=== PATIENT | male | born 1955 | race Caucasian/White ===

== ENCOUNTER 2024-09-30 14:05 | Outpatient (AMB) | payer MEDICARE, SELFPAY ==
--- NOTE | 2024-09-30 14:13 | A.OFFPC_ITS ---
Vital Signs 09/30/24 14:30 Height 5 ft 9 in Weight 196 lb BMI 28.9 BP 138/68 Blood Pressure Location Rt brachial Respiration 14 Pulse 65 Pulse Source Pulse Oximeter Pulse Oximetry (%) 97 Oxygen Delivery Method Room Air Intake Visit Reasons: EST CARE/ UROLOGIST REFERRAL Intake Note: new patient to establish care and patient also needs a referral for urologist for catheter change. 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: No Allergies No Known Allergies Allergy (Verified 09/30/24 14:14) Tobacco use date assessed: 09/30/24 Fall risk assessment: No Falls in past year Last assessed Fall Risk: 09/30/24 Dental Screening Dental Screen Date: 09/30/24 Did you have a dental visit in the last 12 months?: No Did you have a dental problem in the last 6 months where you did not have access to dental care?: No Was dental information given to patient?: Patient has dentist HPI HPI Comments History of Present Illness Details 69-year-old male with a past medical his tory of hypertension, COPD, hyperlipidemia, osteoarthritis colon cancer, amputation of the right middle finger and presents as a new patient to request a referral. His primary care provider here will be Dr. March. He relocated to this area from [facility] 3-[place]2 weeks ago. He is still following with his providers there. No medical records available to review today. He requests a referral to Urology in [place]. He has a suprapubic catheter. Patient reports he developed bladder incontinence following complications from cervical spine surgery in 2019. He developed an embolus after surgery and was hospitalized for weeks. 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 He has an appointment with his urologist at [facility] tomorrow. COPD-he takes Symbicort 160-4.52 puffs twice daily. Patient developed cough a little over a week ago. He says this is typical for him around this time of the year. He has some white and clear mucus production. No wheezing or shortness of breath. Patient reports his primary care provider typically treats him with steroids and antibiotics. He does not have a rescue inhaler. Patient says he is vaccinated for influenza, COVID, pneumonia and RSV. Osteoarthritis-patient states he is followed by [facility] for osteoarthritis in his neck and he has been on prednisone for the last year. He started with 10 mg and tapered down to 7 mg once daily. 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 ROS: Constitutional: No unexplained weight loss, fever, chills, fatigue or night sweats. ENT: No ear pain, sinus congestion, postnasal drip or sore throat Respiratory: No shortness of breath, wheezing or hemoptysis. See HPI Cardiovascular: No chest pain, chest pressure or chest discomfort. No palpitations or pedal edema. Neurologic: No headache, dizziness, syncope Physical exam: Constitutional: Alert, in no distress. Ear, Nose and Throat: Canals clear. TMs normal. Normal nasal mucosa. No nasal discharge. No oral lesions. Neck: Supple, Full range of motion. No lymphadenopathy. Respiratory: Clear to auscultation. Cardiovascular: S1 S2 regular. No murmurs. Extremities: Warm and well perfused. No clubbing, cyanosis or edema Psychiatric: Normal mood and affect [facility] Medical History (Updated 09/30/24 @ 15:50 by RICCARDO Levine) Pure hypercholesterolemia Essential hypertension Suprapubic catheter COPD exacerbation Osteoarthritis of cervical spine Neurogenic urinary bladder disorder Benitez catheter present Colon cancer Hypertension Amputation of right middle finger Surgical History (Updated 09/30/24 @ 14:30 by Blanca Messina MA) H/O neck surgery History of partial surgical removal of colon Previous back surgery Family History Mother High cholesterol Hypertension Brother Colon cancer Father Cardiovascular disease Social History (Updated 09/30/24 @ 14:24 by Blanca Messina MA) Household Members: Spouse Both parents involved: No Caregiver staying overnight: No Housing: House Are you a primary urgent care physician to a significant other at home: No Do you presently have visiting nurse or other home services: No 75 years or older and lives alone: No Alcohol intake: never Patient Tobacco Use Status: Former Tobacco user Tobacco use type: Cigarette Cigarette Packs Per Day: 2 Cigarettes Per Day: 20 Years Smoked: 50 e-Cigarette/Vaping Use: Never Used Second Hand Smoke Exposure: No service: No Current occupational status: retired Cognitive needs: No Hearing needs: Yes (hearing aid) Vision needs: No Questionnaire PHQ-9 Over the last 2 weeks, how often have you been bothered by any of the following problems? 99406 - PHQ-9 Billing: Patient declined-do not bill Source: Developed by Drs. Lane Robin, Mónica England, Thiago Stringer and colleagues, with an educational sanjay from [employer]. Thrive Questionnaire Date Thrive assessed: 09/30/24 I am a: Patient What is your living situation today?: I have a steady place to live Within the past 12 months, did the food you bought not last and you didn't have the money to get more?: Never true Within the past 12 months, did you worry whether your food would run out before you got money to buy more?: Never true Do you have trouble paying for medicines?: No Do you have trouble getting transportation to medical appointments?: No Do you have trouble paying your heating and electricity bill?: No Do you have trouble taking care of your child, family member or friend?: No Do you have trouble with day-to-day activities such as bathing, preparing meals, shopping, managing finances, etc.?: No Are you currently unemployed and looking for a job?: No Are you interested in more education?: No THRIVE Score: 0 AUDIT C Alcohol Use Questionnaire (AUDIT-C) 1. How often do you have a drink containing alcohol?: Never 3. How often do you have six or more drinks on one occasion?: Never Total Score: 0 DIANN-7 AMB Questionnaire DIANN-7 Date DIANN - 7 assessed: 09/30/24 Feeling nervous, anxious, or on edge: 0 = Not at all Not being able to stop or control worryin = Not at all Worrying too much about different things: 0 = Not at all Trouble relaxin = Not at all Being so restless that it is hard to sit still: 0 = Not at all Becoming easily annoyed or irritable: 0 = Not at all Feeling afraid as if something awful might happen: 0 = Not at all Total DIANN-7 score (0-4 normal; 5-9 mild; 10-14 moderate; 15-21 severe): 0 Source: Developed by Móinca Shah Kurt Kroenke and colleagues, with an educational sanjay from [employer]. DIANN-7 Assessment Billing DIANN-7 Assessment Tool: DIANN-7 Assessment 85278 Physical exam (Primary Care) Vital Signs: Last Vital Signs Pulse 65 09/30/24 14:30 Resp 14 09/30/24 14:30 BP 138/68 09/30/24 14:30 Pulse Ox 97 09/30/24 14:30 Oxygen Delivery Method Room Air 09/30/24 14:30 BMI result Body Mass Index 28.9 Tobacco/Smoking Status: Tobacco use Status Tobacco use date assessed 09/30/24 09/30/24 14:16 Patient Tobacco Use Status Former Tobacco user 09/30/24 14:32 Tobacco use type Cigarette 09/30/24 14:32 e-Cigarette/Vaping Use Never Used 09/30/24 14:32 Thrive Assessment: Date of Thrive Assessment Date Thrive assessed 09/30/24 09/30/24 14:16 Coding Level of Care Code New Pt Level 4 (20790) Complex EM visit Add On G2211 Diagnoses COPD exacerbation J44.1 Neurogenic urinary bladder disorder N31.9 Additional Codes DIANN-7 Assessment Billing - DIANN-7 Assessment Tool: DIANN-7 Assessment 29653 ([id number]) Assessment & Plan Assessment & Plan (1) COPD exacerbation: Code(s): J44.1 - Chronic obstructive pulmonary disease with (acute) exacerbation Category: Medical Plan: Treat with Z-David and prednisone taper. Side effects and administration of medications reviewed. Continue Symbicort. Take albuterol 2 puffs every 4 hours as needed for cough, wheezing and shortness of breath. Warning signs warranting re-evaluation and ED evaluation reviewed with the patient. (2) Neurogenic urinary bladder disorder: Code(s): N31.9 - Neuromuscular dysfunction of bladder, unspecified Category: Medical Plan: Patient has a follow up with his urologist tomorrow, and I referred him to Ur ology at [facility]. Plan Patient will set up appointment to establish care with his PCP, Dr. March. Records transfer pending. Orders: Referrals Urology Referral N31.9 - Neuromuscular dysfunction of bladder, unspecified Medications: New albuterol sulfate 90 mcg/actuation (Ventolin HFA) 2 puffs inhalation Q4-6H PRN 8.5 grams 0RF shortness of breath or wheezing azithromycin For 250 mg dose pack: take 500 mg today (day 1), then 250 mg for 4 days (days 2-5) PO 6 tabs 0RF prednisone orally daily; Take 3 tabs po qam x 3 days, then take 2 tabs po qam x 3 days, then take 1 tab po qam x 3 days 18 tabs 0RF
[2024-09-30 14:30] VITALS: BP 138/68; PULSE 65; RESP 14; O2SAT 97; BMI 28.9
== END 2024-09-30 15:17 | disposition home or self-care (01) ==
PROVIDERS: Visit Provider Physician Assistant Medical
DX: J44.1 Chronic obstructive pulmonary disease with (acute) exacerbation (principal); N31.9 Neuromuscular dysfunction of bladder, unspecified

== ENCOUNTER → 2024-09-30 14:05 | Outpatient (BNVA) | payer MEDICARE, SELFPAY | PROVIDERS: Visit Provider Physician Assistant Medical | DX: J44.1 Chronic obstructive pulmonary disease with (acute) exacerbation (principal); N31.9 Neuromuscular dysfunction of bladder, unspecified; I10 Essential (primary) hypertension; M19.90 Unspecified osteoarthritis, unspecified site; Z85.038 Personal history of other malignant neoplasm of large intestine; Z79.52 Long term (current) use of systemic steroids; Z93.50 Unspecified cystostomy status | CPT/HCPCS: 96127; 99202 ==

== ENCOUNTER 2024-10-18 08:42 | Outpatient (REF) | payer MEDICARE, SELFPAY ==
--- NOTE | ~2024-10-18 | XR_ITS ---
EXAMINATION: XR CHEST CLINICAL INFORMATION: J44.1 - Chronic obstructive pulmonary disease with (acute) exacerbation COMPARISON: None available. TECHNIQUE: 2 views of the chest were obtained. FINDINGS: The lungs are hyperinflated but clear acute process. The heart size and pulmonary vascularity is normal. There is mild spondylosis dorsal spine. No lytic or sclerotic process seen. There are spinal electrodes in mid thoracic spine. XR/XR chest 2V IMPRESSION: Hyperinflated lungs but no acute process seen. Electronically signed by: Pal Florez MD 10/18/2024 09:09 AM OLIVIER
== END 2024-10-18 08:43 | disposition home or self-care (01) ==
LOC: HO.HMGCX 08:42
PROVIDERS: PCP Internal Medicine; Visit Provider Physician Assistant Medical
DX: J44.1 Chronic obstructive pulmonary disease with (acute) exacerbation (principal)
CPT/HCPCS: 71046

== ENCOUNTER → 2024-10-18 08:47 | Outpatient (BNV) | payer MEDICARE, SELFPAY | PROVIDERS: PCP Internal Medicine; Visit Provider Radiology Diagnostic Radiology | DX: J44.1 Chronic obstructive pulmonary disease with (acute) exacerbation (principal) | CPT/HCPCS: 71046 ==

== ENCOUNTER 2024-10-26 09:58 | Outpatient (AMB) | payer MEDICARE, SELFPAY ==
--- NOTE | 2024-10-26 10:12 | MHC.PC.OV ---
Vital Signs 10/26/24 10:22 Height 5 ft 9 in Weight 193 lb 2 oz BMI 28.5 BP 118/64 Blood Pressure Location Rt brachial Position Sitting Pulse 70 Pulse Source Pulse Oximeter Temp 98.2 F Temp Source Oral Pulse Oximetry (%) 94 Oxygen Delivery Method Room Air Intake Visit Reasons: going over xrays Intake Note: Xray results. Saw Lori Siddiqui for new patient visit, wants Dr Holm. 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 Had developed a cough at the end of september. Had xray which we reviewed today. this had no acute changes. He says this is typical for him around this time of the year. He generally has required two rounds of steroids and antibiotics before improvement. He has some white and clear mucus production. No wheezing or shortness of breath. He does not have a rescue inhaler. Patient says he is vaccinated for influenza, COVID, pneumonia and RSV. Osteoarthritis-patient states he is followed by [facility] for osteoarthritis in his neck and he has been on prednisone for the last year. He started with 10 mg and tapered down to 7 mg once daily. 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 Urologic: referred to urology. He has a suprapubic catheter. Patient reports he developed bladder incontinence following complications from cervical spine surgery in 2019. He developed an embolus after surgery and was hospitalized for weeks. 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 He has an appointment with his urologist at [facility] tomorrow. ROS CONSTITUTIONAL: Denies weight loss, fever and chills. HEENT: Denies changes in vision and hearing. RESPIRATORY: Denies SOB and cough. CV: Denies palpitations and CP GI: Denies abdominal pain, nausea, vomiting and diarrhea. : Denies dysuria and urinary frequency. MSK: Denies new myalgia and joint pain. SKIN: Denies rash and pruritus. NEUROLOGICAL: Denies headache PSYCHIATRIC: Denies recent changes in mood. PHYSICAL EXAM: GENERAL: Alert and oriented x 3. NAD EYES: EOMI. Anicteric. HENT: Moist mucous membranes. No scleral icterus. No cervical lymphadenopathy. LUNGS: Clear to auscultation bilaterally. CARDIOVASCULAR: Regular rate and rhythm. No murmur. No JVD. ABDOMEN: Soft, non-tender +bs EXTREMITIES: No edema. Non-tender. SKIN: No rashes or lesions. Warm. NEUROLOGIC: No focal neurological deficits. CN II-XII grossly intact PSYCHIATRIC: Cooperative. Appropriate mood and affect [facility] Medical History (Updated 11/08/24 @ 06:51 by Joy Holm MD) Pure hypercholesterolemia Essential hypertension Suprapubic catheter COPD exacerbation Osteoarthritis of cervical spine Neurogenic urinary bladder disorder Benitez catheter present Colon cancer Hypertension Amputation of right middle finger Surgical History H/O neck surgery History of partial surgical removal of colon Previous back surgery Family History Mother High cholesterol Hypertension Brother Colon cancer Father Cardiovascular disease Social History (Updated 10/26/24 @ 10:27 by Gayla Escalante CMA) Household Members: Spouse Both parents involved: No Caregiver staying overnight: No Housing: House Are you a primary senior resident care director to a significant other at home: No Do you presently have visiting nurse or other home services: No 75 years or older and lives alone: No Alcohol intake: never Patient Tobacco Use Status: Former Tobacco user Tobacco use type: Cigarette Cigarette Packs Per Day: 2 Cigarettes Per Day: 20 Years Smoked: 50 e-Cigarette/Vaping Use: Never Used Second Hand Smoke Exposure: No service: No Current occupational status: retired Cognitive needs: No Hearing needs: Yes (hearing aid) Vision needs: No Questionnaire Thrive Questionnaire Date Thrive assessed: 09/30/24 DIANN-7 AMB Questionnaire DIANN-7 Date DIANN - 7 assessed: 09/30/24 Source: Developed by Drs. Lane Robin, Mnóica England, Thiago Stringer and colleagues, with an educational sanjay from [employer]. Physical exam (Primary Care) Vital Signs: Last Vital Signs Temp 98.2 F 10/26/24 10:22 Pulse 70 10/26/24 10:22 BP 118/64 10/26/24 10:22 Pulse Ox 94 10/26/24 10:22 Oxygen Delivery Method Room Air 10/26/24 10:22 BMI result Body Mass Index 28.5 Tobacco/Smoking Status: Tobacco use Status Tobacco use date assessed 09/30/24 10/26/24 10:14 Patient Tobacco Use Status Former Tobacco user 10/26/24 10:27 Tobacco use type Cigarette 10/26/24 10:27 e-Cigarette/Vaping Use Never Used 10/26/24 10:27 Thrive Assessment: Date of Thrive Assessment Date Thrive assessed 09/30/24 10/26/24 10:14 Coding Level of Care Code Est Pt Level 4 (83845) Diagnoses Chronic obstructive pulmonary disease with acute exacerbation J44.1 COPD type: COPD with acute exacerbation Essential hypertension I10 Assessment & Plan Assessment & Plan (1) COPD (chronic obstructive pulmonary disease): Code(s): J44.9 - Chronic obstructive pulmonary disease, unspecified Category: Medical Qualifiers: COPD type: COPD with acute exacerbation Qualified Code(s): J44.1 - Chronic obstructive pulmonary disease with (acute) exacerbation Plan: Repeat round of steroids, antibiotics (2) Essential hypertension: Code(s): I10 - Essential (primary) hypertension Category: Medical Plan: stable on medications Medications: New azithromycin For 250 mg dose pack: take 500 mg today (day 1), then 250 mg for 4 days (days 2-5) PO 6 tabs 0RF Changed From prednisone orally daily; 60mg for 6 days, 40mg for 6 days, 20mg for 6 days, and 10mg for 6 days 39 tabs 0RF To prednisone orally daily; 60mg for 6 days, 40mg for 6 days, 20mg for 6 days, and 10mg for 6 days 39 tabs 0RF From gabapentin 600 mg PO DAILY To gabapentin 600 mg PO BID 360 tabs 3RF 90 days
[2024-10-26 10:22] VITALS: BP 118/64; PULSE 70; TEMP 36.8; O2SAT 94; BMI 28.5
== END 2024-10-26 10:46 | disposition home or self-care (01) ==
PROVIDERS: PCP Internal Medicine; Visit Provider Internal Medicine
DX: J44.1 Chronic obstructive pulmonary disease with (acute) exacerbation (principal); I10 Essential (primary) hypertension

== ENCOUNTER → 2024-10-26 09:58 | Outpatient (BNVA) | payer MEDICARE, SELFPAY | PROVIDERS: PCP Internal Medicine; Visit Provider Internal Medicine | DX: J44.1 Chronic obstructive pulmonary disease with (acute) exacerbation (principal); I10 Essential (primary) hypertension; E78.5 Hyperlipidemia, unspecified; R32 Unspecified urinary incontinence; Z96.0 Presence of urogenital implants; Z79.899 Other long term (current) drug therapy | CPT/HCPCS: 99212 ==

== ENCOUNTER 2024-11-09 09:56 | Outpatient (REF) | payer MEDICARE, SELFPAY ==
--- OUTSIDE RECORDS SUMMARY | 2024-11-09 14:15 | XMS_ITS | Encounter Summary ---
Author Organization [facility] Address [address] [place] [address] Care Team Providers Care Cellular Biologist Name Role Phone Tesha Pierce MD, Kristen Primary Care Provider + Reason for Visit * Consultation (Routine) - Authorized Specialty Diagnoses / Procedures Referred By Contac t Referred To Contact Urology Diagnoses 6 month follow up Procedures FOLLOW UP Kristen Parkinson MD [address] [place] [id number] Phone: tel: fax: Mara Tellez MD PhD [address] [place] [address] Phone: tel: fax: Referral ID Status Reason Start Date Expiration Date V isits Requested Visits Authorized [id number] Authorized 06/16/2023 12/15/2024 6 6 Encounter Details Date Type Department Care Team (Latest Contact Info) Description 10/15/2024 11:00 AM EST Clinical Support [facility] [address] [place] [address] Pipe Coremaker: Nilam Blair LPN Suprapubic catheter (CMS/HCC) (HCC) (Primary Dx) Social History Tobacco Use Types Packs/Day Years Used Date Smoking Tobacco: Former Cigarettes 1.5 55 1 10/06/1963 - 08/06/2019 Passive Smoke Exposure: Past Smokeless Tobacco: Never Comments:quit 08/2019 Alcohol Use Standard Drinks/Week Comments Not Currently 0 (1 standard drink = 0.6 oz pur e alcohol) [facility] Utilities Answer Date Recorded In the [...] 2 weeks for cath exchange Supplies: HC 397869 Catheter Hurt Bard 16 Fr 5 cc HC 795135 Bard Catheter Tray HC 433338 Bag Security Contoured LAEG 600 ml Juan Rubin : 1955 CSN: [id number] documented in this encounter Plan of Treatment Upcoming Encounters Date Type Department Care Team (Late st Contact Info) Description 01/13/2025 11:30 AM EDT Follow-Up [facility] [address] [place] [id number] Pipe Coremaker: aPul Leger MD [address] [place] [address] documented as of this encounter Procedures * Due to [place] law, this organization might not be sharing negative HIV tests. Procedure Name Priority Date/Time Associated Diagnosis Comments HC 713879 BAG SECURITY CONTOURED LAEG 600ML Routine 10/15/2024 11:00 AM EST Suprapubic catheter (CMS/HCC) (HCC) HC 181435 BARD CATHETER TRAY Routine 10/15/2024 11:00 AM EST Suprapubic catheter (CMS/HCC) (HCC) HC [id number] CATHETER HURT BARD 16 FR 5 CC Routine 10/15/2024 11:00 AM EST Suprapubic catheter (CMS/HCC) (HCC) HC INSERTION OF TEMPORARY INDWELLING BLADDER CATHETER SIMPLE Routine 10/15/2024 11:00 AM EST Suprapubic catheter (CMS/HCC) (HCC) documented in this encounter Results * Due to [place] law, this organization might not be sharing negative HIV tests. * HC INSERTION OF TEMPORARY INDWELLING BLADDER CATHETER SIMPLE, HC 678145 CATHETER HURT BARD 16 FR 5CC, HC 959574 BARD CATHETER TRAY, HC 736402 BAG SECURITY CONTOURED LAEG 600ML (10/15/2024 11:00 [...] 2 weeks for cath exchange Supplies: HC 153050 Catheter Hurt Bard 16 Fr 5 cc HC 128655 Bard Catheter Tray HC 827103 Bag Security Contoured LAEG 600 ml us Mara Tellez MD PhD UROLOGY ORDERABL ES Final Result documented in this encounter Visit Diagnoses Diagnosis Suprapubic catheter (CMS/HCC) (HCC)- Primary Other cystostomy status documented in this encounter Additional Health Concerns Infection Onset Date Last Indicated 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
--- OUTSIDE RECORDS SUMMARY | 2024-11-09 14:15 | XMS_ITS | Clinical Summary ---
Author Organization [facility] Address [address] [place] [address] Care Team Providers Care Bakery Helper Name Role Phone Unavailable Primary Care Provider [...] bandageIndicat ions:Neurogeni c bladder, flaccid,Suprap ubic catheter ([facility]) ([facility]) Patient requires supplies for daily care/maintenance to SPT site. 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 Uses 1 sterile 4x4 daily to clean SPT site. Ref. # MedLine Sponges, 10 per Box: [id number] 30 each 023 Active urinary bag misc [...] outpatient he had recently started on trospium BOOKY. Given potential for this to have contributed [...] S/P cervical spinal fusion 01/17/2021 Suprapubic catheter ([facility]) 01/17/2021 Retention of urine 08/10/2020 S/P lumbar [...] supplements MD Juan Martinez : 1955 CSN: [id number] Hyperglycemia 08/18/2019 Overview (08/18/2019): Due to steroids, [...] the AM for any further recs. Plan: -[place] 5-10mg PO q6 hours PRN pain -NS [...] gerardo bowel movement in approximately 2 weeks BOOKY since a prior prep for colonoscopy in [...] Type Department Care Team Description 10/27/2024 Telephone [facility] [address] [phone] Multimedia Educational Specialist: Mara Castañeda MD PhD 10/15/2024 11:00 AM EST Clinical Support [facility] [address] [address] Multimedia Educational Specialist: Nilam Blair LPN Suprapubic catheter (CMS/HCC) (HCC) (Primary Dx) 10/12/2024 Refill [facility] Medicine [address] [place] [phone] Kristen Parkinson MD Neuropathic pain 10/01/2024 3:00 PM EST Clinical Support [facility] [address] [address] Multimedia Educational Specialist: Payam De Leon LPN Suprapubic catheter (CMS/HCC) (HCC) (Primary Dx) 09/06/2024 Telephone [facility] [address] [place] [phone] Kristen Parkinson MD Med Refill 09/03/2024 Refill [facility] [address] [place] [phone] Kristen Parkinson MD Neuropathic pain 08/31/2024 9:30 AM EST Clinical Support [facility] [address] [place] [address] Multimedia Educational Specialist: Bobbi Bolanos LPN Neurogenic bladder, flaccid (Primary Dx) 08/19/2024 9:30 AM EST Follow-Up [facility] [address] [place] [address] Multimedia Educational Specialist: Paul Leger MD Polymyalgia rheumatica (CMS/HCC) (HCC) (Primary Dx) 08/19/2024 Telephone [facility] [address] [place] [phone] Multimedia Educational Specialist: Rossy Gongora Telephone Intake, Staff PAC Rx Questions; Dr Franklin 08/16/2024 Refill [facility] [address] [place] [phone] Kristen Parkinson MD 08/16/2024 Refill [facility] [address] [place] [phone] Eleno Magana MD 08/13/2024 2:30 PM EST Clinical Support [facility] [address] [place] [address] Multimedia Educational Specialist: Bobbi Bolanos LPN Benign prostatic hyperplasia with urinary retention (Primary Dx) 08/11/2024 Refill [facility] [address] [place] [phone] Kristen Parkinson MD Neuropathic pain from Last [...] 08/07/2019,06/09/2018,08/21/2017 Influenza, Trivalent, MDV, Injectable ,07/02/2013,07/20/2012,08/08,07/27/2009,08/30/2008,09/02/2007 Novel [id number], Preservative-Free, Injectable 09/27/2009 Pneumococcal Conjugate Vacci ne, 13 Valent 03/07/2015 Pneumococcal Polysaccharide Vaccine, 23 Valent 07/31/2020,08/30/2008 Pneumococcal conjugate PCV20,polysaccharide [id number] conjugate, adjuvant, PF (Prevnar 20) 06/05/2023 RSV, [...] = 0.6 oz pur e alcohol) [facility] Utilities Answer Date Recorded In the [...] Info) Description 01/13/2025 11:30 AM EDT Follow-Up [facility] [address] [place] [address] Multimedia Educational Specialist: Paul Leger MD [address] [place] [address] Health Maintenance Due Date Last Done Comments [...] Vaccines Discontinued Medical Devices Implanted Type Area Professor In Family Studies Device Identifier Shelf Expiration Date Model / Serial / Lot Mau Thoracolumbar 3.8fih64ss Altaf - [id number] Implanted:Qty: 2 on 08/06/2019 by Dianne De MD at [facility] Implant Spine Cervical DEPUY 1883-16- 060 / / Connector Spinal Cross Thoracolumbar Head To Head Titanium 35mm Mountaineer - [id number] Implanted:Qty: 1 on 08/06/2019 by Dianne De MD at [facility] Implant Spine Cervical DEPUY 1883-41- 035 / / Nut Spinal Outer Connector Cross Head To Head Titanium Mountaineer - [id number] Implanted:Qty: 2 on 08/06/2019 by Dianne De MD at [facility] Implant Spine Cervical DEPUY 1883-41- 200 / / Nut Spinal Outer Connector Cross Head To Head Titanium Mountaineer - [id number] Implanted:Qty: 2 on 08/06/2019 by Dianne De MD at [facility] Implant Spine Cervical DEPUY 1883-41- 100 / / Screw Thoracic Favored Angle Titanium 3.4zli49hb Mountaineer - [id number] Implanted:Qty: 7 on 08/06/2019 by Dianne De MD at [facility] Screw Spine Cervical DEPUY 1883-18- 312 / / Screw Thoracic Favored Angle Titanium 3.5cbb44uu Mountaineer - [id number] Implanted:Qty: 1 on 08/06/2019 by Dianne De MD at [facility] Screw Spine Cervical DEPUY 1883-18- 316 / / Screw Thoracic Inner Mountaineer - [id number] Implanted:Qty: 6 on 08/06/2019 by Dianne De MD at [facility] Screw Spine Cervical DEPUY 1883-42- 200 / / Putty Demineralized Bone Matrix 10cc Dbx - [id number] - [id number] Implanted:Qty: 1 on 08/06/2019 by Dianne De MD at [facility] Tissue Spine Cervical MUSCULOSKELETAL TRANSPLANT FND 04/27/2021 [id number] / [id number] / Ic Graft Chamber Dbm 10cc - [id number] - [id number] Implanted:Qty: 1 on 04/28/2020 by Dianne De MD at [facility] Tissue Spine Lumbar LIFENET 11/14/2022 [id number] / [id number] / [id number] Description:Demineralized yany ne matrix and cancellous chips reconstituted with pts. blood Ic Graft Chamber [facility] 10cc - [id number] - [id number] Implanted:Qty: 1 on 04/28/2020 by Dianne De MD at [facility] Tissue Spine Lumbar LIFENET 11/14/2022 [id number] / [id number] / [id number] Description:Demineralized yany ne matrix and cancellous chips reconstituted with pts. blood Procedures * Due to [place] state law, this organization might not be sharing negative HIV tests. Procedure Name Priority Date/Time Associated Diagnosis Comments HC 319901 BAG SECURITY CONTOURED LAEG 600ML Routine 10/15/2024 11:00 AM EST Suprapubic catheter (CMS/HCC) (HCC) HC 190328 BARD CATHETER TRAY Routine 10/15/2024 11:00 AM EST Suprapubic catheter (CMS/HCC) (HCC) HC 330959 CATHETER HURT BARD 16 FR 5 CC Routine 10/15/2024 11:00 AM EST Suprapubic catheter (CMS/HCC) (HCC) HC INSERTION OF TEMPORARY INDWELLING BLADDER CATHETER SIMPLE Routine 10/15/2024 11:00 AM EST Suprapubic catheter (CMS/HCC) (HCC) 706390 BAG SECURITY CONTOURED LAEG 600ML Routine 10/01/2024 3:00 PM EST Suprapubic catheter (CMS/HCC) (HCC) HC 340821 BARD CATHETER TRAY Routine 10/01/2024 3:00 PM EST Suprapubic catheter (CMS/HCC) (HCC) HC INSERTION OF TEMPORARY INDWELLING BLADDER CATHETER SIMPLE Routine 10/01/2024 3:00 PM EST Suprapubic catheter (CMS/HCC) (HCC) C-REACTIVE PROTEIN Routine 10/01/2024 12 :15 PM EST Polymyalgia rheumatica (CMS/HCC) (HCC) SEDIMENTATION RATE, AUTOMATED Routine 10/01/2024 12:15 PM EST Polymyalgia rheumatica (CMS/HCC) (HCC) HC 248022 BARD CATHETER TRAY Routine 08/31/2024 9:30 AM EST Neurogenic bladder, flaccid HC 084438 CATHETER HURT BARD 16 FR 5 CC Routine 08/31/2024 9:30 AM EST Neurogenic bladder, flaccid HC INSERTION OF TEMPORARY INDWELLING BLADDER CATHETER SIMPLE Routine 08/31/2024 9:30 AM EST Neurogenic bladder, flaccid HC 525050 BAG SECURITY CONTOURED LAEG 600ML Routine 08/13/2024 2:30 PM EST Benign prostatic hyperplasia with urinary retention HC 946632 BARD CATHETER TRAY Routine 08/13/2024 2:30 PM EST Benign prostatic hyperplasia with urinary retention HC 058997 CATHETER HURT BARD 16 FR 5 CC [...] to Health Maintenance Results * Due to [place] state law, this organization might not be sharing negative HIV tests. * HC INSERTION OF TEMPORARY INDWELLING BLADDER CATHETER SIMPLE, HC 915183 CATHETER HURT BARD 16 FR 5CC, HC 912631 BARD CATHETER TRAY, HC 227706 BAG SECURITY CONTOURED LAEG 600ML (10/15/2024 11:00 [...] 2 weeks for cath exchange Supplies: HC 070457 Catheter Hurt Bard 16 Fr 5 cc HC 387972 Bard Catheter Tray HC 821884 Bag Security Contoured LAEG 600 ml us Mara Tellez MD PhD UROLOGY ORDERABL ES Final Result * HC INSERTION OF TEMPORARY INDWELLING BLADDER CATHETER SIMPLE, HC 511365 BARD CATHETER TRAY, HC 317574 BAG SECURITY CONTOURED LAEG 600ML (10/01/2024 3:00 [...] well with no immediate complications Supplies: HC 910201 Bard Catheter Tray HC 827181 Bag Security Contoured LAEG 600 ml us Mara Tellez MD PhD UROLOGY ORDERABL ES Final Result * (ABNORMAL) Sedimentation Rate (10/01/2024 12:15 PM EST) [facility] Sed Rate 29(H) <20 mm/Hr mm/Hr 10/01/2024 12:49 PM EST [facility] Blood Structure of peripheral vein / Unknown Venipuncture / Unknown 10/01/2024 12:15 PM EST 10/01/2024 12:43 PM EST us Iva Perez MD LAB BLOOD ORDERABLES Final Resul t [facility] [address] [place] [address], * C-Reactive Protein (10/01/2024 12:15 PM EST) Pathologist [facility] C Reactive Protein <3.0 <=9.9 mg/L 10/01/2024 1:09 PM EST [facility] Blood Structure of peripheral vein / Unknown Venipuncture / Unknown 10/01/2024 12:15 PM EST 10/01/2024 12:43 PM EST us Iva Perez MD LAB BLOOD ORDERABLES Final Resul t [facility] [address] [place] [address], * HC INSERTION OF TEMPORARY INDWELLING BLADDER CATHETER SIMPLE, HC 464411 CATHETER HURT BARD 16 FR 5CC, HC 830266 BARD CATHETER TRAY (08/31/2024 9:30 AM EST) [...] well with no immediate complications Supplies: HC 355890 Catheter Hurt Bard 16 Fr 5 cc HC 586162 Bard Catheter Tray us Mara Tellez MD PhD UROLOGY ORDERABL ES Final Result * HC INSERTION OF TEMPORARY INDWELLING BLADDER CATHETER SIMPLE, 397165 CATHETER HURT BARD 16 FR 5CC, 238066 BARD CATHETER TRAY, 460294 BAG SECURITY CONTOURED LAEG 600ML (08/13/2024 2:30 [...] procedure well with no immediate complications Supplies: 878214 Catheter Hurt Bard 16 Fr 5 cc HC 672337 Bard Catheter Tray 316193 Bag Security Contoured LAEG 600 ml us Mara Tellez MD PhD UROLOGY ORDERABL ES Final Result * (ABNORMAL) BMP - Basic Metabolic Panel (06/21/2024 6:40 AM EDT) NA 140 135 - 145 mmol/L 06/21/2024 7:17 AM EDT [facility] K 4.0 3.5 - 5.3 mmol/L 06/21/2024 7:17 AM EDT [facility] Cl 104 98 - 107 mmol/L 06/21/2024 7:17 AM EDT [facility] CO2 24 24 - 32 mmol/L 06/21/2024 7:17 AM EDT [facility] BUN 15 7 - 23 mg/dL 06/21/2024 7:17 AM T [facility] Creatinine 0.74 0.60 - 1.30 mg/dL 06/21/2024 7:17 AM EDT [facility] Glucose 116(H) 65 - 99 mg/dL 06/21/2024 7:17 AM EDT [facility] Calcium 9.7 8.6 - 10.5 mg/dL 06/21/2024 7:17 AM T [facility] Anion Gap 12 5 - 15 06/21/2024 7:17 AM T [facility] eGFR >90 >=60 mL/min/1. 73m2 06/21/2024 7:17 AM EDT [facility] Comment:The estimated glomer ular [...] Kauffman MD LAB BLOOD ORDERABLES Final Result [facility] [address] [place] [address], [place] * COLONOSCOPY (05/20/2024) Narrative Procedure Note Justo El MD PhD - 05/20/2024 9:25 AM EDT [facility] Gastroenterology Patient Name: Juan Rubin Procedure Date: 05/20/2024 9:25 AM Date of : 1955 Admit Type: Outpatient Age: 69 Room: [place] [address] Gender: Male Note Status: Finalized Attending MD: [...] obtain the completed interpretation. ? Workstation ID: [id number] Up-to-date CT equipment and radiation dose reduction [...] evidence for recurrent hernia. Resulting Agency Comment [id number] Procedure Note Iain Jain MD - 01/18/2023 [...] possible to obtain thecompleted interpretation. Workstation ID: [id number] Up-to-date CT equipment and radiation dose reduction techniques wereemployed. CTDIvol: 15.5 mGy. DLP: 698 mGy-cm. Agapito Rowe MD IMG CT PROCEDURES Final Resu lt * Hepatitis C Antibody w/Reflex to HCV RNA, Quantitative PCR (08/25/2019 3:15 PM EST) Hepatitis C Antibody NON-REACT YENNI NON-REACT YENNI 08/26/2019 1:11 AM EST Workface Signal To Cut-Off 0.01 <1.00 08/26/2019 1:11 AM EST Workface Comment: HCV antibody was non-reactive. There is no laboratory evidence of HCV infection. In most cases, no further action is required. However, if recent HCV exposure is suspected, a test for HCV RNA (test code 82531) is suggested. For additional information please refer to http://education.Rupeetalk/faq/OJH25y7 (This link is being provided for informational/ educational purposes only.) Blood specimen (specimen) Structure of peripheral vein / Unknown Venipuncture / Unknown 08/25/2019 3:15 PM EST 08/25/2019 3:20 PM EST Narrative [facility] - 08/26/2019 1:11 AM EST [facility] Received Date: Antoinette Cast MD LAB BLOOD ORDERABLES Final Re sult [facility]THA JORD[facility] [address], [address] [facility] [place] [address], [place] [phone] [email or web address] [facility] [address], [address] [place] [address], [place] [phone] * CT Chest WO Contrast (06/17/2018 12:12 [...] or willingness to have curative lung surgery [id number] Up-to-date CT equipment and radiation dose reduction techniques were employed. CTDIvol: 5.6 - 16.0 mGy. DLP: 541 mGy-cm.The following accession numbers are related to this dose report [id number] Narrative 06/20/2018 1:28 PM EDT EXAMINATION: CT [...] cancer screening guidelines, please refer to:[email or web address]/Page/Document/[email or web address] Adults Aged 55-77, with a History of [...] or willingness to have curative lung surgery [id number] Up-to-date CT equipment and radiation dose reduction techniques wereemployed. CTDIvol: 5.6 - 16.0 mGy. 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
--- OUTSIDE RECORDS SUMMARY | 2024-11-09 14:15 | XMS_ITS | Encounter Summary ---
Author Organization [facility] Address [address] [place] [address] Care Team Providers Care Consultant Luxury And Auto. Vice President [employer] (Ex ) Name Role Phone Tesha Pierce MD, [facility] Primary Care Provider + Encounter Details Date Type Department Care Team (Late st Contact Info) Description 04/29/2023 Borrohart Message [facility] Revenue Cycle Management [address] [place] [address] Mychart, Generic Provider [address] [place], [place] [phone] account dispute Social History Tobacco Use Types [...] Info) Description 01/13/2025 11:30 AM EDT Follow-Up [facility] [address] [place] [address] Engineer Booster And Exhauster: Paul Leger MD [address] [place] [address] documented as of this encounter Visit Diagnoses Not on filedocumented in this encounter Additional Health Concerns Infection Onset Date Last Indicated Resolved Time 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 Vice President [employer] (Ex ) Relationship Specialty Start Date End Date Kristen Parkinson MD [address] [place] [phone] PCP - General Internal Medicine 08/17/23 10/26/24 documented as of this encounter
--- OUTSIDE RECORDS SUMMARY | 2024-11-09 14:15 | XMS_ITS | Encounter Summary ---
Author Organization [facility] Address [address] [place] [address] Care Team Providers Care Workers Compensation Claims Examiner Name Role Phone Tesha Pierce MD, [facility] Primary Care Provider + Reason for Visit * Reason Onset Date Comments PAC Appt Request - New 02/28/2023 Encounter Details Date Type Department Care Team (Late st Contact Info) Description 02/28/2023 Telephone [facility] [address] [place] [phone] Telephone Intake, Staff PAC Appt Request - [...] 8:30 am Pt can be reached @ [phone] Thank you PAC documented in this encounter Plan of Treatment Upcoming Encounters Date Type Department Care Team (Late st Contact Info) Description 01/13/2025 11:30 AM EDT Follow-Up [facility] [address] [place] [address] Dry Chain Offbearer: Paul Leger MD [address] [place] [address] documented as of this encounter Visit Diagnoses Not on filedocumented in this encounter Additional Health Concerns Infection Onset Date Last Indicated Resolved Time 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
--- OUTSIDE RECORDS SUMMARY | 2024-11-09 14:15 | XMS_ITS | Encounter Summary ---
Author Organization [facility] Address [address] [place] [address] Care Team Providers Care Retrofit Installer Name Role Phone Tesha Pierce MD, [facility] Primary Care Provider + Encounter Details Date Type Department Care Team (Late st Contact Info) Description 02/26/2022 Orders Only [facility] Interventional Radiology [address] [place], [place] [phone] Reagan Mendoza NP [address] [place], [place] [phone] Social History Tobacco Use Types Packs/Day Years [...] of spinal canal ??? Colon cancer (CMS/HCC) ([facility]) age 49, s/p patial colectomy, no chemo or radiation ??? COPD (chronic obstructive pulmonary disease) ([facility]) no overnight hospitilizations, no intubations, symbicort BID, [...] right middle finger ??? HERNIA REPAIR ??? WV ALLOGRAFT FOR SPINE SURGERY ONLY MORSELIZED Bilateral 08/06/2019 Procedure: ALLOGRAFT, MORSELIZED, OR PLACEMENT OF OSTEOPROMOTIVE MATERIAL, FOR SPINE SURGERY ONLY; Surgeon: Dianne De MD; Location: [facility] [place]; Service: Neurosurgery ??? WV ARTHRODESIS POSTERIOR/POSTERIORLATERAL CERVICAL BELOW C2 Bilateral 08/06/2019 Procedure: FUSION, POSTERIOR OR POSTEROLATERAL, CERVICAL BELOW C2, SINGLE LEVEL; Surgeon: Dianne De MD; Location: [facility]; Service: Neurosurgery ??? WV ARTHRODESIS POSTERIOR/POSTEROLATERAL EA ADDL Bilateral 08/06/2019 Procedure: FUSION, POSTERIOR OR POSTEROLATERAL,??EACH ADDITIONAL SEGMENT; Surgeon: Dianne De MD; Location: [facility]; Service: Neurosurgery ??? WV ARTHRODESIS POSTERIOR/POSTEROLATERAL LUMBAR Bilateral 04/28/2020 Procedure: L2-L5 bilateral laminectomies with insitu fusion / possible bilateal facet screw instrumenation; Surgeon: Dianne De MD; Location: [facility]; Service: Neurosurgery ??? WV AUTOGRAFT SPINE SURGERY LOCAL FROM SAME INCISION Bilateral 08/06/2019 Procedure: AUTOGRAFT FOR SPINE SURGERY ONLY (INCLUDES HARVESTING THE GRAFT); LOCAL (EG, RIBS, SPINOUS PROCESS, OR LAMINAR FRAGMENTS) OBTAINED FROM SAME INCISION; Surgeon: Dianne De MD; Location: [facility]; Service: Neurosurgery ??? WV AUTOGRAFT SPINE SURGERY MORSELIZED SEP INCISION Bilateral 04/28/2020 Procedure: PLACEMENT OF AUTOGRAFT, SEPARATE INCISION, SPINE SURGERY; Surgeon: Dianne De MD;Location: [facility]; Service: Neurosurgery ??? WV EXCIS INTRASP LESN,XDURAL,CERVICAL N/A 08/10/2019 Procedure: evacuation of hematoma osterior cervical laminectomy sie ; Surgeon: Dianne De MD; Location: [facility]; Service: Neurosurgery ? ? W[place] I&D, POST SPINE, LUMB/SACR/LUMBOSAC N/A 05/01/2020 Procedure: INCISION AND DRAINAGE, DEEP ABSCESS LUMBAR AND/OR SACRAL SPINE; Surgeon: Dianne eD MD; Location: [facility]; Service: Neurosurgery ??? WV INJ CERV/THORAC,W/WO CNTRST N/A ??? WV LAMINEC/FACETECT/FORAMIN,EACH ADDNL Bilateral 04/28/2020 Procedure: LAMINECTOMY, FACETECTOMY, AND FORAMINOTOMY, CERVICAL, THORACIC, OR LUMBAR, EACH ADDITIONAL LEVEL; Surgeon: Dianne De MD; Location: [facility]; Service: Neurosurgery ??? WV LAMINEC/FACETECT/FORAMIN,LUMBAR 1 SEG Bilateral 04/28/2020 Procedure: LAMINECTOMY, FACETECTOMY, AND FORAMINOTOMY, LUMBAR, SINGLE LEVEL; Surgeon: Dianne De MD; Location: [facility]; Service: Neurosurgery ? ? WV LAMINECTOMY,>2 SGMT,CERVICAL Bilateral 08/06/2019 Procedure: POSTERIOR BILATERAL C3-C6 LAMINECTOMY AND FUSION/ INSTRUMENTATION; Surgeon: Dianne De MD; Location: [facility]; Service: Neurosurgery ??? WV POSTERIOR NON-SEGMENTAL INSTRUMENTATION Bilateral 04/28/2020 Procedure: POSTERIOR NON-SEGMENTAL INSTRUMENTATION; Surgeon: Dianne De MD; Location: [facility]; Service: Neurosurgery ??? 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
--- OUTSIDE RECORDS SUMMARY | 2024-11-09 14:15 | XMS_ITS ---
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 Given potential for this to have contributed [...] supplements MD Juan Martinez : 1955 CSN: [id number] Hyperglycemia 08/18/2019 Overview (08/18/2019): Due to steroids, [...] the AM for any further recs. Plan: -[place] 5-10mg PO q6 hours PRN pain -NS [...] treatments are documented for this patient in [facility]. Treatments may have been administered in another system. 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
--- OUTSIDE RECORDS SUMMARY | 2024-11-09 14:15 | XMS_ITS | Encounter Summary ---
Author Organization [facility] Address [address] [place] [address] Care Team Providers Care Reference And Instruction Librarian Name Role Phone Tesha Pierec MD, [facility] Primary Care Provider + Reason for Visit * Reason Onset Date Comments PAC Rx Questions 03/05/2024 Encounter Details Date Type Department Care Team (Late st Contact Info) Description 03/05/2024 Telephone [facility] [address] [place] [address] Telephone Intake, Staff PAC Rx Questions Social [...] 03/05/2024 11:17 AM EDT Liam calling from [facility] is regard to pts prednisone, They need to clarify which dose & directs should be prescribed to pt as they received two. 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
--- OUTSIDE RECORDS SUMMARY | 2024-11-09 14:15 | XMS_ITS | Encounter Summary ---
Author Organization [facility] Address [address] [place] [address] Care Team Providers Care Fraud Prevention Analyst Name Role Phone Tesha Pierce MD, [facility] Primary Care Provider + Reason for Visit * Reason Onset Date Comments Scheduling Appointment 11/17/2020 Encounter Details Date Type Department Care Team (Late st Contact Info) Description 11/17/2020 Telephone [facility] Neurology Clinic [address] [place] [phone] Telephone Intake, Staff Scheduling Appointment Social History [...] were not included. MD Mara Morris; P [facility] Neurology Admin Staff Pt was following with [...] person appt pt can be reached at [phone] documented in this encounter Plan of Treatment Upcoming Encounters Date Type Department Care Team (Late st Contact Info) Description 01/13/2025 11:30 AM EDT Follow-Up [facility] Rheumatology Clinic [address] [place] [address] Distribution Estimator: Paul Leger MD [address] [place] [address] documented as of this encounter Visit [...] documented as of this encounter Care Teams Fraud Prevention Analyst Relationship Specialty Start Date End Date Kristen Parkinson MD [address] [place] [phone] (work) PCP - General Internal Medicine 08/17/23 10/26/24 documented as of this encounter
--- OUTSIDE RECORDS SUMMARY | 2024-11-09 14:15 | XMS_ITS | Referral Summary ---
Author Organization [facility] Address [address] [place] [address] Care Team Providers Care Registered Nurse First Assistant Name Role Phone Unavailable Primary Care Provider Unavailabl e Encounters Date Type Department Care Team Description 10/27/2024 Telephone [facility] Urology [address] [address] Search Engine Optimization Analyst: Mara Castañeda MD PhD 10/15/2024 11:00 AM EST Clinical Support [facility] [address] [address] Search Engine Optimization Analyst: Nilam Blair LPN Suprapubic catheter (CMS/HCC) (HCC) (Primary Dx) 10/12/2024 Refill [facility] Internal Medicine [address] [place] [phone] Kristen Parkinson MD Neuropathic pain 10/01/2024 3:00 PM EST Clinical Support [facility] [address] [place] [phone] Search Engine Optimization Analyst: Payam De Leon LPN Suprapubic catheter (CMS/HCC) (HCC) (Primary Dx) 09/06/2024 Telephone [facility] Internal Medicine [address] [place] [phone] Kristen Parkinson MD Med Refill 09/03/2024 Refill [facility] Internal Medicine [address] [place] [phone] Kristen Parkinson MD Neuropathic pain 08/31/2024 9:30 AM EST Clinical Support [facility] [address] [place] [phone] Search Engine Optimization Analyst: Bobbi Bolanos LPN Neurogenic bladder, flaccid (Primary Dx) 08/19/2024 Telephone [facility] Rheumatology [facility] [address] [place] [address] Search Engine Optimization Analyst: Rossy Gongora Telephone Intake, Staff PAC Rx Questions; Dr Franklin 08/19/2024 9:30 AM EST Follow-Up [facility]ology [facility] [address] [place] [phone] Search Engine Optimization Analyst: Paul Leger MD Polymyalgia rheumatica (CMS/HCC) (HCC) (Primary Dx) 08/16/2024 Refill [facility] Internal Medicine [address] [place] [phone] Kristen Parkinson MD 08/16/2024 Refill [facility] Internal Medicine [address] [place] [phone] Eleno Magana MD 08/13/2024 2:30 PM EST Clinical Support [facility] [address] [place] [phone] Search Engine Optimization Analyst: Bobbi Bolanos LPN Benign prostatic hyperplasia with urinary retention (Primary Dx) 08/11/2024 Refill [facility] Internal Medicine [address] [place] [phone] Kristen Parkinson MD Neuropathic pain from Last [...] a day Active adult disposable brief (Briefs) [facility] Briefs - large - use as directed once a day 30 each 021 Active gauze bandage 4 X 4 bandageIndicat ions:Neurogeni c bladder, flaccid,Suprap ubic catheter (CMS/HCC) ([facility]) Patient requires supplies for daily care/maintenance to SPT site. 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 Uses 1 sterile 4x4 daily to clean SPT site. Ref. # MedLine Sponges, 10 per Box: [id number] 30 each 023 Active urinary bag [facility] Pt requires Bedside drainage bag changed every other week. ([facility] Ref # [id number]) DX: Neuromuscular Dysfunction of Bladder (N31.9) 2 each 023 Active adhesive tape (Paper Tape) 1 X 10 -yard tapeIndication s:Suprapubic catheter (CMS/HCC) ([facility]) HypoAllergenic Paper Tape, 1 x10 yard. Pt. [...] packageIndicat ions:Neurogeni c bladder, flaccid,Suprap ubic catheter ([facility]) ([facility]) Pt. Has a SupraPubic Tube that requires [...] outpatient he had recently started on trospium BENEFITS CONSULTANT. Given potential for this to have contributed [...] supplements MD Juan Martinez : 1955 CSN: [id number] [facility] 08/18/2019 Overview (08/18/2019): Due to steroids, continue [...] the AM for any further recs. Plan: -Milton 5-10mg PO q6 hours PRN pain -NS [...] gerardo bowel movement in approximately 2 weeks BENEFITS CONSULTANT since a prior prep for colonoscopy in [...] GI following; apprec recs - NPO at [facility] in case colo on Saturday 02/03 Vasovagal [...] 08/07/2019,06/09/2018,08/21/2017 Influenza, Trivalent, MDV, Injectable ,07/02/2013,07/20/2012,08/08,07/27/2009,08/30/2008,09/02/2007 Novel [id number], Preservative-Free, Injectable 09/27/2009 Pneumococcal Conjugate Vacci ne, 13 Valent 03/07/2015 Pneumococcal Polysaccharide Vaccine, 23 Valent 07/31/2020,08/30/2008 Pneumococcal conjugate PCV20,polysaccharide QPN443 conjugate, adjuvant, PF (Prevnar 20) 06/05/2023 RSV, [...] In the past 12 months has e [employer], gas, oil, or water [employer] threatened to shut off services in your [...] Info) Description 01/13/2025 11:30 AM EDT Follow-Up [facility]ology Clinic [address] [place] [address] Search Engine Optimization Analyst: Paul Leger MD [address] [place] [address] Medical Devices Implanted Type Area Alcoholism Worker Device Identifier Shelf Expiration Date Model / Serial / Lot Mau Thoracolumbar [id number] Altaf - [id number] Implanted:Qty: 2 on 08/06/2019 by Dianne De MD at [facility] Implant Spine Cervical DEPUY 1883-16- 060 / / Connector Spinal Cross Thoracolumbar Head To Head Titanium 35mm Mountaineer - [id number] Implanted:Qty: 1 on 08/06/2019 by Dianne De MD at [facility] Implant Spine Cervical DEPUY 1883-41- 035 / / Nut Spinal Outer Connector Cross Head To Head Titanium Mountaineer - [id number] Implanted:Qty: 2 on 08/06/2019 by Dianne De MD at [facility] Implant Spine Cervical DEPUY 1883-41- 200 / / Nut Spinal Outer Connector Cross Head To Head Titanium Mountaineer - [id number] Implanted:Qty: 2 on 08/06/2019 by Dianne De MD at [facility] Implant Spine Cervical DEPUY 1883-41- 100 / / Screw Thoracic Favored Angle Titanium [id number] Mountaineer - [id number] Implanted:Qty: 7 on 08/06/2019 by Dianne De MD at [facility] Screw Spine Cervical DEPUY 1883-18- 312 / / Screw Thoracic Favored Angle Titanium 3.8atc90bd Mountaineer - [id number] Implanted:Qty: 1 on 08/06/2019 by Dianne De MD at [facility] Screw Spine Cervical DEPUY 1883-18- 316 / / Screw Thoracic Inner Mountaineer - [id number] Implanted:Qty: 6 on 08/06/2019 by Dianne De MD at [facility] Screw Spine Cervical DEPUY 1883-42- 200 / / Putty Demineralized Bone Matrix 10cc Dbx - [id number] - [id number] Implanted:Qty: 1 on 08/06/2019 by Dianne De MD at [facility] Tissue Spine Cervical MUSCULOSKELETAL TRANSPLANT FND 04/27/2021 [id number] / [id number] / Ic Graft Chamber Dbm 10cc - [id number] - [id number] Implanted:Qty: 1 on 04/28/2020 by Dianne De MD at [facility] Tissue Spine Lumbar LIFENET 11/14/2022 [id number] / [id number] / [id number] Description:Demineralized yany ne matrix and cancellous chips reconstituted with pts. blood Ic Graft Chamber [facility] 10cc - [id number] - [id number] Implanted:Qty: 1 on 04/28/2020 by Dianne De MD at [facility] Tissue Spine Lumbar LIFENET 11/14/2022 [id number] / [id number] / [id number] Description:Demineralized yany ne matrix and cancellous chips reconstituted with pts. blood Procedures * Due to [place] state law, this organization might not be sharing negative HIV tests. Procedure Name Priority Date/Time Associated Diagnosis Comments HC 806401 BAG SECURITY CONTOURED LAEG 600ML Routine 10/15/2024 11:00 AM EST Suprapubic catheter (CMS/HCC) (HCC) HC 574845 BARD CATHETER TRAY Routine 10/15/2024 11:00 AM EST Suprapubic catheter (CMS/HCC) (HCC) HC 399724 CATHETER HURT BARD 16 FR 5 CC Routine 10/15/2024 11:00 AM EST Suprapubic catheter (CMS/HCC) (HCC) HC INSERTION OF TEMPORARY INDWELLING BLADDER CATHETER SIMPLE Routine 10/15/2024 11:00 AM EST Suprapubic catheter (CMS/HCC) (HCC) HC 213835 BAG SECURITY CONTOURED LAEG 600ML Routine 10/01/2024 3:00 PM EST Suprapubic catheter (CMS/HCC) (HCC) HC 167352 BARD CATHETER TRAY Routine 10/01/2024 3:00 PM EST Suprapubic catheter (CMS/HCC) (HCC) HC INSERTION OF TEMPORARY INDWELLING BLADDER CATHETER SIMPLE Routine 10/01/2024 3:00 PM EST Suprapubic catheter (CMS/HCC) (HCC) C-REACTIVE PROTEIN Routine 10/01/2024 12 :15 PM EST Polymyalgia rheumatica (CMS/HCC) (HCC) SEDIMENTATION RATE, AUTOMATED Routine 10/01/2024 12:15 PM EST Polymyalgia rheumatica (CMS/HCC) (HCC) HC 658286 BARD CATHETER TRAY Routine 08/31/2024 9:30 AM EST Neurogenic bladder, flaccid HC 444049 CATHETER HURT BARD 16 FR 5 CC Routine 08/31/2024 9:30 AM EST Neurogenic bladder, flaccid HC INSERTION OF TEMPORARY INDWELLING BLADDER CATHETER SIMPLE Routine 08/31/2024 9:30 AM EST Neurogenic bladder, flaccid HC 155905 BAG SECURITY CONTOURED LAEG 600ML Routine 08/13/2024 2:30 PM EST Benign prostatic hyperplasia with urinary retention HC 714596 BARD CATHETER TRAY Routine 08/13/2024 2:30 PM EST Benign prostatic hyperplasia with urinary retention HC 055237 CATHETER HURT BARD 16 FR 5 CC [...] to Health Maintenance Results * Due to [place] state law, this organization might not be sharing negative HIV tests. * HC INSERTION OF TEMPORARY INDWELLING BLADDER CATHETER SIMPLE, HC 638420 CATHETER HURT BARD 16 FR 5CC, HC 297023 BARD CATHETER TRAY, [place] 567952 BAG SECURITY CONTOURED LAEG 600ML (10/15/2024 11:00 [...] in 2 weeks for cath exchange Supplies: 561047 Catheter Hurt Bard 16 Fr 5 cc HC 364217 Bard Catheter Tray HC 137903 Bag Security Contoured LAEG 600 ml us Mara Tellez MD PhD UROLOGY ORDERABL ES Final Result * HC INSERTION OF TEMPORARY INDWELLING BLADDER CATHETER SIMPLE, HC 415166 BARD CATHETER TRAY, HC 047013 BAG SECURITY CONTOURED LAEG 600ML (10/01/2024 3:00 [...] well with no immediate complications Supplies: HC 780297 Bard Catheter Tray HC 747878 Bag Security Contoured LAEG 600 ml us Mara Tellez MD PhD UROLOGY ORDERABL ES Final Result * (ABNORMAL) Sedimentation Rate (10/01/2024 12:15 PM EST) [facility] Sed Rate 29(H) <20 mm/Hr mm/Hr 10/01/2024 12:49 PM EST [facility] Blood Structure of peripheral vein / Unknown Venipuncture / Unknown 10/01/2024 12:15 PM EST 10/01/2024 12:43 PM EST us Iva Perez MD LAB BLOOD ORDERABLES Final Resul t [facility] [address] [place] [address], * C-Reactive Protein (10/01/2024 12:15 PM EST) [facility] C Reactive Protein <3.0 <=9.9 mg/L 10/01/2024 1:09 PM EST [facility] Blood Structure of peripheral vein / Unknown Venipuncture / Unknown 10/01/2024 12:15 PM EST 10/01/2024 12:43 PM EST us Iva Perez MD LAB BLOOD ORDERABLES Final Resul t [facility] [address] [place] [address], [place] * HC INSERTION OF TEMPORARY INDWELLING BLADDER CATHETER SIMPLE, HC 695487 CATHETER HURT BARD 16 FR 5CC, HC 089200 BARD CATHETER TRAY (08/31/2024 9:30 AM EST) Narrative Bobbi Barahona LPN - 08/31/2024 9:30 AM EST Bobbi Barahona LPN ? 08/31/2024 ??9:40 AM Bladder Catheterization Performed by: Bobbi Braahona LPN Authorized by: Mara Tellez MD PhD [...] well with no immediate complications Supplies: HC 456964 Catheter Hurt Bard 16 Fr 5 cc HC 691150 Bard Catheter Tray us Mara Tellez MD PhD UROLOGY ORDERABL ES Final Result * HC INSERTION OF TEMPORARY INDWELLING BLADDER CATHETER SIMPLE, HC 334429 CATHETER HURT BARD 16 FR 5CC, HC 913581 BARD CATHETER TRAY, HC 760588 BAG SECURITY CONTOURED LAEG 600ML (08/13/2024 2:30 [...] procedure well with no immediate complications Supplies: [id number] Catheter Hurt Bard 16 Fr 5 cc HC 823719 Bard Catheter Tray HC 977964 Bag Security Contoured LAEG 600 ml us Mara Tellez MD PhD UROLOGY ORDERABL ES Final Result * (ABNORMAL) BMP - Basic Metabolic Panel (06/21/2024 6:40 AM EDT) NA 140 135 - 145 mmol/L 06/21/2024 7:17 AM EDT [facility] K 4.0 3.5 - 5.3 mmol/L 06/21/2024 7:17 AM EDT [facility] Cl 104 98 - 107 mmol/L 06/21/2024 7:17 AM EDT [facility] CO2 24 24 - 32 mmol/L 06/21/2024 7:17 AM EDT [facility] BUN 15 7 - 23 mg/dL 06/21/2024 7:17 AM EDT [facility] Creatinine 0.74 0.60 - 1.30 mg/dL 06/21/2024 7:17 AM EDT [facility] Glucose 116(H) 65 - 99 mg/dL 06/21/2024 7:17 AM EDT [facility] Calcium 9.7 8.6 - 10.5 mg/dL 06/21/2024 7:17 AM EDT [facility] Anion Gap 12 5 - 15 06/21/2024 7:17 AM T [facility] eGFR >90 >=60 mL/min/1. 73m2 06/21/2024 7:17 AM EDT [facility] Comment:The estimated glomer [...] Kauffman MD LAB BLOOD ORDERABLES Final Result [facility] [address] [place] [address], * COLONOSCOPY (05/20/2024) Narrative Procedure Note Justo El MD PhD - 05/20/2024 9:25 AM EDT [facility] Gastroenterology Patient Name: Juan Rubin Procedure Date: 05/20/2024 9:25 AM Date of : 1955 Admit Type: Outpatient Age: 69 Room: [place] [address] Gender: Male Note Status: Finalized Attending MD: [...] obtain the completed interpretation. ? Workstation ID: [id number] Up-to-date CT equipment and radiation dose reduction [...] evidence for recurrent hernia. Resulting Agency Comment [id number] Procedure Note Iain Jain MD - 01/18/2023 [...] possible to obtain thecompleted interpretation. Workstation ID: [id number] Up-to-date CT equipment and radiation dose reduction techniques wereemployed. CTDIvol: 15.5 mGy. DLP: 698 mGy-cm. us Agapito Rowe MD IMG CT PROCEDURES Final Resu lt * Hepatitis C Antibody w/Reflex to HCV RNA, Quantitative PCR (08/25/2019 3:15 PM EST) Hepatitis C Antibody NON-REACT YENNI NON-REACT YENNI 08/26/2019 1:11 AM Docker Signal To Cut-Off 0.01 <1.00 08/26/2019 1:11 AM Docker Comment: HCV antibody was non-reactive. There is no laboratory evidence of HCV infection. In most cases, no further action is required. However, if recent HCV exposure is suspected, a test for HCV RNA (test code 24995) is suggested. For additional information please refer to http://education.[employer]/faq/PZD66u6 (This link is being provided for informational/ educational purposes only.) Blood specimen (specimen) Structure of peripheral vein / Unknown Venipuncture / Unknown 08/25/2019 3:15 PM EST 08/25/2019 3:20 PM EST Narrative [facility] - 08/26/2019 1:11 AM EST [facility] Received Date: us Antoinette Cast MD LAB BLOOD ORDERABLES Final Re sult MARTHA JORD[facility] [address] Floor, [place] [address], [place] [phone] Lucid Colloids [facility] [address], [address] [place] [phone], * CT Chest WO Contrast (06/17/2018 12:12 [...] or willingness to have curative lung surgery [id number] Up-to-date CT equipment and radiation dose reduction techniques were employed. CTDIvol: 5.6 - 16.0 mGy. DLP: 541 mGy-cm.The following accession numbers are related to this dose report [id number] Narrative 06/20/2018 1:28 PM EDT EXAMINATION: CT [...] cancer screening guidelines, please refer to:https://www.uspreventiveservicestaskforce.org/Page/Document/UpdateSummaryFina l/ruby j-ctqlyn-dicnbfcxt Adults Aged 55-77, with a History of [...] or willingness to have curative lung surgery [id number] Up-to-date CT equipment and radiation dose reduction techniques wereemployed. CTDIvol: 5.6 - 16.0 mGy. 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
--- OUTSIDE RECORDS SUMMARY | 2024-11-09 14:15 | XMS_ITS | Encounter Summary ---
Author Organization [facility] Address [address] [place] [address] Care Team Providers Care Shoe Polisher Name Role Phone Unavailable Primary Care Provider Unavailabl e Encounter Details Date Type Department Care Team (Late st Contact Info) Description 10/27/2024 Telephone [facility] Clinic [address] [place] [address] Brand Development Manager: Mara Castañeda MD PhD [address] [place] [address] Social History Tobacco Use Types Packs/Day Years Used Date Smoking Tobacco: Former Cigarettes 1.5 55 1 10/06/1963 - 08/06/2019 Passive Smoke Exposure: Past Smokeless Tobacco: Never Comments:quit 08/2019 Alcohol Use Standard Drinks/Week Comments Not Currently 0 (1 standard drink = 0.6 oz pur e alcohol) [facility] Utilities Answer Date Recorded In the past 12 months has e [employer], gas, oil, or water [employer] threatened to shut off services in your [...] you know that he has moved to [facility] and has changed urologist. He will be seeing DR Gómez Smith at [facility] . [place] is to far to travel for DR rafal. He want to say Thank you for the care he received from you. 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
--- OUTSIDE RECORDS SUMMARY | 2024-11-09 14:15 | XMS_ITS | Encounter Summary ---
Author Organization [facility] Address [address] [place] [address] Care Team Providers Care Financial Accountant Name Role Phone Tesha Pierce MD, Kristen Primary Care Provider + Reason for Visit * Reason Comments Med Refill Encounter Details Date Type Department Care Team (Late st Contact Info) Description 10/12/2024 Refill [facility] Internal Medicine [address] [place] [phone] Kristen Parkinson MD [address] [place] [address] [phone] Neuropathic pain Social History Tobacco Use Types Packs/Day Years Used Date Smoking Tobacco: Former Cigarettes 1.5 55 1 10/06/1963 - 08/06/2019 Passive Smoke Exposure: Past Smokeless Tobacco: Never Comments:quit 08/2019 Alcohol Use Standard Drinks/Week Comments Not Currently 0 (1 standard drink = 0.6 oz pur e alcohol) [facility] Utilities Answer Date Recorded In the [...] NURSE [facility] [place] 11/29/2024 1:40 PM MD Sherley Cruz CHAN V 12/01/2024 1:00 PM MD Sherley Cruz CHAN V 01/13/2025 11:30 AM Paul Franklin MD [facility] [place] documented in this encounter Plan of Treatment Upcoming Encounters Date Type Department Care Team (Late st Contact Info) Description 01/13/2025 11:30 AM EDT Follow-Up [facility] Rheumatology Clinic [address] [place] [address] Field Organizer: Paul Leger MD [address] [place] [phone] documented as of this encounter Visit Diagnoses Diagnosis Neuropathic pain documented in this encounter Additional Health Concerns Infection Onset Date Last Indicated 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
[2024-11-09 15:02] LABS: Influenza A PCR POSITIVE (Negative); Influenza B PCR NEGATIVE (Negative); Resp Syncy Virus RNA Qual PCR POSITIVE (Negative); SARS COV2 PCR INHOUSE NEGATIVE (Negative)
== END 2024-11-09 09:57 | disposition home or self-care (01) ==
LOC: HO.LNP 09:56
PROVIDERS: PCP Internal Medicine; Visit Provider Physician Assistant
DX: J06.9 Acute upper respiratory infection, unspecified (principal)
CPT/HCPCS: 0241U; 99212

== ENCOUNTER 2024-11-09 09:56 | Outpatient (AMB) | payer MEDICARE, SELFPAY ==
--- OUTSIDE RECORDS SUMMARY | 2024-11-09 10:38 | XMS_ITS | Encounter Summary ---
Author Organization [facility] Address [address] [place] [address] Care Team Providers Care Policy Writer Typist Name Role Phone Tesha Pierce MD, [facility] Primary Care Provider + Encounter Details Date Type Department Care Team (Late st Contact Info) Description 04/29/2023 Thumb Readinghart Message [facility] [employer] [address] [place] [address] Mychart, Generic Provider [address] [place], [place] [id number] account dispute Social History Tobacco Use Types Packs/Day Years Used Date Smoking Tobacco: Former Cigarettes 1.5 55 1 [birth year]06/1965 - 08/06/2019 Smokeless Tobacco: Never Comments:quit 08/2019 Alcohol Use Standard Drinks/Week Comments Not Currently 0 (1 standard drink = 0.6 oz pur e alcohol) Transportation Answer Date Recorded Please yane the areas for ich the patient would like information or assistance: None Apply 02/18/2022 Lack of Transportation (Medical) Not on file 02/18/2022 Housing Stability Answer Date Recorded Please yane the areas for ich the patient would like information or assistance: None Apply 02/18/2022 Unable to Pay for Housing in the Last Year Not o n file 02/18/2022 Last EPDS Total Score Not on file 02/18/2022 Unstable Housing in the Last Year Not on file 02/18/2022 Sex and Gender Information Value Date Recorded Sex Assigned at Male 04/27/2020 8:39 AM EDT Legal Sex Male 3:11 AM EDT Gender Identity Male 04/27/2020 8:39 AM EDT Sexual Orientation Straight 04/27/2020 8: 39 AM EDT documented as of this encounter Plan of Treatment Upcoming Encounters Date Type Department Care Team (Late st Contact Info) Description 01/13/2025 11:30 AM EDT Follow-Up [facility] [address] [place] [address] Wellness Manager: Paul Leger MD [address] [place] [phone] documented as of this encounter Visit Diagnoses Not on filedocumented in this encounter Additional Health Concerns Infection Onset Date 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
--- OUTSIDE RECORDS SUMMARY | 2024-11-09 10:38 | XMS_ITS | Encounter Summary ---
Author Organization [facility] Address [address] [place] [address] Care Team Providers Care Accounting Coordinator Name Role Phone Tesha Pierce MD, [facility] Primary Care Provider + Encounter Details Date Type Department Care Team (Late st Contact Info) Description 02/26/2022 Orders Only [facility] Interventional Radiology [address], [place] [phone] Reagan Mendoza NP [address] [place], [place] [phone] Social History Tobacco Use Types Packs/Day Years [...] AM EDT documented as of this encounter Miscellaneous Notes * Pre-Procedure Note - Reagan Mendoza NP - 02/26/2022 4:36 PM EDT Interventional Radiology Chart Review Protocol Note This note represents a chart review. This was performed in order to assess candidacy and feasibility for below mentioned procedure by the Interventional Radiology department. HPI:Juan Rubin is a 66 y.o. male with history of neurogenic bladder secondary to spinal cord compression. He has history of multiple abdominal and pelvic surgeries and urology has referred for suprapubic catheter placement. Past Medical / Past Surgical: Past Medical History: Diagnosis Date ??? Adrenal nodule 03/19/2017 Left (1.1 cm) and) 1.25 cm); both are lipid rich by CT of the adrenals (06/2018), evaluated by Dr. Allan, likely benign, asymptomatic, pt declining any further workup ??? Cervical stenosis of spinal canal ??? Colon cancer (CMS/HCC) ([facility]) age 49, s/p patial colectomy, no chemo or radiation ??? COPD (chronic obstructive pulmonary disease) ([facility]) no overnight hospitilizations, no intubations, symbicort BID, does not use rescue inhaler ??? HL (hearing loss) ??? Hyperlipidemia ??? Hypertension ??? Neck pain ??? Radiculopathy of cervical region ??? Vasovagal syncope 08/09/2019 Past Surgical History: Procedure Laterality Date ??? COLECTOMY PARTIAL / TOTAL age 49, colon CA ??? COLONOSCOPY ??? ELBOW SURGERY pinched nerve in left elbow, nerve relocation 2011 ??? FINGER AMPUTATION right middle finger ??? HERNIA REPAIR ??? DE ALLOGRAFT FOR SPINE SURGERY ONLY MORSELIZED Bilateral 08/06/2019 Procedure: ALLOGRAFT, MORSELIZED, OR PLACEMENT OF OSTEOPROMOTIVE MATERIAL, FOR SPINE SURGERY ONLY; Surgeon: Dianne De MD; [place] [facility] [place] Service: Neurosurgery ??? DE ARTHRODESIS POSTERIOR/POSTERIORLATERAL CERVICAL BELOW C2 Bilateral 08/06/2019 Procedure: FUSION, POSTERIOR OR POSTEROLATERAL, CERVICAL BELOW C2, SINGLE LEVEL; Surgeon: Dianne De MD; [facility]; Service: Neurosurgery ??? DE ARTHRODESIS POSTERIOR/POSTEROLATERAL EA ADDL Bilateral 08/06/2019 Procedure: FUSION, POSTERIOR OR POSTEROLATERAL,??EACH ADDITIONAL SEGMENT; Surgeon: Dianne De MD; [facility]; Service: Neurosurgery ??? DE ARTHRODESIS POSTERIOR/POSTEROLATERAL LUMBAR Bilateral 04/28/2020 Procedure: L2-L5 bilateral laminectomies with insitu fusion / possible bilateal facet screw instrumenation; Surgeon: Dianne De MD; Location[facility]; Service: Neurosurgery ??? DE AUTOGRAFT SPINE SURGERY LOCAL FROM SAME INCISION Bilateral 08/06/2019 Procedure: AUTOGRAFT FOR SPINE SURGERY ONLY (INCLUDES HARVESTING THE GRAFT); LOCAL (EG, RIBS, SPINOUS PROCESS, OR LAMINAR FRAGMENTS) OBTAINED FROM SAME INCISION; Surgeon: Dianne De MD; [facility]; Service: Neurosurgery ??? DE AUTOGRAFT SPINE SURGERY MORSELIZED SEP INCISION Bilateral 04/28/2020 Procedure: PLACEMENT OF AUTOGRAFT, SEPARATE INCISION, SPINE SURGERY; Surgeon: Dianne De MD;Location[facility]; Service: Neurosurgery ??? DE EXCIS INTRASP LESN,XDURAL,CERVICAL N/A 08/10/2019 Procedure: evacuation of hematoma osterior cervical laminectomy sie ; Surgeon: Dianne De MD; Location[facility]; Service: Neurosurgery ? ? DE I&D, POST SPINE, LUMB/SACR/LUMBOSAC N/A 05/01/2020 Procedure: INCISION AND DRAINAGE, DEEP ABSCESS LUMBAR AND/OR SACRAL SPINE; Surgeon: Dianne De MD; [facility]; Service: Neurosurgery ??? DE INJ CERV/THORAC,W/WO CNTRST N/A ??? DE LAMINEC/FACETECT/FORAMIN,EACH ADDNL Bilateral 04/28/2020 Procedure: LAMINECTOMY, FACETECTOMY, AND FORAMINOTOMY, CERVICAL, THORACIC, OR LUMBAR, EACH ADDITIONAL LEVEL; Surgeon: Dianne De MD; [facility]; Service: Neurosurgery ??? DE LAMINEC/FACETECT/FORAMIN,LUMBAR 1 SEG Bilateral 04/28/2020 Procedure: LAMINECTOMY, FACETECTOMY, AND FORAMINOTOMY, LUMBAR, SINGLE LEVEL; Surgeon: Dianne De MD; [facility]; Service: Neurosurgery ? ? DE LAMINECTOMY,>2 SGMT,CERVICAL Bilateral 08/06/2019 Procedure: POSTERIOR BILATERAL C3-C6 LAMINECTOMY AND FUSION/ INSTRUMENTATION; Surgeon: Dianne De MD; [facility]; Service: Neurosurgery ??? DE POSTERIOR NON-SEGMENTAL INSTRUMENTATION Bilateral 04/28/2020 Procedure: POSTERIOR NON-SEGMENTAL INSTRUMENTATION; Surgeon: Dianne De MD; [facility]; Service: Neurosurgery ??? DE POSTERIOR SEGMENTAL INSTRUMENTATION 3-6 VRT SEG Bilateral 08/06/2019 Procedure: POSTERIOR SEGMENTAL INSTRUMENTATION, 3 TO 6 VERTEBRAL SEGMENTS; Surgeon: Dianne De MD; [facility]; Service: Neurosurgery ??? SPINE SURGERY lumbar spine x2 ??? TONSILECTOMY Current Outpatient Medications: ??? acetaminophen (TYLENOL) 325 mg tablet, Take 2 tablets (650 mg total) by mouth every 6 hours., Disp: , Rfl: ??? adult disposable brief (Briefs) misc, Briefs - large - use as directed once a day, Disp: 30 each, Rfl: 11 ??? amLODIPine (NORVASC) 5 mg tablet, Take 1 tablet (5 mg total) by mouth once a day., Disp: 90 tablet, Rfl: 1 ??? atorvastatin (LIPITOR) 20 mg tablet, Take 1 tablet (20 mg total) by mouth once a day., Disp: 90tablet, Rfl: 1 ??? catheter 16 Fr misc, Pt. Needs 16 FR Benitez Non-Latex Catheter with 5 cc Balloon, monthly. Pt. Has Allergy to Adhesive Tape-Silicones, Disp: 1 each, Rfl: 11 ??? docusate sodium (COLACE) 250 mg capsule, Take 250 mg by mouth 2 times a day. Take 1 capsule oral twice a day , Disp: , Rfl: ??? fluconazole (DIFLUCAN) 150 mg tablet, Take 1 tablet (150 mg total) by mouth once a day., Disp: 1 tablet, Rfl: 0 ??? gabapentin (NEURONTIN) 300 mg capsule, TAKE 1 CAPSULE THREE TIMES DAILY, Disp: 270 capsule, Rfl: 0 ??? hydroCHLOROthiazide (HYDRODIURIL) 25 mg tablet, Take 1 tablet (25 mg total) by mouth once a day., Disp: 90 tablet, Rfl: 1 ??? linaCLOtide (Linzess) 72 mcg capsule, Take 1 capsule by mouth once a day., Disp: 90 capsule, Rfl: 1 ??? LORazepam (ATIVAN) 0.5 mg tablet, Take 1-2 tablets one hours prior to procedure, Disp: 5 tablet, Rfl: 0 ??? losartan (COZAAR) 50 mg tablet, Take 1 tablet (50 mg total) by mouth once a day., Disp: 90 tablet, Rfl: 1 ??? lubiprostone (AMITIZA) capsule 8 mcg, Take 1 capsule (8 mcg total) by mouth daily with breakfast., Disp: 30 capsule, Rfl: 0 ??? predniSONE (DELTASONE) 20 mg tablet, TAKE 2 TAB DAILY FOR 5 DAYS, Disp: 10 tablet, Rfl: 0 ??? Symbicort 160-4.5 mcg/actuation inhaler, INHALE 2 PUFFS BY MOUTH TWICE DAILY Rinse mouth with water after use. Do not swallow., Disp: 6.7 g, Rfl: 3 ??? urinary bag misc, urinary bag, Disp: , Rfl: Allergies: Adhesive tape-silicones Relevant Labs: Lab Results Component Value Date NA 142 02/20/2022 K 3.9 11/24/2021 CO2 25 11/24/2021 CL 104 11/24/2021 BUN 14 02/20/2022 EGFR 93 02/20/2022 Lab Results Component Value Date WBC 10.6 11/24/2021 HCT 44.8 11/24/2021 HGB 14.6 11/24/2021 PLT 298 11/24/2021 PT 10.2 04/21/2020 INR 1.0 04/21/2020 Lab Results Component Value Date ALBUMIN 3.9 02/20/2022 AST 19 02/20/2022 ALT 16 02/20/2022 BILITOT 0.4 02/20/2022 ALKPHOS 45 08/10/2019 Assessment/Plan: SP catheter placement with moderate sedation 02/26/2022 4:36 PM Pre-Procedure Instructions Diet Instructions: NPO after midnight Medication Instructions: No Medication Changes Sedation: Moderate Sedation Pre-Procedure Labs Required?: Yes Other Instructions: None documented in this encounter Plan of Treatment Upcoming Encounters Date Type Department Care Team (Late st Contact Info) Description 01/13/2025 11:30 AM EDT Follow-Up [facility] [address] [place] [address] Air Pumper: Paul Leger MD [address] [place] [phone] documented as of this encounter Visit Diagnoses Not on filedocumented in this encounter Additional Health Concerns Infection Onset Date Last Indicated 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
--- OUTSIDE RECORDS SUMMARY | 2024-11-09 10:38 | XMS_ITS | Clinical Summary ---
Author Organization [facility] Address [address] [place] [address] Care Team Providers Care Risk Lead Name Role Phone Unavailable Primary Care Provider Unavailabl e Allergies Active Allergy Reactions Criticality Noted Date Comments Adhesive Tape-Silicones Hives High 08/21/2017 IOBAN POST OP DRESSING CAUSES BLISTERING, OTHER ADHESIVES OK TO USE PER PT Latex, Natural Rubber 05/20/2024 Added based on information entered during log entry, please review and add reactions, type, and severity as needed Medications * This document contains information received from the source organization and may not represent a complete record from that organization. docusate sodium (COLACE) 250 mg capsule Take 250 mg by mouth 2 times a day. Take 1 capsule oral twice a day Active adult disposable brief (Briefs) misc Briefs - large - use as directed once a day 30 each 021 Active gauze bandage 4 X 4 bandageIndicat ions:Neurogeni c bladder, flaccid,Suprap ubic catheter ([facility]) ([facility]) Patient requires supplies for daily care/maintenance to SPT site. 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 Uses 1 sterile 4x4 daily to clean SPT site. Ref. # MedLine Sponges, 10 per Box: [id number] 30 each 023 Active urinary bag misc Pt requires Bedside drainage bag changed every other week. (Conveen Ref # [id number]) DX: Neuromuscular Dysfunction of Bladder (N31.9) 2 each 023 Active adhesive tape (Paper Tape) 1 X 10 -yard tapeIndication s:Suprapubic catheter (CMS/HCC) (HCC) HypoAllergenic Paper Tape, 1 x10 yard. Pt. Requires 2 rolls per month to secure drainage sponge around SPT daily. Diagnosis: Suprapubic Catheter(Z93.59) 2 each 023 Active acetaminophen (TYLENOL) 325 mg tablet Take 2 tablets (650 mg total) by mouth every 6 hours as needed for pain or fever. 023 Active psyllium-aspar tame (METAMUCIL) 3.5 gram powder in packet packet Take 1 packet by mouth 2 times a day. Take with 8 oz of cold fluid. 30 each 023 Active polyethylene glycol 3350 (MIRALAX) 17 gram packet Take 1 packet (17 g total) by mouth 2 times a day. Tonight or tomorrow mix 4 packets (68g) in 32 oz of electrolyte containing liquid such as gatorade and drink in one sitting. Mix powder in 4 to 8 oz of water, juice, coffee, or tea prior to administration. 100 each 023 Active miscellaneous medical supply (Heavy Drainage Dressing Steril) packageIndicat ions:Neurogeni c bladder, flaccid,Suprap ubic catheter (CMS/HCC) (HCC) Pt. Has a SupraPubic Tube that requires daily care/maintenance. Pt. Requires 1 sterile drainage sponge daily to be placed on SPT Site after cleaning. Diagnoses: Neuromuscular Dysfunction of Bladder(N31.9) and SupraPubic Catheter(Z93.59) 30 each 023 Active LORazepam (ATIVAN) 0.5 mg tablet Take 1 tablet one hour prior to procedure 3 tablet 023 Active albuterol (ProAir HFA) 90 mcg inhaler Activ e sodium chloride 0.9% irrigation Flush catheter daily with 60 cc of sterile saline and aspirate irrigant 1800 mL 023 Active fluticasone furoate-vilant Bienvenido (Breo Ellipta) 100-25 mcg/dose blister with device Inhale 1 puff by mouth 2 times a day. 1 each 024 Active Additional Information Patient not taking.Reported on 08/19/2024 budesonide (Pulmicort Flexhaler) 180 mcg/actuation inhaler Inhale 1 puff by mouth 2 times a day. Rinse mouth with water after use to reduce aftertaste and incidence of candidiasis. Do not swallow. 1 each 1 024 Active urinary bag (Urinary Leg Bag) misc Use as direct 2 each Active sodium chloride 0.9% irrigation Irrigate with Saline 250ml daily. 30 mL Active adhesive tape 1 X 1 1/2 -yard tape Use as direct 2 each Active non-adherent bandage 4 X 4 sponge Use Gaze daily 30 each Active mometasone-for moterol (DULERA 100) 100-5 mcg/actuation inhaler Inhale 2 puffs by mouth 2 times a day. Rinse mouth with water after use to reduce aftertaste and incidence of candidiasis. Do not swallow. 13 g 3 Active Additional Information Patient not taking.Reported on 08/19/2024 fluticasone-um eclidinium-vida anterol (Trelegy Ellipta) 200-62.5-25 mcg blister with deviceIndicati ons:Chronic obstructive pulmonary disease, unspecified COPD type (HCC) Inhale 1 puff by mouth once a day. 60 each 024 Active atorvastatin (LIPITOR) 20 mg tablet TAKE 1 TABLET BY MOUTH EVERY DAY 90 tablet Active Symbicort 160-4.5 mcg/actuation inhaler INHALE 2 PUFFS BY MOUTH TWICE DAILY. RINSE MOUTH WITH WATER AFTER USE. DO NOT SWALLOW 10.2 g 11 Active amLODIPine (NORVASC) 5 mg tablet TAKE 1 TABLET(5 MG) BY MOUTH EVERY DAY 90 tablet 3 024 Active Linzess 72 mcg TAKE 1 CAPSULE(72 MCG) BY MOUTH DAILY 90 capsule Active trospium (SANCTURA) 20 mg tablet Take 1 tablet (20 mg total) by mouth once a day. 90 tablet 3 024 Active losartan (COZAAR) 50 mg tablet TAKE 1 TABLET BY MOUTH EVERY DAY 90 tablet 024 Active hydroCHLOROthi azide (HYDRODIURIL) 25 mg tablet TAKE 1 TABLET(25 MG) BY MOUTH EVERY DAY 90 tablet Active predniSONE (DELTASONE) 5 mg tablet He will be on prednisone 8 mg from September 02, 2024 for 30 days. He will use 5 mg and 1 mg tabs to take 8 mg 60 tablet Active predniSONE (DELTASONE) 1 mg tablet Take 1 tablet (1 mg total) by mouth once a day. He will be on prednisone 8 mg from September 02, 2024 for 30 days. He will use 5 mg and 1 mg tabs to take 8 mg 90 tablet 024 2024 Active gabapentin (NEURONTIN) 600 mg tabletIndicati ons:Neuropathi c pain TAKE 1 TABLET(600 MG) BY MOUTH FOUR TIMES DAILY 120 tablet 025 Active gabapentin (NEURONTIN) 600 mg tabletIndicati ons:Neuropathi c pain TAKE 1 TABLET(600 MG) BY MOUTH FOUR TIMES DAILY 120 tablet 024 2024 Discontinued Active Problems Problem Noted Date Diagnosed Date Right carpal tunnel syndrome 06/27/2023 Spinal cord compression 04/18/2023 Neurogenic bladder, flaccid 03/12/2022 Assessment & Plan (02/01/2023 1:47 PM EDT): Patient with neurogenic bladder s/p suprapubic catheter placement. As outpatient he had recently started on trospium [employer]. Given potential for this to have contributed to his recent worsening bowel dysfunction this was discontinued. Seen by urology who exchanged SPC this admit - -Urology changed catheter on 01/28/23, with plans to change monthly - Substitute mirabegron for trospium Personal history of malignant neoplasm of prosta te 03/12/2022 Chronic right-sided low back pain 01/17/2021 Neuropathic pain 01/17/2021 S/P cervical spinal fusion 01/17/2021 Suprapubic catheter ([facility]) 01/17/2021 Retention of urine 08/10/2020 S/P lumbar laminectomy 05/18/2020 Lumbar radiculopathy, acute 04/28/2020 Back pain 08/25/2019 Assessment & Plan (08/25/2019 10:02 PM EST): 08/25/2019 Worse back pain, and numbness/pain with abdominal, right thigh, legs after the new air mattress yesterday. He reports the pain and numbness has been there since the surgery but getting better controlled with pain medications until the new air mattress. He's very upset with the care in STR, reporting that he's not get appropriate level of care and not enough PT. He had CHRISSY of lumbar spine and was evaluated by neurosurgery in the ED, no urgent intervention needed. MRI noted Moderately advanced multilevel degenerative changes of the lumbar spine. ??This is most significant at L3-L4 where there is moderate spinal canal stenosis with effacement of the lateral recesses and severe bilateral neuroforaminal stenosis. - possible muscle spasm from the air mattress use, cont flexeril q8hr prn - cont pain control with oxycodone 5mg q4h prn, the patient reports that he was on 10mg oxycodone at one point and he requested to decrease the dose. He's worried if 5mg will be enough for him now. Will add IV morphine for breakthrough pain if BP allows - PT/OT Pressure injury of sacral region, stage 2 2018 Assessment & Plan (08/25/2019 9:33 PM EST): PRESSURE INJURY NOTE HOSPITAL PROBLEMS: Principal Problem: Back pain Active Problems: Elevated WBC count Benign essential hypertension Hyperlipidemia Nicotine dependence Cervical stenosis of spinal canal Pressure injury of sacral region, stage 2 (CMS/HCC) Pressure Injury Active Pressure Injury Sacral area NHSN Device Days (07/26/2019 to 08/24/2019) Central line: 0 Urinary catheter: 7 PRESSURE INJURY MANAGEMENT: Stage 2-3 sacral pressure ulcer with purple/blue colorred tissue surrounding, covered with a sticky adhesive dressing. - Wound care consult for wound care - Nutrition consult for recommendation on supplements MD Juan Martinez : 1955 CSN: [id number] Hyperglycemia 08/18/2019 Overview (08/18/2019): Due to steroids, continue ISS, consider low dose of lantus daily Assessment & Plan (08/18/2019 3:57 PM EST): 08/18/2019 Due to steroids, continue low dose ISS Cervical disc disorder with radiculopathy, unspecified cervical region 08/18/2019 Hemiplegia and hemiparesis f ollowing other cerebrovascular disease affecting right non-dominant side 08/18/2019 Meralgia paresthetica, right lower limb 08/18/20 19 Other abnormalities of gait and mobility 019 Other specified spondylopathies, cervical region 08/18/2019 Postlaminectomy syndrome, not elsewhere classifi ed 08/18/2019 Transient cerebral ischemic attack, unspecified 08/18/2019 Other traumatic nondisplaced spondylolisthesis of fifth cervical vertebra, subsequent encounter for fracture with routine healing 08/18/2019 Cervical stenosis of spinal canal 08/06/2019 Assessment & Plan (08/25/2019 11:05 PM EST): 08/25/2019 Hx of cervical spinal stenosis s/p C3-C7 posterior laminectomy and fusion on 08/06/2019 complicated with hematoma s/p evacuation on 08/10, with residue weakness of the right arm and right leg, paresthesia below abdomen, and urinary and BM incontinence. Completed decadron taper in STR. - appreciate neurosurgery consult in the ED. No urgent neurosurgical intervention indicated continue PT/OT and dispo Monitor cervical surgical site for s/sx of infection F/U with Dr. De as previously scheduled. Assessment & Plan (08/18/2019 3:53 PM EST): Pt recently s/p C3-C^ fusion here for new focal neurological deficits. Pt also has complaints of worsening bilateral shoulder pain which he called his NS about earlier. He was instructed to take flexeril and oxycodone, and his symptoms worsened after taking these meds. On admission will change his oxycodone to hydrocodone, will add lidocaine patches and consult NS in the AM for any further recs. Plan: -Westhoff 5-10mg PO q6 hours PRN pain -NS consult in AM -hold flexeril -lidoderm patches Malignant tumor of colon 04/17/2019 History of colon cancer 08/12/2018 Overview (08/19/2018): Status post surgery (~2002). Adrenal nodule 03/19/2017 Overview (08/19/2018): Left (1.1 cm) and) 1.25 cm); both are lipid rich by CT of the adrenals (06/2018). Median neuropathy 10/18/2014 Overview (08/19/2018): Status post surgery (~2011). Carpal tunnel syndrome 08/11/2013 Hypertensive disorder 11/23/2005 Assessment & Plan (02/02/2023 5:23 PM EDT): Hypertension managed outpatient on amlodipine 5 mg daily, hydrochlorothiazide 25 mg daily, losartan 50 mg daily. BP here stable -Continue home meds - hold hydrochlorothiazide and losartan when NPO Assessment & Plan (08/25/2019 11:00 PM EST): 08/25/2019 He used to be on 10mg amlodipine and Diovan- HCT, but Diovan-HCT has been stopped in STR due to low blood pressure earlier this week per STR progress notes. He has soft blood pressure at admission, denies chest pain, dizziness, SOB. - hold amlodipine - monitor BP closely - regular diet Assessment & Plan (08/18/2019 3:53 PM EST): Pt with hx of HTN. On admission to the floor had hypotension while using the restroom will hold home antihypertensives. Continue to hold home amlodipine, HCTZ and valsartan, SBP remains at 90-100 Hypercholesterolemia 11/23/2005 Assessment & Plan (01/23/2023 6:35 PM EDT): Continue home atorvastatin. Assessment & Plan (08/25/2019 9:18 PM EST): 08/25/2019 Continue simvastatin Assessment & Plan (08/09/2019 9:05 PM EST): Change simvastatin to lipitor 40mg PO daily Chronic obstructive lung disease 11/23/2005 Assessment & Plan (02/01/2023 1:40 PM EDT): Chronic issue on Symbicort. No shortness of breath or wheezing to suggest acute exacerbation - Continue home inhaler regimen. Assessment & Plan (08/09/2019 9:06 PM EST): No evidence of COPD exacerbation. Will give duo-nebs PRN. Hyperlipidemia Resolved Problems Problem Noted Date Diagnosed Date Resolved Date Constipation 01/24/2023 02/03/2023 Obstipation 01/23/2023 02/03/2023 Assessment & Plan (02/02/2023 5:23 PM EDT): Patient with neuropathy with little sensation below abdomen and suprapubic cath for neurogenic bladder. At baseline he has periods of severe constipation alternating with diarrhea. At home takes miralax and linzess intermittently. Presented this admit with severe constipation to the point of obstipation with no gerardo bowel movement in approximately 2 weeks [employer] since a prior prep for colonoscopy in early January (poor bowel prep for this colo). CT a/p on admit with stool burden but no obstruction. He hwas admitted and has been treated with aggressive bowel regimen. GI consulted and following. He has continued to take nultyltely and is having BM's which are slowly becoming more clear - clear liquid diet - cont nulytley with plan for colo as inpatient - cont miralax, senna, daily suppository - cont linaclotide dose at higher dose of 290mg po daily - Discontinued trospium, replaced with mirabegron to avoid anticholinergic properties - GI following; apprec recs - NPO at [place] in case colo on Saturday 02/03 Vasovagal syncope 08/09/2019 05/18/2020 Assessment & Plan (08/18/2019 3:54 PM EST): Pt presenting with right sided weakness concerning for TIA vs CVA 2 days after being discharged for spinal surgery. On arrival to the floor the patient was using the toilet when he became weak and diaphoretic with a SBP of 88/42. Pt previously had a normal BP. He was placed back into bed in a supine position and his BP came back up to 128/70. The patient was given a 1L LR bolus and lactate was checked due to a leukocytosis. EKG was checked and showed NSR. Trop and lactate are currently pending as are cxr and UA. Will hold off on abx at this time. Will complete 1L fluid bolus unless lactate is elevated. Pt will remain on bedrest. Plan -neuro checks as above -trop, lactate, cxr and repeat labs pending -hold off further IVF RESOLVED Tobacco use 09/09/2018 11/01/2019 Cough 03/31/2017 08/12/2018 Left arm weakness 08/09/2016 08/12/2018 Back muscle spasm 03/25/2016 08/12/2018 Elevated WBC count 03/10/2015 3 Assessment & Plan (02/01/2023 1:47 PM EDT): Presenting with leukocytosis of unclear etiology. No symptoms of infection nor fever. CT a/p without evidence of infection. This resolved without abx. Likely reactive due to obstipation. - resolved Assessment & Plan (08/25/2019 9:21 PM EST): 08/25/2019 Possible due to recent steroid use, trending down comparing to before. The patient denies fever, chills, worse productive cough. The sacral pressure ulcer and the surgical site don't have surrounding redness. He has hurt cath and is BM incontinence after the spine surgery. He's not sure if there's diarrhea or not. He was given one dose CTX in ED. - will watch without antibiotic for now, low threshold to start empiric antibiotic if fever or worse leukocytosis. - trend WBC - follow up blood cultures - wound care consult Assessment & Plan (08/18/2019 3:56 PM EST): 08/18/2019 WBC remains elevated, asymptomatic, likely due to use of decadron. Repeat CBC in 5-7 days postdischarge Osteoarthritis of carpometac arpal joint of left thumb 09/15/2014 08/12/2018 Hand tingling 02/21/2014 08/12/2018 Abdominal pain 07/02/2013 08/12/2018 Dysuria 07/01/2013 08/12/2018 Pain in hand 11/29/2011 08/12/2018 Nicotine dependence 11/23/2005 05/18/20 20 Overview (08/19/2018): Smokes 1-1/2 packs/day. No interest in quitting (08/2018). Assessment & Plan (08/25/2019 9:18 PM EST): 08/25/2019 No more smoking ~ 3 weeks, on nicotine patch in STR. - continue nicotine patch daily - nicotine gums prn for craving - Encouraged him smoking cessation Encounters Date Type Department Care Team Description 10/27/2024 Telephone [facility] [address] [address] Signals Analyst: Mara Castañeda MD PhD 10/15/2024 11:00 AM EST Clinical Support [facility] [address] [id number] Signals Analyst: Nilam Blair LPN Suprapubic catheter (CMS/HCC) (HCC) (Primary Dx) 10/12/2024 Refill [facility] [address] [place] [phone] Kristen Parkinson MD Neuropathic pain 10/01/2024 3:00 PM EST Clinical Support [facility] [address] [address] Signals Analyst: Payam De Leon LPN Suprapubic catheter (CMS/HCC) (HCC) (Primary Dx) 09/06/2024 Telephone [facility] [address] [place] [phone] Kristen Parkinson MD Med Refill 09/03/2024 Refill [facility] [address] [place] [phone] Kristen Parkinson MD Neuropathic pain 08/31/2024 9:30 AM EST Clinical Support [facility] [address] [place] [phone] Signals Analyst: Bobbi Bolanos LPN Neurogenic bladder, flaccid (Primary Dx) 08/19/2024 9:30 AM EST Follow-Up [facility] [address] [place] [phone] Signals Analyst: Paul Leger MD Polymyalgia rheumatica (CMS/HCC) (HCC) (Primary Dx) 08/19/2024 Telephone [facility] [address] [place] [phone] Signals Analyst: Rossy Gongora Telephone Intake, Staff PAC Rx Questions; Dr Franklin 08/16/2024 Refill [facility] [address] [place] [phone] Kristen Parkinson MD 08/16/2024 Refill [facility] [address] [place] [phone] Eleno Magana MD 08/13/2024 2:30 PM EST Clinical Support [facility] [address] [place] [phone] Signals Analyst: Bobbi Bolanos LPN Benign prostatic hyperplasia with urinary retention (Primary Dx) 08/11/2024 Refill [facility] [address] [place] [phone] Kristen Parkinson MD Neuropathic pain from Last 3 Months Immunizations Name Administration Dates Next Due COVID-19, Moderna, mRNA, LNP -S, Bivalent Booster, PF 07/24/2022 Covid-19 Monovalent Vaccine, Moderna, mRNA, PF 07/16/2021,01/10/2021,12/13/2020 Covid-19, Moderna, mRNA, Vac cine, PF, 50 mcg/0.5 mL (for age 12 y and up) 07/09/2023 INFLUENZA, SPLIT VIRUS, TRIVALENT, PF ,07/11/2016,09/08/2015,08/10 Influenza, High Dose Seasona l, Preservative Free 06/21/2020 Influenza, High Dose Seasona l, Quadrivalent PF 06/05/2023,07/24/2022 Influenza, Injectable, Quadr ivalent Preservative Free 07/16/2021 Influenza, Injectable, Quadr ivalent, Preservative Free 08/07/2019,06/09/2018,08/21/2017 Influenza, Trivalent, MDV, Injectable ,07/02/2013,07/20/2012,08/08,07/27/2009,08/30/2008,09/02/2007 Novel [id number], Preservative-Free, Injectable 09/27/2009 Pneumococcal Conjugate Vacci ne, 13 Valent 03/07/2015 Pneumococcal Polysaccharide Vaccine, 23 Valent 07/31/2020,08/30/2008 Pneumococcal conjugate PCV20,polysaccharide [id number] conjugate, adjuvant, PF (Prevnar 20) 06/05/2023 RSV, Bivalent, Protein Subun it RSVpreF, Diluent Reconstituted, 0.5 mL, PF 06/05/2023 Tetanus Toxoid, Reduced Diph theria Toxoid, and Acellular Pertussis Vaccine, Adsorbed 03/19/2017 Zoster Vaccine Recombinant 08/28/2020,06/21/2020 Zoster Vaccine, Live 06/05/2023,09/17/2015 Family History Medical History Relation Name Comments Pneumonia Brother 1 in 50's Esophageal cancer Brother 2 age 6 4 Myocardial Infarction Father Diabetes type II Father's Brother COPD Mother nonsmoker Hypertension Mother Relation Name Status Comments Brother 1 Brother 2 Daughter Alive Father Father's Brother Mother Social History Tobacco Use Types Packs/Day Years Used Date Smoking Tobacco: Former Cigarettes 1.5 55 1 10/06/1963 - 08/06/2019 Passive Smoke Exposure: Past Smokeless Tobacco: Never Tobacco Cessation:Counseling Given: Not Answered Comments:quit 08/2019 Alcohol Use Standard Drinks/Week Comments Not Currently 0 (1 standard drink = 0.6 oz pur e alcohol) [facility] Utilities Answer Date Recorded In the past 12 months has th e electric, gas, oil, or water company threatened to shut off services in your home? No 05/27/2024 Hunger Vital Sign Answer Date Recorded Within the past 12 months, y ou worried that your food would run out before you got the money to buy more. Never true 05/27/20 24 Within the past 12 months, t he food you bought just didn't last and you didn't have money to get more. Never true 05/27/2024 Transportation Answer Date Recorded In the past 12 months, has l ack of reliable transportation kept you from medical appointments, meetings, work or from getting things needed for daily living? No 05/27/2024 Housing Answer Date Recorded Housing Risk Low 2 05/27/2024 Housing Risk Medium Not on file 05/27/2024 Housing Risk High Not on file 05/27/2024 What is your living situation today? [facility] 05/27/2024 Sex and Gender Information Value Date Recorded Sex Assigned at Male 04/27/2020 8:39 AM EDT Legal Sex Male 3:11 AM EDT Gender Identity Male 04/27/2020 8:39 AM EDT Sexual Orientation Straight 04/27/2020 8: 39 AM EDT Last Filed Vital Signs Vital Sign Reading Time Taken Comments Blood Pressure 148/88 10/01/2024 2:51 PM EST Pulse 70 10/01/2024 2:51 PM EST Temperature 36.7 ??C (98.1 ??F) 08/19/2024 9:20 AM ES T Respiratory Rate 20 06/21/2024 6:32 AM EDT Oxygen Saturation 96% 06/21/2024 6:32 AM EDT Inhaled Oxygen Concentration - - Weight 90.7 kg (200 lb) 08/19/2024 9:20 AM EST Height 175.3 cm (5' 9 ) 06/20/2024 11:38 PM EDT Body Mass Index 29.53 06/20/2024 11:38 PM EDT Plan of Treatment Upcoming Encounters Date Type Department Care Team (Late st Contact Info) Description 01/13/2025 11:30 AM EDT Follow-Up [facility] [address] [place] [phone] Signals Analyst: Paul Leger MD [address] [place] [address] Health Maintenance Due Date Last Done Comments COVID-19 Vaccine (2023- season) 2024 07/20/2024, 07/09/2023, 07/24/2022, Additional history exists Alcohol/Substance Use Screening 10/06/2024 05/27/2024, 06/11/2023 Depression Screening and Follow-Up 10/06/2024 11/27/2023 Health Care Proxy Review 10/06/2024 11/27/2023, 02/03 Social Drivers of Health Annual Screening 10/06/2024 05/27/2024 CT Lung Cancer Screening (12 months, previous LungRADS 1 or 2) 11/27/2024 06/17/2018, 05/09/2016 Postponed from 06/17/2019 (Patient Declined) Colonoscopy 05/20/2025 05/20/2024, 05/06, 02/03/2023, Additional history exists Basic Metabolic Panel 06/21/2025 06/21/2024 , 05/04/2024, 03/05/2024, Additional history exists Fall Risk Screening 10/15/2025 10/15/2024 DTaP,Tdap,and Td Vaccines (2 - Td or Tdap) 03/19/2027 03/19/2017 Tobacco Screening 10/06/2042 08/13/2024 Hepatitis C Screening Completed 08/25/2019 Abdominal Aortic Aneurysm (AAA) Screening Completed 01/18/2023, 07/06/2013 Pneumococcal Vaccine: 65+ Years Completed 06/05/2023, 07/31/2020, 03/07/2015, Additional history exists RSV Vaccine (60+ years old and patients) Completed 06/05/2023 Zoster Vaccines Completed 06/05/2023, 08/07, 06/21/2020, Additional history exists Statin Therapy Completed 05/12/2024 Influenza Vaccine Completed 06/17/2024, , 07/24/2022, Additional history exists Hepatitis B Vaccines Discontinued Medical Devices Implanted Type Area Sr. Media Manager Device Identifier Shelf Expiration Date Model / Serial / Lot Mau Thoracolumbar [id number] Altaf - [id number] Implanted:Qty: 2 on 08/06/2019 by Dianne De MD at [facility] Implant Spine Cervical DEPUY 1883-16- [id number] / / Connector Spinal Cross Thoracolumbar Head To Head Titanium 35mm Mountaineer - [id number] Implanted:Qty: 1 on 08/06/2019 by Dianne De MD at [facility] Implant Spine Cervical DEPUY [id number]- [id number] / / Nut Spinal Outer Connector Cross Head To Head Titanium Mountaineer - [id number] Implanted:Qty: 2 on 08/06/2019 by Dianne De [place] at [place] [facility] Implant Spine Cervical DEPUY 1883-41- 200 / / Nut Spinal Outer Connector Cross Head To Head Titanium Mountaineer - [id number] Implanted:Qty: 2 on 08/06/2019 by Dianne De MD at [facility] Implant Spine Cervical DEPUY 1883-41- 100 / / Screw Thoracic Favored Angle Titanium 3.6eyt53ms Mountaineer - [id number] Implanted:Qty: 7 on 08/06/2019 by Dianne De MD at [facility] Screw Spine Cervical DEPUY 1883-18- 312 / / Screw Thoracic Favored Angle Titanium 3.4gnw12ff Mountaineer - [id number] Implanted:Qty: 1 on 08/06/2019 by Dianne De MD at [facility] Screw Spine Cervical DEPUY 1883-18- 316 / / Screw Thoracic Inner Mountaineer - [id number] Implanted:Qty: 6 on 08/06/2019 by Dianne De MD at [facility] Screw Spine Cervical DEPUY 1883-42- 200 / / Putty Demineralized Bone Matrix 10cc Dbx - [id number] - [id number] Implanted:Qty: 1 on 08/06/2019 by Dianne De MD at [facility] Tissue Spine Cervical MUSCULOSKELETAL TRANSPLANT FND 04/27/2021 [id number] / [id number] / Ic Graft Chamber Dbm 10cc - [id number] - [id number] Implanted:Qty: 1 on 04/28/2020 by Dianne De MD at [facility] Tissue Spine Lumbar LIFENET 11/14/2022 [id number] / [id number] / [id number] Description:Demineralized yany ne matrix and cancellous chips reconstituted with pts. blood Ic Graft Chamber [facility] 10cc - [id number] - [id number] Implanted:Qty: 1 on 04/28/2020 by Dianne De MD at [facility] Tissue Spine Lumbar LIFENET 11/14/2022 [id number] / [id number] / [id number] Description:Demineralized yany ne matrix and cancellous chips reconstituted with pts. blood Procedures * Due to [place] state law, this organization might not be sharing negative HIV tests. Procedure Name Priority Date/Time Associated Diagnosis Comments HC 490128 BAG SECURITY CONTOURED LAEG 600ML Routine 10/15/2024 11:00 AM EST Suprapubic catheter (CMS/HCC) (HCC) HC 203730 BARD CATHETER TRAY Routine 10/15/2024 11:00 AM EST Suprapubic catheter (CMS/HCC) (HCC) HC 094116 CATHETER HURT BARD 16 FR 5 CC Routine 10/15/2024 11:00 AM EST Suprapubic catheter (CMS/HCC) (HCC) HC INSERTION OF TEMPORARY INDWELLING BLADDER CATHETER SIMPLE Routine 10/15/2024 11:00 AM EST Suprapubic catheter (CMS/HCC) (HCC) 114540 BAG SECURITY CONTOURED LAEG 600ML Routine 10/01/2024 3:00 PM EST Suprapubic catheter (CMS/HCC) (HCC) HC 005064 BARD CATHETER TRAY Routine 10/01/2024 3:00 PM EST Suprapubic catheter (CMS/HCC) (HCC) HC INSERTION OF TEMPORARY INDWELLING BLADDER CATHETER SIMPLE Routine 10/01/2024 3:00 PM EST Suprapubic catheter (CMS/HCC) (HCC) C-REACTIVE PROTEIN Routine 10/01/2024 12 :15 PM EST Polymyalgia rheumatica (CMS/HCC) (HCC) SEDIMENTATION RATE, AUTOMATED Routine 10/01/2024 12:15 PM EST Polymyalgia rheumatica (CMS/HCC) (HCC) HC 426507 BARD CATHETER TRAY Routine 08/31/2024 9:30 AM EST Neurogenic bladder, flaccid HC 234883 CATHETER HURT BARD 16 FR 5 CC Routine 08/31/2024 9:30 AM EST Neurogenic bladder, flaccid HC INSERTION OF TEMPORARY INDWELLING BLADDER CATHETER SIMPLE Routine 08/31/2024 9:30 AM EST Neurogenic bladder, flaccid HC 314251 BAG SECURITY CONTOURED LAEG 600ML Routine 08/13/2024 2:30 PM EST Benign prostatic hyperplasia with urinary retention HC 603431 BARD CATHETER TRAY Routine 08/13/2024 2:30 PM EST Benign prostatic hyperplasia with urinary retention HC 717744 CATHETER HURT BARD 16 FR 5 CC Routine 08/13/2024 2:30 PM EST Benign prostatic hyperplasia with urinary retention HC INSERTION OF TEMPORARY INDWELLING BLADDER CATHETER SIMPLE Routine 08/13/2024 2:30 PM EST Benign prostatic hyperplasia with urinary retention BASIC METABOLIC PANEL STAT 06/21/2024 6:40 AM EDT COLONOSCOPY 05/20/2024 CT ABDOMEN PELVIS W CONTRAST STAT 01/18/2023 10:05 PM EDT HEPATITIS C ANTIBODY W/REFLEX TO HCV RNA, QUANTITATIVE PCR STAT 08/25/2019 3:[address] CHEST WO CONTRAST Routine 06/17/2018 12:12 PM EDT Pulmonary emphysema, unspecified emphysema type (CMS/HCC) (HCC) from Last 3 Months or Most Recently Relevant to Health Maintenance Results * Due to [place] state law, this organization might not be sharing negative HIV tests. * HC INSERTION OF TEMPORARY INDWELLING BLADDER CATHETER SIMPLE, HC 024285 CATHETER HURT BARD 16 FR 5CC, HC 012790 BARD CATHETER TRAY, HC 206273 BAG SECURITY CONTOURED LAEG 600ML (10/15/2024 11:00 AM EST) Nilam Natarajan LPN - 10/15/2024 11:00 AM EST Nilam Figueroa LPN ? 10/15/2024 11:14 AM Bladder Catheterization Performed by: Nilam Figueroa LPN Authorized by: Mara Tellez MD PhD ?? Procedure: ??Catheter Change Patient ID confirmed by name and : Yes ?? Removal: Catheter Type: ??Spt tube Catheter size: ??18 Fr Catheter disconected from: ??Leg bag Urine characteristics upon removal: ??Clear and yellow Balloon size (cc's): ??10 Ease of Removal: ??Easy Insertion: Patient prepped with: ??Betadine solution Catheter insertion type: ??Indwelling Catheter type: ??Spt tube Catheter size: ??18 Fr Complicated insertion: No ?? Ease of Insertion: ??Easy Balloon size (cc's): ??10 mL's of normal saline used for cath irrigation: ??30 Number of attempts: ??1 Urine volume (ml): ??30 Urine characteristics: ??Clear and yellow Catheter attached to: ??Leg bag Patient tolerance: ??Patient tolerated the procedure well with no immediate complications Pt to return in 2 weeks for cath exchange Supplies: HC 527483 Catheter Hrut Bard 16 Fr 5 cc HC 125027 Bard Catheter Tray HC 589909 Bag Security Contoured LAEG 600 ml us Mara Tellez MD PhD UROLOGY ORDERABL ES Final Result * HC INSERTION OF TEMPORARY INDWELLING BLADDER CATHETER SIMPLE, HC 851624 BARD CATHETER TRAY, HC 817885 BAG SECURITY CONTOURED LAEG 600ML (10/01/2024 3:00 PM EST) Payam Harris LPN - 10/01/2024 3:00 PM EST Payam Griffin LPN ? 10/01/2024 ??3:02 PM Bladder Catheterization Performed by: Payam Griffin LPN Authorized by: Mara Tellez MD PhD ?? Procedure: ??Catheter Change Patient ID confirmed by name and : Yes ?? Removal: Catheter Type: ??Spt tube Catheter size: ??18 Fr Catheter disconected from: ??Bedside bag Urine characteristics upon removal: ??Clear and yellow Patient prepped with: ??Betadine solution Balloon size (cc's): ??10 Ease of Removal: ??Easy Insertion: Patient prepped with: ??Betadine solution Catheter insertion type: ??Indwelling Catheter type: ??Spt tube Catheter size: ??18 Fr Complicated insertion: No ?? Ease of Insertion: ??Easy Balloon size (cc's): ??10 mL's of normal saline used for cath irrigation: ??30 Urine characteristics: ??Clear Patient tolerance: ??Patient tolerated the procedure well with no immediate complications Supplies: HC 185776 Bard Catheter Tray HC 604815 Bag Security Contoured LAEG 600 ml us Mara Tellez MD PhD UROLOGY ORDERABL ES Final Result * (ABNORMAL) Sedimentation Rate (10/01/2024 12:15 PM EST) [facility] Sed Rate 29(H) <20 mm/Hr mm/Hr 10/01/2024 12:49 PM EST [facility] Blood Structure of peripheral vein / Unknown Venipuncture / Unknown 10/01/2024 12:15 PM EST 10/01/2024 12:43 PM EST us Iva Perez MD LAB BLOOD ORDERABLES Final Resul t [facility] [address] [place] [address], * C-Reactive Protein (10/01/2024 12:15 PM EST) Pathologist [facility] C Reactive Protein <3.0 <=9.9 mg/L 10/01/2024 1:09 PM EST [facility] Blood Structure of peripheral vein / Unknown Venipuncture / Unknown 10/01/2024 12:15 PM EST 10/01/2024 12:43 PM EST us Iva Perez MD LAB BLOOD ORDERABLES Final Resul t [facility] [address] [place] [address], * HC INSERTION OF TEMPORARY INDWELLING BLADDER CATHETER SIMPLE, HC 642967 CATHETER HURT BARD 16 FR 5CC, HC 472128 BARD CATHETER TRAY (08/31/2024 9:30 AM EST) Narrative Bobbi Barahona LPN - 08/31/2024 9:30 AM EST Bobbi Barahona LPN ? 08/31/2024 ??9:40 AM Bladder Catheterization Performed by: Bobbi Barahona LPN Authorized by: Mara Tellez MD PhD ?? Procedure: ??Catheter Change Patient ID confirmed by name and : Yes ?? Removal: Catheter Type: ??Spt tube Catheter size: ??18 Fr Catheter disconected from: ??Leg bag Urine characteristics upon removal: ??Clear and yellow Patient prepped with: ??Betadine solution Balloon size (cc's): ??10 Ease of Removal: ??Easy Insertion: Patient prepped with: ??Betadine solution Catheter insertion type: ??Indwelling Catheter type: ??Spt tube Catheter size: ??18 Fr Complicated insertion: No ?? Ease of Insertion: ??Easy Balloon size (cc's): ??10 mL's of normal saline used for cath irrigation: ??60 Number of attempts: ??1 Urine volume (ml): ??60 Urine characteristics: ??Clear and yellow Catheter attached to: ??Leg bag Patient tolerance: ??Patient tolerated the procedure well with no immediate complications Supplies: HC 464997 Catheter Hurt Bard 16 Fr 5 cc HC 481641 Bard Catheter Tray us Mara Tellez MD PhD UROLOGY ORDERABL ES Final Result * HC INSERTION OF TEMPORARY INDWELLING BLADDER CATHETER SIMPLE, 766425 CATHETER HURT BARD 16 FR 5CC, 169380 BARD CATHETER TRAY, 090949 BAG SECURITY CONTOURED LAEG 600ML (08/13/2024 2:30 PM EST) Bobbi Carmen LPN - 08/13/2024 2:30 PM EST Bobbi Barahona LPN ? 08/13/2024 ??2:56 PM Bladder Catheterization Performed by: Bobbi Barahona LPN Authorized by: Mara Tellez MD PhD ?? Procedure: ??Catheter Change Patient ID confirmed by name and : Yes ?? Removal: Catheter Type: ??Spt tube Catheter size: ??18 Fr Catheter disconected from: ??Leg bag Urine characteristics upon removal: ??Clear and yellow Patient prepped with: ??Betadine solution Balloon size (cc's): ??10 Ease of Removal: ??Easy Insertion: Patient prepped with: ??Betadine solution Catheter insertion type: ??Indwelling Catheter type: ??Spt tube Catheter size: ??18 Fr Complicated insertion: No ?? Ease of Insertion: ??Easy Balloon size (cc's): ??10 mL's of normal saline used for cath irrigation: ??60 Number of attempts: ??1 Urine volume (ml): ??60 Urine characteristics: ??Clear and yellow Catheter attached to: ??Leg bag Patient tolerance: ??Patient tolerated the procedure well with no immediate complications Supplies: 967603 Catheter Hurt Bard 16 Fr 5 cc HC 011394 Bard Catheter Tray 718415 Bag Security Contoured LAEG 600 ml us Mara Tellez MD PhD UROLOGY ORDERABL ES Final Result * (ABNORMAL) BMP - Basic Metabolic Panel (06/21/2024 6:40 AM EDT) NA 140 135 - 145 mmol/L 06/21/2024 7:17 AM EDT [facility] K 4.0 3.5 - 5.3 mmol/L 06/21/2024 7:17 AM EDT [facility] Cl 104 98 - 107 mmol/L 06/21/2024 7:17 AM EDT [facility] CO2 24 24 - 32 mmol/L 06/21/2024 7:17 AM EDT [facility] BUN 15 7 - 23 mg/dL 06/21/2024 7:17 AM T [facility] Creatinine 0.74 0.60 - 1.30 mg/dL 06/21/2024 7:17 AM EDT [facility] Glucose 116(H) 65 - 99 mg/dL 06/21/2024 7:17 AM EDT [facility] Calcium 9.7 8.6 - 10.5 mg/dL 06/21/2024 7:17 AM T [facility] Anion Gap 12 5 - 15 06/21/2024 7:17 AM T [facility] eGFR >90 >=60 mL/min/1. 73m2 06/21/2024 7:17 AM EDT [facility] Comment:The estimated glomer ular filtration rate (eGFR) is calculated using a new formula developed by the NKF-ASN task force to eliminate race-based correction factors. The new formula uses serum/plasma creatinine, age, and gender to determine eGFR. A value below 60mls/min might indicate kidney disease and will be flagged. For additional information, see Villa et al, Am J Kidney Dis. 2021;79(2):268- 288, A Unifying Approach for GFR estimation: Recommendations of the NKF-ASN Task Force on Reassessing the Inclusion of Race in Diagnosing Kidney Disease . Blood Structure of peripheral vein / Unknown Venipuncture / Unknown 06/21/2024 6:40 AM EDT 06/21/2024 6:55 AM EDT us Shaun Kauffman MD LAB BLOOD ORDERABLES Final Result [facility] [address] [place] [address], [place] * COLONOSCOPY (05/20/2024) Narrative Procedure Note Justo El MD PhD - 05/20/2024 9:25 AM EDT [facility] Patient Name: Juan Rubin Procedure Date: 05/20/2024 9:25 AM Date of : 1955 Admit Type: Outpatient Age: 69 Room: [place] [address] Gender: Male Note Status: Finalized Attending MD: Tejinder El MD Procedure: Colonoscopy Indications: High risk colon cancer surveillance: Personal history of coloncancer Comorbidities Providers: Tejinder El MD Referring MD: Requesting Provider: Medicines: Fentanyl 100 micrograms IV, Midazolam 5 mg IV Complications: No immediate complications. Estimated Blood Loss: Estimated blood loss: none. Procedure: After I obtained informed consent, the scope was passed under direct vision. Throughout theprocedure, the patient's blood pressure, pulse, and oxygen saturations were monitored continuously. The Colonoscope was introduced through the anus and advanced to the cecum, identified by appendiceal orifice and ileocecal valve. The colonoscopy was performed without difficulty. The patient tolerated the procedure well. The quality of the bowel preparation was good. Findings: Four sessile polyps were found in the transverse colon and cecum. The polyps were 5 to 8 mm in size. These polyps were removed with a cold snare. Resection and retrieval were complete. There was evidence of a prior end-to-side colo-colonic anastomosis in the transverse colon. This was patent and was characterized byhealthy appearing mucosa. The anastomosis was traversed. A tattoo was seen in the sigmoid colon and in the transverse colon. The exam was otherwise normal throughout the examined colon. Impression: - Four 5 to 8 mm polyps in the transverse colon andin the cecum, removed with a cold snare. Resected and retrieved. - Patent end-to-side colo-colonic anastomosis, characterized by healthy appearing mucosa. - A tattoo was seen in the sigmoid colon and in the transverse colon. Recommendation: - Dr. Fonseca will telephone with pathology results next friday. Tejinder El MD 05/20/2024 10:12:35 AM This report has been signed electronically. Number of Addenda: 0 Note Initiated On: 05/20/2024 9:25 AM Justo El MD PhD PROVATION PROCEDURES Final Result * CT Abdomen Pelvis with Contrast (01/18/2023 10:05 PM EDT) Anatomical Region Laterality Modality Body Computed Tomogra phy 01/18/2023 10:4 3 PM EDT Impressions 01/18/2023 10:51 PM EDT Findings suggesting constipation. No evidence of bowel obstruction. Small hiatal hernia. If this radiology report contains a blank impression section, it is an incomplete radiology report. ??Please contact the interpreting radiologist or applicable radiology division as soon as possible to obtain the completed interpretation. ? Workstation ID: [id number] Up-to-date CT equipment and radiation dose reduction techniques were employed. CTDIvol: 15.5 mGy. DLP: 698 mGy-cm. Narrative 01/18/2023 10:51 PM EDT COMPARISON: 07/06/2013 ?? FINDINGS: Lower Thorax: No focal consolidation, pleural effusion or pneumothorax. Small hiatal hernia. Hepatobiliary: Scattered hepatic hypodensities, likely cysts.. No biliary ductal dilatation. Normal gallbladder. Spleen: No significant abnormality. Pancreas: No focal mass or ductal dilatation. Adrenal Glands: Bilateral small adrenal nodules unchanged. Kidneys/Ureters: No hydronephrosis, calculi, or solid mass lesions. Pelvic Organ/Bladder: A suprapubic catheter partially decompresses the urinary bladder.. Peritoneum/Retroperitoneum: No ascites or free air. Lymph Nodes: No lymphadenopathy. Vessels: The opacified segments of the aorta, IVC, and portal/hepatic vasculature are patent. There is calcified atherosclerotic disease of the aorta and branch vessels. GI Tract: No distention or wall thickening. Normal appendix. Moderate fecal contents in the colon. There are postsurgical changes of the transverse colon. No evidence of bowel obstruction. There are scattered colonic diverticula without evidence of diverticulitis. Bones and Soft Tissues: No acute abnormality. Postsurgical changes affect the lumbar spine at L3-L5. There is an intraspinal wire. Status post ventral hernia repair, without evidence for recurrent hernia. Resulting Agency Comment [id number] Procedure Note Iain Jain MD - 01/18/2023 COMPARISON: 07/06/2013 FINDINGS: Lower Thorax: No focal consolidation, pleural effusion or pneumothorax.Small hiatal hernia. Hepatobiliary: Scattered hepatic hypodensities, likely cysts.. No biliaryductal dilatation. Normal gallbladder. Spleen: No significant abnormality. Pancreas: No focal mass or ductal dilatation. Adrenal Glands: Bilateral small adrenal nodules unchanged. Kidneys/Ureters: No hydronephrosis, calculi, or solid mass lesions. Pelvic Organ/Bladder: A suprapubic catheter partially decompresses theurinary bladder.. Peritoneum/Retroperitoneum: No ascites or free air. Lymph Nodes: No lymphadenopathy. Vessels: The opacified segments of the aorta, IVC, and portal/hepaticvasculature are patent. There is calcified atherosclerotic disease of theaorta and branch vessels. GI Tract: No distention or wall thickening. Normal appendix. Moderatefecal contents in the colon. There are postsurgical changes of thetransverse colon. No evidence of bowel obstruction. There are scatteredcolonic diverticula without evidence of diverticulitis. Bones and Soft Tissues: No acute abnormality. Postsurgical changes affectthe lumbar spine at L3-L5. There is an intraspinal wire. Status postventral hernia repair, without evidence for recurrent hernia. IMPRESSION: Findings suggesting constipation. No evidence of bowel obstruction. Smallhiatal hernia. If this radiology report contains a blank impression section, it is anincomplete radiology report. Please contact the interpreting radiologistor applicable radiology division as soon as possible to obtain thecompleted interpretation. Workstation ID: [id number] Up-to-date CT equipment and radiation dose reduction techniques wereemployed. CTDIvol: 15.5 mGy. DLP: 698 mGy-cm. Agapito Rowe MD IMG CT PROCEDURES Final Resu lt * Hepatitis C Antibody w/Reflex to HCV RNA, Quantitative PCR (08/25/2019 3:15 PM EST) Hepatitis C Antibody NON-REACT YENNI NON-REACT YENNI 08/26/2019 1:11 AM EST [employer] Signal To Cut-Off 0.01 <1.00 08/26/2019 1:11 AM EST [employer] Comment: HCV antibody was non-reactive. There is no laboratory evidence of HCV infection. In most cases, no further action is required. However, if recent HCV exposure is suspected, a test for HCV RNA (test code 99850) is suggested. For additional information please refer to http://education.Tile/faq/HJJ49o9 (This link is being provided for informational/ educational purposes only.) Blood specimen (specimen) Structure of peripheral vein / Unknown Venipuncture / Unknown 08/25/2019 3:15 PM EST 08/25/2019 3:20 PM EST Narrative [facility] - 08/26/2019 1:11 AM EST [facility] Received Date: Antoinette Cast MD LAB BLOOD ORDERABLES Final Re sult MARTHA JORDAN [address], [address] [facility] [address], [place] [phone] [facility] [address], [address] [place] [address], [place] [phone] * CT Chest WO Contrast (06/17/2018 12:12 PM EDT) Anatomical Region Laterality Modality Body Computed Tomogra phy 06/20/2018 1:13 PM EDT Impressions 06/20/2018 1:28 PM EDT 1. ??Single pulmonary nodule remains left upper lobe 2 mm. ??This study is designated a Lung-Rads 2 category. ??Since the patient has not followed up since 05/09/2016, this study is now considered this year's (2018) annual low-dose CT. Recommendations for follow-up: Annual low-dose lung cancer screening now due CT 06/2019 if the patient qualifies for lung cancer screening. ??Screening guidelines provided below. 2. ??Respiratory bronchiolitis noted on prior study. Respiratory bronchiolitis is a smoking-related interstitial lung disease characterized by upper lobe predominant groundglass peribronchial opacities or poorly defined centrilobular nodules. ??Generally this pattern is found with heavy smoking history. For lung cancer screening guidelines, please refer to: https://www.uspreventiveservicestaskforce.org/Page/Document/UpdateSummaryFinal/l grayson-c ancer-screening Adults Aged 55-77, with a History of Smoking The USPSTF recommends annual screening for lung cancer with low-dose computed tomography (LDCT) in adults aged 55 to 77 years who have a 30 pack-year smoking history and currently smoke or have quit within the past 15 years. Screening should be discontinued once a person has not smoked for 15 years or develops a health problem that substantially limits life expectancy or the ability or willingness to have curative lung surgery [id number] Up-to-date CT equipment and radiation dose reduction techniques were employed. CTDIvol: 5.6 - 16.0 mGy. DLP: 541 mGy-cm.The following accession numbers are related to this dose report [id number] Narrative 06/20/2018 1:28 PM EDT EXAMINATION: CT of the chest without intravenous contrast. INDICATION: COPD on the current every day smoker, follow-up 3 mm pulmonary nodule identified on prior CT. COMPARISON: 05/09/2016. ?? TECHNIQUE: Helical images were obtained from the thoracic inlet to the lung bases without intravenous contrast. Coronal and sagittal reformatted images were provided. For radiation dose control at least one of the following techniques was used in this procedure: (1) Automated exposure control (2) Adjustment of the mA and/or kV according to patient size (3) Use of iterative reconstruction technique. FINDINGS: BASE OF NECK: Normal appearance of the thyroid gland. ??No upper chest adenopathy. ?? LUNGS, PLEURA, AIRWAYS: Background changes of centrilobular emphysema and respiratory bronchitis with peribronchial groundglass opacities within both lungs. ??These findings are typical for smoking-related interstitial lung disease. ??No endotracheal lesions are apparent. ??No endobronchial lesions are seen. ??No consolidation, atelectasis, or effusion. ??No pleural calcification or pleural thickening. Pulmonary nodules seen as follows: 1. ??2 mm left upper lobe pulmonary nodule image 157 series 5. The previously identified pulmonary nodules on prior study are no longer seen on today's exam. ??No new nodules have developed. MEDIASTINUM: Cardiac size is normal. ??Hiatal hernia seen at the GE junction. ??Coronary artery calcification present. ??Ascending thoracic aortic diameter 3.6 cm. ??No pericardial effusion. ??No mediastinal mass. NODES: High right paratracheal 9.2 mm lymph node image 26 series 3. ??11.3 mm right paratracheal node image 35 series 3. ??These are most likely reactive. UPPER ABDOMEN: Included portions of the upper abdomen are unremarkable. ??Low- density liver lesion 8.1 mm on image 89 series 3. ??Mildly lobular lateral limb left adrenal gland image 101 series 3. ??No free air or free fluid in the upper abdomen. ??Mesh repair of the anterior abdominal wall epigastrium region. BONES/SOFT TISSUES: No lytic or blastic changes noted. ??Osteophytes are present. ??Degenerative disc disease seen. ??No loss of vertebral body height. Procedure Note Isabella Roche - 06/20/2018 EXAMINATION: CT of the chest without intravenous contrast. INDICATION: COPD on the current every day smoker, follow-up 3 mm pulmonarynodule identified on prior CT. COMPARISON: 05/09/2016. TECHNIQUE: Helical images were obtained from the thoracic inlet to thelung bases without intravenous contrast. Coronal and sagittal reformattedimages were provided. For radiation dose control at least one of thefollowing techniques was used in this procedure: (1) Automated exposurecontrol (2) Adjustment of the mA and/or kV according to patient size (3)Use of iterative reconstruction technique. FINDINGS: BASE OF NECK: Normal appearance of the thyroid gland. No upper chestadenopathy. LUNGS, PLEURA, AIRWAYS: Background changes of centrilobular emphysema andrespiratory bronchitis with peribronchial groundglass opacities withinboth lungs. These findings are typical for smoking-related interstitiallung disease. No endotracheal lesions are apparent. No endobronchiallesions are seen. No consolidation, atelectasis, or effusion. No pleuralcalcification or pleural thickening. Pulmonary nodules seen as follows: 1. 2 mm left upper lobe pulmonary nodule image 157 series 5. The previously identified pulmonary nodules on prior study are no longerseen on today's exam. No new nodules have developed. MEDIASTINUM: Cardiac size is normal. Hiatal hernia seen at the GEjunction. Coronary artery calcification present. Ascending thoracicaortic diameter 3.6 cm. No pericardial effusion. No mediastinal mass. NODES: High right paratracheal 9.2 mm lymph node image 26 series 3. 11.3mm right paratracheal node image 35 series 3. These are most likelyreactive. UPPER ABDOMEN: Included portions of the upper abdomen are unremarkable.Low- density liver lesion 8.1 mm on image 89 series 3. Mildly lobularlateral limb left adrenal gland image 101 series 3. No free air or freefluid in the upper abdomen. Mesh repair of the anterior abdominal wallepigastrium region. BONES/SOFT TISSUES: No lytic or blastic changes noted. Osteophytes arepresent. Degenerative disc disease seen. No loss of vertebral bodyheight. IMPRESSION: 1. Single pulmonary nodule remains left upper lobe 2 mm. This study isdesignated a Lung-Rads 2 category. Since the patient has not followed upsince 05/09/2016, this study is now considered this year's (2018) annuallow-dose CT. Recommendations for follow-up: Annual low-dose lung cancerscreening now due CT 06/2019 if the patient qualifies for lung cancerscreening. Screening guidelines provided below. 2. 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 Respiratorybronchiolitis is a smoking-related interstitial lung disease characterizedby upper lobe predominant groundglass peribronchial opacities or poorlydefined centrilobular nodules. Generally this pattern is found with heavysmoking history. For lung cancer screening guidelines, please refer to:https://www.uspreventiveservicestaskforce.org/Page/Document/UpdateSummaryRiana maier/ruby [email or web address] Adults Aged 55-77, with a History of Smoking The USPSTF recommends annual screening for lung cancer with low-dosecomputed tomography (LDCT) in adults aged 55 to 77 years who have a 30pack-year smoking history and currently smoke or have quit within the past15 years. Screening should be discontinued once a person has not smokedfor 15 years or develops a health problem that substantially limits lifeexpectancy or the ability or willingness to have curative lung surgery [id number] Up-to-date CT equipment and radiation dose reduction techniques wereemployed. CTDIvol: 5.6 - 16.0 mGy. 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 Insurance MEDICARE [facility] SUPP Advance Directives Documents on File Type Date Recorded Patient Stock Mixer Expl anation Health Care Proxy 02/18/2022 2:30 PM health care proxy MOLST 08/25/2019 4:59 PM 08/19/19 Health Care Proxy 08/11/2019 9:10 AM 2002 Advance Directive 10/09/2007 12:00 AM naya M edical Decision Making (Adv.Dir) Advance Directive 10/09/2007 12:00 AM naya M edical Decision Making (Adv.Dir) Advance Directive 10/09/2007 12:00 AM naya M edical Decision Making (Adv.Dir) * DNR/DNI (Latest Code Status on File) Date Activated Date Inactivated Comments 01/23/2023 6:32 PM 02/03/2023 9:17 PM * Presumed Full Code Date Activated Date Inactivated Comments 01/23/2023 4:37 PM 01/23/2023 6:32 PM * Presumed Full Code Date Activated Date Inactivated Comments 01/23/2023 3:42 PM 01/23/2023 4:37 PM * Full Code Date Activated Date Inactivated Comments 03/21/2022 4:07 PM 03/21/2022 6:48 PM * Full Code Date Activated Date Inactivated Comments 04/28/2020 9:06 AM 05/12/2020 9:04 PM
--- OUTSIDE RECORDS SUMMARY | 2024-11-09 10:38 | XMS_ITS | Encounter Summary ---
Author Organization [facility] Address [address] [place] [address] Care Team Providers Care Piano Assembler Name Role Phone Tesha Pierce MD, Kristen Primary Care Provider + Reason for Visit * Reason Comments Med Refill Encounter Details Date Type Department Care Team (Late st Contact Info) Description 10/12/2024 Refill [facility] Internal Medicine [address] [place] [phone] Kristen Parkinson MD [address] [place] [address] [phone] Neuropathic pain Social History Tobacco Use Types Packs/Day Years Used Date Smoking Tobacco: Former Cigarettes 1.5 55 1 10/06/1963 - 08/06/2019 Passive Smoke Exposure: Past Smokeless Tobacco: Never Comments:quit 08/2019 Alcohol Use Standard Drinks/Week Comments Not Currently 0 (1 standard drink = 0.6 oz pur e alcohol) [facility] Utilities Answer Date Recorded In the past [...] as of this encounter Miscellaneous Notes * Telephone Encounter - HECTOR Salvador - 10/12/2024 10:30 AM EST Images from the original note were not included. Last BMP: Latest Ref Rng & Units 06/21/2024 6:40 AM Basic Metabolic Panel Sodium 135 - 145 mmol/L 140 Potassium 3.5 - 5.3 mmol/L 4.0 Chloride 98 - 107 mmol/L 104 Carbon Dioxide 24 - 32 mmol/L 24 Glucose 65 - 99 mg/dL 116 Creatinine 0.60 - 1.30 mg/dL 0.74 Calcium 8.6 - 10.5 mg/dL 9.7 EGFR >=60 mL/min/1.73m2 >90 Last Visit: 05/27/2024 Next Visit: Future Appointments Date Time Provider Department Center 10/15/2024 11:00 AM [facility], NURSE [facility] [place] 11/29/2024 1:40 PM MD Sherley Cruz [facility] 12/01/2024 1:00 PM MD Sherley Cruz [facility] 01/13/2025 11:30 AM Paul Franklin MD 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
--- OUTSIDE RECORDS SUMMARY | 2024-11-09 10:38 | XMS_ITS | Encounter Summary ---
Author Organization [facility] Address [address] [place] [address] Care Team Providers Care Construction Plumber Name Role Phone Tesha Pierce MD, [facility] Primary Care Provider + Reason for Visit * Reason Onset Date Comments Scheduling Appointment 11/17/2020 Encounter Details Date Type Department Care Team (Late st Contact Info) Description 11/17/2020 Telephone [facility]rology Clinic [address] [place] [phone] Telephone Intake, Staff Scheduling Appointment Social History Tobacco Use Types Packs/Day Years Used Date Smoking Tobacco: Former Cigarettes 1.5 55 1 10/06/1963 - 08/06/2019 Smokeless Tobacco: Never Alcohol Use Standard Drinks/Week Comments Not Currently 0 (1 standard drink = 0.6 oz pur e alcohol) Sex and Gender Information Value Date Recorded Sex Assigned at Male 04/27/2020 8:39 AM EDT Legal Sex Male 3:11 AM EDT Gender Identity Male 04/27/2020 8:39 AM EDT Sexual Orientation Straight 04/27/2020 8: 39 AM EDT documented as of this encounter Miscellaneous Notes * Telephone Encounter - Mara Ruiz - 11/22/2020 4:08 PM EST Images from the original note were not included. MD Mara Morris; P [facility] Neurology Admin Staff Pt was following with Dr. Clemente for similar issue. Pls refer back to Dr. Clemente. - JM * Telephone Encounter - Mara Ruiz - 11/21/2020 11:46 AM EST Send to reviewer * Telephone Encounter - Selam Crane - 11/17/2020 11:09 AM EST New patient has referral in the system for Left hand paresthesia unable to find the diagnoses in the system Pt requesting sooner in person appt pt can be reached at documented in this encounter Plan of Treatment Upcoming Encounters Date Type Department Care Team (Late st Contact Info) Description 01/13/2025 11:30 AM EDT Follow-Up [facility] Rheumatology Clinic [address] [place] [phone] Crew Lead: Paul Leger MD [address] [place] [address] documented as of this encounter Visit Diagnoses Not on filedocumented in this encounter Additional Health Concerns Infection Onset Date Last Indicated Resolved Time 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
--- OUTSIDE RECORDS SUMMARY | 2024-11-09 10:38 | XMS_ITS ---
Author Organization [facility] Address [address] [place] [address] Care Team Providers Care Organizational Effectiveness Consultant Name Role Phone Unavailable Primary Care Provider Unavailabl e Active Problems * This document contains information received from the source organization and may not represent a complete record from that organization. 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 Given potential for this to have contributed [...] S/P cervical spinal fusion 01/17/2021 Suprapubic catheter (CMS/HCC) 01/17/2021 Retention of urine 08/10/2020 S/P lumbar [...] supplements MD Juan Martinez : 1955 CSN: [id number] Hyperglycemia 08/18/2019 Overview (08/18/2019): Due to steroids, [...] the AM for any further recs. Plan: -Clarence 5-10mg PO q6 hours PRN pain -NS [...] COPD exacerbation. Will give duo-nebs PRN. Hyperlipidemia Current Oncology Plans No current plan information found. Past Plans No past plan information found. Radiation Treatments * No radiation treatments are documented for this patient in [facility]. Treatments may have been administered in another system. Lifetime Dose Tracking * Chemical Lifetime Dose Automatic Entry Manual Entr y Fluoro Time 0.3 minutes 0.3 minutes 0 minutes TotalDLP 698 mGy 698 mGy 0 mGy [id number] 8.2 mSv 8.2 mSv 0 mSv CTDIvol Max 15.5 mGy 15.5 mGy 0 mGy CTDIvol Min 15.5 mGy 15.5 mGy 0 mGy Radiation - mGy 4.96 mGy 4.96 mGy 0 mGy Resolved Problems Problem Noted Date Diagnosed Date [...] gerardo bowel movement in approximately 2 weeks APARTMENT COMMUNITY MANAGER since a prior prep for colonoscopy in [...] GI following; apprec recs - NPO at [facility] in case colo on Saturday 02/03 Vasovagal [...] site don't have surrounding redness. He has cardoza cath and is BM incontinence after the [...]
--- OUTSIDE RECORDS SUMMARY | 2024-11-09 10:38 | XMS_ITS | Encounter Summary ---
Author Organization [facility] Address [address] [place] [address] Care Team Providers Care Commercial Airline Pilot Name Role Phone Tesha Pierce MD, Kristen Primary Care Provider + Reason for Visit * Consultation (Routine) - Authorized Specialty Diagnoses / Procedures Referred By Contac t Referred To Contact Urology Diagnoses 6 month follow up Procedures FOLLOW UP Kristen Parkinson MD [address] [place] [phone] Phone: tel: fax: Mara Tellez MD PhD [address] [place] [address] Phone: tel: fax: Referral ID Status Reason Start Date Expiration Date V isits Requested Visits Authorized [id number] Authorized 06/16/2023 12/15/2024 6 6 Encounter Details Date Type Department Care Team (Latest Contact Info) Description 10/15/2024 11:00 AM EST Clinical Support [facility] Urology Clinic [address] [place] [address] Inserting Operator: Nilam Blair LPN Suprapubic catheter (CMS/HCC) (HCC) (Primary Dx) Social History Tobacco Use Types Packs/Day Years Used Date Smoking Tobacco: Former Cigarettes 1.5 55 1 10/06/1963 - 08/06/2019 Passive Smoke Exposure: Past Smokeless Tobacco: Never Comments:quit 08/2019 Alcohol Use Standard Drinks/Week Comments Not Currently 0 (1 standard drink = 0.6 oz pur e alcohol) [facility] Utilities Answer Date Recorded In the past [...] AM EDT documented as of this encounter Progress Notes * Nilam Figueroa LPN - 10/15/2024 11:00 AM ESTAssociated Order(s): Bladder Catheterization Bladder Catheterization Performed by: Nilam Figueroa LPN Authorized by: Mara Tellez MD PhD Procedure: Catheter Change Patient ID confirmed by name and : Yes Removal: Catheter Type: Spt tube Catheter size: 18 Fr Catheter disconected from: Leg bag Urine characteristics upon removal: Clear and yellow Balloon size (cc's): 10 Ease of Removal: Easy Insertion: Patient prepped with: Betadine solution Catheter insertion type: Indwelling Catheter type: Spt tube Catheter size: 18 Fr Complicated insertion: No Ease of Insertion: Easy Balloon size (cc's): 10 mL's of normal saline used for cath irrigation: 30 Number of attempts: 1 Urine volume (ml): 30 Urine characteristics: Clear and yellow Catheter attached to: Leg bag Patient tolerance: Patient tolerated the procedure well with no immediate complications Pt to return in 2 weeks for cath exchange Supplies: HC 772714 Catheter Hurt Bard 16 Fr 5 cc HC 108493 Bard Catheter Tray HC 369860 Bag Security Contoured LAEG 600 ml Juan Rubin : 1955 CSN: [id number] documented in this encounter Plan of Treatment Upcoming Encounters Date Type Department Care Team (Late st Contact Info) Description 01/13/2025 11:30 AM EDT Follow-Up [facility] Rheumatology Clinic [address] [place] [address] Inserting Operator: Paul Leger MD [address] [place] [address] documented as of this encounter Procedures * Due to [place] PST Tankers law, this organization might not be sharing negative HIV tests. Procedure Name Priority Date/Time Associated Diagnosis Comments HC [id number] BAG SECURITY CONTOURED LAEG 600ML Routine 10/15/2024 11:00 AM EST Suprapubic catheter (CMS/HCC) (HCC) HC 788354 BARD CATHETER TRAY Routine 10/15/2024 11:00 AM EST Suprapubic catheter (CMS/HCC) (HCC) HC [id number] CATHETER HURT BARD 16 FR 5 CC Routine 10/15/2024 11:00 AM EST Suprapubic catheter (CMS/HCC) (HCC) HC INSERTION OF TEMPORARY INDWELLING BLADDER CATHETER SIMPLE Routine 10/15/2024 11:00 AM EST Suprapubic catheter (CMS/HCC) (HCC) documented in this encounter Results * Due to [place] PST Tankers law, this organization might not be sharing negative HIV tests. * HC INSERTION OF TEMPORARY INDWELLING BLADDER CATHETER SIMPLE, HC 610336 CATHETER HURT BARD 16 FR 5CC, HC 276802 BARD CATHETER TRAY, HC 449866 BAG SECURITY CONTOURED LAEG 600ML (10/15/2024 11:00 [...] 2 weeks for cath exchange Supplies: HC 010168 Catheter Hurt Bard 16 Fr 5 cc HC 318193 Bard Catheter Tray HC 903537 Bag Security Contoured LAEG 600 ml us Mara Tellez MD PhD UROLOGY ORDERABL ES Final Result documented in this encounter Visit Diagnoses Diagnosis Suprapubic catheter (CMS/HCC) (HCC)- Primary Other cystostomy status documented in this encounter Additional Health Concerns Infection Onset Date Last Indicated Resolved Time 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
--- OUTSIDE RECORDS SUMMARY | 2024-11-09 10:38 | XMS_ITS | Encounter Summary ---
Author Organization [facility] Address [address] [place] [address] Care Team Providers Care Commissary Agent Name Role Phone Unavailable Primary Care Provider Unavailabl e Encounter Details Date Type Department Care Team (Late st Contact Info) Description 10/27/2024 Telephone [facility] Urology Clinic [address] [place] [address] Morgue Attendant: Mara Castañeda MD PhD [address] [place] [address] Social History Tobacco Use Types Packs/Day Years Used Date Smoking Tobacco: Former Cigarettes 1.5 55 1 10/06/1963 - 08/06/2019 Passive Smoke Exposure: Past Smokeless Tobacco: Never Comments:quit 08/2019 Alcohol Use Standard Drinks/Week Comments Not Currently 0 (1 standard drink = 0.6 oz pur e alcohol) [facility] Utilities Answer Date Recorded In the past 12 months has e nanoMR, gas, oil, or water Mippin threatened to shut off services in your [...] encounter Miscellaneous Notes * Telephone Encounter - Rossy Churchill - 10/27/2024 2:58 PM EST Pt is calling, he wanted to let you know that he has moved to [facility] and has changed urologist. He will be seeing DR Gómez Smith at [facility] . [place] is to far to travel for DR rafal. He want to say Thank you for the care he received from you. 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
--- OUTSIDE RECORDS SUMMARY | 2024-11-09 10:38 | XMS_ITS | Encounter Summary ---
Author Organization [facility] Address [address] [place] [address] Care Team Providers Care Embroidery Operator Name Role Phone Tesha Pierce MD, [facility] Primary Care Provider + Reason for Visit * Reason Onset Date Comments PAC Appt Request - New 02/28/2023 Encounter Details Date Type Department Care Team (Late st Contact Info) Description 02/28/2023 Telephone [facility] Patient Access [facility] [address] [place] [address] Telephone Intake, Staff PAC Appt Request - New Social History Tobacco Use Types Packs/Day Years [...] encounter Miscellaneous Notes * Telephone Encounter - Dhara Yolanda Lloyd - 02/28/2023 11:45 AM EDT New pt being referred to Rheum for PMR DT states to send TE to admins if no availability within 7 days, Patient has been scheduled for next available which was 05/12 @ 8:30 am Pt can be reached @ [phone] Thank you PAC documented in this encounter Plan of Treatment Upcoming Encounters Date Type Department Care Team (Late st Contact Info) Description 01/13/2025 11:30 AM EDT Follow-Up [facility] Rheumatology Clinic [address] [place] [address] Technician Biological Health: Paul Leger MD [address] [place] [address] documented as of this encounter Visit Diagnoses Not on filedocumented in this encounter Additional Health Concerns Infection Onset Date Last Indicated Resolved Time 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
--- OUTSIDE RECORDS SUMMARY | 2024-11-09 10:38 | XMS_ITS | Encounter Summary ---
Author Organization [facility] Address [address] [place] [address] Care Team Providers Care Computer Tech Name Role Phone Tesha Pierce MD, [facility] Primary Care Provider + Reason for Visit * Reason Onset Date Comments PAC Rx Questions 03/05/2024 Encounter Details Date Type Department Care Team (Late st Contact Info) Description 03/05/2024 Telephone [facility] Patient Access Center [address] [place] [address] Telephone Intake, Staff PAC Rx Questions Social History Tobacco Use Types Packs/Day Years [...] would like information or assistance: None Apply 11/27/2023 Lack of Transportation (Medical) Not on file 11/27/2023 Housing Stability Answer Date Recorded Please yane the areas for ich the patient would like information or assistance: None Apply 11/27/2023 Unable to Pay for Housing in the Last Year Not o n file 11/27/2023 Last EPDS Total Score Not on file 11/27/2023 Unstable Housing in the Last Year Not on file 11/27/2023 Sex and Gender Information Value Date Recorded Sex Assigned at Male 04/27/2020 8:39 AM EDT Legal Sex Male 3:11 AM EDT Gender Identity Male 04/27/2020 8:39 AM EDT Sexual Orientation Straight 04/27/2020 8: 39 AM EDT documented as of this encounter Miscellaneous Notes * Telephone Encounter - Madisyn Corey LPN - 03/05/2024 3:52 PM EDT Liam is aware pt will start with 10 mg daily x 30 days then begin tapering by 1 mg monthly. He verbalized understanding of all info & instructions and repeated back accurately. * Telephone Encounter - Dhara Lloyd - 03/05/2024 11:17 AM EDT Liam calling from [facility] is regard to pts prednisone, They need to clarify which dose & directs should be prescribed to pt as they received two. 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
--- OUTSIDE RECORDS SUMMARY | 2024-11-09 10:38 | XMS_ITS | Referral Summary ---
Author Organization [facility] Address [address] [place] [address] Care Team Providers Care Cyber Workforce Developer And Manager Name Role Phone Unavailable Primary Care Provider Unavailabl e Encounters Date Type Department Care Team Description 10/27/2024 Telephone [facility] Urology [address] [address] Aeronautical Engineering Teacher: Mara Castañeda MD PhD 10/15/2024 11:00 AM EST Clinical Support [facility] Urology [address] [phone] Aeronautical Engineering Teacher: Nilam Blair LPN Suprapubic catheter (CMS/HCC) (HCC) (Primary Dx) 10/12/2024 Refill [facility] Internal Medicine [address] [place] [phone] Kristen Parkinson MD Neuropathic pain 10/01/2024 3:00 PM EST Clinical Support [facility] Urology Clinic [address] [place] [phone] Aeronautical Engineering Teacher: Payam De Leon LPN Suprapubic catheter (CMS/HCC) (HCC) (Primary Dx) 09/06/2024 Telephone [facility] Internal Medicine [address] [place] [phone] Kristen Parkinson MD Med Refill 09/03/2024 Refill [facility] Internal Medicine [address] [place] [phone] Kristen Parkinson MD Neuropathic pain 08/31/2024 9:30 AM EST Clinical Support [facility] Urology Clinic [address] [place] [phone] Aeronautical Engineering Teacher: Bobbi Bolanos LPN Neurogenic bladder, flaccid (Primary Dx) 08/19/2024 Telephone [facility] Rheumatology Clinic [address] [place] [phone] Aeronautical Engineering Teacher: Rossy Gongora Telephone Intake, Staff PAC Rx Questions; Dr Franklin 08/19/2024 9:30 AM EST Follow-Up [facility] Rheumatology Clinic [address] [place] [phone] Aeronautical Engineering Teacher: Paul Leger MD Polymyalgia rheumatica (CMS/HCC) (HCC) (Primary Dx) 08/16/2024 Refill [facility] Internal Medicine [address] [place] [phone] Kristen Parkinson MD 08/16/2024 Refill [facility] Internal Medicine [address] [place] [phone] Eleno Magana MD 08/13/2024 2:30 PM EST Clinical Support [facility] Urology Clinic [address] [place] [phone] Aeronautical Engineering Teacher: Bobbi Bolanos LPN Benign prostatic hyperplasia with urinary retention (Primary Dx) 08/11/2024 Refill [facility] Internal Medicine [address] [place] [phone] Kristen Parkinson MD Neuropathic pain from Last 3 Months Allergies Active Allergy Reactions Criticality Noted Date [...] a day Active adult disposable brief ([place] [facility] [place] - large - use as directed once a day 30 each 021 Active gauze bandage 4 X 4 bandageIndicat ions:Neurogeni c bladder, flaccid,Suprap ubic catheter (CMS/HCC) ([facility]) Patient requires supplies for daily care/maintenance to SPT site. 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 Uses 1 sterile 4x4 daily to clean SPT site. Ref. # MedLine Sponges, 10 per Box: [id number] 30 each 023 Active urinary bag [facility] [place] Pt requires Bedside drainage bag changed every other week. ([facility] Ref # [id number]) DX: Neuromuscular Dysfunction of Bladder (N31.9) 2 each 023 Active adhesive tape (Paper Tape) 1 X 10 -yard tapeIndication s:Suprapubic catheter (CMS/HCC) ([facility]) HypoAllergenic Paper Tape, 1 x10 yard. Pt. [...] or tea prior to administration. 100 each Active miscellaneous medical supply (Heavy Drainage Dressing Steril) packageIndicat ions:Neurogeni c bladder, flaccid,Suprap ubic catheter ([facility]) ([facility]) Pt. Has a SupraPubic Tube that requires daily care/maintenance. Pt. Requires 1 sterile drainage sponge daily to be placed on SPT Site after cleaning. Diagnoses: Neuromuscular Dysfunction of Bladder(N31.9) and SupraPubic Catheter(Z93.59) 30 each Active LORazepam (ATIVAN) 0.5 mg tablet Take 1 tablet one hour prior to procedure 3 tablet Active albuterol (ProAir HFA) 90 mcg inhaler Activ e sodium chloride 0.9% irrigation Flush catheter daily with 60 cc of sterile saline and aspirate irrigant 1800 mL Active fluticasone furoate-vilant Bienvenido (Breo Ellipta) 100-25 mcg/dose blister with device Inhale 1 puff by mouth 2 times a day. 1 each Active Additional Information Patient not taking.Reported on 08/19/2024 budesonide (Pulmicort Flexhaler) 180 mcg/actuation inhaler Inhale 1 puff by mouth 2 times a day. Rinse mouth with water after use to reduce aftertaste and incidence of candidiasis. Do not swallow. 1 each 1 Active urinary bag (Urinary Leg Bag) misc [...] by mouth once a day. 60 each Active atorvastatin (LIPITOR) 20 mg tablet TAKE 1 TABLET BY MOUTH EVERY DAY 90 tablet Active Symbicort 160-4.5 mcg/actuation inhaler INHALE 2 PUFFS BY MOUTH TWICE DAILY. RINSE MOUTH WITH WATER AFTER USE. DO NOT SWALLOW 10.2 g 11 Active amLODIPine (NORVASC) 5 mg tablet TAKE 1 TABLET(5 MG) BY MOUTH EVERY DAY 90 tablet 3 Active Linzess 72 mcg TAKE 1 CAPSULE(72 MCG) BY MOUTH DAILY 90 capsule Active trospium (SANCTURA) 20 mg tablet Take 1 tablet (20 mg total) by mouth once a day. 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 Given potential for this to have contributed [...] supplements MD Juan Martinez : 1955 CSN: [id number] [facility] 08/18/2019 Overview (08/18/2019): Due to steroids, continue [...] the AM for any further recs. 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 since a prior prep for colonoscopy in [...] GI following; apprec recs - [place] at [place] in case colo on Saturday 02/03 Vasovagal [...] for craving - Encouraged him smoking cessation Immunizations Name Administration Dates Next Due COVID-19, [...] 08/07/2019,06/09/2018,08/21/2017 Influenza, Trivalent, MDV, Injectable ,07/02/2013,07/20/2012,08/08,07/27/2009,08/30/2008,09/02/2007 Novel [id number], Preservative-Free, Injectable 09/27/2009 Pneumococcal Conjugate Vacci ne, 13 Valent 03/07/2015 Pneumococcal Polysaccharide Vaccine, 23 Valent 07/31/2020,08/30/2008 Pneumococcal conjugate PCV20,polysaccharide [id number] conjugate, adjuvant, PF (Prevnar 20) 06/05/2023 RSV, Bivalent, Protein Subun it RSVpreF, Diluent Reconstituted, 0.5 mL, PF 06/05/2023 Tetanus Toxoid, Reduced Diph theria Toxoid, and Acellular Pertussis Vaccine, Adsorbed 03/19/2017 Zoster Vaccine Recombinant 08/28/2020,06/21/2020 Zoster Vaccine, Live 06/05/2023,09/17/2015 Social History Tobacco Use Types Packs/Day Years Used Date Smoking Tobacco: Former Cigarettes 1.5 55 1 10/06/1963 - 08/06/2019 Passive Smoke Exposure: Past Smokeless Tobacco: Never Tobacco Cessation:Counseling Given: Not Answered Comments:quit 08/2019 Alcohol Use Standard Drinks/Week Comments Not Currently 0 (1 standard drink = 0.6 oz pur e alcohol) [facility] Utilities Answer Date Recorded In the past 12 months has e [place], gas, oil, or water [employer] threatened to shut off services in your [...] Info) Description 01/13/2025 11:30 AM EDT Follow-Up [facility] Rheumatology Clinic [address] [place] [address] Aeronautical Engineering Teacher: Paul Leger MD [address] [place] [phone] Medical Devices Implanted Type Area Rn Orthopedic Device Identifier Shelf Expiration Date Model / Serial / Lot Mau Thoracolumbar [id number] Altaf - [id number] Implanted:Qty: 2 on 08/06/2019 by Dianne De MD at [facility] Implant Spine Cervical DEPUY 1883-16- 060 / / Connector Spinal Cross Thoracolumbar Head To Head Titanium 35mm Mountaineer - [id number] Implanted:Qty: 1 on 08/06/2019 by Dianne De MD at [facility] Implant Spine Cervical DEPUY 1883-41- 035 / / Nut Spinal Outer Connector Cross Head To Head Titanium Mountaineer - [id number] Implanted:Qty: 2 on 08/06/2019 by Dianne De MD at [facility] Implant Spine Cervical DEPUY 1883-41- 200 / / Nut Spinal Outer Connector Cross Head To Head Titanium Mountaineer - [id number] Implanted:Qty: 2 on 08/06/2019 by Dianne De MD at [facility] Implant Spine Cervical DEPUY 1883-41- 100 / / Screw Thoracic Favored Angle Titanium [id number] Mountaineer - [id number] Implanted:Qty: 7 on 08/06/2019 by Dianne De MD at [facility] Screw Spine Cervical DEPUY 1883-18- 312 / / Screw Thoracic Favored Angle Titanium [id number] Mountaineer - [id number] Implanted:Qty: 1 on 08/06/2019 by Dianne De MD at [facility] Screw Spine Cervical DEPUY 1883-18- 316 / / Screw Thoracic Inner Mountaineer - [id number] Implanted:Qty: 6 on 08/06/2019 by Dianne De MD at [facility] Screw Spine Cervical DEPUY 1883-42- 200 / / Putty Demineralized Bone Matrix 10cc Dbx - [id number] - [id number] Implanted:Qty: 1 on 08/06/2019 by Dianne De MD at [facility] Tissue Spine Cervical MUSCULOSKELETAL TRANSPLANT FND 04/27/2021 [id number] / [id number] / Ic Graft Chamber Dbm 10cc - [id number] - [id number] Implanted:Qty: 1 on 04/28/2020 by Dianne De MD at [facility] Tissue Spine Lumbar LIFENET 11/14/2022 [id number] / [id number] / [id number] Description:Demineralized yany ne matrix and cancellous chips reconstituted with pts. blood Ic Graft Chamber [facility] 10cc - [id number] - [id number] Implanted:Qty: 1 on 04/28/2020 by Dianne De MD at [facility] Tissue Spine Lumbar LIFENET 11/14/2022 [id number] / [id number] / [id number] Description:Demineralized yany ne matrix and cancellous chips reconstituted with pts. blood Procedures * Due to [place] state law, this organization might not be sharing negative HIV tests. Procedure Name Priority Date/Time Associated Diagnosis Comments HC 523395 BAG SECURITY CONTOURED LAEG 600ML Routine 10/15/2024 11:00 AM EST Suprapubic catheter (CMS/HCC) (HCC) HC 687937 BARD CATHETER TRAY Routine 10/15/2024 11:00 AM EST Suprapubic catheter (CMS/HCC) (HCC) HC 259734 CATHETER HURT BARD 16 FR 5 CC Routine 10/15/2024 11:00 AM EST Suprapubic catheter (CMS/HCC) (HCC) HC INSERTION OF TEMPORARY INDWELLING BLADDER CATHETER SIMPLE Routine 10/15/2024 11:00 AM EST Suprapubic catheter (CMS/HCC) (HCC) HC 329218 BAG SECURITY CONTOURED LAEG 600ML Routine 10/01/2024 3:00 PM EST Suprapubic catheter (CMS/HCC) (HCC) HC 454891 BARD CATHETER TRAY Routine 10/01/2024 3:00 PM EST Suprapubic catheter (CMS/HCC) (HCC) HC INSERTION OF TEMPORARY INDWELLING BLADDER CATHETER SIMPLE Routine 10/01/2024 3:00 PM EST Suprapubic catheter (CMS/HCC) (HCC) C-REACTIVE PROTEIN Routine 10/01/2024 12 :15 PM EST Polymyalgia rheumatica (CMS/HCC) (HCC) SEDIMENTATION RATE, AUTOMATED Routine 10/01/2024 12:15 PM EST Polymyalgia rheumatica (CMS/HCC) (HCC) HC 587011 BARD CATHETER TRAY Routine 08/31/2024 9:30 AM EST Neurogenic bladder, flaccid HC 413312 CATHETER HURT BARD 16 FR 5 CC Routine 08/31/2024 9:30 AM EST Neurogenic bladder, flaccid HC INSERTION OF TEMPORARY INDWELLING BLADDER CATHETER SIMPLE Routine 08/31/2024 9:30 AM EST Neurogenic bladder, flaccid HC 821855 BAG SECURITY CONTOURED LAEG 600ML Routine 08/13/2024 2:30 PM EST Benign prostatic hyperplasia with urinary retention HC 573693 BARD CATHETER TRAY Routine 08/13/2024 2:30 PM EST Benign prostatic hyperplasia with urinary retention HC 722277 CATHETER HURT BARD 16 FR 5 CC [...] to Health Maintenance Results * Due to [place] state law, this organization might not be sharing negative HIV tests. * HC INSERTION OF TEMPORARY INDWELLING BLADDER CATHETER SIMPLE, HC 963079 CATHETER HURT BARD 16 FR 5CC, HC 053806 BARD CATHETER TRAY, HC 875761 BAG SECURITY CONTOURED LAEG 600ML (10/15/2024 11:00 AM EST) Narrative Nilam Figueroa LPN - 10/15/2024 11:00 AM EST Nilam Figueroa LPN ? 10/15/2024 11:14 AM Bladder Catheterization Performed by: Nilam Fiugeroa LPN Authorized by: Mara Tellez MD PhD [...] in 2 weeks for cath exchange Supplies: 301558 Catheter Hurt Bard 16 Fr 5 cc HC 060469 Bard Catheter Tray HC 006121 Bag Security Contoured LAEG 600 ml us Mara Tellez MD PhD UROLOGY ORDERABL ES Final Result * HC INSERTION OF TEMPORARY INDWELLING BLADDER CATHETER SIMPLE, HC 013484 BARD CATHETER TRAY, HC 594622 BAG SECURITY CONTOURED LAEG 600ML (10/01/2024 3:00 PM EST) Narrative Payam Griffin LPN - 10/01/2024 3:00 PM EST Payam [...] well with no immediate complications Supplies: HC 781100 Bard Catheter Tray HC 450483 Bag Security Contoured LAEG 600 ml us Mara Tellez MD PhD UROLOGY ORDERABL ES Final Result * (ABNORMAL) Sedimentation Rate (10/01/2024 12:15 PM EST) [facility] Sed Rate 29(H) <20 mm/Hr mm/Hr 10/01/2024 12:49 PM EST [facility] Blood Structure of peripheral vein / Unknown Venipuncture / Unknown 10/01/2024 12:15 PM EST 10/01/2024 12:43 PM EST us Iva Perez MD LAB BLOOD ORDERABLES Final Resul t [facility] [address] [place] [address], * C-Reactive Protein (10/01/2024 12:15 PM EST) [facility] C Reactive Protein <3.0 <=9.9 mg/L 10/01/2024 1:09 PM EST [facility] Blood Structure of peripheral vein / Unknown Venipuncture / Unknown 10/01/2024 12:15 PM EST 10/01/2024 12:43 PM EST us Iva Perez MD LAB BLOOD ORDERABLES Final Resul t [facility] [address] [place] [address], [place] * HC INSERTION OF TEMPORARY INDWELLING BLADDER CATHETER SIMPLE, HC 927066 CATHETER HURT BARD 16 FR 5CC, HC 201073 BARD CATHETER TRAY (08/31/2024 9:30 AM EST) [...] well with no immediate complications Supplies: HC 073564 Catheter Hurt Bard 16 Fr 5 cc HC 319103 Bard Catheter Tray us Mara Tellez MD PhD UROLOGY ORDERABL ES Final Result * HC INSERTION OF TEMPORARY INDWELLING BLADDER CATHETER SIMPLE, HC 801735 CATHETER HURT BARD 16 FR 5CC, HC 800562 BARD CATHETER TRAY, HC 159709 BAG SECURITY CONTOURED LAEG 600ML (08/13/2024 2:30 [...] procedure well with no immediate complications Supplies: [id number] Catheter Hurt Bard 16 Fr 5 cc HC 077284 Bard Catheter Tray HC 358951 Bag Security Contoured LAEG 600 ml us Mara Tellez MD PhD UROLOGY ORDERABL ES Final Result * (ABNORMAL) BMP - Basic Metabolic Panel (06/21/2024 6:40 AM EDT) NA 140 135 - 145 mmol/L 06/21/2024 7:17 AM EDT [facility] K 4.0 3.5 - 5.3 mmol/L 06/21/2024 7:17 AM EDT [facility] Cl 104 98 - 107 mmol/L 06/21/2024 7:17 AM EDT [facility] CO2 24 24 - 32 mmol/L 06/21/2024 7:17 AM EDT [facility] BUN 15 7 - 23 mg/dL 06/21/2024 7:17 AM EDT [facility] Creatinine 0.74 0.60 - 1.30 mg/dL 06/21/2024 7:17 AM EDT [facility] Glucose 116(H) 65 - 99 mg/dL 06/21/2024 7:17 AM EDT [facility] Calcium 9.7 8.6 - 10.5 mg/dL 06/21/2024 7:17 AM EDT [facility] Anion Gap 12 5 - 15 06/21/2024 7:17 AM T [facility] eGFR >90 >=60 mL/min/1. 73m2 06/21/2024 7:17 AM EDT [facility] Comment:The estimated glomer [...] Kauffman MD LAB BLOOD ORDERABLES Final Result [facility] [address] [place] [address], * COLONOSCOPY (05/20/2024) Narrative Procedure Note Justo El MD PhD - 05/20/2024 9:25 AM EDT [facility] Patient Name: Juan Rubin Procedure Date: 05/20/2024 9:25 AM Date of : 1955 Admit Type: Outpatient Age: 69 Room: [place] [address] Gender: Male Note Status: Finalized Attending MD: [...] obtain the completed interpretation. ? Workstation ID: [id number] Up-to-date CT equipment and radiation dose reduction [...] evidence for recurrent hernia. Resulting Agency Comment [id number] Procedure Note Iain Jain MD - 01/18/2023 [...] possible to obtain thecompleted interpretation. Workstation ID: [id number] Up-to-date CT equipment and radiation dose reduction techniques wereemployed. CTDIvol: 15.5 mGy. DLP: 698 mGy-cm. us Agapito Rowe MD IMG CT PROCEDURES Final Resu lt * Hepatitis C Antibody w/Reflex to HCV RNA, Quantitative PCR (08/25/2019 3:15 PM EST) Hepatitis C Antibody NON-REACT YENNI NON-REACT YENNI 08/26/2019 1:11 AM [facility] Signal To Cut-Off 0.01 <1.00 08/26/2019 1:11 AM [facility] Comment: HCV antibody was non-reactive. There is no laboratory evidence of HCV infection. In most cases, no further action is required. However, if recent HCV exposure is suspected, a test for HCV RNA (test code 75311) is suggested. For additional information please refer to http://education.[place]/faq/CHK30l1 (This link is being provided for informational/ educational purposes only.) Blood specimen (specimen) Structure of peripheral vein / Unknown Venipuncture / Unknown 08/25/2019 3:15 PM EST 08/25/2019 3:20 PM EST Narrative [facility] - 08/26/2019 1:11 AM EST [facility] Received Date: us Antoinette Cast MD LAB BLOOD ORDERABLES Final Re sult [facility]THA [facility]ORD[facility] [address], [place] [address], [place] [phone] [email or web address] [facility] [address], [address] [place] [phone], * CT Chest WO Contrast (06/17/2018 12:12 PM EDT) Anatomical Region Laterality Modality Body Computed Tomogra phy 06/20/2018 1:13 PM EDT Impressions 06/20/2018 1:28 PM EDT 1. ??Single pulmonary nodule remains left upper lobe 2 mm. ??This study is designated a Lung-Rads 2 category. ??Since the patient has not followed up since 05/09/2016, this study is now considered this year's (2017) annual low-dose CT. Recommendations for follow-up: Annual [...] or willingness to have curative lung surgery [id number] Up-to-date CT equipment and radiation dose reduction techniques were employed. CTDIvol: 5.6 - 16.0 mGy. DLP: 541 mGy-cm.The following accession numbers are related to this dose report [id number] Narrative 06/20/2018 1:28 PM EDT EXAMINATION: CT [...] For lung cancer screening guidelines, please refer to:[email or web address]force.org/Page/Document/UpdateSummaryFina l/ruby [email or web address] Adults Aged 55-77, with a History of [...] or willingness to have curative lung surgery [id number] Up-to-date CT equipment and radiation dose reduction techniques wereemployed. CTDIvol: 5.6 - 16.0 mGy. 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
--- NOTE | 2024-11-09 10:55 | AM.OFFWIN_ITS ---
Intake Vital Signs 11/09/24 10:56 Weight 193 lb BP 118/72 Blood Pressure Location Lt brachial Position Sitting Pulse 81 Pulse Source Pulse Oximeter Temp 98.6 F Temp Source Oral Pulse Oximetry (%) 94 Oxygen Delivery Method Room Air Intake Visit Reasons: EP-sob, b/l eyes burning, cough, headaches Intake Note: Patient here for SOB, cough, headaches and eyes burning. he states he was put on antibiotics and started to feel better but then over the weekend he was with his son who has bronchitis. Patient Tobacco Use Status: Former Tobacco user Allergies No Known Allergies Allergy (Verified 10/26/24 10:18) Do you need a note to return to daycare/school/sports/work: No HPI HPI Comments History of Present Illness Details This is a 69-year-old male with a past medical history of COPD not currently oxygen dependent, hypertension and neurogenic bladder presenting for evaluation of chest congestion, ?eyes are burning?, headache and cough that he has had since Friday. Patient states on Friday he was working with his son outside. The patient's son called him on Friday and told him that he had fevers, chills, cough and ?was miserable?. Patient has not taken any medication for treatment of his discomfort and denies having any fevers or chills. Patient takes Symbicort twice daily and has not needed to utilize his albuterol inhaler. [facility] Medical History (Updated 11/09/24 @ 11:26 by Francine Mcginnis PA-C) Pure hypercholesterolemia Essential hypertension Suprapubic catheter COPD exacerbation Osteoarthritis of cervical spine Neurogenic urinary bladder disorder Benitez catheter present Colon cancer Hypertension Amputation of right middle finger Surgical History H/O neck surgery History of partial surgical removal of colon Previous back surgery Family History Mother High cholesterol Hypertension Brother Colon cancer Father Cardiovascular disease Social History (Updated 10/26/24 @ 10:27 by Gayla Escalante CMA) Household Members: Spouse Both parents involved: No Caregiver staying overnight: No Housing: House Are you a primary resident caregiver to a significant other at home: No Do you presently have visiting nurse or other home services: No 75 years or older and lives alone: No Alcohol intake: never Patient Tobacco Use Status: Former Tobacco user Tobacco use type: Cigarette Cigarette Packs Per Day: 2 Cigarettes Per Day: 20 Years Smoked: 50 e-Cigarette/Vaping Use: Never Used Second Hand Smoke Exposure: No service: No Current occupational status: retired Cognitive needs: No Hearing needs: Yes (hearing aid) Vision needs: No Review of Systems Const All systems reviewed & are unremarkable except as noted in HPI and below Denies chills, Denies fever(s), Reports headache(s) and Denies weakness Eyes Reports no additional complaints ENT Reports no additional complaints and Reports headache(s) Card Denies chest pain, Reports dyspnea and Denies dyspnea on exertion Resp Reports cough, Reports dyspnea and Denies dyspnea on exertion GI Reports no additional complaints Reports no additional complaints Musc Reports no additional complaints Neuro Reports no additional complaints, Reports headache(s) and Denies weakness Psych Reports no additional complaints Endo Reports no additional complaints Physical Exam Vital Signs: Last Vital Signs Temp 98.6 F 11/09/24 10:56 Pulse 81 11/09/24 10:56 BP 118/72 11/09/24 10:56 Pulse Ox 94 11/09/24 10:56 Oxygen Delivery Method Room Air 11/09/24 10:56 Patient is afebrile Const General: cooperative, healthy appearing, comfortable, no acute distress, well developed, alert, awake and Physically active; No ill appearing Nutritional Appearance: well nourished Orientation/consciousness: patient oriented x3 Limitations: no limitations HEENT Head: Yes normal to inspection and Yes normocephalic Ears: hearing grossly normal bilaterally, external ears normal, TM's normal ursula aterally and EAC's normal General nose exam: Normal external nose present Face and sinus: Yes normal facial exam, Yes sinuses nontender, Yes face symmet ana and No sinus tenderness Mouth: Normal oral and palatal mucosa present Throat: Yes posterior oropharynx normal and No postnasal drainage Eyes General: appearance normal, both eyes and all related structures Neck Lymphatic: no lymphadenopathy noted Resp Effort & Inspection: normal respiratory effort, able to speak in complete sentences, no audible wheezes, Actively coughing and no respiratory distress Auscultation: clear to auscultation bilaterally and diminished lung sounds bilateral Cardio Rate: regular rate Rhythm: regular rhythm Skin General skin exam: no rashes or lesions noted Neuro General: patient oriented x3 Psych Appearance: grossly normal Mental Status: mental status grossly normal Insight: Good insight present (Psych) Judgement: Good judgement present (Psych) Assessment & Plan Assessment & Plan (1) Acute upper respiratory infection: Comment: SARS panel is ordered and results are pending. Patient is nontoxic appearing without tachypnea or hypoxia. Code(s): J06.9 - Acute upper respiratory infection, unspecified Plan: Tylenol or ibuprofen as needed for headache, increase clear fluids daily, albuterol inhaler only as needed. Orders: Orders SARS-CoV2/FLU/RSV Today J06.9 - Acute upper respiratory infection, unspecified Coding Level of Care Code Est Pt Level 3 (41810) Diagnoses Acute upper respiratory infection J06.9 Time Spent (min) 20
[2024-11-09 10:56] VITALS: BP 118/72; PULSE 81; TEMP 37; O2SAT 94
== END 2024-11-09 11:22 | disposition home or self-care (01) ==
PROVIDERS: PCP Internal Medicine; Visit Provider Physician Assistant
DX: J06.9 Acute upper respiratory infection, unspecified (principal)

== ENCOUNTER 2024-11-22 11:13 | Outpatient (AMB) | payer MEDICARE, SELFPAY ==
--- OUTSIDE RECORDS SUMMARY | 2024-11-22 11:16 | XMS_ITS | Encounter Summary ---
Author Organization [facility] Address [address] [place] [address] Care Team Providers Care Channel Manager Name Role Phone Tesha Pierce MD, [facility] Primary Care Provider + Reason for Visit * Reason Onset Date Comments Scheduling Appointment 11/17/2020 Encounter Details Date Type Department Care Team (Late st Contact Info) Description 11/17/2020 Telephone [facility] [address] [place] [phone] Telephone Intake, Staff Scheduling Appointment Social History [...] were not included. MD Mara Morris; P [facility] Neurology Admin Staff Pt was following with [...] Info) Description 01/13/2025 11:30 AM EDT Follow-Up [facility] [address] [place] [phone] Choral Director: Paul Leger MD [address] [place] [address] documented as of this encounter Visit [...] documented as of this encounter Care Teams Channel Manager Relationship Specialty Start Date End Date Kristen Parkinson MD [address] [place] [phone] (work) PCP - General Internal Medicine 08/17/23 10/26/24 documented as of this encounter
--- OUTSIDE RECORDS SUMMARY | 2024-11-22 11:16 | XMS_ITS | Clinical Summary ---
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 Uses 1 sterile 4x4 daily to clean SPT site. Ref. # MedLine Sponges, 10 per Box: [id number] 30 each 12/13/19 23 Active urinary bag misc Pt requires Bedside drainage bag changed every other week. (Conveen Ref # [id number]) DX: Neuromuscular Dysfunction of Bladder (N31.9) 2 each 12/28/19 23 Active adhesive tape (Paper Tape) 1 X 10 -yard tapeIndications :Suprapubic catheter (CMS/HCC) (HCC) HypoAllergenic Paper Tape, 1 x10 yard. Pt. Requires 2 rolls per month to secure drainage sponge around SPT daily. Diagnosis: Suprapubic Catheter(Z93.59) 2 each 01/28/20 Active acetaminophen (TYLENOL) 325 mg tablet Take 2 tablets (650 mg total) by mouth every 6 hours as needed for pain or fever. 02/04/20 23 Active psyllium-aspart xu (METAMUCIL) 3.5 gram powder in packet packet Take 1 packet by mouth 2 times a day. Take with 8 oz of cold fluid. 30 each 02/04/20 23 Active polyethylene glycol 3350 (MIRALAX) 17 gram packet Take 1 packet (17 g total) by mouth 2 times a day. Tonight or tomorrow mix 4 packets (68g) in 32 oz of electrolyte containing liquid such as gatorade and drink in one sitting. Mix powder in 4 to 8 oz of water, juice, coffee, or tea prior to administration. 100 each 02/04/20 Active miscellaneous medical supply (Heavy Drainage Dressing Steril) packageIndicati ons:Neurogenic bladder, flaccid,Suprapu bic catheter (CMS/HCC) ([facility]) Pt. Has a SupraPubic Tube that requires daily care/maintenance. Pt. Requires 1 sterile drainage sponge daily to be placed on SPT Site after cleaning. Diagnoses: Neuromuscular Dysfunction of Bladder(N31.9) and SupraPubic Catheter(Z93.59) 30 each 02/28/20 Active LORazepam (ATIVAN) 0.5 mg tablet Take 1 tablet one hour prior to procedure 3 tablet 02/27/20 Active albuterol (ProAir HFA) 90 mcg inhaler Active sodium chloride 0.9% irrigation Flush catheter daily with 60 cc of sterile saline and aspirate irrigant 1800 mL 05/19/20 23 Active fluticasone furoate-vilante roL (Breo Ellipta) 100-25 mcg/dose blister with device Inhale 1 puff by mouth 2 times a day. 1 each 11/12/19 Active Additional Information Patient not taking.Reported on 08/19/2024 budesonide (Pulmicort Flexhaler) 180 mcg/actuation inhaler Inhale 1 puff by mouth 2 times a day. Rinse mouth with water after use to reduce aftertaste and incidence of candidiasis. Do not swallow. 1 each 1 12/11/19 24 Active urinary bag (Urinary Leg Bag) misc Use as direct 2 each 12/22/19 Active sodium chloride 0.9% irrigation Irrigate with Saline 250ml daily. 30 mL 12/22/19 Active adhesive tape 1 X 1 1/2 -yard tape Use as direct 2 each 12/22/19 Active non-adherent bandage 4 X 4 sponge Use Gaze daily 30 each 12/22/19 Active mometasone-form oterol (DULERA 100) 100-5 mcg/actuation inhaler Inhale 2 puffs by mouth 2 times a day. Rinse mouth with water after use to reduce aftertaste and incidence of candidiasis. Do not swallow. 13 g 3 02/26/20 24 Active Additional Information Patient not taking.Reported on 08/19/2024 fluticasone-ume clidinium-vilan terol (Trelegy Ellipta) 200-62.5-25 mcg blister with deviceIndicatio ns:Chronic obstructive pulmonary disease, unspecified COPD type (HCC) Inhale 1 puff by mouth once a day. 60 each 03/26/20 24 Active atorvastatin (LIPITOR) 20 mg tablet TAKE 1 TABLET BY MOUTH EVERY DAY 90 tablet 05/12/20 Active Symbicort 160-4.5 mcg/actuation inhaler INHALE 2 PUFFS BY MOUTH TWICE DAILY. RINSE MOUTH WITH WATER AFTER USE. DO NOT SWALLOW 10.2 g 11 05/21/20 Active amLODIPine (NORVASC) 5 mg tablet TAKE 1 TABLET(5 MG) BY MOUTH EVERY DAY 90 tablet 3 05/31/20 24 Active Linzess 72 mcg TAKE 1 CAPSULE(72 MCG) BY MOUTH DAILY 90 capsule 05/31/20 Active trospium (SANCTURA) 20 mg tablet Take 1 tablet (20 mg total) by mouth once a day. 90 tablet 3 07/29/20 24 Active losartan (COZAAR) 50 mg tablet TAKE 1 TABLET BY MOUTH EVERY DAY 90 tablet 08/17/20 Active hydroCHLOROthia zide (HYDRODIURIL) 25 mg tablet TAKE 1 TABLET(25 MG) BY MOUTH EVERY DAY 90 tablet 08/17/20 24 Active predniSONE (DELTASONE) 5 mg tablet He will be on prednisone 8 mg from September 02, 2024 for 30 days. He will use 5 mg and 1 mg tabs to take 8 mg 60 tablet 08/19/20 24 Active gabapentin (NEURONTIN) 600 mg tabletIndicatio ns:Neuropathic pain TAKE 1 TABLET(600 MG) BY MOUTH FOUR TIMES DAILY 120 tablet 10/12/19 25 Active predniSONE (DELTASONE) 1 mg tablet Take 1 tablet (1 mg total) by mouth once a day. He will be on prednisone 8 mg from September 02, 2024 for 30 days. He will use 5 mg and 1 mg tabs to take 8 mg 90 tablet 08/19/20 24 025 Active Problems Problem Noted Date Diagnosed Date Right carpal tunnel syndrome 06/27/2023 Spinal cord compression 04/18/2023 Neurogenic bladder, flaccid 03/12/2022 Assessment & Plan (02/01/2023 1:47 PM EDT): Patient with neurogenic bladder s/p suprapubic catheter placement. 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 Given potential for this to have contributed [...] supplements MD Juan Martinez : 1955 CSN: [id number] Hyperglycemia 08/18/2019 Overview (08/18/2019): Due to steroids, [...] the AM for any further recs. 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 in [...] GI following; apprec recs - NPO at CT in case colo on Saturday 02/03 Vasovagal [...] Type Department Care Team Description 10/27/2024 Telephone [facility] Urology [address] [address] Auricular Therapist: Mara Castañeda MD PhD 10/15/2024 11:00 AM EST Clinical Support [facility] Urology [address] [address] Auricular Therapist: Nilam Blair LPN Suprapubic catheter (CMS/HCC) (HCC) (Primary Dx) 10/12/2024 Refill [facility] Internal Medicine [address] [place] [phone] Kristen Parkinson MD Neuropathic pain 10/01/2024 3:00 PM EST Clinical Support [facility] Urology [address] [address] Auricular Therapist: Payam De Leon LPN Suprapubic catheter (CMS/HCC) (HCC) (Primary Dx) 09/06/2024 Telephone [facility] Internal Medicine [address] [place] [phone] Kristen Parkinson MD Med Refill 09/03/2024 Refill [facility] Internal Medicine [address] [place] [phone] Kristen Parkinson MD Neuropathic pain 08/31/2024 9:30 AM EST Clinical Support [facility] Urology [address] [address] Auricular Therapist: Bobbi Bolanos LPN Neurogenic bladder, flaccid (Primary Dx) from Last 3 Months Immunizations Immunization Administration Dates Next Due COVID-19, Moderna, mRNA, [...] 08/07/2019,06/09/2018,08/21/2017 Influenza, Trivalent, MDV, Injectable ,07/02/2013,07/20/2012,08/08,07/27/2009,08/30/2008,09/02/2007 Novel [id number], Preservative-Free, Injectable 09/27/2009 Pneumococcal Conjugate Vacci ne, 13 Valent 03/07/2015 Pneumococcal Polysaccharide Vaccine, 23 Valent 07/31/2020,08/30/2008 Pneumococcal conjugate PCV20,polysaccharide [id number] conjugate, adjuvant, PF (Prevnar 20) 06/05/2023 RSV, [...] 0.6 oz pur e alcohol) [facility] Utilities Answer Date Recorded In the past 12 months has th e skyrockit, gas, oil, or water company threatened to [...] Info) Description 01/13/2025 11:30 AM EDT Follow-Up [facility] Rheumatology Clinic [address] [place] [address] Auricular Therapist: Paul Leger MD [address] [place] [address] Health Maintenance Due Date Last Done Comments Alcohol/Substance Use Screening 10/06/2024 05/27/2024, 06/11/2023 Depression Screening and Follow-Up 10/06/2024 11/27/2023 Health Care Proxy Review 10/06/2024 11/27/2023, 02/03 Social Drivers of Health Annual Screening 10/06/2024 05/27/2024 CT Lung Cancer Screening (12 months, previous LungRADS 1 or 2) 11/27/2024 06/17/2018, 05/09/2016 Postponed from 06/17/2019 (Patient Declined) COVID-19 Vaccine (8 - Moderna risk season) 2025 07/20/2024, 07/09/2023, 07/24/2022, Additional history exists Colonoscopy 05/20/2025 05/20/2024, 05/06, 02/03/2023, Additional history exists Basic Metabolic Panel 06/21/2025 06/21/2024 , 05/04/2024, 03/05/2024, Additional history exists Fall Risk Screening 10/15/2025 10/15/2024 DTaP,Tdap,and Td Vaccines (2 - Td or Tdap) 03/19/2027 03/19/2017 Tobacco Screening 10/06/2042 08/13/2024 Hepatitis C Screening Completed 08/25/2019 Abdominal Aortic Aneurysm (AAA) Screening Completed 01/18/2023, 07/06/2013 Pneumococcal Vaccine: 50+ Years Completed 06/05/2023, 07/31/2020, 03/07/2015, Additional history exists RSV Vaccine (60+ years old and patients) Completed 06/05/2023 Zoster Vaccines Completed 06/05/2023, 08/07, 06/21/2020, Additional history exists Statin Therapy Completed 05/12/2024 Influenza Vaccine Completed 06/17/2024, , 07/24/2022, Additional history exists Hepatitis B Vaccines Discontinued Medical Devices Implanted Type Area Horticulture Professor Device Identifier Shelf Expiration Date Model / Serial / Lot Mau Thoracolumbar [id number] Altaf - [id number] Implanted:Qty: 2 on 08/06/2019 by Dianne De MD at [facility] Implant Spine Cervical DEPUY 1883-16- 060 / / Connector Spinal Cross Thoracolumbar Head To Head Titanium 35mm Mountaineer - [id number] Implanted:Qty: 1 on 08/06/2019 by Dianne De MD at [facility] Implant Spine Cervical DEPUY 1883-41- 035 / / Nut Spinal Outer Connector Cross Head To Head Titanium Mountaineer - [id number] Implanted:Qty: 2 on 08/06/2019 by Dianne De MD at [facility] Implant Spine Cervical DEPUY 1883-41- 200 / / Nut Spinal Outer Connector Cross Head To Head Titanium Mountaineer - [id number] Implanted:Qty: 2 on 08/06/2019 by Dianne De MD at [facility] Implant Spine Cervical DEPUY 1883-41- 100 / / Screw Thoracic Favored Angle Titanium 3.1xmd19sw Mountaineer - [id number] Implanted:Qty: 7 on 08/06/2019 by Dianne De MD at [facility] Screw Spine Cervical DEPUY 1883-18- 312 / / Screw Thoracic Favored Angle Titanium 3.8elk68ax Mountaineer - [id number] Implanted:Qty: 1 on 08/06/2019 by Dianne De MD at [facility] Screw Spine Cervical DEPUY 1883-18- 316 / / Screw Thoracic Inner Mountaineer - [id number] Implanted:Qty: 6 on 08/06/2019 by Dianne De MD at [facility] Screw Spine Cervical DEPUY 1883-42- 200 / / Putty Demineralized Bone Matrix 10cc Dbx - [id number] - [id number] Implanted:Qty: 1 on 08/06/2019 by Dianne De MD at [facility] Tissue Spine Cervical MUSCULOSKELETAL TRANSPLANT FND 04/27/2021 [id number] / [id number] / Ic Graft [facility] - [id number] - [id number] Implanted:Qty: 1 on 04/28/2020 by Dianne De MD at [facility] Tissue Spine Lumbar LIFENET 11/14/2022 [id number] / [id number] / [id number] Description:Demineralized yany ne matrix and cancellous chips reconstituted with pts. blood Ic [facility]raft [facility] - [id number] - [id number] Implanted:Qty: 1 on 04/28/2020 by Dianne De MD at [facility] Tissue Spine Lumbar LIFENET 11/14/2022 [id number] / [id number] / [id number] Description:Demineralized yany ne matrix and cancellous chips reconstituted with pts. blood Procedures * Due to [place] state law, this organization might not be sharing negative HIV tests. Procedure Name Priority Date/Time Associated Diagnosis Comments 649840 BAG SECURITY CONTOURED LAEG 600ML Routine 10/15/2024 11:00 AM EST Suprapubic catheter (CMS/HCC) ([facility]) 469298 BARD CATHETER TRAY Routine 10/15/2024 11:00 AM EST Suprapubic catheter (CMS/HCC) ([facility]) 906137 CATHETER HURT BARD 16 FR 5 CC Routine 10/15/2024 11:00 AM EST Suprapubic catheter (CMS/HCC) ([facility]) INSERTION OF TEMPORARY INDWELLING BLADDER CATHETER SIMPLE Routine 10/15/2024 11:00 AM EST Suprapubic catheter (CMS/HCC) (HCC) 896591 BAG SECURITY CONTOURED LAEG 600ML Routine 10/01/2024 3:00 PM EST Suprapubic catheter (CMS/HCC) (HCC) HC 106518 BARD CATHETER TRAY Routine 10/01/2024 3:00 PM EST Suprapubic catheter (CMS/HCC) (HCC) HC INSERTION OF TEMPORARY INDWELLING BLADDER CATHETER SIMPLE Routine 10/01/2024 3:00 PM EST Suprapubic catheter (CMS/HCC) (HCC) C-REACTIVE PROTEIN Routine 10/01/2024 12 :15 PM EST Polymyalgia rheumatica (CMS/HCC) (HCC) SEDIMENTATION RATE, AUTOMATED Routine 10/01/2024 12:15 PM EST Polymyalgia rheumatica (CMS/HCC) (HCC) HC 503864 BARD CATHETER TRAY Routine 08/31/2024 9:30 AM EST Neurogenic bladder, flaccid HC 983461 CATHETER HURT BARD 16 FR 5 CC Routine 08/31/2024 9:30 AM EST Neurogenic bladder, flaccid HC INSERTION OF TEMPORARY INDWELLING BLADDER CATHETER SIMPLE Routine 08/31/2024 9:30 AM EST Neurogenic bladder, flaccid BASIC METABOLIC PANEL STAT 06/21/2024 6:40 AM [...] to Health Maintenance Results * Due to [place] state law, this organization might not be sharing negative HIV tests. * HC INSERTION OF TEMPORARY INDWELLING BLADDER CATHETER SIMPLE, HC 939467 CATHETER HURT BARD 16 FR 5CC, HC 311728 BARD CATHETER TRAY, 097458 BAG SECURITY CONTOURED LAEG 600ML (10/15/2024 11:00 [...] in 2 weeks for cath exchange Supplies: 570960 Catheter Hurt Bard 16 Fr 5 cc HC 541477 Bard Catheter Tray HC 126104 Bag Security Contoured LAEG 600 ml us Mara Tellez MD PhD UROLOGY ORDERABL ES Final Result * INSERTION OF TEMPORARY INDWELLING BLADDER CATHETER SIMPLE, HC 187293 BARD CATHETER TRAY, HC 034333 BAG SECURITY CONTOURED LAEG 600ML (10/01/2024 3:00 [...] well with no immediate complications Supplies: HC 186667 Bard Catheter Tray HC 063802 Bag Security Contoured LAEG 600 ml us Mara Tellez MD PhD UROLOGY ORDERABL ES Final Result * (ABNORMAL) Sedimentation Rate (10/01/2024 12:15 PM EST) Sed Rate 29(H) <20 mm/Hr mm/Hr 10/01/2024 12:49 PM EST [facility] Blood Structure of peripheral vein / Unknown Venipuncture / Unknown 10/01/2024 12:15 PM EST 10/01/2024 12:43 PM EST us Iva Perez MD LAB BLOOD ORDERABLES Final Resul t [facility] [address] [place] [address], * C-Reactive Protein (10/01/2024 12:15 PM EST) Pathologist [facility] C Reactive Protein <3.0 <=9.9 mg/L 10/01/2024 1:09 PM EST [facility] Blood Structure of peripheral vein / Unknown Venipuncture / Unknown 10/01/2024 12:15 PM EST 10/01/2024 12:43 PM EST us Iva Perez MD LAB BLOOD ORDERABLES Final Resul t [facility] [address] [place] [address], * HC INSERTION OF TEMPORARY INDWELLING BLADDER CATHETER [place], HC 620569 CATHETER HURT BARD 16 FR 5CC, HC 361433 BARD CATHETER TRAY (08/31/2024 9:30 AM EST) [...] well with no immediate complications Supplies: HC 006163 Catheter Hurt Bard 16 Fr 5 cc HC 000505 Bard Catheter Tray us Mara Tellez MD PhD UROLOGY ORDERABL ES Final Result * (ABNORMAL) BMP - Basic Metabolic Panel (06/21/2024 6:40 AM EDT) NA 140 135 - 145 mmol/L 06/21/2024 7:17 AM EDT [facility] K 4.0 3.5 - 5.3 mmol/L 06/21/2024 7:17 AM EDT [facility] Cl 104 98 - 107 mmol/L 06/21/2024 7:17 AM T [facility] CO2 24 24 - 32 mmol/L 06/21/2024 7:17 AM EDT [facility] BUN 15 7 - 23 mg/dL 06/21/2024 7:17 AM EDT [facility] Creatinine 0.74 0.60 - 1.30 mg/dL 06/21/2024 7:17 AM T [facility] Glucose 116(H) 65 - 99 mg/dL 06/21/2024 7:17 AM T [facility] Calcium 9.7 8.6 - 10.5 mg/dL 06/21/2024 7:17 AM [facility] Anion Gap 12 5 - 15 06/21/2024 7:17 AM [facility] eGFR >90 >=60 mL/min/1. 73m2 06/21/2024 7:17 AM T [facility] Comment:The estimated glomer [...] 6:40 AM EDT 06/21/2024 6:55 AM EDT Shaun Kauffman MD LAB BLOOD ORDERABLES Final Result [facility] [address] [place] [address], [place] * COLONOSCOPY (05/20/2024) Narrative Procedure Note Justo El MD PhD - 05/20/2024 9:25 AM EDT [facility] Gastroenterology Patient Name: Juan MeridaNesha Rubin Procedure Date: 05/20/2024 9:25 AM Date of : 1955 Admit Type: Outpatient Age: 69 Room: [place] [address] Gender: Male Note Status: Finalized Attending MD: [...] obtain the completed interpretation. ? Workstation ID: [id number] Up-to-date CT equipment and radiation dose reduction [...] evidence for recurrent hernia. Resulting Agency Comment [id number] Procedure Note Iain Jain MD - 01/18/2023 [...] possible to obtain thecompleted interpretation. Workstation ID: [id number] Up-to-date CT equipment and radiation dose reduction techniques wereemployed. CTDIvol: 15.5 mGy. DLP: 698 mGy-cm. us Agapito Rowe MD IM CT PROCEDURES Final Resu lt * Hepatitis C Antibody w/Reflex to HCV RNA, Quantitative PCR (08/25/2019 3:15 PM EST) Hepatitis C Antibody NON-REACT YENNI NON-REACT YENNI 08/26/2019 1:11 AM [facility] Signal To Cut-Off 0.01 <1.00 08/26/2019 1:11 AM EST [facility] Comment: HCV antibody was non-reactive. There is no laboratory evidence of HCV infection. In most cases, no further action is required. However, if recent HCV exposure is suspected, a test for HCV RNA (test code 58342) is suggested. For additional information please refer to http://education.[employer]/faq/DEH70l8 (This link is being provided for informational/ educational purposes only.) Blood specimen (specimen) Structure of peripheral vein / Unknown Venipuncture / Unknown 08/25/2019 3:15 PM EST 08/25/2019 3:20 PM EST Narrative MARTHA JORDAN - 08/26/2019 1:11 AM EST [facility] Received Date: Antoinette Cast MD LAB BLOOD ORDERABLES Final Re sult MARTHA JORDAN [address], [place] [address], [place] [phone] [facility] [address], [address] [facility] [address], * CT Chest WO Contrast (06/17/2018 12:12 [...] or willingness to have curative lung surgery [id number] Up-to-date CT equipment and radiation dose reduction techniques were employed. CTDIvol: 5.6 - 16.0 mGy. DLP: 541 mGy-cm.The following accession numbers are related to this dose report [id number] Narrative 06/20/2018 1:28 PM EDT EXAMINATION: CT [...] cancer screening guidelines, please refer to:https://www.uspreventiveservicestaskforce.org/Page/Document/UpdateSummaryFina l/ruby f-pghlnr-roiqscway Adults Aged 55-77, with a History of [...] or willingness to have curative lung surgery [id number] Up-to-date CT equipment and radiation dose reduction techniques wereemployed. CTDIvol: 5.6 - 16.0 mGy. 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 MCR SUPP Advance Directives Documents on File Type Date Recorded Patient Cloth Bleaching Range Back Tender Expl anation Health Care Proxy 02/18/2022 2:30 [...]
--- OUTSIDE RECORDS SUMMARY | 2024-11-22 11:16 | XMS_ITS | Referral Summary ---
Author Organization [facility] Address [address] [place] [address] Care Team Providers Care Senior Graduate Advisor Name Role Phone Unavailable Primary Care Provider Unavailabl e Encounters Date Type Department Care Team Description 10/27/2024 Telephone [facility] Urology [address] [address] Public School Teacher: Mara Castañeda MD PhD 10/15/2024 11:00 AM EST Clinical Support [facility] Urology [address] [address] Public School Teacher: Nilam Blair LPN Suprapubic catheter (CMS/HCC) (HCC) (Primary Dx) 10/12/2024 Refill [facility] Internal Medicine [address] [place] [phone] Kristen Parkinson MD Neuropathic pain 10/01/2024 3:00 PM EST Clinical Support [facility] [address] [place] [phone] Public School Teacher: Payam De Leon LPN Suprapubic catheter (CMS/HCC) (HCC) (Primary Dx) 09/06/2024 Telephone [facility] Internal Medicine [address] [place] [phone] Kristen Parkinson MD Med Refill 09/03/2024 Refill [facility] Internal Medicine [address] [place] [phone] Kristen Parkinson MD Neuropathic pain 08/31/2024 9:30 AM EST Clinical Support [facility] [address] [place] [phone] Public School Teacher: Bobbi Bolanos LPN Neurogenic bladder, flaccid (Primary Dx) from Last 3 Months Allergies Active Allergy [...] 4 bandageIndicati ons:Neurogenic bladder, flaccid,Suprapu bic catheter (CMS/HCC) ([facility]) Patient requires supplies for daily care/maintenance to SPT site. 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 Uses 1 sterile 4x4 daily to clean SPT site. Ref. # MedLine Sponges, 10 per Box: [id number] 30 each 12/13/19 23 Active urinary bag misc Pt requires Bedside drainage bag changed every other week. (Conveen Ref # [id number]) DX: Neuromuscular Dysfunction of Bladder (N31.9) 2 each 12/28/19 23 Active adhesive tape (Paper Tape) 1 X 10 -yard tapeIndications :Suprapubic catheter (CMS/HCC) ([facility]) HypoAllergenic Paper Tape, 1 x10 yard. Pt. Requires 2 rolls per month to secure drainage sponge around SPT daily. Diagnosis: Suprapubic Catheter(Z93.59) 2 each 01/28/20 Active acetaminophen (TYLENOL) 325 mg tablet Take 2 tablets (650 mg total) by mouth every 6 hours as needed for pain or fever. 02/04/20 Active psyllium-aspart xu (METAMUCIL) 3.5 gram powder in packet packet Take 1 packet by mouth 2 times a day. Take with 8 oz of cold fluid. 30 each 02/04/20 Active polyethylene glycol 3350 (MIRALAX) 17 gram [...] packageIndicati ons:Neurogenic bladder, flaccid,Suprapu bic catheter (CMS/HCC) ([facility]) Pt. Has a [...] saline and aspirate irrigant 1800 mL 05/19/20 Active fluticasone furoate-vilante roL (Breo Ellipta) 100-25 [...] with Saline 250ml daily. 30 mL 12/22/19 24 Active adhesive tape 1 X 1 1/2 -yard tape Use as direct 2 each 12/22/19 24 Active non-adherent bandage 4 X 4 sponge Use Gaze daily 30 each 12/22/19 24 Active mometasone-form oterol (DULERA 100) 100-5 mcg/actuation [...] BY MOUTH EVERY DAY 90 tablet 05/12/20 24 Active Symbicort 160-4.5 mcg/actuation inhaler INHALE 2 PUFFS BY MOUTH TWICE DAILY. RINSE MOUTH WITH WATER AFTER USE. DO NOT SWALLOW 10.2 g 11 05/21/20 24 Active amLODIPine (NORVASC) 5 mg tablet TAKE 1 TABLET(5 MG) BY MOUTH EVERY DAY 90 tablet 3 05/31/20 24 Active Linzess 72 mcg TAKE 1 CAPSULE(72 MCG) BY MOUTH DAILY 90 capsule 05/31/20 24 Active trospium (SANCTURA) 20 mg tablet Take 1 tablet (20 mg total) by mouth once a day. 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 Given potential for this to have contributed [...] supplements MD Juan Martinez : 1955 CSN: [id number] Hyperglycemia 08/18/2019 Overview (08/18/2019): Due to steroids, [...] 19 Other abnormalities of gait and mobility 11/13/2 019 Other specified spondylopathies, cervical region 08/18/2019 [...] the AM for any further recs. 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 since a prior prep for colonoscopy in [...] GI following; apprec recs - NPO [place] in case colo on Saturday 02/03 Vasovagal [...] craving - Encouraged him smoking cessation Immunizations Immunization Administration Dates Next Due COVID-19, [...] 08/07/2019,06/09/2018,08/21/2017 Influenza, Trivalent, MDV, Injectable ,07/02/2013,07/20/2012,08/08,07/27/2009,08/30/2008,09/02/2007 Novel [id number], Preservative-Free, Injectable 09/27/2009 Pneumococcal Conjugate Vacci ne, 13 Valent 03/07/2015 Pneumococcal Polysaccharide Vaccine, 23 Valent 07/31/2020,08/30/2008 Pneumococcal conjugate PCV20,polysaccharide OAT340 conjugate, adjuvant, PF (Prevnar 20) 06/05/2023 RSV, [...] drink = 0.6 oz pur e alcohol) [facility] Utilities Answer Date Recorded In [...] Info) Description 01/13/2025 11:30 AM EDT Follow-Up [facility] Rheumatology Clinic [address] [place] [address] Public School Teacher: Paul Leger MD [address] [place] [phone] Medical Devices Implanted Type Area Coat Repair Inspector Device Identifier Shelf Expiration Date Model / Serial / Lot Mau Thoracolumbar 3.3bdt39aw Altaf - [id number] Implanted:Qty: 2 on 08/06/2019 by Dianne De MD at [facility] [place] [facility] Implant Spine Cervical DEPUY 1883-16- 060 / / Connector Spinal Cross Thoracolumbar Head To Head Titanium 35mm Mountaineer - [id number] Implanted:Qty: 1 on 08/06/2019 by Dianne De MD at [facility] [place] [facility] Implant Spine Cervical DEPUY 1883-41- 035 / / Nut Spinal Outer Connector Cross Head To Head Titanium Mountaineer - [id number] Implanted:Qty: 2 on 08/06/2019 by Dianne De MD at [facility] [place] [facility] Implant Spine Cervical DEPUY 1883-41- 200 / / Nut Spinal Outer Connector Cross Head To Head Titanium Mountaineer - [id number] Implanted:Qty: 2 on 08/06/2019 by Dianne De MD at [facility] [place] [facility] Implant Spine Cervical DEPUY 1883-41- 100 / / Screw Thoracic Favored Angle Titanium [id number] Mountaineer - [id number] Implanted:Qty: 7 on 08/06/2019 by Dianne De MD at [facility] [place] [facility] Screw Spine Cervical DEPUY 1883-18- 312 / / Screw Thoracic Favored Angle Titanium [id number] Mountaineer - [id number] Implanted:Qty: 1 on 08/06/2019 by Dianne De MD at [facility] [place] [facility] Screw Spine Cervical DEPUY 1883-18- 316 / / Screw Thoracic Inner Mountaineer - [id number] Implanted:Qty: 6 on 08/06/2019 by Dianne De MD at [facility] [place] [facility] Screw Spine Cervical DEPUY 1883-42- 200 / / Putty Demineralized Bone Matrix 10cc Dbx - [id number] - [id number] Implanted:Qty: 1 on 08/06/2019 by Dianne De MD at [facility] [place] [facility] Tissue Spine Cervical MUSCULOSKELETAL TRANSPLANT FND 04/27/2021 [id number] / [id number] / Ic Graft Chamber [address] - [id number] - [id number] Implanted:Qty: 1 on 04/28/2020 by Dianne De MD at [facility] [place] [facility] Tissue Spine Lumbar LIFENET 11/14/2022 [id number] / [id number] / [id number] Description:Demineralized yany ne matrix and cancellous chips reconstituted with pts. blood Ic Graft Chamber [address] - [id number] - [id number] Implanted:Qty: 1 on 04/28/2020 by Dianne De MD at [facility] [place] [facility] Tissue Spine Lumbar LIFENET 11/14/2022 [id number] / [id number] / [id number] Description:Demineralized yany ne matrix and cancellous chips reconstituted with pts. blood Procedures * Due to [place] state law, this organization might not be sharing negative HIV tests. Procedure Name Priority Date/Time Associated Diagnosis Comments 041634 BAG SECURITY CONTOURED LAEG 600ML Routine 10/15/2024 11:00 AM EST Suprapubic catheter ([facility]/HCC) ([facility]) 006157 BARD CATHETER TRAY Routine 10/15/2024 11:00 AM EST Suprapubic catheter (CMS/HCC) ([facility]) 720977 CATHETER HURT BARD 16 FR 5 CC Routine 10/15/2024 11:00 AM EST Suprapubic catheter (CMS/HCC) ([facility]) INSERTION OF TEMPORARY INDWELLING BLADDER CATHETER SIMPLE Routine 10/15/2024 11:00 AM EST Suprapubic catheter (CMS/HCC) ([facility]) 553113 BAG SECURITY CONTOURED LAEG 600ML Routine 10/01/2024 3:00 PM EST Suprapubic catheter (CMS/HCC) ([facility]) HC 308897 BARD CATHETER TRAY Routine 10/01/2024 3:00 PM EST Suprapubic catheter (CMS/HCC) (HCC) HC INSERTION OF TEMPORARY INDWELLING BLADDER CATHETER SIMPLE Routine 10/01/2024 3:00 PM EST Suprapubic catheter (CMS/HCC) (HCC) C-REACTIVE PROTEIN Routine 10/01/2024 12 :15 PM EST Polymyalgia rheumatica (CMS/HCC) (HCC) SEDIMENTATION RATE, AUTOMATED Routine 10/01/2024 12:15 PM EST Polymyalgia rheumatica (CMS/HCC) (HCC) HC 255151 BARD CATHETER TRAY Routine 08/31/2024 9:30 AM EST Neurogenic bladder, flaccid HC 082362 CATHETER HURT BARD 16 FR 5 CC [...] to Health Maintenance Results * Due to [place] state law, this organization might not be sharing negative HIV tests. * HC INSERTION OF TEMPORARY INDWELLING BLADDER CATHETER SIMPLE, HC 265427 CATHETER HURT BARD 16 FR 5CC, HC 478673 BARD CATHETER TRAY, [place] 652387 BAG SECURITY CONTOURED LAEG 600ML (10/15/2024 11:00 AM EST) Nilam Natarajan LPN - 10/15/2024 11:00 AM EST Nilma Figueroa LPN ? 10/15/2024 11:14 AM Bladder [...] in 2 weeks for cath exchange Supplies: 876972 Catheter Hurt Bard 16 Fr 5 cc HC 421509 Bard Catheter Tray HC 834600 Bag Security Contoured LAEG 600 ml us Mara Tellez MD PhD UROLOGY ORDERABL ES Final Result * INSERTION OF TEMPORARY INDWELLING BLADDER CATHETER SIMPLE, HC 578257 BARD CATHETER TRAY, HC 216007 BAG SECURITY CONTOURED LAEG 600ML (10/01/2024 3:00 [...] well with no immediate complications Supplies: HC 805760 Bard Catheter Tray HC 368904 Bag Security Contoured LAEG 600 ml us Mara Tellez MD PhD UROLOGY ORDERABL ES Final Result * (ABNORMAL) Sedimentation Rate (10/01/2024 12:15 PM EST) Pathologist [facility] Sed Rate 29(H) <20 mm/Hr mm/Hr 10/01/2024 12:49 PM EST [facility] Blood Structure of peripheral vein / Unknown Venipuncture / Unknown 10/01/2024 12:15 PM EST 10/01/2024 12:43 PM EST us Iva Perez MD LAB BLOOD ORDERABLES Final Resul t [facility] [address] [place] [address], * C-Reactive Protein (10/01/2024 12:15 PM EST) C Reactive Protein <3.0 <=9.9 mg/L 10/01/2024 1:09 PM EST [facility] Blood Structure of peripheral vein / Unknown Venipuncture / Unknown 10/01/2024 12:15 PM EST 10/01/2024 12:43 PM EST us Iva Perez MD LAB BLOOD ORDERABLES Final Resul t [facility] [address] [place] [address], [place] * HC INSERTION OF TEMPORARY INDWELLING BLADDER CATHETER SIMPLE, HC 221797 CATHETER HURT BARD 16 FR 5CC, HC 138896 BARD CATHETER TRAY (08/31/2024 9:30 AM EST) [...] procedure well with no immediate complications Supplies: 380880 Catheter Hurt Bard 16 Fr 5 cc HC 466060 Bard Catheter Tray us Mara Tellez MD PhD UROLOGY ORDERABL ES Final Result * (ABNORMAL) BMP - Basic Metabolic Panel (06/21/2024 6:40 AM EDT) NA 140 135 - 145 mmol/L 06/21/2024 7:17 AM EDT [facility] K 4.0 3.5 - 5.3 mmol/L 06/21/2024 7:17 AM [facility] Cl 104 98 - 107 mmol/L 06/21/2024 7:17 AM [facility] CO2 24 24 - 32 mmol/L 06/21/2024 7:17 AM [facility] BUN 15 7 - 23 mg/dL 06/21/2024 7:17 AM [facility] Creatinine 0.74 0.60 - 1.30 mg/dL 06/21/2024 7:17 AM [facility] Glucose 116(H) 65 - 99 mg/dL 06/21/2024 7:17 AM [facility] Calcium 9.7 8.6 - 10.5 mg/dL 06/21/2024 7:17 AM [facility] Anion Gap 12 5 - 15 06/21/2024 7:17 AM [facility] eGFR >90 >=60 mL/min/1. 73m2 06/21/2024 7:17 AM [facility] Comment:The estimated glomer ular filtration rate (eGFR) is calculated using a new formula developed by the NKF-ASN task force to eliminate race-based correction factors. The new formula uses serum/plasma creatinine, age, and gender to determine eGFR. A value below 60mls/min might indicate kidney disease and will be flagged. For additional information, see Daisy et al, Am J Kidney Dis. 2021;79(2):268- 288, A Unifying Approach for GFR estimation: Recommendations of the NKF-ASN Task Force on Reassessing the Inclusion of Race in Diagnosing Kidney Disease . Blood Structure of peripheral vein / Unknown Venipuncture / Unknown 06/21/2024 6:40 AM EDT 06/21/2024 6:55 AM EDT Shaun Kauffman MD LAB BLOOD ORDERABLES Final Result [facility] [address] [place] [address], [place] * COLONOSCOPY (05/20/2024) Narrative Procedure Note Justo El MD PhD - 05/20/2024 9:25 AM EDT [facility] Gastroenterology Patient Name: Juan Rubin Procedure Date: 05/20/2024 9:25 AM Date of : 1955 Admit Type: Outpatient Age: 69 Room: [place] [address] Gender: Male Note Status: Finalized Attending MD: [...] obtain the completed interpretation. ? Workstation ID: [id number] Up-to-date CT equipment and radiation dose reduction [...] evidence for recurrent hernia. Resulting Agency Comment [id number] Procedure Note Iain Jain MD - 01/18/2023 [...] possible to obtain thecompleted interpretation. Workstation ID: [id number] Up-to-date CT equipment and radiation dose reduction techniques wereemployed. CTDIvol: 15.5 mGy. DLP: 698 mGy-cm. us Agapito Rowe MD IM CT PROCEDURES Final Resu lt * Hepatitis C Antibody w/Reflex to HCV RNA, Quantitative PCR (08/25/2019 3:15 PM EST) Hepatitis C Antibody NON-REACT YENNI NON-REACT YENNI 08/26/2019 1:11 AM [employer] Signal To Cut-Off 0.01 <1.00 08/26/2019 1:11 AM [employer] Comment: HCV antibody was non-reactive. There is no laboratory evidence of HCV infection. In most cases, no further action is required. However, if recent HCV exposure is suspected, a test for HCV RNA (test code 87581) is suggested. For additional information please refer to http://education.[employer]/faq/ARA79p2 (This link is being provided for informational/ educational purposes only.) Blood specimen (specimen) Structure of peripheral vein / Unknown Venipuncture / Unknown 08/25/2019 3:15 PM EST 08/25/2019 3:20 PM EST [facility] 08/26/2019 1:11 AM EST Martha Received Date: Antoinette Cast MD LAB BLOOD ORDERABLES Final Re sult MARTHA JORDAN [address] Floor, [place] [address], [place] [phone] [employer] [facility] [address], [address] [facility] [place] [address], [place] [phone] * CT Chest WO Contrast (06/17/2018 12:12 [...] or willingness to have curative lung surgery [id number] Up-to-date CT equipment and radiation dose reduction techniques were employed. CTDIvol: 5.6 - 16.0 mGy. DLP: 541 mGy-cm.The following accession numbers are related to this dose report [id number] Narrative 06/20/2018 1:28 PM EDT EXAMINATION: CT [...] lung cancer screening guidelines, please refer to:https://www.uspreventiveservicestaskforce.org/Page/Document/UpdateSummaryFina livier/ruby q-hvumpv-fslwxolcx Adults Aged 55-77, with a History of [...] or willingness to have curative lung surgery [id number] Up-to-date CT equipment and radiation dose reduction techniques wereemployed. CTDIvol: 5.6 - 16.0 mGy. 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
--- OUTSIDE RECORDS SUMMARY | 2024-11-22 11:16 | XMS_ITS | Encounter Summary ---
Author Organization [facility] Address [address] [place] [address] Care Team Providers Care Engineering Programmer Name Role Phone Tesha Pierce MD, [facility] Primary Care Provider + Encounter Details Date Type Department Care Team (Late st Contact Info) Description 02/26/2022 Orders Only [facility] Interventional Radiology [address] [place], [place] [phone] Reagan Mendoza NP [address] [place], [place] [phone] Social History Tobacco Use Types Packs/Day Years [...] of spinal canal ??? Colon cancer (CMS/HCC) ([facility]) age 49, s/p patial colectomy, no chemo or radiation ??? COPD (chronic obstructive pulmonary disease) ([facility]) no overnight hospitilizations, no intubations, symbicort BID, [...] right middle finger ??? HERNIA REPAIR ??? NV ALLOGRAFT FOR SPINE SURGERY ONLY MORSELIZED Bilateral 08/06/2019 Procedure: ALLOGRAFT, MORSELIZED, OR PLACEMENT OF OSTEOPROMOTIVE MATERIAL, FOR SPINE SURGERY ONLY; Surgeon: Dianne De MD; Location: [facility] [place]; Service: Neurosurgery ??? NV ARTHRODESIS POSTERIOR/POSTERIORLATERAL CERVICAL BELOW C2 Bilateral 08/06/2019 Procedure: FUSION, POSTERIOR OR POSTEROLATERAL, CERVICAL BELOW C2, SINGLE LEVEL; Surgeon: Dianne De MD; [facility]; Service: Neurosurgery ??? NV ARTHRODESIS POSTERIOR/POSTEROLATERAL EA ADDL Bilateral 08/06/2019 Procedure: FUSION, POSTERIOR OR POSTEROLATERAL,??EACH ADDITIONAL SEGMENT; Surgeon: Dianne De MD; Location: [facility]; Service: Neurosurgery ??? NV ARTHRODESIS POSTERIOR/POSTEROLATERAL LUMBAR Bilateral 04/28/2020 Procedure: L2-L5 bilateral laminectomies with insitu fusion / possible bilateal facet screw instrumenation; Surgeon: Dianne De MD; Location: [facility]; Service: Neurosurgery ??? NV AUTOGRAFT SPINE SURGERY LOCAL FROM SAME INCISION Bilateral 08/06/2019 Procedure: AUTOGRAFT FOR SPINE SURGERY ONLY (INCLUDES HARVESTING THE GRAFT); LOCAL (EG, RIBS, SPINOUS PROCESS, OR LAMINAR FRAGMENTS) OBTAINED FROM SAME INCISION; Surgeon: Dianne De MD; Location[facility]; Service: Neurosurgery ??? NV AUTOGRAFT SPINE SURGERY MORSELIZED SEP INCISION Bilateral 04/28/2020 Procedure: PLACEMENT OF AUTOGRAFT, SEPARATE INCISION, SPINE SURGERY; Surgeon: Dianne De MD;Location: [facility]; Service: Neurosurgery ??? NV EXCIS INTRASP LESN,XDURAL,CERVICAL N/A 08/10/2019 Procedure: evacuation of hematoma osterior cervical laminectomy sie ; Surgeon: Dianne De MD; Location: [facility]; Service: Neurosurgery ? ? NV I&D, POST SPINE, LUMB/SACR/LUMBOSAC N/A 05/01/2020 Procedure: INCISION AND DRAINAGE, DEEP ABSCESS LUMBAR AND/OR SACRAL SPINE; Surgeon: Dianne De MD; Location: [facility]; Service: Neurosurgery ??? NV INJ CERV/THORAC,W/WO CNTRST N/A ??? NV LAMINEC/FACETECT/FORAMIN,EACH ADDNL Bilateral 04/28/2020 Procedure: LAMINECTOMY, FACETECTOMY, AND FORAMINOTOMY, CERVICAL, THORACIC, OR LUMBAR, EACH ADDITIONAL LEVEL; Surgeon: Dianne De MD; Location: [facility]; Service: Neurosurgery ??? NV LAMINEC/FACETECT/FORAMIN,LUMBAR 1 SEG Bilateral 04/28/2020 Procedure: LAMINECTOMY, FACETECTOMY, AND FORAMINOTOMY, LUMBAR, SINGLE LEVEL; Surgeon: Dianne De MD; Location: [facility]; Service: Neurosurgery ? ? NV LAMINECTOMY,>2 SGMT,CERVICAL Bilateral 08/06/2019 Procedure: POSTERIOR BILATERAL C3-C6 LAMINECTOMY AND FUSION/ INSTRUMENTATION; Surgeon: Dianne De MD; Location: [facility]; Service: Neurosurgery ??? NV POSTERIOR NON-SEGMENTAL INSTRUMENTATION Bilateral 04/28/2020 Procedure: POSTERIOR NON-SEGMENTAL INSTRUMENTATION; Surgeon: Dianne De MD; Location: [facility]; Service: Neurosurgery ??? 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
--- OUTSIDE RECORDS SUMMARY | 2024-11-22 11:16 | XMS_ITS | Encounter Summary ---
Author Organization [facility] Address [address] [place] [address] Care Team Providers Care Tooler Name Role Phone Tesha Pierce MD, [facility] Primary Care Provider + Reason for Visit * Reason Onset Date Comments PAC Appt Request - New 02/28/2023 Encounter Details Date Type Department Care Team (Late st Contact Info) Description 02/28/2023 Telephone [facility] Patient Access [facility] [address] [place] [address] Telephone Intake, Staff PAC Appt Request - [...] 8:30 am Pt can be reached @ [phone] Thank you PAC documented in this encounter Plan of Treatment Upcoming Encounters Date Type Department Care Team (Late st Contact Info) Description 01/13/2025 11:30 AM EDT Follow-Up [facility] Rheumatology [facility] [address] [place] [address] 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
--- OUTSIDE RECORDS SUMMARY | 2024-11-22 11:16 | XMS_ITS | Encounter Summary ---
Author Organization [facility] Address [address] [place] [address] Care Team Providers Care Buffing Wheel Presser Name Role Phone Unavailable Primary Care Provider Unavailabl e Encounter Details Date Type Department Care Team (Late st Contact Info) Description 10/27/2024 Telephone [facility] [address] [place] [address] Material Planning Analyst: Mara Castañeda MD PhD [address] [place] [address] Social History Tobacco Use Types Packs/Day Years Used Date Smoking Tobacco: Former Cigarettes 1.5 55 1 10/06/1963 - 08/06/2019 Passive Smoke Exposure: Past Smokeless Tobacco: Never Comments:quit 08/2019 Alcohol Use Standard Drinks/Week Comments Not Currently 0 (1 standard drink = 0.6 oz pur e alcohol) [facility] Utilities Answer Date Recorded In the past 12 months has e [employer] gas, oil, or water [employer] threatened to shut off services in your [...] you know that he has moved to [facility] and has changed urologist. He will be seeing DR Gómez Smith at [facility] . [place] is to far to travel for DR rafal. He want to say Thank you for the care he received from you. 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
--- OUTSIDE RECORDS SUMMARY | 2024-11-22 11:16 | XMS_ITS | Encounter Summary ---
Author Organization [facility] Address [address] [place] [address] Care Team Providers Care Sr Account Executive Name Role Phone Tesha Pierce MD, [facility] Primary Care Provider + Encounter Details Date Type Department Care Team (Late st Contact Info) Description 04/29/2023 Vidienthart Message [facility] Revenue Cycle Management [address] [place] [address] Mychart, Generic Provider [address] [place], [place] [phone] account dispute Social History Tobacco Use Types [...] Info) Description 01/13/2025 11:30 AM EDT Follow-Up [facility] [address] [place] [address] Doctor Assistant: Paul Leger MD [address] [place] [address] documented as of this encounter Visit Diagnoses Not on filedocumented in this encounter Additional Health Concerns Infection Onset Date Last Indicated Resolved Time 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
--- OUTSIDE RECORDS SUMMARY | 2024-11-22 11:16 | XMS_ITS ---
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 Given potential for this to have contributed [...] supplements MD Juan Martinez : 1955 CSN: [id number] Hyperglycemia 08/18/2019 Overview (08/18/2019): Due to steroids, [...] the AM for any further recs. Plan: -[place] 5-10mg PO q6 hours PRN pain -NS [...] exacerbation. Will give duo-nebs PRN. Hyperlipidemia Current Treatment and Therapy Plans No current plan information found. Past Treatment and Therapy Plans No past plan information found. 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 He has cardoaz cath and is BM incontinence after the [...]
--- OUTSIDE RECORDS SUMMARY | 2024-11-22 11:16 | XMS_ITS | Encounter Summary ---
Author Organization [facility] Address [address] [place] [address] Care Team Providers Care Marriage And Family Counselor Name Role Phone Tesha Pierce MD, [facility] Primary Care Provider + Reason for Visit * Reason Onset Date Comments PAC Rx Questions 03/05/2024 Encounter Details Date Type Department Care Team (Late st Contact Info) Description 03/05/2024 Telephone [facility] Patient Access [facility] [address] [place] [address] Telephone Intake, Staff PAC Rx Questions Social [...] 03/05/2024 11:17 AM EDT Liam calling from [facility] is regard to pts prednisone, They need to clarify which dose & directs should be prescribed to pt as they received two. 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
--- NOTE | 2024-11-22 11:39 | A.OFFPC_ITS ---
Vital Signs 11/22/24 11:47 Weight 185 lb 4 oz BP 122/68 Blood Pressure Location Lt brachial Position Sitting Respiration 16 Pulse 92 Pulse Source Pulse Oximeter Temp 98.3 F Temp Source Oral Pulse Oximetry (%) 92 Oxygen Delivery Method Room Air Intake Visit Reasons: new patient appt-me 1/2 hour Dramatic Director Required: No Allergies No Known Allergies Allergy (Verified 11/22/24 11:41) Medication List - Last Reconciled 11/22/24 by Freddie Egan RN albuterol sulfate 90 mcg/actuation (Ventolin HFA) 2 puffs inhalation Q4-6H PRN amlodipine 5 mg PO DAILY atorvastatin 20 mg PO DAILY gabapentin 600 mg PO BID 90 days hydrochlorothiazide 25 mg PO DAILY losartan 50 mg PO DAILY oseltamivir (Tamiflu) 75 mg PO Q12H 5 days trospium 20 mg PO BID Tobacco use date assessed: 09/30/24 Dental Screening Dental Screen Date: 09/30/24 HPI HPI Comments History of Present Illness Details 69-year-old male with a past medical his tory of hypertension, COPD, hyperlipidemia, osteoarthritis colon cancer, amputation of the right middle finger presenting for follow up COPD-he takes Symbicort 160-4.52 puffs twice daily. Stable. Recovered from illness end of Sep/Oct. Osteoarthritis-patient states he is followed by [facility] Rheumatology for osteoarthritis in his neck and he has been on prednisone for the last year. He started with 10 mg and tapered down to 7 mg once daily. He still plans to follow with his current recreation facility manager and declined referral for local Rheumatology. Urologic: Seeing Dr Christensen-wanted to be seen in [place]. He has a suprapubic catheter-requires changing every 2 weeks. Patient reports he developed bladder incontinence following complications from cervical spine surgery in 2019. He developed an embolus after surgery and was hospitalized for weeks. 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 Reports frequent constipation. Notes hospitalized for 11 days. Received innumerable laxatives etc. More recently has had 4 days of constipation. Not uncomfortable at present ROS CONSTITUTIONAL: Denies weight loss, fever and chills. HEENT: Denies changes in vision and hearing. RESPIRATORY: Denies SOB and cough. CV: Denies palpitations and CP GI: Denies abdominal pain, nausea, vomiting and diarrhea. : Denies dysuria and urinary frequency. MSK: Denies new myalgia and joint pain. SKIN: Denies rash and pruritus. NEUROLOGICAL: Denies headache PSYCHIATRIC: Denies recent changes in mood. PHYSICAL EXAM: GENERAL: Alert and oriented x 3. NAD EYES: EOMI. Anicteric. HENT: Moist mucous membranes. No scleral icterus. No cervical lymphadenopathy. LUNGS: Clear to auscultation bilaterally. CARDIOVASCULAR: Regular rate and rhythm. No murmur. No JVD. ABDOMEN: Soft, non-tender +bs EXTREMITIES: No edema. Non-tender. SKIN: No rashes or lesions. Warm. NEUROLOGIC: No focal neurological deficits. CN II-XII grossly intact PSYCHIATRIC: Cooperative. Appropriate mood and affect [facility] Medical History Pure hypercholesterolemia Essential hypertension Suprapubic catheter COPD exacerbation Osteoarthritis of cervical spine Neurogenic urinary bladder disorder Benitez catheter present Colon cancer Hypertension Amputation of right middle finger Surgical History H/O neck surgery History of partial surgical removal of colon Previous back surgery Family History Mother High cholesterol Hypertension Brother Colon cancer Father Cardiovascular disease Social History Household Members: Spouse Both parents involved: No Caregiver staying overnight: No Housing: House Are you a primary career services director to a significant other at home: No Do you presently have visiting nurse or other home services: No 75 years or older and lives alone: No Alcohol intake: never Patient Tobacco Use Status: Former Tobacco user Tobacco use type: Cigarette Cigarette Packs Per Day: 2 Cigarettes Per Day: 20 Years Smoked: 50 e-Cigarette/Vaping Use: Never Used Second Hand Smoke Exposure: No service: No Current occupational status: retired Cognitive needs: No Hearing needs: Yes (hearing aid) Vision needs: No Questionnaire Thrive Questionnaire Date Thrive assessed: 09/30/24 DIANN-7 AMB Questionnaire DIANN-7 Date DIANN - 7 assessed: 09/30/24 Source: Developed by Drs. Lane Robin, Mónica England, Thiago Stringer and colleagues, with an educational sanjay from [employer]. Physical exam (Primary Care) Vital Signs: Last Vital Signs Temp 98.3 F 11/22/24 11:47 Pulse 92 11/22/24 11:47 Resp 16 11/22/24 11:47 BP 122/68 11/22/24 11:47 Pulse Ox 92 11/22/24 11:47 Oxygen Delivery Method Room Air 11/22/24 11:47 Tobacco/Smoking Status: Tobacco use Status Tobacco use date assessed 09/30/24 11/22/24 11:50 Patient Tobacco Use Status Former Tobacco user 11/22/24 11:50 Tobacco use type Cigarette 11/22/24 11:50 e-Cigarette/Vaping Use Never Used 11/22/24 11:50 Thrive Assessment: Date of Thrive Assessment Date Thrive assessed 09/30/24 11/22/24 11:50 Coding Level of Care Code Est Pt Level 4 (63216) Diagnoses Chronic obstructive pulmonary disease with acute exacerbation J44.1 COPD type: COPD with acute exacerbation Suprapubic catheter Z93.59 Constipation, unspecified constipation type K59.00 Constipation type: unspecified constipation type Assessment & Plan Assessment & Plan (1) COPD (chronic obstructive pulmonary disease): Code(s): J44.9 - Chronic obstructive pulmonary disease, unspecified Category: Medical Qualifiers: COPD type: COPD with acute exacerbation Qualified Code(s): J44.1 - Chronic obstructive pulmonary disease with (acute) exacerbation Plan: stable without exacerbation (2) Suprapubic catheter: Code(s): Z93.59 - Other cystostomy status Category: Medical Plan: continue q2 week changes with urology-[place] Christensen [facility] (3) Constipation: Code(s): K59.00 - Constipation, unspecified Category: Medical Qualifiers: Constipation type: unspecified constipation type Qualified Code(s): K59.00 - Constipation, unspecified Plan: Trial lactulose in addition to current medications Medications: New lactulose 20 grams (30 mL) PO TID 1,500 mL 3RF benzonatate 100 mg PO TID PRN 30 caps 0RF cough Discontinued oseltamivir (Tamiflu) Discontinued Reason: Duplicate 75 mg PO Q12H 5 days 10 caps 0RF
[2024-11-22 11:47] VITALS: BP 122/68; PULSE 92; RESP 16; TEMP 36.8; O2SAT 92
== END 2024-11-22 12:15 | disposition home or self-care (01) ==
PROVIDERS: PCP Internal Medicine; Visit Provider Internal Medicine
DX: J44.1 Chronic obstructive pulmonary disease with (acute) exacerbation (principal); Z93.59 Other cystostomy status; K59.00 Constipation, unspecified

== ENCOUNTER → 2024-11-22 11:13 | Outpatient (BNVA) | payer MEDICARE, SELFPAY | PROVIDERS: PCP Internal Medicine; Visit Provider Internal Medicine | DX: J44.1 Chronic obstructive pulmonary disease with (acute) exacerbation (principal); I10 Essential (primary) hypertension; E78.5 Hyperlipidemia, unspecified; K59.00 Constipation, unspecified; Z93.59 Other cystostomy status; Z79.899 Other long term (current) drug therapy | CPT/HCPCS: 99212 ==

== ENCOUNTER 2024-12-10 13:23 | Outpatient (AMB) | payer MEDICARE, SELFPAY ==
--- NOTE | 2024-12-10 13:46 | A.OFFPC_ITS ---
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 He presented with shortness of breath and cough. Xray showed RML pneumonia. Placed on doxycycline and cefpodoxime. Patient with CT abd moderate colonic stool burden without obstuction. 1.3cm hypoenhancing liver lesion, 1.5 cm left renal lesion and 1.3cm left adenreal nodule. Patient feeling better but still more than baseline coughing and shortness of breath. COPD-he takes Symbicort 160-4.52 puffs twice daily. Stable. Follows with pulmonology Osteoarthritis-patient states he is followed by [facility] Rheumatology for osteoarthritis in his neck and he has been on prednisone for the last year. He started with 10 mg and tapered down to 7 mg once daily. 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 Urologic: Seeing Dr Christensen-in [place]. He has a suprapubic catheter- requires changing every 2 weeks. Patient reports he developed bladder incontinence following complications from cervical spine surgery in 2019. He developed an embolus after surgery and was hospitalized for weeks. 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 ROS CONSTITUTIONAL: Denies weight loss, fever and chills. HEENT: Denies changes in vision and hearing. RESPIRATORY:see HPi CV: Denies palpitations and CP GI: Denies abdominal pain, nausea, vomiting and diarrhea. : Denies dysuria and urinary frequency. MSK: Denies new myalgia and joint pain. SKIN: Denies rash and pruritus. NEUROLOGICAL: Denies headache PSYCHIATRIC: Denies recent changes in mood. PHYSICAL EXAM: GENERAL: Alert and oriented x 3. NAD EYES: EOMI. Anicteric. HENT: Moist mucous membranes. No scleral icterus. No cervical lymphadenopathy. LUNGS: Clear to auscultation bilaterally. CARDIOVASCULAR: Regular rate and rhythm. No murmur. No JVD. ABDOMEN: Soft, non-tender +bs EXTREMITIES: No edema. Non-tender. SKIN: No rashes or lesions. Warm. NEUROLOGIC: No focal neurological deficits. CN II-XII grossly intact PSYCHIATRIC: Cooperative. Appropriate mood and affect [facility] Medical History Pure hypercholesterolemia Essential hypertension Suprapubic catheter COPD exacerbation Osteoarthritis of cervical spine Neurogenic urinary bladder disorder Benitez catheter present Colon cancer Hypertension Amputation of right middle finger Surgical History H/O neck surgery History of partial surgical removal of colon Previous back surgery Family History Mother High cholesterol Hypertension Brother Colon cancer Father Cardiovascular disease Social History Household Members: Spouse Both parents involved: No Caregiver staying overnight: No Housing: House Are you a primary career placement services counselor to a significant other at home: No Do you presently have visiting nurse or other home services: No 75 years or older and lives alone: No Alcohol intake: never Patient Tobacco Use Status: Former Tobacco user Tobacco use type: Cigarette Cigarette Packs Per Day: 2 Cigarettes Per Day: 20 Years Smoked: 50 e-Cigarette/Vaping Use: Never Used Second Hand Smoke Exposure: No service: No Current occupational status: retired Cognitive needs: No Hearing needs: Yes (hearing aid) Vision needs: No Questionnaire Thrive Questionnaire Date Thrive assessed: 09/30/24 DIANN-7 AMB Questionnaire DIANN-7 Date DIANN - 7 assessed: 09/30/24 Source: Developed by Drs. Lane Robin, Mónica England, Thiago Stringer and colleagues, with an educational sanjay from [employer]. Physical exam (Primary Care) Tobacco/Smoking Status: Tobacco use Status Tobacco use date assessed 09/30/24 12/10/24 13:53 Patient Tobacco Use Status Former Tobacco user 12/10/24 14:00 Tobacco use type Cigarette 12/10/24 14:00 e-Cigarette/Vaping Use Never Used 12/10/24 14:00 Thrive Assessment: Date of Thrive Assessment Date Thrive assessed 09/30/24 12/10/24 13:53 Coding Level of Care Code TCM High MDM <= 14 days Diagnoses Hospital discharge follow-up Z09 COPD exacerbation J44.1 Adrenal nodule E27.9 Assessment & Plan Assessment & Plan (1) Hospital discharge follow-up: Code(s): Z09 - Encounter for follow-up examination after completed treatment for conditions other than malignant neoplasm Category: Medical Plan: 69 y/o for hospital discharge. Hospital course reviewed. Labs, imaging reviewed. Medications reconciled Some residual cough, wheezing. Will add 5 days of anitiobitc and steroids Repeat CT as recommended (2) COPD exacerbation: Code(s): J44.1 - Chronic obstructive pulmonary disease with (acute) exacerbation Category: Medical Plan: see above (3) Adrenal nodule: Code(s): E27.9 - Disorder of adrenal gland, unspecified Category: Medical Plan: MRI ordered Claustrophobia. valium, lorazepam ordered Orders: Orders MR abdomen wo/w con 12/10/24 E27.9 - Disorder of adrenal gland, unspecified CT chest wo IV con 6 Weeks J18.9 - Pneumonia, unspecified organism Medications: New linaclotide (Linzess) 290 mcg PO DAILY 90 caps 3RF levofloxacin 750 mg PO DAILY 5 tabs 0RF prednisone 40 mg (2 x 20 mg) PO DAILY 10 tabs 0RF 5 days diazepam (Valium) 2 hours prior to MRI 5 mg PO ONCE PRN 1 tab 0RF sleep E27.9 - Disorder of adrenal gland, unspecified lorazepam Take one tab one hour prior to MRI. Take one tab 15 minutes prior to MRI if needed for continued anxiety 2 tabs 0RF anxiety Changed From gabapentin 600 mg PO BID 90 days 360 tabs 3RF To gabapentin 600 mg PO QID 360 tabs 3RF 90 days Discontinued lactulose Discontinued Reason: Doctor's Order 20 grams (30 mL) PO TID 1,500 mL 3RF
--- OUTSIDE RECORDS SUMMARY | 2024-12-10 14:59 | XMS_ITS | Encounter Summary ---
Author Organization [facility] Address [address] [place] [address] Care Team Providers Care Director Of Group Sales Name Role Phone Tesha Pierce MD, [facility] Primary Care Provider + Reason for Visit * Reason Onset Date Comments PAC Appt Request - New 02/28/2023 Encounter Details Date Type Department Care Team (Late st Contact Info) Description 02/28/2023 Telephone [facility] Patient Access Center [address] [place] [phone] Telephone Intake, Staff PAC Appt Request - [...] 8:30 am Pt can be reached @ [phone] Thank you PAC documented in this encounter Plan of Treatment Upcoming Encounters Date Type Department Care Team (Late st Contact Info) Description 01/13/2025 11:30 AM EDT Follow-Up [facility] Rheumatology Clinic [address] [place] [address] Roving Technician: Paul Leger MD [address] [place] [address] documented as of this encounter Visit Diagnoses Not on filedocumented in this encounter Additional Health Concerns Infection Onset Date 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
--- OUTSIDE RECORDS SUMMARY | 2024-12-10 14:59 | XMS_ITS | Encounter Summary ---
Author Organization [facility] Address [address] [place] [address] Care Team Providers Care Receivables Specialist Name Role Phone Tesha Pierce MD, [facility] Primary Care Provider + Encounter Details Date Type Department Care Team (Late st Contact Info) Description 02/26/2022 Orders Only [facility] Interventional Radiology [address] [place], [place] [phone] Reagan Mendoza NP [address] [place], [place] [phone] Social History Tobacco Use Types Packs/Day Years [...] of spinal canal ??? Colon cancer (CMS/HCC) ([facility]) age 49, s/p patial colectomy, no chemo or radiation ??? COPD (chronic obstructive pulmonary disease) ([facility]) no overnight hospitilizations, no intubations, [...] right middle finger ??? HERNIA REPAIR ??? ME ALLOGRAFT FOR SPINE SURGERY ONLY MORSELIZED Bilateral 08/06/2019 Procedure: ALLOGRAFT, MORSELIZED, OR PLACEMENT OF OSTEOPROMOTIVE MATERIAL, FOR SPINE SURGERY ONLY; Surgeon: Dianne De MD; Location: [facility] OR; Service: Neurosurgery ??? ME ARTHRODESIS POSTERIOR/POSTERIORLATERAL CERVICAL BELOW C2 Bilateral 08/06/2019 Procedure: FUSION, POSTERIOR OR POSTEROLATERAL, CERVICAL BELOW C2, SINGLE LEVEL; Surgeon: Dianne De MD; Location: [facility]; Service: Neurosurgery ??? ME ARTHRODESIS POSTERIOR/POSTEROLATERAL EA ADDL Bilateral 08/06/2019 Procedure: FUSION, POSTERIOR OR POSTEROLATERAL,??EACH ADDITIONAL SEGMENT; Surgeon: Dianne De MD; Location: [facility]; Service: Neurosurgery ??? ME ARTHRODESIS POSTERIOR/POSTEROLATERAL LUMBAR Bilateral 04/28/2020 Procedure: L2-L5 bilateral laminectomies with insitu fusion / possible bilateal facet screw instrumenation; Surgeon: Dianne De MD; Location: [facility]; Service: Neurosurgery ??? ME AUTOGRAFT SPINE SURGERY LOCAL FROM SAME INCISION Bilateral 08/06/2019 Procedure: AUTOGRAFT FOR SPINE SURGERY ONLY (INCLUDES HARVESTING THE GRAFT); LOCAL (EG, RIBS, SPINOUS PROCESS, OR LAMINAR FRAGMENTS) OBTAINED FROM SAME INCISION; Surgeon: Dianne De MD; Location: [facility]; Service: Neurosurgery ??? ME AUTOGRAFT SPINE SURGERY MORSELIZED SEP INCISION Bilateral 04/28/2020 Procedure: PLACEMENT OF AUTOGRAFT, SEPARATE INCISION, SPINE SURGERY; Surgeon: Dianne De MD;Location: [facility]; Service: Neurosurgery ??? ME EXCIS INTRASP LESN,XDURAL,CERVICAL N/A 08/10/2019 Procedure: evacuation of hematoma osterior cervical laminectomy sie ; Surgeon: Dianne De MD; Location: [facility]; Service: Neurosurgery ? ? ME I&D, POST SPINE, LUMB/SACR/LUMBOSAC N/A 05/01/2020 Procedure: INCISION AND DRAINAGE, DEEP ABSCESS LUMBAR AND/OR SACRAL SPINE; Surgeon: Dianne De MD; Location: [facility]; Service: Neurosurgery ??? ME INJ CERV/THORAC,W/WO CNTRST N/A ??? ME LAMINEC/FACETECT/FORAMIN,EACH ADDNL Bilateral 04/28/2020 Procedure: LAMINECTOMY, FACETECTOMY, AND FORAMINOTOMY, CERVICAL, THORACIC, OR LUMBAR, EACH ADDITIONAL LEVEL; Surgeon: Dianne De MD; Location: [facility]; Service: Neurosurgery ??? ME LAMINEC/FACETECT/FORAMIN,LUMBAR 1 SEG Bilateral 04/28/2020 Procedure: LAMINECTOMY, FACETECTOMY, AND FORAMINOTOMY, LUMBAR, SINGLE LEVEL; Surgeon: Dianne De MD; Location: [facility]; Service: Neurosurgery ? ? ME LAMINECTOMY,>2 SGMT,CERVICAL Bilateral 08/06/2019 Procedure: POSTERIOR BILATERAL C3-C6 LAMINECTOMY AND FUSION/ INSTRUMENTATION; Surgeon: Dianne De MD; Location: [facility]; Service: Neurosurgery ??? ME POSTERIOR NON-SEGMENTAL INSTRUMENTATION Bilateral 04/28/2020 Procedure: POSTERIOR NON-SEGMENTAL INSTRUMENTATION; Surgeon: Dianne De MD; Location: [facility]; Service: Neurosurgery ??? 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
--- OUTSIDE RECORDS SUMMARY | 2024-12-10 14:59 | XMS_ITS | Referral Summary ---
Author Organization [facility] Address [address] [place] [address] Care Team Providers Care Scrap Collector Name Role Phone Unavailable Primary Care Provider Unavailabl e Encounters Date Type Department Care Team Description 10/27/2024 Telephone [facility] [address] [place] [address] Library Assistant: Mara Castañeda MD PhD 10/15/2024 11:00 AM EST Clinical Support [facility] [address] [place] [address] Library Assistant: Nilam Blair LPN Suprapubic catheter ([facility]/HCC) (HCC) (Primary Dx) 10/12/2024 Refill [facility] Internal Medicine [address] [place] [phone] Kristen Parkinson MD Neuropathic pain 10/01/2024 3:00 PM EST Clinical Support [facility] [address] [place] [address] Library Assistant: Payam De Leon LPN Suprapubic catheter ([facility]/HCC) (HCC) (Primary Dx) from Last 3 Months Allergies [...] a day Active adult disposable brief (Briefs) [facility] Briefs - large - use as directed once a day 30 each 09/04/20 21 Active gauze bandage 4 X 4 bandageIndicati ons:Neurogenic bladder, flaccid,Suprapu bic catheter (CMS/HCC) ([facility]) Patient requires supplies for daily care/maintenance to SPT site. 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 Uses 1 sterile 4x4 daily to clean SPT site. Ref. # MedLine Sponges, 10 per Box: [id number] 30 each 12/13/19 23 Active urinary bag [facility] Pt requires Bedside drainage bag changed every other week. (Conveen Ref # [id number]) DX: Neuromuscular Dysfunction of Bladder (N31.9) 2 each 12/28/19 23 Active adhesive tape (Paper Tape) 1 X 10 -yard tapeIndications :Suprapubic catheter (CMS/HCC) ([facility]) HypoAllergenic Paper Tape, 1 x10 yard. Pt. Requires 2 rolls per month to secure drainage sponge around SPT daily. Diagnosis: Suprapubic Catheter(Z93.59) 2 each 01/28/20 23 Active acetaminophen (TYLENOL) 325 mg tablet Take [...] packageIndicati ons:Neurogenic bladder, flaccid,Suprapu bic catheter (CMS/HCC) ([facility]) Pt. Has a SupraPubic Tube [...] Irrigate with Saline 250ml daily. 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 Given potential for this to have contributed [...] for recommendation on supplements MD Juan Martinez Scottie : 1955 CSN: [id number] Hyperglycemia 08/18/2019 Overview (08/18/2019): Due to steroids, [...] the AM for any further recs. Plan: -Platina 5-10mg PO q6 hours PRN pain -NS [...] gerardo bowel movement in approximately 2 weeks HORSE RANCHER since a prior prep for colonoscopy in [...] GI following; apprec recs - NPO at DC in case colo on Saturday 02/03 Vasovagal [...] 08/07/2019,06/09/2018,08/21/2017 Influenza, Trivalent, MDV, Injectable ,07/02/2013,07/20/2012,08/08,07/27/2009,08/30/2008,09/02/2007 Novel [id number], Preservative-Free, Injectable 09/27/2009 Pneumococcal Conjugate Vacci ne, 13 Valent 03/07/2015 Pneumococcal Polysaccharide Vaccine, 23 Valent 07/31/2020,08/30/2008 Pneumococcal conjugate PCV20,polysaccharide [id number] conjugate, adjuvant, PF (Prevnar 20) 06/05/2023 RSV, [...] the past 12 months has th e [employer] / ?.??, Drug Response Dx, or water [employer] threatened to shut off services in your [...] Info) Description 01/13/2025 11:30 AM EDT Follow-Up [facility] [address] [place] [address] Library Assistant: Paul Leger MD [address] [place] [phone] Medical Devices Implanted Type Area Ornament Setter Device Identifier Shelf Expiration Date Model / Serial / Lot Mau Thoracolumbar 3.1rxf62nd Altaf - [id number] Implanted:Qty: 2 on 08/06/2019 by Dianne De MD at [facility] Implant Spine Cervical DEPUY 1883-16- 060 / / Connector Spinal Cross Thoracolumbar Head To Head Titanium 35mm [facility] - [id number] Implanted:Qty: 1 on 08/06/2019 by Dianne De MD at [facility] Implant Spine Cervical DEPUY 1883-41- 035 / / Nut Spinal Outer Connector Cross Head To Head Titanium Mountaineer - [id number] Implanted:Qty: 2 on 08/06/2019 by Dianne De MD at [facility] Implant Spine Cervical DEPUY 1883-41- 200 / / Nut Spinal Outer Connector Cross Head To Head Titanium Mountaineer - [id number] Implanted:Qty: 2 on 08/06/2019 by Dianne De MD at [facility] Implant Spine Cervical DEPUY 1883-41- 100 / / Screw Thoracic Favored Angle Titanium 3.6vho42lo Mountaineer - [id number] Implanted:Qty: 7 on 08/06/2019 by Dianne De MD at [facility] Screw Spine Cervical DEPUY 1883-18- 312 / / Screw Thoracic Favored Angle Titanium 3.1nac16mm Mountaineer - [id number] Implanted:Qty: 1 on 08/06/2019 by Dianne De MD at [facility] Screw Spine Cervical DEPUY 1883-18- 316 / / Screw Thoracic Inner Mountaineer - [id number] Implanted:Qty: 6 on 08/06/2019 by Dianne De MD at [facility] Screw Spine Cervical DEPUY 1883-42- 200 / / Putty Demineralized Bone Matrix 10cc Dbx - [id number] - [id number] Implanted:Qty: 1 on 08/06/2019 by Dianne De MD at [facility] Tissue Spine Cervical MUSCULOSKELETAL TRANSPLANT FND 04/27/2021 [id number] / [id number] / Ic Graft Chamber [facility] - [id number] - [id number] Implanted:Qty: 1 on 04/28/2020 by Dianne De MD at [facility] Tissue Spine Lumbar LIFENET 11/14/2022 [id number] / [id number] / [id number] Description:Demineralized yany ne matrix and cancellous chips reconstituted with pts. blood Ic Graft Chamber Dbm 10 - [id number] - [id number] Implanted:Qty: 1 on 04/28/2020 by Dianne De MD at [facility] Tissue Spine Lumbar LIFENET 11/14/2022 [id number] / [id number] / [id number] Description:Demineralized yany ne matrix and cancellous chips reconstituted with pts. blood Procedures * Due to [place] state law, this organization might not be sharing negative HIV tests. Procedure Name Priority Date/Time Associated Diagnosis Comments HC 568781 BAG SECURITY CONTOURED LAEG 600ML Routine 10/15/2024 11:00 AM EST Suprapubic catheter (CMS/HCC) (HCC) HC 269057 BARD CATHETER TRAY Routine 10/15/2024 11:00 AM EST Suprapubic catheter (CMS/HCC) (HCC) HC 839646 CATHETER HURT BARD 16 FR 5 CC Routine 10/15/2024 11:00 AM EST Suprapubic catheter (CMS/HCC) (HCC) HC INSERTION OF TEMPORARY INDWELLING BLADDER CATHETER SIMPLE Routine 10/15/2024 11:00 AM EST Suprapubic catheter (CMS/HCC) (HCC) HC 426708 BAG SECURITY CONTOURED LAEG 600ML Routine 10/01/2024 3:00 PM EST Suprapubic catheter (CMS/HCC) (HCC) HC 317607 BARD CATHETER TRAY Routine 10/01/2024 3:00 PM EST Suprapubic catheter (CMS/HCC) (HCC) HC INSERTION OF TEMPORARY INDWELLING BLADDER CATHETER SIMPLE Routine 10/01/2024 3:00 PM EST Suprapubic catheter (CMS/HCC) (HCC) C-REACTIVE PROTEIN Routine 10/01/2024 12 :15 PM EST Polymyalgia rheumatica (CMS/HCC) (HCC) SEDIMENTATION RATE, AUTOMATED Routine 10/01/2024 12:15 PM EST Polymyalgia rheumatica (CMS/HCC) (HCC) BASIC METABOLIC PANEL STAT 06/21/2024 6:40 AM [...] to Health Maintenance Results * Due to [place] state law, this organization might not be sharing negative HIV tests. * HC INSERTION OF TEMPORARY INDWELLING BLADDER CATHETER [place], HC 929857 CATHETER HURT BARD 16 FR 5CC, HC 275945 BARD CATHETER TRAY, [place] 060440 BAG SECURITY CONTOURED LAEG 600ML (10/15/2024 11:00 [...] in 2 weeks for cath exchange Supplies: 899051 Catheter Hurt Bard 16 Fr 5 cc HC 346321 Bard Catheter Tray HC 651134 Bag Security Contoured LAEG 600 ml us Mara Tellez MD PhD UROLOGY ORDERABL ES Final Result * INSERTION OF TEMPORARY INDWELLING BLADDER CATHETER SIMPLE, HC 886752 BARD CATHETER TRAY, HC 990395 BAG SECURITY CONTOURED LAEG 600ML (10/01/2024 3:00 PM EST) Payma Harris LPN - 10/01/2024 3:00 PM EST [...] well with no immediate complications Supplies: HC 294306 Bard Catheter Tray HC 212302 Bag Security Contoured LAEG 600 ml us Mara Tellez MD PhD UROLOGY ORDERABL ES Final Result * (ABNORMAL) Sedimentation Rate (10/01/2024 12:15 PM EST) Pathologist [facility] Sed Rate 29(H) <20 mm/Hr mm/Hr 10/01/2024 12:49 PM EST [facility] Blood Structure of peripheral vein / Unknown Venipuncture / Unknown 10/01/2024 12:15 PM EST 10/01/2024 12:43 PM EST us Iva Perez MD LAB BLOOD ORDERABLES Final Resul t Performing Organization Address [facility] de Phone Number [facility] [address] [place] [address], * C-Reactive Protein (10/01/2024 12:15 PM EST) C Reactive Protein <3.0 <=9.9 mg/L 10/01/2024 1:09 PM EST [facility] Blood Structure of peripheral vein / Unknown Venipuncture / Unknown 10/01/2024 12:15 PM EST 10/01/2024 12:43 PM EST us Iva Perez MD LAB BLOOD ORDERABLES Final Resul t Performing Organization Address [facility] de Phone Number [facility] [address] [place] [address], * (ABNORMAL) BMP - Basic Metabolic Panel (06/21/2024 6:40 AM EDT) Pathologist [facility] NA 140 135 - 145 mmol/L 06/21/2024 7:17 AM EDT [facility] K 4.0 3.5 - 5.3 mmol/L 06/21/2024 7:17 AM EDT [facility] Cl 104 98 - 107 mmol/L 06/21/2024 7:17 AM EDT [facility] CO2 24 24 - 32 mmol/L 06/21/2024 7:17 AM EDT [facility] BUN 15 7 - 23 mg/dL 06/21/2024 7:17 AM EDT [facility] Creatinine 0.74 0.60 - 1.30 mg/dL 06/21/2024 7:17 AM EDT [facility] Glucose 116(H) 65 - 99 mg/dL 06/21/2024 7:17 AM EDT [facility] Calcium 9.7 8.6 - 10.5 mg/dL 06/21/2024 7:17 AM EDT [facility] Anion Gap 12 5 - 15 06/21/2024 7:17 AM EDT [facility] eGFR >90 >=60 mL/min/1. 73m2 06/21/2024 7:17 AM EDT [facility] Comment:The estimated glomer [...] Kauffman MD LAB BLOOD ORDERABLES Final Result [facility] [address] [place] [address], * COLONOSCOPY (05/20/2024) Narrative Procedure Note Justo El MD PhD - 05/20/2024 9:25 AM EDT [facility] Gastroenterology Patient Name: Juan Rubin Procedure Date: 05/20/2024 9:25 AM Date of : 1955 Admit Type: Outpatient Age: 69 Room: [place] [address] Gender: Male Note Status: Finalized Attending MD: [...] obtain the completed interpretation. ? Workstation ID: [id number] Up-to-date CT equipment and radiation dose reduction [...] evidence for recurrent hernia. Resulting Agency Comment [id number] Procedure Note Iain Jain MD - 01/18/2023 [...] possible to obtain thecompleted interpretation. Workstation ID: [id number] Up-to-date CT equipment and radiation dose reduction techniques wereemployed. CTDIvol: 15.5 mGy. DLP: 698 mGy-cm. Agapito Rowe MD IMG CT PROCEDURES Final Resu lt * Hepatitis C Antibody w/Reflex to HCV RNA, Quantitative PCR (08/25/2019 3:15 PM EST) Hepatitis C Antibody NON-REACT YENNI NON-REACT YENNI 08/26/2019 1:11 AM EST [facility] Signal To Cut-Off 0.01 <1.00 08/26/2019 1:11 AM EST [employer] Comment: HCV antibody was non-reactive. There is no laboratory evidence of HCV infection. In most cases, no further action is required. However, if recent HCV exposure is suspected, a test for HCV RNA (test code 01447) is suggested. For additional information please refer to http://education.VidBid/faq/PZQ54u1 (This link is being provided for informational/ educational purposes only.) Blood specimen (specimen) Structure of peripheral vein / Unknown Venipuncture / Unknown 08/25/2019 3:15 PM EST 08/25/2019 3:20 PM EST Narrative [facility] - 08/26/2019 1:11 AM EST [facility] Received Date: Antoinette Cast MD LAB BLOOD ORDERABLES Final Re sult MARTHA MODENA [address], [place] [address], [place] [phone] [facility] [address], [place] [address], [place] [phone] * CT Chest WO Contrast (06/17/2018 12:12 [...] or willingness to have curative lung surgery [id number] Up-to-date CT equipment and radiation dose reduction techniques were employed. CTDIvol: 5.6 - 16.0 mGy. DLP: 541 mGy-cm.The following accession numbers are related to this dose report [id number] [facility] 06/20/2018 1:28 PM EDT EXAMINATION: CT of [...] For lung cancer screening guidelines, please refer to:https://www.uspreventiveservicestaskforce.org/Page/Document/UpdateSummarRobert maier/ruby [email or web address]-kffcby-jdsafaqig Adults Aged 55-77, with a History of [...] or willingness to have curative lung surgery [id number] Up-to-date CT equipment and radiation dose reduction techniques wereemployed. CTDIvol: 5.6 - 16.0 mGy. 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
--- OUTSIDE RECORDS SUMMARY | 2024-12-10 14:59 | XMS_ITS | Encounter Summary ---
Author Organization [facility] Address [address] [place] [address] Care Team Providers Care Jewel Inspector Name Role Phone Tesha Pierce MD, [facility] Primary Care Provider + Encounter Details Date Type Department Care Team (Late st Contact Info) Description 04/29/2023 The Web Collaboration Networkhart Message [facility] Revenue Cycle Management [address] [place] [address] Mychart, Generic Provider [address] [place], [place] [phone] account dispute Social History Tobacco Use Types [...] Info) Description 01/13/2025 11:30 AM EDT Follow-Up [facility] [address] [place] [address] Senior Infrastructure Architect: Paul Leger MD [address] [place] [address] documented as of this encounter Visit Diagnoses Not on filedocumented in this encounter Additional Health Concerns Infection Onset Date Last Indicated Resolved Time 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
--- OUTSIDE RECORDS SUMMARY | 2024-12-10 14:59 | XMS_ITS | Encounter Summary ---
Author Organization [facility] Address [address] [place] [address] Care Team Providers Care Instrument Repair Supervisor Name Role Phone Tesha Pierce MD, [facility] Primary Care Provider + Reason for Visit * Reason Onset Date Comments PAC Rx Questions 03/05/2024 Encounter Details Date Type Department Care Team (Late st Contact Info) Description 03/05/2024 Telephone [facility] [address] [place] [phone] Telephone Intake, Staff PAC Rx Questions Social [...] 03/05/2024 11:17 AM EDT Liam calling from [facility] is regard to pts prednisone, They need to clarify which dose & directs should be prescribed to pt as they received two. 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
--- OUTSIDE RECORDS SUMMARY | 2024-12-10 14:59 | XMS_ITS ---
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 Given potential for this to have contributed [...] supplements MD Juan Martinez : 1955 CSN: [id number] Hyperglycemia 08/18/2019 Overview (08/18/2019): Due to steroids, [...] the AM for any further recs. 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
--- OUTSIDE RECORDS SUMMARY | 2024-12-10 14:59 | XMS_ITS | Clinical Summary ---
Author Organization [facility] Address [address] [place] [address] Care Team Providers Care Publicity Person Name Role Phone Unavailable Primary Care Provider [...] 4 bandageIndicati ons:Neurogenic bladder, flaccid,Suprapu bic catheter ([facility]/HCC) ([facility]) Patient requires supplies for daily care/maintenance to SPT site. 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 Uses 1 sterile 4x4 daily to clean SPT site. Ref. # MedLine Sponges, 10 per Box: [id number] 30 each 12/13/19 23 Active urinary bag [...] packageIndicati ons:Neurogenic bladder, flaccid,Suprapu bic catheter (CMS/HCC) ([facility]) Pt. Has a SupraPubic Tube that [...] outpatient he had recently started on trospium JAR CAPPER. Given potential for this to have contributed [...] supplements MD Juan Martinez : 1955 CSN: [id number] Hyperglycemia 08/18/2019 Overview (08/18/2019): Due to steroids, [...] the AM for any further recs. Plan: -Axton 5-10mg PO q6 hours PRN pain -NS [...] gerardo bowel movement in approximately 2 weeks JAR CAPPER since a prior prep for colonoscopy in [...] GI following; apprec recs - NPO at [place] in case colo on Saturday 02/03 Vasovagal [...] Type Department Care Team Description 10/27/2024 Telephone [facility] Urology [address] [address] [place] Eradicator: Mara Castañeda MD PhD 10/15/2024 11:00 AM EST Clinical Support [facility] Urology [address] [address] [place] Eradicator: Nilam Blair LPN Suprapubic catheter (CMS/HCC) (HCC) (Primary Dx) 10/12/2024 Refill [facility] Internal Medicine [address] [place] [phone] Kristen Parkinson MD Neuropathic pain 10/01/2024 3:00 PM EST Clinical Support [facility] Urology [address] [address] [place] Eradicator: Payam De Leon LPN Suprapubic catheter (CMS/HCC) (HCC) (Primary Dx) from Last 3 Months Immunizations [...] 08/07/2019,06/09/2018,08/21/2017 Influenza, Trivalent, MDV, Injectable ,07/02/2013,07/20/2012,08/08,07/27/2009,08/30/2008,09/02/2007 Novel Ygocznups-[id number], Preservative-Free, Injectable 09/27/2009 Pneumococcal Conjugate Vacci ne, 13 Valent 03/07/2015 Pneumococcal Polysaccharide Vaccine, 23 Valent 07/31/2020,08/30/2008 Pneumococcal conjugate PCV20,polysaccharide COR576 conjugate, adjuvant, PF (Prevnar 20) 06/05/2023 RSV, [...] drink = 0.6 oz pur e alcohol) [facility] Utilities Answer Date Recorded In the past 12 months has e [employer], gas, oil, or water [employer] threatened to shut off services in your [...] Info) Description 01/13/2025 11:30 AM EDT Follow-Up [facility] Rheumatology Clinic [address] [place] [address] [place] Eradicator: Paul Leger MD [address] [place] [phone] Health Maintenance Due Date Last Done Comments CT Lung Cancer Screening (12 months, previous LungRADS 1 or 2) 06/17/2019 06/17/2018, 05/09/2016 Alcohol/Substance Use Screening 10/06/2024 , 06/11/2023 Depression Screening and Follow-Up 10/06/2024 11/27/2023 Health Care Proxy Review 10/06/2024 11/27/2023, 02/03 Social Drivers of Health Belinda ual Screening 10/06/2024 Medicare AWV 11/27/2024 11/27/2023 COVID-19 Vaccine (8 - Modern a risk ) 01/18/2025 07/20/2024, 07/09/2023, 07/24/2022, Additional history exists Colonoscopy 05/20/2025 05/20/2024, 05/06, 02/03/2023, Additional history exists Basic Metabolic Panel 06/21/2025 06/21/2024 , 05/04/2024, 03/05/2024, Additional history exists Fall Risk Screening 10/15/2025 10/15/2024 DTaP,Tdap,and Td Vaccines (2 - Td or Tdap) 03/19/2027 03/19/2017 Tobacco Screening 10/06/2042 08/13/2024 Hepatitis C Screening Completed 08/25/2019 Abdominal Aortic Aneurysm (A AA) Screening Completed 01/18/2023, 07/06/2013 Pneumococcal Vaccine: 50+ Years Completed 06/05/2023, 07/31/2020, 03/07/2015, Additional history exists RSV Vaccine (60+ years old a nd patients) Completed 06/05/2023 Zoster Vaccines Completed 06/05/2023, 08/07, 06/21/2020, Additional history exists Statin Therapy Completed 05/12/2024 Influenza Vaccine Completed 06/17/2024, , 07/24/2022, Additional history exists Hepatitis B Vaccines Discontinued Medical Devices Implanted Type Area Color Control Operator Device Identifier Shelf Expiration Date Model / Serial / Lot Mau Thoracolumbar 3.1khb98it [facility] - [id number] Implanted:Qty: 2 on 08/06/2019 by Dianne De MD at [facility] Implant Spine Cervical DEPUY 1883-16- 060 / / Connector Spinal Cross Thoracolumbar Head To Head Titanium 35mm [employer] - [id number] Implanted:Qty: 1 on 08/06/2019 by Dianne De MD at [facility] Implant Spine Cervical DEPUY 1883-41- 035 / / Nut Spinal Outer Connector Cross Head To Head Titanium [employer] - [id number] Implanted:Qty: 2 on 08/06/2019 by Dianne De MD at [facility] Implant Spine Cervical DEPUY 1883-41- 200 / / Nut Spinal Outer Connector Cross Head To Head Titanium [employer] - [id number] Implanted:Qty: 2 on 08/06/2019 by Dinane De MD at [facility] Implant Spine Cervical DEPUY 1883-41- 100 / / Screw Thoracic Favored Angle Titanium 3.3zmp21mm [employer] - [id number] Implanted:Qty: 7 on 08/06/2019 by Dianne De MD at [facility] Screw Spine Cervical DEPUY 1883-18- 312 / / Screw Thoracic Favored Angle Titanium 3.6erh12yd [employer] - [id number] Implanted:Qty: 1 on 08/06/2019 by Dianne De MD at [facility] Screw Spine Cervical DEPUY 1883-18- 316 / / Screw Thoracic Inner [employer] - [id number] Implanted:Qty: 6 on 08/06/2019 by Dianne De MD at [facility] Screw Spine Cervical DEPUY 1883-42- 200 / / Putty Demineralized Bone Matrix 10cc Dbx - [id number] - [id number] Implanted:Qty: 1 on 08/06/2019 by Dianne De MD at [facility] Tissue Spine Cervical MUSCULOSKELETAL TRANSPLANT FND 04/27/2021 [id number] / [id number] / Ic Graft Chamber [address] - [id number] - [id number] Implanted:Qty: 1 on 04/28/2020 by Dianne De MD at [facility] Tissue Spine Lumbar LIFENET 11/14/2022 [id number] / [id number] / [id number] Description:Demineralized yany ne matrix and cancellous chips reconstituted with pts. blood Ic Graft Chamber [facility] 10 - [id number] - [id number] Implanted:Qty: 1 on 04/28/2020 by Dianne De MD at [facility] Tissue Spine Lumbar LIFENET 11/14/2022 [id number] / [id number] / [id number] Description:Demineralized yany ne matrix and cancellous chips reconstituted with pts. blood Procedures * Due to [place] state law, this organization might not be sharing negative HIV tests. Procedure Name Priority Date/Time Associated Diagnosis Comments HC 020660 BAG SECURITY CONTOURED LAEG 600ML Routine 10/15/2024 11:00 AM EST Suprapubic catheter (CMS/HCC) (HCC) HC 070787 BARD CATHETER TRAY Routine 10/15/2024 11:00 AM EST Suprapubic catheter (CMS/HCC) (HCC) HC 395129 CATHETER HURT BARD 16 FR 5 CC Routine 10/15/2024 11:00 AM EST Suprapubic catheter (CMS/HCC) (HCC) HC INSERTION OF TEMPORARY INDWELLING BLADDER CATHETER SIMPLE Routine 10/15/2024 11:00 AM EST Suprapubic catheter (CMS/HCC) (HCC) HC 145793 BAG SECURITY CONTOURED LAEG 600ML Routine 10/01/2024 3:00 PM EST Suprapubic catheter (CMS/HCC) (HCC) HC 894362 BARD CATHETER TRAY Routine 10/01/2024 3:00 PM [...] INSERTION OF TEMPORARY INDWELLING BLADDER CATHETER SIMPLE, 511971 CATHETER HURT BARD 16 FR 5CC, HC 794788 BARD CATHETER TRAY, 731794 BAG SECURITY CONTOURED LAEG 600ML (10/15/2024 11:00 [...] in 2 weeks for cath exchange Supplies: 898565 Catheter Hurt Bard 16 Fr 5 cc HC 241410 Bard Catheter Tray HC 036492 Bag Security Contoured LAEG 600 ml us Mara Tellez MD PhD UROLOGY ORDERABL ES Final Result * INSERTION OF TEMPORARY INDWELLING BLADDER CATHETER SIMPLE, HC 155656 BARD CATHETER TRAY, HC 988400 BAG SECURITY CONTOURED LAEG 600ML (10/01/2024 3:00 [...] well with no immediate complications Supplies: HC 296508 Bard Catheter Tray HC 215547 Bag Security Contoured LAEG 600 ml us Mara Tellez MD PhD UROLOGY ORDERABL ES Final Result * (ABNORMAL) Sedimentation Rate (10/01/2024 12:15 PM EST) Pathologist [facility] Sed Rate 29(H) <20 mm/Hr mm/Hr 10/01/2024 12:49 PM EST [facility] Blood Structure of peripheral vein / Unknown Venipuncture / Unknown 10/01/2024 12:15 PM EST 10/01/2024 12:43 PM EST us Iva Perez MD LAB BLOOD ORDERABLES Final Resul t Performing Organization Address [facility] Co de Phone Number [facility] [address] [place] [address], * C-Reactive Protein (10/01/2024 12:15 PM EST) C Reactive Protein <3.0 <=9.9 mg/L 10/01/2024 1:09 PM EST [facility] Blood Structure of peripheral vein / Unknown Venipuncture / Unknown 10/01/2024 12:15 PM EST 10/01/2024 12:43 PM EST us Iva Perez MD LAB BLOOD ORDERABLES Final Resul t Performing Organization Address [facility] de Phone Number [facility] [address] [place] [address], * (ABNORMAL) BMP - Basic Metabolic Panel (06/21/2024 6:40 AM EDT) NA 140 135 - 145 mmol/L 06/21/2024 7:17 AM EDT [facility] K 4.0 3.5 - 5.3 mmol/L 06/21/2024 7:17 AM EDT [facility] Cl 104 98 - 107 mmol/L 06/21/2024 7:17 AM EDT [facility] CO2 24 24 - 32 mmol/L 06/21/2024 7:17 AM EDT [facility] BUN 15 7 - 23 mg/dL 06/21/2024 7:17 AM EDT [facility] Creatinine 0.74 0.60 - 1.30 mg/dL 06/21/2024 7:17 AM EDT [facility] Glucose 116(H) 65 - 99 mg/dL 06/21/2024 7:17 AM EDT [facility] Calcium 9.7 8.6 - 10.5 mg/dL 06/21/2024 7:17 AM EDT [facility] Anion Gap 12 5 - 15 06/21/2024 7:17 AM EDT [facility] eGFR >90 >=60 mL/min/1. 73m2 06/21/2024 7:17 AM EDT [facility] Comment:The estimated glomer ular [...] Kauffman MD LAB BLOOD ORDERABLES Final Result [facility] [address] [place] [address], * COLONOSCOPY (05/20/2024) Narrative Procedure Note Justo El MD PhD - 05/20/2024 9:25 AM EDT [facility] Gastroenterology Patient Name: Juan Rubin Procedure Date: 05/20/2024 9:25 AM Date of : 1955 Admit Type: Outpatient Age: 69 Room: [place] [address] Gender: Male Note Status: Finalized Attending MD: [...] obtain the completed interpretation. ? Workstation ID: [id number] Up-to-date CT equipment and radiation dose reduction [...] evidence for recurrent hernia. Resulting Agency Comment [id number] Procedure Note Iain Jain MD - 01/18/2023 [...] possible to obtain thecompleted interpretation. Workstation ID: [id number] Up-to-date CT equipment and radiation dose reduction techniques wereemployed. CTDIvol: 15.5 mGy. DLP: 698 mGy-cm. Agapito Rowe MD IMG CT PROCEDURES Final Resu lt * Hepatitis C Antibody w/Reflex to HCV RNA, Quantitative PCR (08/25/2019 3:15 PM EST) Hepatitis C Antibody NON-REACT YENNI NON-REACT YENNI 08/26/2019 1:11 AM EST [facility] Signal To Cut-Off 0.01 <1.00 08/26/2019 1:11 AM EST [facility] Comment: HCV antibody was non-reactive. There is no laboratory evidence of HCV infection. In most cases, no further action is required. However, if recent HCV exposure is suspected, a test for HCV RNA (test code 24053) is suggested. For additional information please refer to http://education.Huddlebuy/faq/NZI38q1 (This link is being provided for informational/ educational purposes only.) Blood specimen (specimen) Structure of peripheral vein / Unknown Venipuncture / Unknown 08/25/2019 3:15 PM EST 08/25/2019 3:20 PM EST Narrative [facility] - 08/26/2019 1:11 AM EST [facility] Received Date: Antoinette Cast MD LAB BLOOD ORDERABLES Final Re sult [facility] [address] [facility] [facility] [address], [place] [address], [place] [phone] [employer] [facility] [address] [facility], [place] [address], [place] [phone] * CT Chest WO Contrast (06/17/2018 12:12 [...] or willingness to have curative lung surgery [id number] Up-to-date CT equipment and radiation dose reduction techniques were employed. CTDIvol: 5.6 - 16.0 mGy. DLP: 541 mGy-cm.The following accession numbers are related to this dose report [id number] Narrative 06/20/2018 1:28 PM EDT EXAMINATION: CT [...] For lung cancer screening guidelines, please refer to:https://www.uspreventiveservicestaskforce.org/Page/Document/ShahbazumOsmar maier/ruby collinsm-ghhulb-induclgnn Adults Aged 55-77, with a History of [...] or willingness to have curative lung surgery [id number] Up-to-date CT equipment and radiation dose reduction techniques wereemployed. CTDIvol: 5.6 - 16.0 mGy. 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 Advance Directives Documents on File Type Date Recorded Patient Angle Shearer Expl anation Health Care Proxy 02/18/2022 2:30 PM health care proxy MOLST 08/25/2019 4:59 PM 08/19/19 Health Care Proxy 08/11/2019 9:10 AM 2002 Advance Directive 10/09/2007 12:00 AM naya M edical Decision Making (Adv.Dir) Advance Directive 10/09/2007 12:00 AM anya M edical Decision Making (Adv.Dir) Advance Directive [...]
--- OUTSIDE RECORDS SUMMARY | 2024-12-10 14:59 | XMS_ITS | Encounter Summary ---
Author Organization [facility] Address [address] [place] [address] Care Team Providers Care Interventionist Name Role Phone Tesha Pierce MD, [facility] Primary Care Provider + Reason for Visit * Reason Onset Date Comments Scheduling Appointment 11/17/2020 Encounter Details Date Type Department Care Team (Late st Contact Info) Description 11/17/2020 Telephone [facility] Neurology Clinic [address] [place] [phone] Telephone Intake, Staff Scheduling Appointment Social History [...] not included. MD Mara Morris; P [facility] Neurology Admin Staff Pt was following [...] Info) Description 01/13/2025 11:30 AM EDT Follow-Up [facility] Rheumatology Clinic [address] [place] [phone] Date Pitter: Paul Leger MD [address] [place] [address] documented as of this encounter Visit [...] documented as of this encounter Care Teams Interventionist Relationship Specialty Start Date End Date Kristen Parkinson MD [address] [place] [address] (work) PCP - General Internal Medicine 08/17/23 10/26/24 documented as of this encounter
== END 2024-12-10 14:33 | disposition home or self-care (01) ==
PROVIDERS: PCP Internal Medicine; Visit Provider Internal Medicine
DX: J44.1 Chronic obstructive pulmonary disease with (acute) exacerbation (principal); E27.9 Disorder of adrenal gland, unspecified; Z09 Encounter for follow-up examination after completed treatment for conditions other than malignant neoplasm

== ENCOUNTER → 2024-12-10 13:23 | Outpatient (BNVA) | payer MEDICARE, SELFPAY | PROVIDERS: PCP Internal Medicine; Visit Provider Internal Medicine | DX: I10 Essential (primary) hypertension (principal); J44.9 Chronic obstructive pulmonary disease, unspecified; E78.5 Hyperlipidemia, unspecified; M47.812 Spondylosis without myelopathy or radiculopathy, cervical region; J44.1 Chronic obstructive pulmonary disease with (acute) exacerbation; E27.9 Disorder of adrenal gland, unspecified; J18.9 Pneumonia, unspecified organism; Z09 Encounter for follow-up examination after completed treatment for conditions other than malignant neoplasm; Z96.0 Presence of urogenital implants | CPT/HCPCS: 99495 ==

== ENCOUNTER 2025-01-11 12:56 | Outpatient (REF) | payer MEDICARE, SELFPAY ==
--- NOTE | ~2025-01-11 | MR_ITS ---
EXAMINATION: MRI Abdomen without and with contrast HISTORY: E27.9 - Disorder of adrenal gland, unspecified COMPARISON: Correlation is made with the report from an outside CT of the abdomen which describes a 1.3 cm hypoenhancing liver lesion at L1 0.3 cm left adrenal nodule. TECHNIQUE: Axial in and out of phase T1-weighted gradient echo, axial diffusion weighted, and axial and coronal HASTE T2 with fat saturation images were obtained through the abdomen. Subsequently, fat suppressed axial and coronal T1-weighted images were obtained after the intravenous administration of 8.5 mL Gadavist. FINDINGS: There is no significant signal loss in the visualized portion of the liver on opposed phase imaging to suggest steatosis. There is a 1.3 cm bilobed cyst in the left lobe. Smaller cysts are noted inferior aspects of the right and left lobes. No enhancing mass is identified. The hepatic and portal veins are patent. There is no intrahepatic biliary ductal dilatation. There is cholelithiasis. The common bile duct is normal in caliber. The spleen and pancreas are unremarkable. The right adrenal gland is unremarkable. There is a 1.2 cm left adrenal nodule, portions of which demonstrate loss of signal intensity on opposed phase imaging, consistent with intracellular lipid in an adenoma. No retroperitoneal lymphadenopathy or ascites is identified in the upper abdomen. There is a small hiatal hernia. The visualized lungs demonstrate normal marrow signal intensity. MR/MR abdomen wo/w con IMPRESSION: 1. Multiple small hepatic cysts as described. 2. 1.2 cm left adrenal adenoma. 3. Small hiatal hernia. Cholelithiasis. Electronically signed by: Lane Christianson MD 01/11/2025 02:18 PM EDT
[2025-01-11] MEDS: gadobutroL 10 ML VIAL IVPUSH (14:01)
--- OUTSIDE RECORDS SUMMARY | 2025-01-11 15:38 | XMS_ITS | Clinical Summary ---
Author Organization [facility] Address [address] [place] [address] Care Team Providers Care Electromyographic Technician Name Role Phone Unavailable Primary Care Provider [...] 4 bandageIndicati ons:Neurogenic bladder, flaccid,Suprapu bic catheter (HCC) Patient requires supplies for daily care/maintenance to SPT site. 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 Uses 1 sterile 4x4 daily to clean SPT site. Ref. # MedLine Sponges, 10 per Box: [id number] 30 each 12/13/19 23 Active urinary bag misc Pt requires Bedside drainage bag changed every other week. (Conveen Ref # [id number]) DX: Neuromuscular Dysfunction of Bladder (N31.9) 2 each 12/28/19 23 Active adhesive tape (Paper Tape) 1 X 10 -yard tapeIndications :Suprapubic catheter (HCC) HypoAllergenic Paper Tape, 1 x10 yard. [...] Steril) packageIndicati ons:Neurogenic bladder, flaccid,Suprapu bic catheter (HCC) Pt. Has a SupraPubic Tube that [...] misc Use as direct 2 each 12/22/19 24 Active sodium chloride 0.9% irrigation Irrigate with Saline 250ml daily. 30 mL 11 12/22/19 Active adhesive tape 1 X 1 1/2 -yard tape Use as direct 2 each 11 12/22/19 Active non-adherent bandage 4 X 4 [...] TIMES DAILY 120 tablet 10/12/19 25 Active Active Problems Problem Noted Date Diagnosed Date Right carpal tunnel syndrome 06/27/2023 Spinal cord compression 04/18/2023 Neurogenic bladder, flaccid 03/12/2022 Assessment & Plan (02/01/2023 1:47 PM EDT): Patient with neurogenic bladder s/p suprapubic catheter placement. 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 Given potential for this to have contributed [...] S/P cervical spinal fusion 01/17/2021 Suprapubic catheter 01/17/2021 Retention of urine 08/10/2020 S/P lumbar [...] supplements MD Juan Martinez : 1955 CSN: [id number] [facility] 08/18/2019 Overview (08/18/2019): Due to steroids, [...] the AM for any further recs. 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 in [...] GI following; apprec recs - NPO at [place] in case colo on Saturday 02/03 Vasovagal [...] Type Department Care Team Description 10/27/2024 Telephone [facility] [address] [place] [address] Automobile Designer: Mara Castañeda MD PhD 10/15/2024 11:00 AM EST Clinical Support [facility] [address] [place] [address] Automobile Designer: Nilam Blair LPN Suprapubic catheter (Primary Dx) from Last 3 Months Immunizations [...] 08/07/2019,06/09/2018,08/21/2017 Influenza, Trivalent, MDV, Injectable ,07/02/2013,07/20/2012,08/08,07/27/2009,08/30/2008,09/02/2007 Novel Dexnqnrhr-O3V9-63, Preservative-Free, Injectable 09/27/2009 Pneumococcal Conjugate Vacci ne, 13 Valent 03/07/2015 Pneumococcal Polysaccharide Vaccine, 23 Valent 07/31/2020,08/30/2008 Pneumococcal conjugate PCV20,polysaccharide [id number] conjugate, adjuvant, PF (Prevnar 20) 06/05/2023 RSV, [...] drink = 0.6 oz pur e alcohol) [facility] Utilities Answer Date Recorded In the [...] Info) Description 01/13/2025 11:30 AM EDT Follow-Up [facility] [address] [place] [address] Automobile Designer: Paul Leger MD [address] [place] [address] Health Maintenance Due Date Last Done Comments CT Lung Cancer Screening (12 months, previous LungRADS 1 or 2) 06/17/2019 06/17/2018, 05/09/2016 Alcohol/Substance Use Screening 10/06/2024 , 06/11/2023 Depression Screening and Follow-Up 10/06/2024 11/27/2023 Health Care Proxy Review 10/06/2024 11/27/2023, 02/03 Social Drivers of Health Belinda ual Screening 10/06/2024 Medicare AWV 11/27/2024 11/27/2023 COVID-19 Vaccine (8 - Modern a risk season) 2025 07/20/2024, 07/09/2023, 07/24/2022, Additional [...] Vaccines Discontinued Medical Devices Implanted Type Area Rehab Therapy Manager Device Identifier Shelf Expiration Date Model / Serial / Lot Mau Thoracolumbar 3.1ibw02fg Altaf - [id number] Implanted:Qty: 2 on 08/06/2019 by Dianne De MD at [facility] Implant Spine Cervical DEPUY 1883-16- 060 / / Connector Spinal Cross Thoracolumbar Head To Head Titanium 35mm Mountaineer - [id number] Implanted:Qty: 1 on 08/06/2019 by Dianne De MD at [facility] Implant Spine Cervical DEPUY 1883-41- 035 / / Nut Spinal Outer Connector Cross Head To Head Titanium Mountaineer - [id number] Implanted:Qty: 2 on 08/06/2019 by Dianne De MD at [facility] Implant Spine Cervical DEPUY 1883-41- 200 / / Nut Spinal Outer Connector Cross Head To Head Titanium Mountaineer - [id number] Implanted:Qty: 2 on 08/06/2019 by Dianne De MD at [facility] Implant Spine Cervical DEPUY 1883-41- 100 / / Screw Thoracic Favored Angle Titanium 3.1gfh92ay Mountaineer - [id number] Implanted:Qty: 7 on 08/06/2019 by Dianne De MD at [facility] Screw Spine Cervical DEPUY 1883-18- 312 / / Screw Thoracic Favored Angle Titanium 3.5aux62np Mountaineer - [id number] Implanted:Qty: 1 on 08/06/2019 by Dianne De MD at [facility] Screw Spine Cervical DEPUY 1883-18- 316 / / Screw Thoracic Inner Ensenadaeer - [id number] Implanted:Qty: 6 on 08/06/2019 by Dianne De MD at [facility] Screw Spine Cervical DEPUY 1883-42- 200 / / Putty Demineralized Bone Matrix 10cc Dbx - [id number] - [id number] Implanted:Qty: 1 on 08/06/2019 by Dianne De MD at [facility] Tissue Spine Cervical MUSCULOSKELETAL TRANSPLANT FND 04/27/2021 [id number] / [id number] / Ic Graft Chamber [address] [id number] - [id number] Implanted:Qty: 1 on 04/28/2020 by Dianne De MD at [facility] Tissue Spine Lumbar LIFENET 11/14/2022 [id number] / [id number] / [id number] Description:Demineralized yany ne matrix and cancellous chips reconstituted with pts. blood Ic Graft Chamber [facility] - [id number] - [id number] Implanted:Qty: 1 on 04/28/2020 by Dianne De MD at [facility] Tissue Spine Lumbar LIFENET 11/14/2022 [id number] / [id number] / [id number] Description:Demineralized yany ne matrix and cancellous chips reconstituted with pts. blood Procedures * Due to [place] state law, this organization might not be sharing negative HIV tests. Procedure Name Priority Date/Time Associated Diagnosis Comments HC 067149 BAG SECURITY CONTOURED LAEG 600ML Routine 10/15/2024 11:00 AM EST Suprapubic catheter 384576 BARD CATHETER TRAY Routine 10/15/2024 11:00 AM EST Suprapubic catheter 244672 CATHETER HURT BARD 16 FR 5 CC Routine 10/15/2024 11:00 AM EST Suprapubic catheter HC INSERTION OF TEMPORARY INDWELLING BLADDER CATHETER SIMPLE Routine 10/15/2024 11:00 AM EST Suprapubic catheter BASIC METABOLIC PANEL STAT 06/21/2024 6:40 AM EDT COLONOSCOPY 05/20/2024 CT ABDOMEN PELVIS W CONTRAST STAT 01/18/2023 10:05 PM EDT HEPATITIS C ANTIBODY W/REFLEX TO HCV RNA, QUANTITATIVE PCR STAT 08/25/2019 3:[address] CHEST WO CONTRAST Routine 06/17/2018 12:12 PM EDT Pulmonary emphysema, unspecified emphysema type from Last 3 Months or Most Recently Relevant to Health Maintenance Results * Due to [place] state law, this organization might not be sharing negative HIV tests. * HC INSERTION OF TEMPORARY INDWELLING BLADDER CATHETER SIMPLE, HC 970115 CATHETER HURT BARD 16 FR 5CC, HC 841170 BARD CATHETER TRAY, [place] 138810 BAG SECURITY CONTOURED LAEG 600ML (10/15/2024 11:00 [...] 2 weeks for cath exchange Supplies: HC 742140 Catheter Hurt Bard 16 Fr 5 cc HC 256555 Bard Catheter Tray HC 102250 Bag Security Contoured LAEG 600 ml us Mara Tellez MD PhD UROLOGY ORDERABL ES Final Result * (ABNORMAL) BMP - Basic Metabolic Panel (06/21/2024 6:40 AM EDT) NA 140 135 - 145 mmol/L 06/21/2024 7:17 AM EDT [facility] K 4.0 3.5 - 5.3 mmol/L 06/21/2024 7:17 AM EDT [facility] Cl 104 98 - 107 mmol/L 06/21/2024 7:17 AM EDT [facility] CO2 24 24 - 32 mmol/L 06/21/2024 7:17 AM EDT [facility] BUN 15 7 - 23 mg/dL 06/21/2024 7:17 AM EDT [facility] Creatinine 0.74 0.60 - 1.30 mg/dL 06/21/2024 7:17 AM T [facility] Glucose 116(H) 65 - 99 mg/dL 06/21/2024 7:17 AM EDT [facility] Calcium 9.7 8.6 - 10.5 mg/dL 06/21/2024 7:17 AM EDT [facility] Anion Gap 12 5 - 15 06/21/2024 7:17 AM EDT [facility] eGFR >90 >=60 mL/min/1. 73m2 06/21/2024 7:17 AM T [facility] Comment:The estimated [...] Kauffman MD LAB BLOOD ORDERABLES Final Result Performing Organization Address City/State/[facility] Co de Phone Number [facility] [address] [place] [address], [place] * COLONOSCOPY (05/20/2024) Narrative Procedure Note Justo El MD PhD - 05/20/2024 9:25 AM EDT [facility] Patient Name: Juan Rubin Procedure Date: 05/20/2024 9:25 AM Date of : 1955 Admit Type: Outpatient Age: 69 Room: [facility] 04 Gender: Male Note Status: Finalized Attending MD: [...] 0 Note Initiated On: 05/20/2024 9:25 AM us Justo El MD PhD PROVATION PROCEDURES Final [...] obtain the completed interpretation. ? Workstation ID: [id number] Up-to-date CT equipment and radiation dose reduction [...] evidence for recurrent hernia. Resulting Agency Comment [id number] Procedure Note Iain Jain MD - 01/18/2023 [...] possible to obtain thecompleted interpretation. Workstation ID: [id number] Up-to-date CT equipment and radiation dose reduction techniques wereemployed. CTDIvol: 15.5 mGy. DLP: 698 mGy-cm. us Agapito Rowe MD [facility] CT PROCEDURES Final Resu lt * Hepatitis C Antibody w/Reflex to HCV RNA, Quantitative PCR (08/25/2019 3:15 PM EST) Hepatitis C Antibody NON-REACT YENNI NON-REACT YENNI 08/26/2019 1:11 AM EST [employer] Signal To Cut-Off 0.01 <1.00 08/26/2019 1:11 AM EST [employer] Comment: HCV antibody was non-reactive. There is no laboratory evidence of HCV infection. In most cases, no further action is required. However, if recent HCV exposure is suspected, a test for HCV RNA (test code 33322) is suggested. For additional information please refer to http://education.[employer]/faq/CDO03x0 (This link is being provided for informational/ educational purposes only.) Blood specimen (specimen) Structure of peripheral vein / Unknown Venipuncture / Unknown 08/25/2019 3:15 PM EST 08/25/2019 3:20 PM EST Narrative [facility] - 08/26/2019 1:11 AM EST [facility] Received Date: Antoinette Cast MD LAB BLOOD ORDERABLES Final Re sult [facility] [address] [facility] 3rd Floor, [place] [address], [employer] [address] [facility] [address] Floor, [place] [address], * CT Chest WO Contrast (06/17/2018 12:12 [...] or willingness to have curative lung surgery [id number] Up-to-date CT equipment and radiation dose reduction techniques were employed. CTDIvol: 5.6 - 16.0 mGy. DLP: 541 mGy-cm.The following accession numbers are related to this dose report [id number] Narrative 06/20/2018 1:28 PM EDT EXAMINATION: CT [...] lung cancer screening guidelines, please refer to:https://www.[email or web address]/Page/Document/UpdateSummaryRiana l/ruby m-[email or web address]-ymnsnajii Adults Aged 55-77, with a History of [...] or willingness to have curative lung surgery [id number] Up-to-date CT equipment and radiation dose reduction techniques wereemployed. CTDIvol: 5.6 - 16.0 mGy. 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
--- OUTSIDE RECORDS SUMMARY | 2025-01-11 15:38 | XMS_ITS | Referral Summary ---
Author Organization [facility] Address [address] [place] [address] Care Team Providers Care Computer Teacher Name Role Phone Unavailable Primary Care Provider Unavailabl e Encounters Date Type Department Care Team Description 10/27/2024 Telephone [facility] [address] [place] [address] Entry Driver Operator: Mara Castañeda MD PhD 10/15/2024 11:00 AM EST Clinical Support [facility] [address] [place] [address] Entry Driver Operator: Nilam Bliar LPN Suprapubic catheter (Primary Dx) from Last 3 Months Allergies [...] Ref. # MedLine Sponges, 10 per Box: [id number] 30 each 12/13/19 Active urinary bag misc Pt requires Bedside drainage bag changed every other week. (Replaced By [facility] Ref # [id number]) DX: Neuromuscular Dysfunction of Bladder (N31.9) 2 each 12/28/19 Active adhesive tape (Paper Tape) 1 X [...] 2 times a day. 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 Given potential for this to have contributed [...] supplements MD Juan Martinez : 1955 CSN: [id number] Hyperglycemia 08/18/2019 Overview (08/18/2019): Due to steroids, [...] the AM for any further recs. 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 in [...] 08/07/2019,06/09/2018,08/21/2017 Influenza, Trivalent, MDV, Injectable ,07/02/2013,07/20/2012,08/08,07/27/2009,08/30/2008,09/02/2007 Novel [id number]-F1Y7-18, Preservative-Free, Injectable 09/27/2009 Pneumococcal Conjugate Vacci ne, 13 Valent 03/07/2015 Pneumococcal Polysaccharide Vaccine, 23 Valent 07/31/2020,08/30/2008 Pneumococcal conjugate PCV20,polysaccharide HVP353 conjugate, adjuvant, PF (Prevnar 20) 06/05/2023 RSV, [...] drink = 0.6 oz pur e alcohol) [facility] Utilities Answer Date Recorded In the past 12 months has e electric, gas, oil, or water company [...] Info) Description 01/13/2025 11:30 AM EDT Follow-Up [facility] [address] [place] [address] Entry Driver Operator: Paul Leger MD [address] [place] [address] Medical Devices Implanted Type Area Valuation Manager Device Identifier Shelf Expiration Date Model / Serial / Lot Mau Thoracolumbar 3.0vaj15vm Altaf - [id number] Implanted:Qty: 2 on 08/06/2019 by Dianne De MD at [facility] Implant Spine Cervical DEPUY 1883-16- 060 / / Connector Spinal Cross Thoracolumbar Head To Head Titanium 35mm Mountaineer - [id number] Implanted:Qty: 1 on 08/06/2019 by Dianne De MD at [facility] Implant Spine Cervical DEPUY 1883-41- 035 / / Nut Spinal Outer Connector Cross Head To Head Titanium Mountaineer - [id number] Implanted:Qty: 2 on 08/06/2019 by Dianne De MD at [facility] Implant Spine Cervical DEPUY 1883-41- 200 / / Nut Spinal Outer Connector Cross Head To Head Titanium Mountaineer - [id number] Implanted:Qty: 2 on 08/06/2019 by Dianne De MD at [facility] Implant Spine Cervical DEPUY 1883-41- 100 / / Screw Thoracic Favored Angle Titanium 3.5cux26hg Mountaineer - [id number] Implanted:Qty: 7 on 08/06/2019 by Dianne De MD at [facility] Screw Spine Cervical DEPUY 1883-18- 312 / / Screw Thoracic Favored Angle Titanium 3.8lmo47up Mountaineer - [id number] Implanted:Qty: 1 on 08/06/2019 by Dianne De MD at [facility] Screw Spine Cervical DEPUY 1883-18- 316 / / Screw Thoracic Inner Mountaineer - [id number] Implanted:Qty: 6 on 08/06/2019 by Dianne De MD at [facility] Screw Spine Cervical DEPUY 1883-42- 200 / / Putty Demineralized Bone Matrix 10cc Dbx - [id number] - [id number] Implanted:Qty: 1 on 08/06/2019 by Dianne De MD at [facility] Tissue Spine Cervical MUSCULOSKELETAL TRANSPLANT FND 04/27/2021 [id number] / [id number] / Ic Graft Chamber [address] [id number] - [id number] Implanted:Qty: 1 on 04/28/2020 by Dianne De MD at [facility] Tissue Spine Lumbar LIFENET 11/14/2022 [id number] / [id number] / [id number] Description:Demineralized yany ne matrix and cancellous chips reconstituted with pts. blood Ic Graft Chamber [address] - [id number] - [id number] Implanted:Qty: 1 on 04/28/2020 by Dianne De MD at [facility] Tissue Spine Lumbar LIFENET 11/14/2022 [id number] / [id number] / [id number] Description:Demineralized yany ne matrix and cancellous chips reconstituted with pts. blood Procedures * Due to [place] state law, this organization might not be sharing negative HIV tests. Procedure Name Priority Date/Time Associated Diagnosis Comments HC 508229 BAG SECURITY CONTOURED LAEG 600ML Routine 10/15/2024 11:00 AM EST Suprapubic catheter 645924 BARD CATHETER TRAY Routine 10/15/2024 11:00 AM EST Suprapubic catheter 436181 CATHETER HURT BARD 16 FR 5 CC Routine 10/15/2024 11:00 AM EST Suprapubic catheter INSERTION OF TEMPORARY INDWELLING BLADDER CATHETER SIMPLE [...] to Health Maintenance Results * Due to [place] state law, this organization might not be sharing negative HIV tests. * HC INSERTION OF TEMPORARY INDWELLING BLADDER CATHETER SIMPLE, 674068 CATHETER HURT BARD 16 FR 5CC, HC 357361 BARD CATHETER [place], [place] 584217 BAG SECURITY CONTOURED LAEG 600ML (10/15/2024 11:00 [...] 2 weeks for cath exchange Supplies: HC 226819 Catheter Hurt Bard 16 Fr 5 cc HC 956874 Bard Catheter Tray HC 884272 Bag Security Contoured LAEG 600 ml us Mara Tellez MD PhD UROLOGY ORDERABL ES Final Result * (ABNORMAL) BMP - Basic Metabolic Panel (06/21/2024 6:40 AM EDT) NA 140 135 - 145 mmol/L 06/21/2024 7:17 AM T [facility] K 4.0 3.5 - 5.3 mmol/L 06/21/2024 7:17 AM EDT [facility] Cl 104 98 - 107 mmol/L 06/21/2024 7:17 AM [facility] CO2 24 24 - 32 mmol/L 06/21/2024 7:17 AM EDT [facility] BUN 15 7 - 23 mg/dL 06/21/2024 7:17 AM [facility] Creatinine 0.74 0.60 - 1.30 mg/dL 06/21/2024 7:17 AM [facility] Glucose 116(H) 65 - 99 mg/dL 06/21/2024 7:17 AM [facility] Calcium 9.7 8.6 - 10.5 mg/dL 06/21/2024 [facility] Anion Gap 12 5 - 15 06/21/2024 [facility] eGFR >90 >=60 mL/min/1. 73m2 06/21/2024 7:17 AM [facility] Comment:The estimated [...] LAB BLOOD ORDERABLES Final Result [facility] [address] [place] [address], [place] * COLONOSCOPY (05/20/2024) Narrative Procedure Note Justo El MD PhD - 05/20/2024 9:25 AM EDT [facility] G[facility]enter[facility] Patient Name: Juan Rubin Procedure Date: 05/20/2024 9:25 AM Date of : 1955 Admit Type: Outpatient Age: 69 Room: [facility] 04 Gender: Male Note Status: Finalized Attending [...] obtain the completed interpretation. ? Workstation ID: [id number] Up-to-date CT equipment and radiation dose reduction [...] evidence for recurrent hernia. Resulting Agency Comment [id number] Procedure Note Iain Jain MD - 01/18/2023 [...] possible to obtain thecompleted interpretation. Workstation ID: [id number] Up-to-date CT equipment and radiation dose reduction techniques wereemployed. CTDIvol: 15.5 mGy. DLP: 698 mGy-cm. us Agapito Rowe MD IM CT PROCEDURES Final Resu lt * Hepatitis C Antibody w/Reflex to HCV RNA, Quantitative PCR (08/25/2019 3:15 PM EST) Hepatitis C Antibody NON-REACT YENNI NON-REACT YENNI 08/26/2019 1:11 AM [employer] Signal To Cut-Off 0.01 <1.00 08/26/2019 1:11 AM [employer] Comment: HCV antibody was non-reactive. There is no laboratory evidence of HCV infection. In most cases, no further action is required. However, if recent HCV exposure is suspected, a test for HCV RNA (test code 65283) is suggested. For additional information please refer to http://education.daysoft/faq/BPM86i3 (This link is being provided for informational/ educational purposes only.) Blood specimen (specimen) Structure of peripheral vein / Unknown Venipuncture / Unknown 08/25/2019 3:15 PM EST 08/25/2019 3:20 PM EST Narrative [facility] - 08/26/2019 1:11 AM EST [facility] Received Date: Antoinette Cast MD LAB BLOOD ORDERABLES Final Re sult [facility] [address] [facility] 3rd Floor, [place] [address], [employer] [facility] [address] [facility] [address], [place] [address], * CT Chest WO Contrast (06/17/2018 12:12 [...] or willingness to have curative lung surgery [id number] Up-to-date CT equipment and radiation dose reduction techniques were employed. CTDIvol: 5.6 - 16.0 mGy. DLP: 541 mGy-cm.The following accession numbers are related to this dose report [id number] Narrative 06/20/2018 1:28 PM EDT EXAMINATION: CT [...] loss of vertebral body height. Procedure Note Melchor, Isabella Yanes - 06/20/2018 EXAMINATION: CT of the chest [...] cancer screening guidelines, please refer to:https://www.uspreventiveservicestaskforce.org/Page/Document/UpdateSummaryRiana [email or web address]/ruby [email or web address] Adults Aged 55-77, with a History of [...] or willingness to have curative lung surgery [id number] Up-to-date CT equipment and radiation dose reduction techniques wereemployed. CTDIvol: 5.6 - 16.0 mGy. 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
--- OUTSIDE RECORDS SUMMARY | 2025-01-11 15:38 | XMS_ITS | Clinical Summary ---
Author Organization [address] [facility] Address [address] [place] [address] Phone Care Team Providers Care Electrode Cleaner Name Role Phone Joy March MD Primary Care Provider [phone] Encounters Date Type Department Care Team Description 01/07/2025 Lab Requisition [facility] - Main Lab [address] [facility] [place] [address] Bre Humphries NP Other retention of urine from Last 3 Months Social History Tobacco Use Types Packs/Day Years Used Date Smoking Tobacco: Never Assessed Sex and Gender Information Value Date Recorded Sex Assigned at Not on file Legal Sex Male 1:45 PM EDT Gender Identity Not on file Sexual Orientation Not on file Plan of Treatment Health Maintenance Due Date Last Done Comments DTaP,Tdap,and Td Vaccines (1 - Tdap) 1972 Pneumococcal Vaccine: 50+ Ye ars (1 of 1 - PCV) 2003 Zoster Vaccines (1 of 2) 2003 COVID-19 Vaccine ( - 2023-2 5 season) 2024 Abdominal Aortic Aneurysm (A AA) Screen 01/07/2025 Cholesterol Screening (Lipid Panel) 01/07/2025 Colorectal Cancer Screening: Colonoscopy 01/07/2025 Depression Screening 01/07/2025 Falls Risk Assessment 01/07/2025 Hepatitis C Screening 01/07/2025 Medicare Annual Wellness Visit 01/07/2025 Social Influencers of Health Screening 01/07/2025 Influenza Vaccine (Season Ended) 2025 RSV Immunization Adult Patie nts (1 - 1-dose 75+ series) 2028 HIB Vaccines Aged Out No longer eligi ble based on patient's age to complete this topic HPV Vaccines Aged Out No longer eligi ble based on patient's age to complete this topic Hepatitis A Vaccines Aged Out No long er eligible based on patient's age to complete this topic Hepatitis B Vaccines Aged Out No long er eligible based on patient's age to complete this topic IPV Vaccines Aged Out No longer eligi ble based on patient's age to complete this topic MMR Vaccines Aged Out No longer eligi ble based on patient's age to complete this topic Meningococcal ACWY Vaccine Aged Out N o longer eligible based on patient's age to complete this topic Meningococcal B Vaccine Aged Out No l onger eligible based on patient's age to complete this topic RSV Immunization Patients Un kinjal 20 months Aged Out No longer eligible b ased on patient's age to complete this topic Varicella Vaccines Aged Out No longer eligible based on patient's age to complete this topic Procedures Procedure Name Priority Date/Time Associated Diagnosis Comments BACTERIAL IDENTIFICATION AND SUSCEPTIBILITY, AEROBIC Routine 01/06/2025 10:25 AM EDT Other retention of urine from Last 3 Months Results * (ABNORMAL) Bacterial identification and susceptibility, aerobic (01/06/2025 10:25 AM EDT) [facility] Culture, Bacterial ID and Sensitivity Klebsiella pneumoniae ESBL(A) KYRA 01/09/2025 8:50 AM EDT [facility] Comment: 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 ??EXTENDED SPECTRUM BETA-LACTAMASE ??PRODUCING ORGANISMS DEMONSTRATE DECREASED ACTIVITY WITH PENICILLILNS, CEPHALOSPORINS AND AZTREONAM. This is an edited result. Previous organism was Gram negative bacilli on 01/07/2025 at 1449 EDT. This is an edited result. Previous organism was Klebsiella pneumoniae ssp pneumoniae on 01/08/2025 at 1042 EDT. Other Urine specimen from urinary conduit / Unknown 01/06/2025 10:25 AM EDT 01/07/2025 1:50 PM EDT Narrative Organism Antibiotic Method Susceptibility Klebsiella pneumoniae ESBL Amoxicillin/Clavulanate KYRA 8 ug/ml: Susceptible Klebsiella pneumoniae ESBL Ampicillin/Sulbactam KYRA 8 ug/ml: Susceptible Klebsiella pneumoniae ESBL Piperacillin/Tazobactam KYRA <=4 ug/ml: Susceptible Klebsiella pneumoniae ESBL Cefazolin (Urine) KYRA >=32 ug/ml: Resistant Klebsiella pneumoniae ESBL Cefoxitin KYRA <=4 ug/ml: Susceptible Klebsiella pneumoniae ESBL Ceftazidime KYRA >=32 ug/ml: Resistant Klebsiella pneumoniae ESBL Ceftriaxone KYRA >=64 ug/ml: Resistant Klebsiella pneumoniae ESBL Cefepime KYRA 2 ug/ml: Susceptible Klebsiella pneumoniae ESBL Meropenem KYRA <=0.25 ug/ml: Susceptible Klebsiella pneumoniae ESBL Amikacin KYRA <=1 ug/ml: Susceptible Klebsiella pneumoniae ESBL Gentamicin KYRA <=1 ug/ml: Susceptible Klebsiella pneumoniae ESBL Ciprofloxacin KYRA 0.5 ug/ml: Intermediate Klebsiella pneumoniae ESBL Levofloxacin KYRA 1 ug/ml: Intermediate Klebsiella pneumoniae ESBL Nitrofurantoin KYRA 128 ug/ml: Resistant Klebsiella pneumoniae ESBL Trimethoprim/Sulfamethoxazo le KYRA >=320 ug/ml: Resistant us Bre Humphries PAPER BOX MAKER LAB MICROBIOLOGY - GENERA L ORDERABLES Final Result [facility] ([facility]) [facility] [address] [place] [address], [place] [phone] from Last 3 Months Additional Health Concerns Infection Onset Date Last Indicated ESBL 01/06/2025 01/06/2025 Insurance MEDICARE [facility] Care Teams Electrode Cleaner Relationship Specialty Start Date End Date Joy March MD [address] [place] [address] PCP - General Internal Medicine 01/07/25
--- OUTSIDE RECORDS SUMMARY | 2025-01-11 15:38 | XMS_ITS | Encounter Summary ---
Author Organization [facility] Address [address] [place] [address] Care Team Providers Care Sheet Manufacturing Supervisor Name Role Phone Joy March MD Primary Care Provider [phone] Encounter Details Date Type Department Care Team (Late st Contact Info) Description 01/07/2025 Lab Requisition [facility] - Main Lab [address] [facility] [place] [address] Bre Humphries NP [address] [facility] [address] [place] [address] Other retention of urine Social History Tobacco Use Types Packs/Day Years Used Date Smoking Tobacco: Never Assessed Sex and Gender Information Value Date Recorded Sex Assigned at Not on file Legal Sex Male 1:45 PM EDT Gender Identity Not on file Sexual Orientation Not on file documented as of this encounter Plan of Treatment Not on file documented as of this encounter Procedures Procedure Name Priority Date/Time Associated Diagnosis Comments BACTERIAL IDENTIFICATION AND SUSCEPTIBILITY, AEROBIC Routine 01/06/2025 10:25 AM EDT Other retention of urine documented in this encounter Results * (ABNORMAL) Bacterial identification and susceptibility, aerobic (01/06/2025 10:25 AM EDT) Culture, Bacterial ID and Sensitivity Klebsiella pneumoniae ESBL(A) KYRA 01/09/2025 8:50 AM EDT [facility] ([facility]) [facility] Comment: THIS ORGANISM IS POSITIVE [...] ESBL Trimethoprim/Sulfamethoxazo le KYRA >=320 ug/ml: Resistant Bre Humphries BAND SPLICER LAB MICROBIOLOGY - GENERA L ORDERABLES Final Result Performing Organization Address [facility]/State/ZIP Co de Phone Number [facility] ([facility]) [facility] [address] [place] [address], documented in this encounter Visit Diagnoses Diagnosis Other retention of urine documented in this encounter Additional Health Concerns Infection Onset Date Last Indicated Resolved Time ESBL 01/06/2025 01/06/2025 documented as of this encounter Care Teams Sheet Manufacturing Supervisor Relationship Specialty Start Date End Date Joy March MD [address] [place] [address] PCP - General Internal Medicine 01/07/25 documented as of this encounter
--- OUTSIDE RECORDS SUMMARY | 2025-01-11 15:38 | XMS_ITS ---
Author Organization [facility] Address [address] [place] [address] Care Team Providers Care Diesel Mechanic Helper Name Role Phone Unavailable Primary Care [...] outpatient he had recently started on trospium FAMILY MEDICINE PHYSICIAN ASSISTANT. Given potential for this to have contributed [...] supplements MD Juan Martinez : 1955 CSN: [id number] Hyperglycemia 08/18/2019 Overview (08/18/2019): Due to steroids, [...] the AM for any further recs. Plan: -[place] 5-10mg PO q6 hours PRN pain -NS [...] TotalDLP 698 mGy 698 mGy 0 mGy [id number] 8.2 mSv 8.2 mSv 0 mSv CTDIvol [...] gerardo bowel movement in approximately 2 weeks FAMILY MEDICINE PHYSICIAN ASSISTANT since a prior prep for colonoscopy in [...] GI following; apprec recs - NPO at [facility] in case [facility]o on Saturday 02/03 Vasovagal [...]
--- OUTSIDE RECORDS SUMMARY | 2025-01-11 15:38 | XMS_ITS | Encounter Summary ---
Author Organization [facility] Address [address] [place] [address] Care Team Providers Care Video Conference Specialist Name Role Phone Tesha Pierce MD, [facility] Primary Care Provider + Reason for Visit * Reason Onset Date Comments Scheduling Appointment 11/17/2020 Encounter Details Date Type Department Care Team (Late st Contact Info) Description 11/17/2020 Telephone [facility] [address] [place] [address] Telephone Intake, Staff Scheduling Appointment Social History [...] were not included. MD Mara Morris; P [facility] Neurology Admin Staff Pt was following [...] Info) Description 01/13/2025 11:30 AM EDT Follow-Up [facility] [address] [place] [address] Basketballs And Footballs Reverser: Paul Leger MD [address] [place] [address] documented as of this encounter Visit [...] documented as of this encounter Care Teams Video Conference Specialist Relationship Specialty Start Date End Date Kristen Parkinson MD [address] [place] [phone] (work) PCP - General Internal Medicine 08/17/23 10/26/24 documented as of this encounter
--- OUTSIDE RECORDS SUMMARY | 2025-01-11 15:38 | XMS_ITS | Encounter Summary ---
Author Organization [facility] Address [address] [place] [address] Care Team Providers Care Astro Technician Name Role Phone Tesha Pierce MD, [facility] Primary Care Provider + Reason for Visit * Reason Onset Date Comments PAC Appt Request - New 02/28/2023 Encounter Details Date Type Department Care Team (Late st Contact Info) Description 02/28/2023 Telephone [facility] [address] [place] [address] Telephone Intake, Staff PAC Appt Request - [...] 8:30 am Pt can be reached @ [phone] Thank you PAC documented in this encounter Plan of Treatment Upcoming Encounters Date Type Department Care Team (Late st Contact Info) Description 01/13/2025 11:30 AM EDT Follow-Up [facility] [address] [place] [address] Customer Operations Manager: Paul Leger MD [address] [place] [address] documented as of this encounter Visit Diagnoses Not on filedocumented in this encounter Additional Health Concerns Infection Onset Date 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
--- OUTSIDE RECORDS SUMMARY | 2025-01-11 15:39 | XMS_ITS | Encounter Summary ---
Author Organization [facility] Address [address] [place] [address] Care Team Providers Care Coagulation Operator Name Role Phone Tesha Pierce MD, [facility] Primary Care Provider + Encounter Details Date Type Department Care Team (Late st Contact Info) Description 04/29/2023 Sipwisehart Message [facility] Revenue Cycle Management [address] [place] [address] Mychart, Generic Provider [address] [place], [place] [phone] account dispute Social History Tobacco Use Types [...] Info) Description 01/13/2025 11:30 AM EDT Follow-Up [facility] [address] [place] [address] Crossbar Switch Adjuster: Paul Leger MD [address] [place] [address] documented as of this encounter Visit Diagnoses Not on filedocumented in this encounter Additional Health Concerns Infection Onset Date Last Indicated 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
--- OUTSIDE RECORDS SUMMARY | 2025-01-11 15:39 | XMS_ITS | Encounter Summary ---
Author Organization [facility] Address [address] [place] [address] Care Team Providers Care Qa Engineer Name Role Phone Tesha Pierce MD, [facility] Primary Care Provider + Encounter Details Date Type Department Care Team (Late st Contact Info) Description 02/26/2022 Orders Only [facility] Interventional Radiology [address] [place], [place] [phone] Reagan Mendoza NP [address] [place], [place] [phone] Social History Tobacco Use Types Packs/Day Years [...] of spinal canal ??? Colon cancer (CMS/HCC) ([facility]) age 49, s/p patial colectomy, no chemo or radiation ??? COPD (chronic obstructive pulmonary disease) ([facility]) no overnight hospitilizations, no intubations, [...] right middle finger ??? HERNIA REPAIR ??? UT ALLOGRAFT FOR SPINE SURGERY ONLY MORSELIZED Bilateral 08/06/2019 Procedure: ALLOGRAFT, MORSELIZED, OR PLACEMENT OF OSTEOPROMOTIVE MATERIAL, FOR SPINE SURGERY ONLY; Surgeon: Dianne De MD; Location: [facility] OR; Service: Neurosurgery ??? UT ARTHRODESIS POSTERIOR/POSTERIORLATERAL CERVICAL BELOW C2 Bilateral 08/06/2019 Procedure: FUSION, POSTERIOR OR POSTEROLATERAL, CERVICAL BELOW C2, SINGLE LEVEL; Surgeon: Dianne De MD; Location: [facility]; Service: Neurosurgery ??? UT ARTHRODESIS POSTERIOR/POSTEROLATERAL EA ADDL Bilateral 08/06/2019 Procedure: FUSION, POSTERIOR OR POSTEROLATERAL,??EACH ADDITIONAL SEGMENT; Surgeon: Dianne De MD; Location: [facility]; Service: Neurosurgery ??? UT ARTHRODESIS POSTERIOR/POSTEROLATERAL LUMBAR Bilateral 04/28/2020 Procedure: L2-L5 bilateral laminectomies with insitu fusion / possible bilateal facet screw instrumenation; Surgeon: Dianne De MD; Location: [facility]; Service: Neurosurgery ??? UT AUTOGRAFT SPINE SURGERY LOCAL FROM SAME INCISION Bilateral 08/06/2019 Procedure: AUTOGRAFT FOR SPINE SURGERY ONLY (INCLUDES HARVESTING THE GRAFT); LOCAL (EG, RIBS, SPINOUS PROCESS, OR LAMINAR FRAGMENTS) OBTAINED FROM SAME INCISION; Surgeon: Dianne De MD; Location: [facility]; Service: Neurosurgery ??? UT AUTOGRAFT SPINE SURGERY MORSELIZED SEP INCISION Bilateral 04/28/2020 Procedure: PLACEMENT OF AUTOGRAFT, SEPARATE INCISION, SPINE SURGERY; Surgeon: Dianne De MD;Location: [facility]; Service: Neurosurgery ??? UT EXCIS INTRASP LESN,XDURAL,CERVICAL N/A 08/10/2019 Procedure: evacuation of hematoma osterior cervical laminectomy sie ; Surgeon: Dianne De MD; Location: [facility]; Service: Neurosurgery ? ? UT I&D, POST SPINE, LUMB/SACR/LUMBOSAC N/A 05/01/2020 Procedure: INCISION AND DRAINAGE, DEEP ABSCESS LUMBAR AND/OR SACRAL SPINE; Surgeon: Dianne De MD; Location: [facility]; Service: Neurosurgery ??? UT INJ CERV/THORAC,W/WO CNTRST N/A ??? UT LAMINEC/FACETECT/FORAMIN,EACH ADDNL Bilateral 04/28/2020 Procedure: LAMINECTOMY, FACETECTOMY, AND FORAMINOTOMY, CERVICAL, THORACIC, OR LUMBAR, EACH ADDITIONAL LEVEL; Surgeon: Dianne De MD; Location: [facility]; Service: Neurosurgery ??? UT LAMINEC/FACETECT/FORAMIN,LUMBAR 1 SEG Bilateral 04/28/2020 Procedure: LAMINECTOMY, FACETECTOMY, AND FORAMINOTOMY, LUMBAR, SINGLE LEVEL; Surgeon: Dianne De MD; Location: [facility]; Service: Neurosurgery ? ? UT LAMINECTOMY,>2 SGMT,CERVICAL Bilateral 08/06/2019 Procedure: POSTERIOR BILATERAL C3-C6 LAMINECTOMY AND FUSION/ INSTRUMENTATION; Surgeon: Dianne De MD; Location: [facility]; Service: Neurosurgery ??? UT POSTERIOR NON-SEGMENTAL INSTRUMENTATION Bilateral 04/28/2020 Procedure: POSTERIOR NON-SEGMENTAL INSTRUMENTATION; Surgeon: Dianne De MD; Location: [facility]; Service: Neurosurgery ??? 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
--- OUTSIDE RECORDS SUMMARY | 2025-01-11 15:39 | XMS_ITS | Encounter Summary ---
Author Organization [facility] Address [address] [place] [address] Care Team Providers Care Plastic Panel Installer Name Role Phone Tesha Pierce MD, [facility] Primary Care Provider + Reason for Visit * Reason Onset Date Comments PAC Rx Questions 03/05/2024 Encounter Details Date Type Department Care Team (Late st Contact Info) Description 03/05/2024 Telephone [facility] Patient Access Center [address] [place] [phone] Telephone Intake, Staff PAC Rx Questions Social [...] 03/05/2024 11:17 AM EDT [facility]ts prednisone, They need to clarify which dose & directs should be prescribed to pt as they received two. Liam can be reached @ [phone] Thank you PAC documented in this encounter Plan of Treatment Upcoming Encounters Date Type Department Care Team (Late st Contact Info) Description 01/13/2025 11:30 AM EDT Follow-Up 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
== END 2025-01-11 12:57 | disposition home or self-care (01) ==
LOC: HO.MRI 12:56
PROVIDERS: Visit Provider Internal Medicine
DX: E27.9 Disorder of adrenal gland, unspecified (principal)
CPT/HCPCS: 74183; A9585

== ENCOUNTER → 2025-01-11 13:01 | Outpatient (BNV) | payer MEDICARE, SELFPAY | PROVIDERS: Visit Provider Radiology Diagnostic Radiology | DX: K76.89 Other specified diseases of liver (principal); K80.20 Calculus of gallbladder without cholecystitis without obstruction; D35.02 Benign neoplasm of left adrenal gland; K44.9 Diaphragmatic hernia without obstruction or gangrene | CPT/HCPCS: 74183 ==

== ENCOUNTER 2025-02-14 13:25 | Outpatient (AMB) | payer MEDICARE, SELFPAY ==
[2025-02-14 13:44] VITALS: BP 102/54; PULSE 74; RESP 14; O2SAT 96; BMI 27.6
--- NOTE | 2025-02-14 13:44 | A.OFFPC_ITS ---
Vital Signs 02/14/25 13:44 Height 5 ft 9 in Weight 187 lb BMI 27.6 BP 102/54 L Blood Pressure Location Rt brachial Position Sitting Respiration 14 Pulse 74 Pulse Source Pulse Oximeter Pulse Oximetry (%) 96 Oxygen Delivery Method Room Air Intake Visit Reasons: follow up on mri/cat scan Intake Note: Follow up MRI results. 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 Stable. Follows with pulmonology Osteoarthritis-patient states he is followed by [facility] Rheumatology for RA and osteoarthritis in his neck. On MTX, prednisone Urologic: Seeing Dr Christensen-in [place]. He has a suprapubic catheter- requires changing every 2 weeks. Patient reports he developed bladder incontinence following complications from cervical spine surgery in 2019. He developed an embolus after surgery and was hospitalized for weeks. 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 Has increased fatigue over the past six months. Wakes up 4 or 5 am just as usual but very tired at 4-5pm and was not previously. Had sleep study years ago. Not interested in present ROS CONSTITUTIONAL: Denies weight loss, fever and chills. HEENT: Denies changes in vision and hearing. RESPIRATORY:see HPi CV: Denies palpitations and CP GI: Denies abdominal pain, nausea, vomiting and diarrhea. : Denies dysuria and urinary frequency. MSK: Denies new myalgia and joint pain. SKIN: Denies rash and pruritus. NEUROLOGICAL: Denies headache PSYCHIATRIC: Denies recent changes in mood. PHYSICAL EXAM: GENERAL: Alert and oriented x 3. NAD EYES: EOMI. Anicteric. HENT: Moist mucous membranes. No scleral icterus. No cervical lymphadenopathy. LUNGS: Clear to auscultation bilaterally. CARDIOVASCULAR: Regular rate and rhythm. No murmur. No JVD. ABDOMEN: Soft, non-tender +bs EXTREMITIES: No edema. Non-tender. SKIN: No rashes or lesions. Warm. NEUROLOGIC: No focal neurological deficits. CN II-XII grossly intact PSYCHIATRIC: Cooperative. Appropriate mood and affect [facility] Medical History Pure hypercholesterolemia Essential hypertension Suprapubic catheter COPD exacerbation Osteoarthritis of cervical spine Neurogenic urinary bladder disorder Benitez catheter present Colon cancer Hypertension Amputation of right middle finger Surgical History H/O neck surgery History of partial surgical removal of colon Previous back surgery Family History Mother High cholesterol Hypertension Brother Colon cancer Father Cardiovascular disease Social History Household Members: Spouse Both parents involved: No Caregiver staying overnight: No Housing: House Are you a primary home care and home health aides teacher to a significant other at home: No Do you presently have visiting nurse or other home services: No 75 years or older and lives alone: No Alcohol intake: never Patient Tobacco Use Status: Former Tobacco user Tobacco use type: Cigarette Cigarette Packs Per Day: 2 Cigarettes Per Day: 20 Years Smoked: 50 e-Cigarette/Vaping Use: Never Used Second Hand Smoke Exposure: No service: No Current occupational status: retired Cognitive needs: No Hearing needs: Yes (hearing aid) Vision needs: No Questionnaire PHQ-9 Over the last 2 weeks, how often have you been bothered by any of the following problems? 1. Little interest or pleasure in doing things: not at all Source: Developed by Drs. Lane Robin, Mónica England, Thiago Stringer and colleagues, with an educational sanjay from [employer]. Thrive Questionnaire Date Thrive assessed: 09/30/24 DIANN-7 AMB Questionnaire DIANN-7 Date DIANN - 7 assessed: 09/30/24 Source: Developed by Drs. Lane Robin, Mónica England, Thiago Stringer and colleagues, with an educational sanjay from [employer]. Physical exam (Primary Care) Vital Signs: Last Vital Signs Pulse 74 02/14/25 13:44 Resp 14 02/14/25 13:44 BP 102/54 L 02/14/25 13:44 Pulse Ox 96 02/14/25 13:44 Oxygen Delivery Method Room Air 02/14/25 13:44 BMI result Body Mass Index 27.6 Tobacco/Smoking Status: Tobacco use Status Tobacco use date assessed 09/30/24 02/14/25 13:45 Patient Tobacco Use Status Former Tobacco user 02/14/25 13:45 Tobacco use type Cigarette 02/14/25 13:45 e-Cigarette/Vaping Use Never Used 02/14/25 13:45 Thrive Assessment: Date of Thrive Assessment Date Thrive assessed 09/30/24 02/14/25 13:45 Coding Level of Care Code Est Pt Level 4 (51846) Diagnoses Fatigue, unspecified type R53.83 Fatigue type: unspecified Rheumatoid arthritis involving multiple sites, unspecified whether rheumatoid factor present M06.9 Rheumatoid arthritis location: multiple sites Rheumatoid factor presence: unspecified presence Chronic obstructive pulmonary disease with acute exacerbation J44.1 COPD type: COPD with acute exacerbation Neurogenic urinary bladder disorder N31.9 Assessment & Plan Assessment & Plan (1) Fatigue: Code(s): R53.83 - Other fatigue Category: Medical Qualifiers: Fatigue type: unspecified Qualified Code(s): R53.83 - Other fatigue (2) Rheumatoid arthritis: Code(s): M06.9 - Rheumatoid arthritis, unspecified Category: Medical Qualifiers: Rheumatoid arthritis location: multiple sites Rheumatoid factor presence: unspecified presence Qualified Code(s): M06.9 - Rheumatoid arthritis, unspecified (3) COPD (chronic obstructive pulmonary disease): Code(s): J44.9 - Chronic obstructive pulmonary disease, unspecified Category: Medical Qualifiers: COPD type: COPD with acute exacerbation Qualified Code(s): J44.1 - Chronic obstructive pulmonary disease with (acute) exacerbation (4) Neurogenic urinary bladder disorder: Code(s): N31.9 - Neuromuscular dysfunction of bladder, unspecified Category: Medical Plan 69 year old for follow up MRI reviewed. Reassurance provided Fatigue-labs ordered. Continue sleep study. RA-referred to rheumatology. He will continue follow up in [place] [facility] [place] Orders: Orders TSH reflex Free T4 Today E78.00 - Pure hypercholesterolemia, unspecified, I10 - Essential (primary) hypertension, J44.1 - Chronic obstructive pulmonary disease with (acute) exacerbation, R53.83 - Other fatigue Vitamin B12 and Folate Today E78.00 - Pure hypercholesterolemia, unspecified, I10 - Essential (primary) hypertension, J44.1 - Chronic obstructive pulmonary di sease with (acute) exacerbation, R53.83 - Other fatigue Lyme IgG/IgM w/reflex to WB Today E78.00 - Pure hypercholesterolemia, unspecified, I10 - Essential (primary) hypertension, J44.1 - Chronic obstructive pulmonary disease with (acute) exacerbation, R53.83 - Other fatigue Monotest Today E78.00 - Pure hypercholesterolemia, unspecified, I10 - Essential (primary) hypertension, J44.1 - Chronic obstructive pulmonary disease with (acute) exacerbation, R53.83 - Other fatigue Complete Blood Count Auto Diff Today E78.00 - Pure hypercholesterolemia, unspecified, I10 - Essential (primary) hypertension, J44.1 - Chronic obstructive pulmonary disease with (acute) exacerbation, R53.83 - Other fatigue IRON PROFILE Today E78.00 - Pure hypercholesterolemia, unspecified, I10 - Essential (primary) hypertension, J44.1 - Chronic obstructive pulmonary disease with (acute) exacerbation, R53.83 - Other fatigue Comprehensive Met. Panel Today E78.00 - Pure hypercholesterolemia, unspecified, I10 - Essential (primary) hypertension, J44.1 - Chronic obstructive pulmonary disease with (acute) exacerbation, R53.83 - Other fatigue Referrals Rheumatology Referral M06.9 - Rheumatoid arthritis, unspecified, M47.812 - Spondylosis without myelopathy or radiculopathy, cervical region Medications: Discontinued levofloxacin Discontinued Reason: Doctor's Order 750 mg PO DAILY 5 tabs 0RF
--- OUTSIDE RECORDS SUMMARY | 2025-02-14 13:47 | XMS_ITS | Encounter Summary ---
Author Organization 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 Name Role Phone Joy March MD Primary Care Provider [phone] Encounter Details Date Type Department Care Team (Late st Contact Info) Description 01/07/2025 Lab Requisition [facility] - Main Lab [address] [place] [address] Bre Humphries NP [address] [place] [address] Other retention of urine Social History Tobacco [...] pneumoniae ESBL(A) KYRA 01/09/2025 8:50 AM EDT [facility] Comment: THIS ORGANISM IS POSITIVE FOR [...] ug/ml: Resistant Klebsiella pneumoniae ESBL Trimethoprim/Sulfamethoxazo le KRYA >=320 ug/ml: Resistant Bre Humphries [facility] MICROBIOLOGY - GENERA L ORDERABLES Final Result [facility] ([facility] H[facility] [address] [place] [address], documented in this encounter Visit Diagnoses Diagnosis Other retention of urine documented in this encounter Additional Health Concerns Infection Onset Date Last Indicated Resolved Time ESBL 01/06/2025 01/06/2025 documented as of this encounter Care Teams Retort Press Operator Relationship Specialty Start Date End Date Joy March MD [address] [place] [address] PCP - General Internal Medicine 01/07/25 documented as of this encounter
--- OUTSIDE RECORDS SUMMARY | 2025-02-14 13:47 | XMS_ITS | Referral Summary ---
Author Organization [facility] Address [address] [place] [address] Care Team Providers Care Mud Mixer Name Role Phone IgorJoy Vernon Primary Care Provider [phone] Encounters Date Type Department Care Team Description 02/03/2025 2:05 PM EDT - 02/03/2025 11:59 PM EDT Hospital Encounter [facility] XRay [address] [place] [address] Gary Angela MD Discharge Disposition: Home or Self Care () 02/03/2025 1:30 PM EDT Follow-Up [facility] [address] [place] [address] Supervisor Money Room: Paul Leger MD History of polymyalgia rheumatica (Primary Dx); Right anterior shoulder pain; Seronegative inflammatory arthritis 01/31/2025 Telephone [facility] [address] [place] [address] Supervisor Money Room: Rossy Gongora Telephone Intake, Staff PAC RX Refill-- Dr Franklin 01/13/2025 11:30 AM EDT Follow-Up [facility] [address] [place] [address] Supervisor Money Room: Paul Leger MD History of polymyalgia rheumatica (Primary Dx); Localized osteoarthritis of right shoulder; Right anterior shoulder pain; Spondylosis of cervical region without myelopathy or radiculopathy from Last 3 Months Allergies Active Allergy [...] a day Active adult disposable brief (Briefs) [facility] Briefs - large - [...] Ref. # MedLine Sponges, 10 per Box: [id number] 30 each 12/13/19 23 Active urinary bag [facility] Pt requires Bedside drainage bag changed every other week. ([facility] Ref # [id number]) DX: Neuromuscular Dysfunction of [...] tea prior to administration. 100 each 02/04/20 23 Active miscellaneous medical supply (Heavy Drainage Dressing Steril) packageIndicati ons:Neurogenic bladder, flaccid,Suprapu bic catheter (HCC) Pt. Has a SupraPubic Tube that requires daily care/maintenance. Pt. Requires 1 sterile drainage sponge daily to be placed on SPT Site after cleaning. Diagnoses: Neuromuscular Dysfunction of Bladder(N31.9) and SupraPubic Catheter(Z93.59) 30 each 02/28/20 23 Active LORazepam (ATIVAN) 0.5 mg tablet Take 1 tablet one hour prior to procedure 3 tablet 02/27/20 23 Active albuterol (ProAir HFA) 90 mcg inhaler Active sodium chloride 0.9% irrigation Flush catheter daily with 60 cc of sterile saline and aspirate irrigant 1800 mL 05/19/20 23 Active fluticasone furoate-vilante roL (Breo Ellipta) 100-25 mcg/dose blister with device Inhale 1 puff by mouth 2 times a day. 1 each 11/12/19 24 Active budesonide (Pulmicort Flexhaler) 180 mcg/actuation inhaler Inhale [...] swallow. 13 g 3 02/26/20 24 Active fluticasone-ume clidinium-vilan terol (Trelegy Ellipta) 200-62.5-25 mcg [...] 120 tablet 10/12/19 25 Active predniSONE (DELTASONE) 5 mg tablet Take 2 tablets (10 mg total) by mouth once a day. 60 tablet 02/04/20 25 025 Active predniSONE (DELTASONE) 1 mg tablet Take 1 tablet (1 mg total) by mouth once a day. 90 tablet 2 02/04/20 25 Active methotrexate (TREXALL) 2.5 mg tablet Take 6 tablets (15 mg total) by mouth once a week. 40 tablet 02/08/20 25 025 Active folic acid (FOLVITE) 1 mg tablet Take 1 tablet (1 mg total) by mouth once a day. 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 Given potential for this to have [...] supplements MD Juan Martinez : 1955 CSN: [id number] Hyperglycemia 08/18/2019 Overview (08/18/2019): Due to steroids, [...] the AM for any further recs. 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 [...] GI following; apprec recs - NPO at [place] in case colo on Saturday 02/03 Vasovagal [...] 08/07/2019,06/09/2018,08/21/2017 Influenza, Trivalent, MDV, Injectable ,07/02/2013,07/20/2012,08/08,07/27/2009,08/30/2008,09/02/2007 Novel [id number], Preservative-Free, Injectable 09/27/2009 Pneumococcal Conjugate Vacci ne, 13 Valent 03/07/2015 Pneumococcal Polysaccharide Vaccine, 23 Valent 07/31/2020,08/30/2008 Pneumococcal conjugate PCV20,polysaccharide [id number] conjugate, adjuvant, PF (Prevnar 20) 06/05/2023 RSV, [...] drink = 0.6 oz pur e alcohol) [facility] Utilities Answer Date Recorded In the past 12 months has e [employer], gas, oil, or water [employer] threatened to shut off services in your [...] Sign Reading Time Taken Comments Blood Pressure 108/60 02/03/2025 1:24 PM EDT Pulse 75 02/03/2025 1:24 PM EDT Temperature 36.6 ??C (97.9 ??F) 02/03/2025 1:24 PM ED T Respiratory Rate 20 06/21/2024 6:32 AM EDT Oxygen Saturation 96% 06/21/2024 6:32 AM EDT Inhaled Oxygen Concentration - - Weight 83 kg (183 lb) 02/03/2025 1:24 PM EDT Height 175.3 cm (5' 9 ) 02/03/2025 1:24 PM EDT Body Mass Index 27.02 02/03/2025 1:24 PM EDT Plan of Treatment Upcoming Encounters Date Type Department Care Team (Late st Contact Info) Description 07/07/2025 10:00 AM EDT Follow-Up [facility] [address] [place] [address] Supervisor Money Room: Paul Leger MD [address] [place] [phone] Medical Devices Implanted Type Area Tractor Driver Teamster Device Identifier Shelf Expiration Date Model / Serial / Lot Mau Thoracolumbar 3.7ucv20vt Altaf - [id number] Implanted:Qty: 2 on 08/06/2019 by Dianne De MD at [facility] Implant Spine Cervical DEPUY 1883-16- 060 / / Connector Spinal Cross Thoracolumbar Head To Head Titanium 35mm Mountaineer - [id number] Implanted:Qty: 1 on 08/06/2019 by Dianne De MD at [facility] Implant Spine Cervical DEPUY 1883-41- 035 / / Nut Spinal Outer Connector Cross Head To Head Titanium Mountaineer - [id number] Implanted:Qty: 2 on 08/06/2019 by Dianne De MD at [facility] Implant Spine Cervical DEPUY 1883-41- 200 / / Nut Spinal Outer Connector Cross Head To Head Titanium Mountaineer - [id number] Implanted:Qty: 2 on 08/06/2019 by Dianne De MD at [facility] Implant Spine Cervical DEPUY 1883-41- 100 / / Screw Thoracic Favored Angle Titanium 3.8eoo96zs Mountaineer - [id number] Implanted:Qty: 7 on 08/06/2019 by Dianne De MD at [facility] Screw Spine Cervical DEPUY 1883-18- 312 / / Screw Thoracic Favored Angle Titanium 3.1jke20hy Mountaineer - [id number] Implanted:Qty: 1 on 08/06/2019 by Dianne De MD at [facility] Screw Spine Cervical DEPUY 1883-18- 316 / / Screw Thoracic Inner Mountaineer - [id number] Implanted:Qty: 6 on 08/06/2019 by Dianne De MD at [facility] Screw Spine Cervical DEPUY 1883-42- 200 / / Putty Demineralized Bone Matrix 10cc Dbx - [id number] - [id number] Implanted:Qty: 1 on 08/06/2019 by Dianne De MD at [facility] Tissue Spine Cervical MUSCULOSKELETAL TRANSPLANT FND 04/27/2021 [id number] / [id number] / Ic Graft Chamber Dbm 10cc - [id number] - [id number] Implanted:Qty: 1 on 04/28/2020 by Dianne De MD at [facility] Tissue Spine Lumbar LIFENET 11/14/2022 [id number] / [id number] / [id number] Description:Demineralized yany ne matrix and cancellous chips reconstituted with pts. blood Ic Graft Chamber [facility] 10cc - [id number] - [id number] Implanted:Qty: 1 on 04/28/2020 by Dianne De MD at [facility] Tissue Spine Lumbar LIFENET 11/14/2022 [id number] / [id number] / [id number] Description:Demineralized yany ne matrix and cancellous chips reconstituted with pts. blood Procedures * Due to [place] state law, this organization might not be sharing negative HIV tests. Procedure Name Priority Date/Time Associated Diagnosis Comments RHEUMATOID FACTOR Routine 02/03/2025 2:4 2 PM EDT History of polymyalgia rheumatica Right anterior shoulder pain Seronegative inflammatory arthritis CYCLIC CITRULLLNATED PEPTIDE (CCP) ANTIBODY, IGG Routine 02/03/2025 2:42 PM EDT History of polymyalgia rheumatica Right anterior shoulder pain Seronegative inflammatory arthritis CREATININE Routine 02/03/2025 2:42 PM EDT History of polymyalgia rheumatica Right anterior shoulder pain Seronegative inflammatory arthritis AST Routine 02/03/2025 2:42 PM EDT History of polymyalgia rheumatica Right anterior shoulder pain Seronegative inflammatory arthritis CBC AUTO DIFFERENTIAL Routine 02/03/2025 2:42 PM EDT History of polymyalgia rheumatica Right anterior shoulder pain Seronegative inflammatory arthritis C-REACTIVE PROTEIN Routine 02/03/2025 2: 42 PM EDT History of polymyalgia rheumatica Right anterior shoulder pain Seronegative inflammatory arthritis SEDIMENTATION RATE, AUTOMATED Routine 02/03/2025 2:42 PM EDT History of polymyalgia rheumatica Right anterior shoulder pain Seronegative inflammatory arthritis HEPATITIS B SURFACE ANTIBODY Routine 02/03/2025 2:42 PM EDT History of polymyalgia rheumatica Right anterior shoulder pain Seronegative inflammatory arthritis HEPATITIS B SURFACE ANTIGEN W/CONFIRMATION Routine 02/03/2025 2:42 PM EDT History of polymyalgia rheumatica Right anterior shoulder pain Seronegative inflammatory arthritis HEPATITIS B CORE ANTIBODY, TOTAL Routine 02/03/2025 2:42 PM EDT History of polymyalgia rheumatica Right anterior shoulder pain Seronegative inflammatory arthritis QUANTIFERON-TB GOLD PLUS, 1 [id number] Routine 02/03/2025 2:42 PM EDT History of polymyalgia rheumatica Right anterior shoulder pain Seronegative inflammatory arthritis HEPATITIS C ANTIBODY W/REFLEX TO HCV RNA, QUANTITATIVE PCR Routine 02/03/2025 2:42 PM EDT History of polymyalgia rheumatica Right anterior shoulder pain Seronegative inflammatory arthritis XR FOOT 3+ VW RIGHT Routine 02/03/2025 2 :29 PM EDT History of polymyalgia rheumatica Right anterior shoulder pain Seronegative inflammatory arthritis XR FOOT 3+ VW LEFT Routine 02/03/2025 2: 29 PM EDT History of polymyalgia rheumatica Right anterior shoulder pain Seronegative inflammatory arthritis XR HAND 3+ VW RIGHT Routine 02/03/2025 2 :29 PM EDT History of polymyalgia rheumatica Right anterior shoulder pain Seronegative inflammatory arthritis XR HAND 3+ VW LEFT Routine 02/03/2025 2: 29 PM EDT History of polymyalgia rheumatica Right anterior shoulder pain Seronegative inflammatory arthritis CT ARTHROCENTESIS ASPIR&/INJ MAJOR JT/BURSA W/O US Routine 01/13/2025 11:30 AM EDT Localized osteoarthritis of right shoulder BASIC METABOLIC PANEL STAT 06/21/2024 6:40 AM EDT COLONOSCOPY 05/20/2024 CT ABDOMEN PELVIS W CONTRAST STAT 01/18/2023 10:[address] CHEST WO CONTRAST Routine 06/17/2018 12:12 PM EDT Pulmonary emphysema, unspecified emphysema type from Last 3 Months or Most Recently Relevant to Health Maintenance Results * Due to [place] state law, this organization might not be sharing negative HIV tests. * QuantiFERON-TB Gold Plus, 1 Tube (02/03/2025 2:42 PM EDT) [facility] QuantiFERON-TB Gold Plus NEGATIVE NEGATIVE 02/05/2025 4:16 AM EDT [facility] Comment: Negative test result. M. tuberculosis complex infection unlikely. NIL 0.16 IU/mL 02/05/2025 4:16 AM EDT [facility] Mitogen-NIL >10.00 IU/mL 02/05/2025 4:16 AM EDT [facility] TB1-NIL <0.00 IU/mL 02/05/2025 4:16 AM EDT [facility] TB2-NIL 0.01 IU/mL 02/05/2025 4:16 AM EDT [facility] Comment: The Nil tube value reflects the background interferon gamma immune response of the patient's blood sample. This value has been subtracted from the patient's displayed TB and Mitogen results. Lower than expected results with the Mitogen tube prevent false-negative Quantiferon readings by detecting a patient with a potential immune suppressive condition and/or suboptimal pre-analytical specimen handling. The TB1 Antigen tube is coated with the M. tuberculosis-specific antigens designed to elicit responses from TB antigen primed CD4+ helper T-lymphocytes. The TB2 Antigen tube is coated with the M. tuberculosis-specific antigens designed to elicit responses from TB antigen primed CD4+ helper and CD8+ cytotoxic T-lymphocytes. For additional information, please refer to [email or web address]/faq/FYW011 (This link is being provided for informational/ educational purposes only.) Blood Structure of peripheral vein / Unknown Venipuncture / Unknown 02/03/2025 2:42 PM EDT 02/03/2025 2:53 PM EDT [facility] - 02/05/2025 4:16 AM EDT [facility] Received Date: Gary Angela MD LAB BLOOD ORDERABLES Final Result [facility] [address] [facility] [address], [place] [address], [place] [phone] [facility] [address] [facility] [address], [place] [address], [place] [phone] * (ABNORMAL) CBC Auto Differential (02/03/2025 2:42 PM EDT) WBC 13.2(H) 3.8 - 10.8 10*3/uL 02/03/2025 3:04 PM EDT [facility] RBC 4.48 4.20 - 5.80 10*6/uL 02/03/2025 3:04 PM EDT [facility] Hemoglobin 13.4 13.2 - 17.1 g/dL 02/03/2025 3:04 PM EDT [facility] Hematocrit 41.5 38.5 - 50.0 % 02/03/2025 3:04 PM EDT [facility] MCV 92.6 80.0 - 100.0 fL 02/03/2025 3:04 PM EDT [facility] MCH 29.9 27.0 - 33.0 pg 02/03/2025 3:04 PM EDT [facility] MCHC 32.3 32.0 - 36.0 g/dL 02/03/2025 3:04 PM EDT [facility] RDW 13.6 11.0 - 15.0 % 02/03/2025 3:04 PM EDT [facility] Platelets 415(H) 140 - 400 10*3/uL 02/03/2025 3:04 PM EDT [facility] MPV 8.0 7.5 - 12.5 fL 02/03/2025 3:04 PM EDT [facility] Neutrophil % 62.4 % 02/03/2025 3:04 PM EDT [facility] Immature Grans % 1.2(H) 0.0 - 0.9 % 02/03/2025 3:04 PM EDT [facility] Lymphocyte % 26.2 % 02/03/2025 3:04 PM EDT [facility] Monocyte % 7.5 % 02/03/2025 3:04 PM EDT [facility] Eosinophil % 2.2 % 02/03/2025 3:04 PM EDT [facility] Basophil % 0.5 % 02/03/2025 3:[facility] Neutrophil # 8.20(H) 1.50 - 7.80 10*3/uL 02/03/2025 3:04 PM EDT [facility] Immature Grans # 0.16(H) <=0.03 10*3/uL 02/03/2025 3:04 PM EDT [facility] Lymphocyte # 3.50 0.85 - 3.90 10*3/uL 02/03/2025 3:04 PM EDT [facility] Monocyte # 1.00(H) 0.20 - 0.95 10*3/uL 02/03/2025 3:04 PM EDT [facility] Eosinophil # 0.30 0.02 - 0.50 10*3/uL 02/03/2025 3:04 PM EDT [facility] Basophil # 0.10 0.00 - 0.20 10*3/uL 02/03/2025 3:04 PM EDT [facility] nRBC % 0.0 /100 WBCs 02/03/2025 3:04 PM [facility] nRBC # <0.01 <0.01 10*3/uL 02/03/2025 3:04 PM EDT [facility] Blood Structure of peripheral vein / Unknown Venipuncture / Unknown 02/03/2025 2:42 PM EDT 02/03/2025 2:53 PM EDT Gary Angela MD LAB BLOOD ORDERABLES Final Result Performing Organization Address [facility] Co de Phone Number [facility] [address] [place] [address], [place] * Cyclic Citrullinated Peptide (CCP) Antibody, IgG (02/03/2025 2:42 PM EDT) Cyclic Citrullinated Peptide (CCP) Ab (IgG) <16 UNITS 02/07/2025 7:16 PM EDT [email or web address] Comment: Reference Range Negative: ?<20 Weak Positive: ? 20-39 Moderate Positive: ?? 40-59 Strong Positive: ? >59 Blood Structure of peripheral vein / Unknown Venipuncture / Unknown 02/03/2025 2:42 PM EDT 02/03/2025 2:54 PM EDT [facility] - 02/07/2025 7:16 PM EDT [facility] Received Date: Gary Angela MD LAB BLOOD ORDERABLES Final Result Performing Organization Address [facility] de Phone Number [facility] [address] [address] [facility] [place] [address], [facility] [address], [place] [address], [place] [phone] * Hepatitis C Antibody w/Reflex to HCV RNA, Quantitative PCR (02/03/2025 2:42 PM EDT) Pathologist [facility] Hepatitis C Antibody NON-REACT YENNI NON-REACT YENNI 02/04/2025 1:32 AM EDT [facility] Comment: HCV antibody was non-reactive. There is no laboratory evidence of HCV infection. In most cases, no further action is required. However, if recent HCV exposure is suspected, a test for HCV RNA (test code 22881) is suggested. For additional information please refer to http://[email or web address]/faq/VEP79b8 (This link is being provided for informational/ educational purposes only.) Blood Structure of peripheral vein / Unknown Venipuncture / Unknown 02/03/2025 2:42 PM EDT 02/03/2025 2:54 PM EDT Narrative [facility] - 02/04/2025 1:32 AM EDT [facility] Received Date: us Gary Angela MD LAB BLOOD ORDERABLES Final Result Performing Organization Address City/[facility]/ZIP Co de Phone Number [facility]TH[facility] [address], [place] [address], [place] [phone] [facility] [address], [facility] [place] [address], [place] [phone] * Hepatitis B Core Antibody, Total (02/03/2025 2:42 PM EDT) Hepatitis B Core Ab Total NON-REACT YENNI NON-REACT YENNI 02/04/2025 1:30 AM EDT [facility] Comment: For additional information, please refer to [email or web address]/faq/JEF619 (This link is being provided for informational/ educational purposes only.) Blood Structure of peripheral vein / Unknown Venipuncture / Unknown 02/03/2025 2:42 PM EDT 02/03/2025 2:54 PM EDT Narrative [facility] - 02/04/2025 1:30 AM EDT [facility] Received Date: us Gary Angela MD LAB BLOOD ORDERABLES Final Result Performing Organization Address City/[facility]/ZIP Co de Phone Number [facility] [address], [place] [address], [place] [phone] [facility] [address], [place] [address], * (ABNORMAL) Hepatitis B Surface Antibody (02/03/2025 2:42 PM EDT) Pathologist [facility] Hepatitis B Surface Ab Immunity, Qn <5(L) > OR = 10 mIU/mL 02/04/2025 2:39 AM EDT [facility] Comment: PATIENT DOES NOT HAVE IMMUNITY TO HEPATITIS B VIRUS. For additional information, please refer to http://[email or web address]/faq/EQR119 (This link is being provided for informational/ educational purposes only). Blood Structure of peripheral vein / Unknown Venipuncture / Unknown 02/03/2025 2:42 PM EDT 02/03/2025 2:54 PM EDT Narrative [facility] - 02/04/2025 2:39 AM EDT [facility] Received Date: Gary Angela MD LAB BLOOD ORDERABLES Final Result [facility] [address], [place] [address], [facility] [address], [place] [address], [place] [phone] * Hepatitis B Surface Antigen W/Confirmation (02/03/2025 2:42 PM EDT) [facility] Hepatitis B Surface Antigen NON-REACT YENNI NON-REACT YENNI 02/04/2025 2:39 AM EDT [facility] Comment: For additional information, please refer to [email or web address].Meilishuo/faq/AZT394 (This link is being provided for informational/ educational purposes only.) Blood Structure of peripheral vein / Unknown Venipuncture / Unknown 02/03/2025 2:42 PM EDT 02/03/2025 2:54 PM EDT Narrative [facility] - 02/04/2025 2:39 AM EDT [facility] Received Date: Gary Angela MD LAB BLOOD ORDERABLES Final Result [facility] [address] [facility] [address], [place] [address], [place] [phone] [facility] [employer] [facility] [address] [facility] [address], [place] [address], [place] [phone] * (ABNORMAL) Sedimentation Rate (02/03/2025 2:42 PM EDT) Sed Rate 28(H) <20 mm/Hr mm/Hr 02/03/2025 3:10 PM EDT [facility] Blood Structure of peripheral vein / Unknown Venipuncture / Unknown 02/03/2025 2:42 PM EDT 02/03/2025 2:53 PM EDT Gary Angela MD LAB BLOOD ORDERABLES Final Result [facility] [address] [place] [address], * Rheumatoid Factor (02/03/2025 2:42 PM EDT) Rheumatoid Factor <10 <14 IU/mL 02/04/2025 12:59 AM EDT [facility] Blood Structure of peripheral vein / Unknown Venipuncture / Unknown 02/03/2025 2:42 PM EDT 02/03/2025 2:54 PM EDT Narrative [facility] - 02/04/2025 12:59 AM EDT [facility] Received Date: Gary Angela MD LAB BLOOD ORDERABLES Final Result [facility] [address] [facility] [address], [place] [address], [place] [phone] [facility] [address] [facility] [address], [place] [address], * C-Reactive Protein (02/03/2025 2:42 PM EDT) C Reactive Protein 9.5 <=9.9 mg/L 02/03/2025 3:44 PM EDT [facility] Blood Structure of peripheral vein / Unknown Venipuncture / Unknown 02/03/2025 2:42 PM EDT 02/03/2025 2:54 PM EDT Gary Angela MD LAB BLOOD ORDERABLES Final Result Performing Organization Address City/[facility]/ZIP Co de Phone Number [facility] [address] [place] [address], [place] * AST (02/03/2025 2:42 PM EDT) AST 25 10 - 40 U/L 02/03/2025 3:44 PM EDT [facility] Blood Structure of peripheral vein / Unknown Venipuncture / Unknown 02/03/2025 2:42 PM EDT 02/03/2025 2:54 PM EDT Gary Angela MD LAB BLOOD ORDERABLES Final Result Performing Organization Address City/[facility]/ZIP Co de Phone Number [facility] [address] [place] [address], [place] * Creatinine (02/03/2025 2:42 PM EDT) Creatinine 0.71 0.60 - 1.30 mg/dL 02/03/2025 3:44 PM EDT [facility] eGFR >90 >=60 mL/min/1. 73m2 02/03/2025 3:44 PM EDT [facility] Comment:The estimated glomer [...] peripheral vein / Unknown Venipuncture / Unknown 02/03/2025 2:42 PM EDT 02/03/2025 2:54 PM EDT us Gary Angela MD LAB BLOOD ORDERABLES Final Result Performing Organization Address City/State/[facility] Co de Phone Number [facility] [address] [place] [address], [place] * XR Foot 3+ vw Right (02/03/2025 2:29 PM EDT) Anatomical Region Laterality Modality Lower Extremities, Foot Right Computed Radiography 02/03/2025 2:39 PM EDT Impressions 02/03/2025 2:46 PM EDT Bilateral feet AP lateral and oblique views. Bilaterally moderate generalized osteopenia at the first MTP right greater than left left. The medial sesamoid at the first MTP on the left side shows fragmentation associated with the degenerative changes question old trauma. The other IP joints show very minimal degenerative arthropathy. No erosions suggestive off inflammatory arthropathy or inflammatory osteoarthritis. No acute fractures dislocations or stress related changes. Bilateral hand x-rays AP lateral and oblique views. Left side moderate to severe degenerative changes of the triscaphe E joint and capitoscaphoid joint and minimal degenerative changes first CMC. On the right side mild degenerative changes first CMC triscaphe E joint and moderate degenerative changes capitoscaphoid region. No erosions suggestive off inflammatory arthropathy. Severe degenerative arthropathy of the third left MCP and mild degenerative changes at the second left MCP. On the right first second and the fourth MCP joints show mild degenerative arthropathy. Bilaterally IP joints show varying degrees of degenerative arthropathy in the PIP and DIP regions. No erosions suggestive off inflammatory arthropathy or inflammatory osteoarthritis. No acute fractures dislocations. On the right partial amputation of the third finger with adequate soft tissue coverage. If this radiology report contains a blank impression section, it is an incomplete radiology report. ??Please contact the interpreting radiologist or applicable radiology division as soon as possible to obtain the completed interpretation. ? Workstation ID: [id number] Narrative 02/03/2025 2:46 PM EDT COMPARISON: ??There are no prior studies available for comparison at this time. ?? FINDINGS AND Resulting Agency Comment [id number] Procedure Note Reyna Heath MD - 02/03/2025 COMPARISON: There are no prior studies available for comparison at thistime. FINDINGS AND IMPRESSION: Bilateral feet AP lateral and oblique views. Bilaterally moderate generalized osteopenia at the first MTP right greaterthan left left. The medial sesamoid at the first MTP on the left sideshows fragmentation associated with the degenerative changes question oldtrauma. The other IP joints show very minimal degenerative arthropathy. No erosions suggestive off inflammatory arthropathy or inflammatoryosteoarthritis. No acute fractures dislocations or stress relatedchanges. Bilateral hand x-rays AP lateral and oblique views. Left side moderate to severe degenerative changes of the triscaphe E jointand capitoscaphoid joint and minimal degenerative changes first CMC. Onthe right side mild degenerative changes first CMC triscaphe E joint andmoderate degenerative changes capitoscaphoid region. No erosions suggestive offinflammatory arthropathy. Severe degenerative arthropathy of the thirdleft MCP and mild degenerative changes at the second left MCP. On theright first second and the fourth MCP joints show mild degenerative arthropathy. BilaterallyIP joints show varying degrees of degenerative arthropathy in the PIP andDIP regions. No erosions suggestive off inflammatory arthropathy or inflammatoryosteoarthritis. No acute fractures dislocations. On the right partial amputation of the third finger with adequate softtissue coverage. If this radiology report contains a blank impression section, it is anincomplete radiology report. Please contact the interpreting radiologistor applicable radiology division as soon as possible to obtain thecompleted interpretation. Workstation ID: [id number] us Gary Angela MD IMG XR PROCEDURES Final Re sult * XR Foot 3+ vw Left (02/03/2025 2:29 PM EDT) Anatomical Region Laterality Modality Lower Extremities, Foot Left Computed Radiography 02/03/2025 2:39 PM EDT Impressions 02/03/2025 2:46 PM EDT Bilateral feet AP lateral and oblique views. Bilaterally moderate generalized osteopenia at the first MTP right greater than left left. The medial sesamoid at the first MTP on the left side shows fragmentation associated with the degenerative changes question old trauma. The other IP joints show very minimal degenerative arthropathy. No erosions suggestive off inflammatory arthropathy or inflammatory osteoarthritis. No acute fractures dislocations or stress related changes. Bilateral hand x-rays AP lateral and oblique views. Left side moderate to severe degenerative changes of the triscaphe E joint and capitoscaphoid joint and minimal degenerative changes first CMC. On the right side mild degenerative changes first CMC triscaphe E joint and moderate degenerative changes capitoscaphoid region. No erosions suggestive off inflammatory arthropathy. Severe degenerative arthropathy of the third left MCP and mild degenerative changes at the second left MCP. On the right first second and the fourth MCP joints show mild degenerative arthropathy. Bilaterally IP joints show varying degrees of degenerative arthropathy in the PIP and DIP regions. No erosions suggestive off inflammatory arthropathy or inflammatory osteoarthritis. No acute fractures dislocations. On the right partial amputation of the third finger with adequate soft tissue coverage. If this radiology report contains a blank impression section, it is an incomplete radiology report. ??Please contact the interpreting radiologist or applicable radiology division as soon as possible to obtain the completed interpretation. ? Workstation ID: [id number] Narrative 02/03/2025 2:46 PM EDT COMPARISON: ??There are no prior studies available for comparison at this time. ?? FINDINGS AND Resulting Agency Comment [id number] Procedure Note Reyna Heath MD - 02/03/2025 COMPARISON: There are no prior studies available for comparison at thistime. FINDINGS AND IMPRESSION: Bilateral feet AP lateral and oblique views. Bilaterally moderate generalized osteopenia at the first MTP right greaterthan left left. The medial sesamoid at the first MTP on the left sideshows fragmentation associated with the degenerative changes question oldtrauma. The other IP joints show very minimal degenerative arthropathy. No erosions suggestive off inflammatory arthropathy or inflammatoryosteoarthritis. No acute fractures dislocations or stress relatedchanges. Bilateral hand x-rays AP lateral and oblique views. Left side moderate to severe degenerative changes of the triscaphe E jointand capitoscaphoid joint and minimal degenerative changes first CMC. Onthe right side mild degenerative changes first CMC triscaphe E joint andmoderate degenerative changes capitoscaphoid region. No erosions suggestive offinflammatory arthropathy. Severe degenerative arthropathy of the thirdleft MCP and mild degenerative changes at the second left MCP. On theright first second and the fourth MCP joints show mild degenerative arthropathy. BilaterallyIP joints show varying degrees of degenerative arthropathy in the PIP andDIP regions. No erosions suggestive off inflammatory arthropathy or inflammatoryosteoarthritis. No acute fractures dislocations. On the right partial amputation of the third finger with adequate softtissue coverage. If this radiology report contains a blank impression section, it is anincomplete radiology report. Please contact the interpreting radiologistor applicable radiology division as soon as possible to obtain thecompleted interpretation. Workstation ID: [id number] us Gary Angela MD IMG XR PROCEDURES Final Re sult * XR Hand 3+ vw Right (02/03/2025 2:29 PM EDT) Anatomical Region Laterality Modality Upper Extremities, Hand Right Computed Radiography 02/03/2025 2:39 PM EDT Impressions 02/03/2025 2:46 PM EDT Bilateral feet AP lateral and oblique views. Bilaterally moderate generalized osteopenia at the first MTP right greater than left left. The medial sesamoid at the first MTP on the left side shows fragmentation associated with the degenerative changes question old trauma. The other IP joints show very minimal degenerative arthropathy. No erosions suggestive off inflammatory arthropathy or inflammatory osteoarthritis. No acute fractures dislocations or stress related changes. Bilateral hand x-rays AP lateral and oblique views. Left side moderate to severe degenerative changes of the triscaphe E joint and capitoscaphoid joint and minimal degenerative changes first CMC. On the right side mild degenerative changes first CMC triscaphe E joint and moderate degenerative changes capitoscaphoid region. No erosions suggestive off inflammatory arthropathy. Severe degenerative arthropathy of the third left MCP and mild degenerative changes at the second left MCP. On the right first second and the fourth MCP joints show mild degenerative arthropathy. Bilaterally IP joints show varying degrees of degenerative arthropathy in the PIP and DIP regions. No erosions suggestive off inflammatory arthropathy or inflammatory osteoarthritis. No acute fractures dislocations. On the right partial amputation of the third finger with adequate soft tissue coverage. If this radiology report contains a blank impression section, it is an incomplete radiology report. ??Please contact the interpreting radiologist or applicable radiology division as soon as possible to obtain the completed interpretation. ? Workstation ID: [id number] Narrative 02/03/2025 2:46 PM EDT COMPARISON: ??There are no prior studies available for comparison at this time. ?? FINDINGS AND Resulting Agency Comment [id number] Procedure Note Reyna Heath MD - 02/03/2025 COMPARISON: There are no prior studies available for comparison at thistime. FINDINGS AND IMPRESSION: Bilateral feet AP lateral and oblique views. Bilaterally moderate generalized osteopenia at the first MTP right greaterthan left left. The medial sesamoid at the first MTP on the left sideshows fragmentation associated with the degenerative changes question oldtrauma. The other IP joints show very minimal degenerative arthropathy. No erosions suggestive off inflammatory arthropathy or inflammatoryosteoarthritis. No acute fractures dislocations or stress relatedchanges. Bilateral hand x-rays AP lateral and oblique views. Left side moderate to severe degenerative changes of the triscaphe E jointand capitoscaphoid joint and minimal degenerative changes first CMC. Onthe right side mild degenerative changes first CMC triscaphe E joint andmoderate degenerative changes capitoscaphoid region. No erosions suggestive offinflammatory arthropathy. Severe degenerative arthropathy of the thirdleft MCP and mild degenerative changes at the second left MCP. On theright first second and the fourth MCP joints show mild degenerative arthropathy. BilaterallyIP joints show varying degrees of degenerative arthropathy in the PIP andDIP regions. No erosions suggestive off inflammatory arthropathy or inflammatoryosteoarthritis. No acute fractures dislocations. On the right partial amputation of the third finger with adequate softtissue coverage. If this radiology report contains a blank impression section, it is anincomplete radiology report. Please contact the interpreting radiologistor applicable radiology division as soon as possible to obtain thecompleted interpretation. Workstation ID: [id number] us Gary Angela MD IMG XR PROCEDURES Final Re sult * XR Hand 3+ vw Left (02/03/2025 2:29 PM EDT) Anatomical Region Laterality Modality Upper Extremities, Hand Left Computed Radiography 02/03/2025 2:39 PM EDT Impressions 02/03/2025 2:46 PM EDT Bilateral feet AP lateral and oblique views. Bilaterally moderate generalized osteopenia at the first MTP right greater than left left. The medial sesamoid at the first MTP on the left side shows fragmentation associated with the degenerative changes question old trauma. The other IP joints show very minimal degenerative arthropathy. No erosions suggestive off inflammatory arthropathy or inflammatory osteoarthritis. No acute fractures dislocations or stress related changes. Bilateral hand x-rays AP lateral and oblique views. Left side moderate to severe degenerative changes of the triscaphe E joint and capitoscaphoid joint and minimal degenerative changes first CMC. On the right side mild degenerative changes first CMC triscaphe E joint and moderate degenerative changes capitoscaphoid region. No erosions suggestive off inflammatory arthropathy. Severe degenerative arthropathy of the third left MCP and mild degenerative changes at the second left MCP. On the right first second and the fourth MCP joints show mild degenerative arthropathy. Bilaterally IP joints show varying degrees of degenerative arthropathy in the PIP and DIP regions. No erosions suggestive off inflammatory arthropathy or inflammatory osteoarthritis. No acute fractures dislocations. On the right partial amputation of the third finger with adequate soft tissue coverage. If this radiology report contains a blank impression section, it is an incomplete radiology report. ??Please contact the interpreting radiologist or applicable radiology division as soon as possible to obtain the completed interpretation. ? Workstation ID: [id number] Narrative 02/03/2025 2:46 PM EDT COMPARISON: ??There are no prior studies available for comparison at this time. ?? FINDINGS AND Resulting Agency Comment [id number] Procedure Note Reyna Heath MD - 02/03/2025 COMPARISON: There are no prior studies available for comparison at thistime. FINDINGS AND IMPRESSION: Bilateral feet AP lateral and oblique views. Bilaterally moderate generalized osteopenia at the first MTP right greaterthan left left. The medial sesamoid at the first MTP on the left sideshows fragmentation associated with the degenerative changes question oldtrauma. The other IP joints show very minimal degenerative arthropathy. No erosions suggestive off inflammatory arthropathy or inflammatoryosteoarthritis. No acute fractures dislocations or stress relatedchanges. Bilateral hand x-rays AP lateral and oblique views. Left side moderate to severe degenerative changes of the triscaphe E jointand capitoscaphoid joint and minimal degenerative changes first CMC. Onthe right side mild degenerative changes first CMC triscaphe E joint andmoderate degenerative changes capitoscaphoid region. No erosions suggestive offinflammatory arthropathy. Severe degenerative arthropathy of the thirdleft MCP and mild degenerative changes at the second left MCP. On theright first second and the fourth MCP joints show mild degenerative arthropathy. BilaterallyIP joints show varying degrees of degenerative arthropathy in the PIP andDIP regions. No erosions suggestive off inflammatory arthropathy or inflammatoryosteoarthritis. No acute fractures dislocations. On the right partial amputation of the third finger with adequate softtissue coverage. If this radiology report contains a blank impression section, it is anincomplete radiology report. Please contact the interpreting radiologistor applicable radiology division as soon as possible to obtain thecompleted interpretation. Workstation ID: [id number] us Gary Angela MD IMG XR PROCEDURES Final Re sult * CT ARTHROCENTESIS ASPIR&/INJ MAJOR JT/BURSA W/O US (01/13/2025 11:30 AM EDT) Narrative Ana Otriz MD - 01/13/2025 11:30 AM EDT Ana Ortiz MD ? 01/17/2025 ??7:21 PM Large Joint Arthrocentesis: R glenohumeral ? Date/Time: 01/13/2025 11:30 AM ? Performed by: Paul Franklin MD ? Authorized by: Ana Ortiz MD Consent: ? Patient identity confirmed: Name and with patient ? Verbal consent obtained: Yes ? Written consent obtained: Yes ? Risk and benefits discussed: Yes ? Written informed consent was obtained from the patient. ? Patient states understanding of procedure being performed: Yes ? Patient's understanding of procedure matches consent: Yes [place] Protocol: ? Procedure consent matches procedure scheduled: Yes ? All relevant documents/tests are correctly identified, labeled, and matched to patient: Yes ? Relevant tests/ Imaging studies available/reviewed: Yes ? Correct site marked: Yes ? Required blood products, implants, devices and special equipment available: Yes ? Immediately prior to the procedure a time out was called: N/A An attending physician was present for the procedure OR the procedure was performed by an Advanced Practice Provider: Yes Procedure Details: ? Location: shoulder - R glenohumeral ? Site Prep: Alcohol and Betadine Right ? Topical Anesthetic: ethyl chloride (cold spray) ? Syringe Size:5 mL ? Needle size: 25 G ? Approach: posterior ? Medications administered: 80 mg methylPREDNISolone acetate 80 mg/mL; 2 mL lidocaine PF 1% (10 mg/mL) ? Aspirate amount: 0 mL ? Dressinx4 sterile gauze and Band-Aid Post-procedure Details: ? Patient tolerance: patient tolerated the procedure well with no immediate complications ? Instructions: post-procedure instructions were reviewed ? Discharge: patient discharged from clinic in stable condition us Ana Otriz MD IN CLINIC/BEDSIDE ORDERABLES Ion trinh Result - Final * (ABNORMAL) BMP - Basic Metabolic Panel (06/21/2024 6:40 AM EDT) NA 140 135 - 145 mmol/L 06/21/2024 7:17 AM EDT [facility] K 4.0 3.5 - 5.3 mmol/L 06/21/2024 7:17 AM EDT [facility] Cl 104 98 - 107 mmol/L 06/21/2024 7:17 AM EDT [facility] CO2 24 24 - 32 mmol/L 06/21/2024 7:17 AM EDT [facility] BUN 15 7 - 23 mg/dL 06/21/2024 7:17 AM EDT [facility] Creatinine 0.74 0.60 - 1.30 mg/dL 06/21/2024 7:17 AM EDT [facility] Glucose 116(H) 65 - 99 mg/dL 06/21/2024 7:17 AM EDT [facility] Calcium 9.7 8.6 - 10.5 mg/dL 06/21/2024 7:17 AM T [facility] Anion Gap 12 5 - 15 06/21/2024 7:17 AM EDT [facility] eGFR >90 >=60 mL/min/1. 73m2 06/21/2024 7:17 AM T [facility] Comment:The estimated glomer [...] Kauffman MD LAB BLOOD ORDERABLES Final Result [facility] [address] [place] [address], [place] * COLONOSCOPY (05/20/2024) Narrative Procedure Note Justo El MD PhD - 05/20/2024 9:25 AM EDT [facility] Patient Name: Juan Rubin Procedure Date: 05/20/2024 9:25 AM Date of : 1955 Admit Type: Outpatient Age: 69 Room: [place] [address] Gender: Male Note Status: Finalized Attending MD: [...] obtain the completed interpretation. ? Workstation ID: [id number] Up-to-date CT equipment and radiation dose reduction [...] evidence for recurrent hernia. Resulting Agency Comment [id number] Procedure Note Iain Jain MD - 01/18/2023 [...] possible to obtain thecompleted interpretation. Workstation ID: [id number] Up-to-date CT equipment and radiation dose reduction techniques wereemployed. CTDIvol: 15.5 mGy. DLP: 698 mGy-cm. us Agapito Rowe MD IMG CT PROCEDURES Final Resu lt * CT Chest WO Contrast (06/17/2018 12:12 [...] cancer screening guidelines, please refer to: [email or web address] Adults Aged 55-77, with a History of [...] or willingness to have curative lung surgery [id number] Up-to-date CT equipment and radiation dose reduction techniques were employed. CTDIvol: 5.6 - 16.0 mGy. DLP: 541 mGy-cm.The following accession numbers are related to this dose report [id number] Narrative 06/20/2018 1:28 PM EDT EXAMINATION: CT [...] cancer screening guidelines, please refer to:[email or web address] [email or web address] [email or web address] Adults Aged 55-77, with a History of [...] or willingness to have curative lung surgery [id number] Up-to-date CT equipment and radiation dose reduction techniques wereemployed. CTDIvol: 5.6 - 16.0 mGy. 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
--- OUTSIDE RECORDS SUMMARY | 2025-02-14 13:47 | XMS_ITS | Encounter Summary ---
Author Organization [facility] Address [address] [place] [address] Care Team Providers Care Nailhead Setter Name Role Phone IgorSaulo Joy Primary Care Provider [phone] Encounter Details Date Type Department Care Team (Late st Contact Info) Description 02/26/2022 Orders Only [facility] Interventional Radiology [address] [place] [address] Reagan Mendoza NP [address] [place], [place] [id number] Social History Tobacco Use Types Packs/Day Years [...] of spinal canal ??? Colon cancer (CMS/HCC) (FORMERLY [facility]) age 49, s/p patial colectomy, no chemo or radiation ??? COPD (chronic obstructive pulmonary disease) (FORMERLY [facility]) no overnight hospitilizations, no intubations, symbicort [...] right middle finger ??? HERNIA REPAIR ??? TN ALLOGRAFT FOR SPINE SURGERY ONLY MORSELIZED Bilateral 08/06/2019 Procedure: ALLOGRAFT, MORSELIZED, OR PLACEMENT OF OSTEOPROMOTIVE MATERIAL, FOR SPINE SURGERY ONLY; Surgeon: Dianne De MD; Location: [facility] OR; Service: Neurosurgery ??? TN ARTHRODESIS POSTERIOR/POSTERIORLATERAL CERVICAL BELOW C2 Bilateral 08/06/2019 Procedure: FUSION, POSTERIOR OR POSTEROLATERAL, CERVICAL BELOW C2, SINGLE LEVEL; Surgeon: Dianne De MD; Location: [facility]; Service: Neurosurgery ??? TN ARTHRODESIS POSTERIOR/POSTEROLATERAL EA ADDL Bilateral 08/06/2019 Procedure: FUSION, POSTERIOR OR POSTEROLATERAL,??EACH ADDITIONAL SEGMENT; Surgeon: Dianne De MD; Location: [facility]; Service: Neurosurgery ??? TN ARTHRODESIS POSTERIOR/POSTEROLATERAL LUMBAR Bilateral 04/28/2020 Procedure: L2-L5 bilateral laminectomies with insitu fusion / possible bilateal facet screw instrumenation; Surgeon: Dianne De MD; Location: [facility]; Service: Neurosurgery ??? TN AUTOGRAFT SPINE SURGERY LOCAL FROM SAME INCISION Bilateral 08/06/2019 Procedure: AUTOGRAFT FOR SPINE SURGERY ONLY (INCLUDES HARVESTING THE GRAFT); LOCAL (EG, RIBS, SPINOUS PROCESS, OR LAMINAR FRAGMENTS) OBTAINED FROM SAME INCISION; Surgeon: Dianne De MD; Location: [facility]; Service: Neurosurgery ??? TN AUTOGRAFT SPINE SURGERY MORSELIZED SEP INCISION Bilateral 04/28/2020 Procedure: PLACEMENT OF AUTOGRAFT, SEPARATE INCISION, SPINE SURGERY; Surgeon: Dianne De MD;Location: [facility]; Service: Neurosurgery ??? TN EXCIS INTRASP LESN,XDURAL,CERVICAL N/A 08/10/2019 Procedure: evacuation of hematoma osterior cervical laminectomy sie ; Surgeon: Dianne De MD; Location: [facility]; Service: Neurosurgery ? ? TN I&D, POST SPINE, LUMB/SACR/LUMBOSAC N/A 05/01/2020 Procedure: INCISION AND DRAINAGE, DEEP ABSCESS LUMBAR AND/OR SACRAL SPINE; Surgeon: Dianne De MD; Location: [facility]; Service: Neurosurgery ??? TN INJ CERV/THORAC,W/WO CNTRST N/A ??? TN LAMINEC/FACETECT/FORAMIN,EACH ADDNL Bilateral 04/28/2020 Procedure: LAMINECTOMY, FACETECTOMY, AND FORAMINOTOMY, CERVICAL, THORACIC, OR LUMBAR, EACH ADDITIONAL LEVEL; Surgeon: Dianne De MD; Location: [facility]; Service: Neurosurgery ??? TN LAMINEC/FACETECT/FORAMIN,LUMBAR 1 SEG Bilateral 04/28/2020 Procedure: LAMINECTOMY, FACETECTOMY, AND FORAMINOTOMY, LUMBAR, SINGLE LEVEL; Surgeon: Dianne De MD; Location: [facility]; Service: Neurosurgery ? ? TN LAMINECTOMY,>2 SGMT,CERVICAL Bilateral 08/06/2019 Procedure: POSTERIOR BILATERAL C3-C6 LAMINECTOMY AND FUSION/ INSTRUMENTATION; Surgeon: Dianne De MD; Location: [facility]; Service: Neurosurgery ??? TN POSTERIOR NON-SEGMENTAL INSTRUMENTATION Bilateral 04/28/2020 Procedure: POSTERIOR NON-SEGMENTAL INSTRUMENTATION; Surgeon: Dianne De MD; Location: [facility]; Service: Neurosurgery ??? 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
--- OUTSIDE RECORDS SUMMARY | 2025-02-14 13:47 | XMS_ITS | Encounter Summary ---
Author Organization [facility] Address [address] [place] [address] Care Team Providers Care Aircraft Engine Mechanic Supervisor Name Role Phone IgorSaulo Joy Primary Care Provider [phone] Reason for Visit * Reason Onset Date Comments PAC Appt Request - New 02/28/2023 Encounter Details Date Type Department Care Team (Late st Contact Info) Description 02/28/2023 Telephone [facility] Patient Access Center [address] [place] [address] Telephone Intake, Staff PAC Appt Request - New Social History Tobacco Use Types Packs/Day Years Used Date Smoking Tobacco: Former Cigarettes 1.5 55 1 10/06/1963 - 08/06/2019 Smokeless Tobacco: Never Comments:quit 08/2019 Alcohol Use Standard Drinks/Week Comments Not Currently 0 (1 standard drink = 0.6 oz pur e alcohol) Transportation Answer Date Recorded Please yane the areas for wh ich the patient would like information or assistance: None Apply 02/18/2022 Lack of Transportation (Medical) Not on file 02/18/2022 Housing Stability Answer Date Recorded Please yane the areas for wh ich the patient would like information or [...] 8:30 am Pt can be reached @ [phone] Thank you PAC documented in this encounter Plan of Treatment Upcoming Encounters Date Type Department Care Team (Late st Contact Info) Description 07/07/2025 10:00 AM EDT Follow-Up [facility] Rheumatology Clinic [address] [place] [address] Maintenance Foreman: Paul Leger MD [address] [place] [address] documented as of this encounter Visit Diagnoses Not on filedocumented in this encounter Additional Health Concerns Infection Onset Date Last Indicated Resolved Time 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
--- OUTSIDE RECORDS SUMMARY | 2025-02-14 13:47 | XMS_ITS ---
Author Organization [facility] Address [address] [place] [address] Care Team Providers Care Rfid Strategist Name Role Phone IgorJoy Vernon Primary Care Provider [phone] Active Problems * This document contains information received from the source organization and may not represent a complete record from that organization. 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 Given potential for this to have contributed [...] supplements MD Juan Martinez : 1955 CSN: [id number] Hyperglycemia 08/18/2019 Overview (08/18/2019): Due to steroids, [...] the AM for any further recs. 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
--- OUTSIDE RECORDS SUMMARY | 2025-02-14 13:47 | XMS_ITS | Clinical Summary ---
Author Organization [facility] Address [address] [place] [address] Phone Care Team Providers Care Manager Beverage Name Role Phone Joy March MD Primary Care Provider [phone] Encounters Date Type Department Care Team Description 01/07/2025 Lab Requisition [facility] - Main Lab [address] [facility] [place] [address] Bre Humphries NP Other retention [...] and susceptibility, aerobic (01/06/2025 10:25 AM EDT) [facility], Bacterial ID and Sensitivity Klebsiella pneumoniae ESBL(A) KYRA 01/09/2025 8:50 AM EDT [facility] Comment: THIS ORGANISM IS POSITIVE [...] KYRA >=320 ug/ml: Resistant us Bre Humphries [facility] MICROBIOLOGY - GENERA L ORDERABLES Final Result [facility] [address] [place] [address], [place] [phone] from Last 3 Months Additional Health Concerns Infection Onset Date 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
--- OUTSIDE RECORDS SUMMARY | 2025-02-14 13:47 | XMS_ITS | Encounter Summary ---
Author Organization [facility] Address [address] [place] [address] Care Team Providers Care Lead Systems Developer Name Role Phone IgorJoy Vernon Primary Care Provider [phone] Reason for Visit * Reason Onset Date Comments PAC RX Refill-- Dr Franklin 01/31/2025 Encounter Details Date Type Department Care Team (Late st Contact Info) Description 01/31/2025 Telephone [facility] Rheumatology Clinic [address] [place], [place] [phone] Women Nurse: Rossy Gongora Telephone Intake, Staff PAC RX Refill-- Dr Franklin Social History Tobacco Use Types Packs/Day Years Used Date Smoking Tobacco: Former Cigarettes 1.5 55 1 10/06/1963 - 08/06/2019 Passive Smoke Exposure: Past Smokeless Tobacco: Never Comments:quit 08/2019 Alcohol Use Standard Drinks/Week Comments Not Currently 0 (1 standard drink = 0.6 oz pur e alcohol) [facility] Utilities Answer Date Recorded In the past 12 months has th e Liquiteria, gas, oil, or water [employer] threatened to shut off services in your [...] Telephone Encounter - Madisyn Corey LPN - 02/02/2025 9:14 AM EDT Pt said swelling/pain in wrists/ankles/elbows, difficulty getting out of chair or holding objects, using tylenol and gabapentin w/no effect. Pt had prednisone 10 mg at home, has been taking it x 3 days w/+ effect. Pt requesting additional prednisone rx. * Telephone Encounter - Genoveva Conrad - 01/31/2025 1:18 PM EDT Patient wants for to send him prednisone He says the shots of cortisone did not help him at all Please call him to discuss [phone] [id number] - [place], [place] - [address] [facility] [phone] PAC documented in this encounter Plan of Treatment Upcoming Encounters Date Type Department Care Team (Late st Contact Info) Description 07/07/2025 10:00 AM EDT Follow-Up [facility] Rheumatology Clinic [address] [place] [address] Women Nurse: RossyPaul Barbour MD [address] [place] [address] documented as of this encounter Visit Diagnoses Not on filedocumented in this encounter Additional Health Concerns 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
--- OUTSIDE RECORDS SUMMARY | 2025-02-14 13:47 | XMS_ITS | Encounter Summary ---
Author Organization [facility] Address [address] [place] [address] Care Team Providers Care Dental Office Coordinator Name Role Phone RoldanBrewer Joy Primary Care Provider [phone] Reason for Visit * Reason Onset Date Comments PAC Rx Questions 03/05/2024 Encounter Details Date Type Department Care Team (Late st Contact Info) Description 03/05/2024 Telephone [facility] Patient Access Center [address] [place] [address] Telephone Intake, Staff PAC Rx Questions Social [...] 03/05/2024 11:17 AM EDT Liam calling from [facility] is regard to pts prednisone, They need to clarify which dose & directs should be prescribed to pt as they received two. 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
--- OUTSIDE RECORDS SUMMARY | 2025-02-14 13:47 | XMS_ITS | Encounter Summary ---
Author Organization [facility] Address [address] [place] [address] Care Team Providers Care Area Counselor Name Role Phone IgorJoy Vernon Primary Care Provider [phone] Reason for Visit * Reason Onset Date Comments Scheduling Appointment 11/17/2020 Encounter Details Date Type Department Care Team (Late st Contact Info) Description 11/17/2020 Telephone [facility] Neurology Clinic [address] [place] [address] Telephone Intake, Staff Scheduling Appointment Social History [...] were not included. MD Mara Morris; P [facility] Neurology Admin Staff Pt was following [...] person appt pt can be reached at [phone] documented in this encounter Plan of Treatment Upcoming Encounters Date Type Department Care Team (Late st Contact Info) Description 07/07/2025 10:00 AM EDT Follow-Up [facility] Rheumatology Clinic [address] [place] [id number] Technician: Paul Leger MD [address] [place] [phone] documented as of this encounter Visit Diagnoses Not on filedocumented in this encounter Additional Health Concerns Infection Onset Date Last Indicated 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
--- OUTSIDE RECORDS SUMMARY | 2025-02-14 13:47 | XMS_ITS | Encounter Summary ---
Author Organization [facility] Address [address] [place] [address] Care Team Providers Care Extension Clerk Name Role Phone IgorSaulo Joy Primary Care Provider [phone] Encounter Details Date Type Department Care Team (Late st Contact Info) Description 04/29/2023 [employer]Store Audio Network Message [facility] Revenue Cycle Management [address] [place] [address] [employer], Generic Provider [address] [place] [address] account dispute Social History Tobacco Use Types [...] Info) Description 07/07/2025 10:00 AM EDT Follow-Up [facility] Rheumatology Clinic [address] [place] [address] Sand Mixer Operator: Paul Leger MD [address] [place] [address] documented as of this encounter Visit Diagnoses Not on filedocumented in this encounter Additional Health Concerns Infection Onset Date Last Indicated 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
--- OUTSIDE RECORDS SUMMARY | 2025-02-14 13:47 | XMS_ITS | Clinical Summary ---
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 Given potential for this to have contributed [...] supplements MD Juan Martinez : 1955 CSN: [id number] Hyperglycemia 08/18/2019 Overview (08/18/2019): Due to steroids, [...] the AM for any further recs. 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 since a prior prep for colonoscopy in [...] - 02/03/2025 11:59 PM EDT Hospital Encounter [facility] XRay [address] [place] [address] Gary Angela MD Discharge Disposition: Home or Self Care () 02/03/2025 1:30 PM EDT Follow-Up [facility] Rhe[facility]ology [facility] [address] [place] [phone] Tipple Engineer: Paul Leger MD History of polymyalgia rheumatica (Primary Dx); Right anterior shoulder pain; Seronegative inflammatory arthritis 01/31/2025 Telephone [facility] [address] [place] [address] Tipple Engineer: Rossy Gongora Telephone Intake, Staff PAC RX Refill-- Dr Franklin 01/13/2025 11:30 AM EDT Follow-Up [facility] [address] [place] [address] Tipple Engineer: Paul Leger MD History of polymyalgia rheumatica (Primary Dx); Localized osteoarthritis of right shoulder; Right anterior shoulder pain; Spondylosis of cervical region without myelopathy or radiculopathy from Last 3 Months Immunizations Immunization Administration [...] 08/07/2019,06/09/2018,08/21/2017 Influenza, Trivalent, MDV, Injectable ,07/02/2013,07/20/2012,08/08,07/27/2009,08/30/2008,09/02/2007 Novel [id number], Preservative-Free, Injectable 09/27/2009 Pneumococcal Conjugate Vacci ne, 13 Valent 03/07/2015 Pneumococcal Polysaccharide Vaccine, 23 Valent 07/31/2020,08/30/2008 Pneumococcal conjugate PCV20,polysaccharide [id number] conjugate, adjuvant, PF (Prevnar 20) 06/05/2023 RSV, [...] drink = 0.6 oz pur e alcohol) [facility] Utilities Answer Date Recorded In the [...] Info) Description 07/07/2025 10:00 AM EDT Follow-Up [facility] [address] [place] [address] Tipple Engineer: Paul Leger MD [address] [place] [address] Health Maintenance Due Date Last Done Comments [...] 03/05/2024, Additional history exists Fall Risk Screening 02/03/2026 02/03/2025 DTaP,Tdap,and Td Vaccines (2 - Td or Tdap) 03/19/2027 03/19/2017 Tobacco Screening 10/06/2042 02/03/2025 Abdominal Aortic Aneurysm (A AA) Screening Completed 01/18/2023, 07/06/2013 Pneumococcal Vaccine: 50+ Years Completed 06/05/2023, 07/31/2020, 03/07/2015, Additional history exists RSV Vaccine (60+ years old a nd patients) Completed 06/05/2023 Zoster Vaccines Completed 06/05/2023, 08/07, 06/21/2020, Additional history exists Statin Therapy Completed 05/12/2024 Influenza Vaccine Completed 06/17/2024, , 07/24/2022, Additional history exists Hepatitis C Screening Completed 02/03/2025, 019 Hepatitis B Vaccines Discontinued Medical Devices Implanted Type Area Wireless Sales Associate Device Identifier Shelf Expiration Date Model / Serial / Lot Mau Thoracolumbar [id number] Altaf - [id number] Implanted:Qty: 2 on 08/06/2019 by Dianne De MD at [facility] Implant Spine Cervical DEPUY 1883-16- 060 / / Connector Spinal Cross Thoracolumbar Head To Head Titanium 35mm Mountaineer - [id number] Implanted:Qty: 1 on 08/06/2019 by Dianne De MD at [facility] Implant Spine Cervical DEPUY 1883-41- 035 / / Nut Spinal Outer Connector Cross Head To Head Titanium Mountaineer - [id number] Implanted:Qty: 2 on 08/06/2019 by Dianne De MD at [facility] Implant Spine Cervical DEPUY 1883-41- 200 / / Nut Spinal Outer Connector Cross Head To Head Titanium Mountaineer - [id number] Implanted:Qty: 2 on 08/06/2019 by Dianne De MD at [facility] Implant Spine Cervical DEPUY 1883-41- 100 / / Screw Thoracic Favored Angle Titanium [id number] Mountaineer - [id number] Implanted:Qty: 7 on 08/06/2019 by Dianne De MD at [facility] Screw Spine Cervical DEPUY 1883-18- 312 / / Screw Thoracic Favored Angle Titanium [id number] Mountaineer - [id number] Implanted:Qty: 1 on 08/06/2019 by Dianne De MD at [facility] Screw Spine Cervical DEPUY 1883-18- 316 / / Screw Thoracic Inner Mountaineer - [id number] Implanted:Qty: 6 on 08/06/2019 by Dianne De MD at [facility] Screw Spine Cervical DEPUY 1883-42- 200 / / Putty Demineralized Bone Matrix 10cc Dbx - [id number] - [id number] Implanted:Qty: 1 on 08/06/2019 by Dianne De MD at [facility] Tissue Spine Cervical MUSCULOSKELETAL TRANSPLANT FND 04/27/2021 [id number] / [id number] / Ic Graft Chamber Dbm 10cc - [id number] - [id number] Implanted:Qty: 1 on 04/28/2020 by Dianne De MD at [facility] Tissue Spine Lumbar LIFENET 11/14/2022 [id number] / [id number] / [id number] Description:Demineralized yany ne matrix and cancellous chips reconstituted with pts. blood Ic Graft Chamber Dbm 10cc - [id number] - [id number] Implanted:Qty: 1 on 04/28/2020 by Dianne De MD at [facility] Tissue Spine Lumbar LIFENET 11/14/2022 [id number] / [id number] / [id number] Description:Demineralized yany ne matrix and cancellous chips reconstituted with pts. blood Procedures * Due to [place] state law, this organization might not be [...] Seronegative inflammatory arthritis QUANTIFERON-TB GOLD PLUS, 1 [id number] Routine 02/03/2025 2:42 PM EDT History of [...] Right anterior shoulder pain Seronegative inflammatory arthritis MO ARTHROCENTESIS ASPIR&/INJ MAJOR JT/BURSA W/O US Routine [...] to Health Maintenance Results * Due to [place] state law, this organization might not be sharing negative HIV tests. * QuantiFERON-TB Gold Plus, 1 Tube (02/03/2025 2:42 PM EDT) [facility] QuantiFERON-TB Gold Plus NEGATIVE NEGATIVE 02/05/2025 4:16 AM EDT [facility] Comment: Negative test result. M. tuberculosis complex infection unlikely. NIL 0.16 IU/mL 02/05/2025 4:16 AM EDT [employer] [facility] Mitogen-NIL >10.00 IU/mL 02/05/2025 4:16 AM EDT [employer] [facility] TB1-NIL <0.00 IU/mL 02/05/2025 4:16 AM EDT [employer] [facility] TB2-NIL 0.01 IU/mL 02/05/2025 4:16 AM EDT [employer] [facility] Comment: The Nil tube value reflects the [...] T-lymphocytes. For additional information, please refer to https://education.Eventfinda/faq/GQZ212 (This link is being provided for informational/ educational purposes only.) Blood Structure of peripheral vein / Unknown Venipuncture / Unknown 02/03/2025 2:42 PM EDT 02/03/2025 2:53 PM EDT [facility] - 02/05/2025 4:16 AM EDT [facility] Received Date: us Gary Angela MD LAB BLOOD ORDERABLES Final Result [facility] [place] [address] [facility] [address], [place] [address], [place] [phone] [employer] [facility] [address] [facility] [address], [place] [address], [place] [phone] * (ABNORMAL) CBC Auto Differential (02/03/2025 2:42 PM EDT) WBC 13.2(H) 3.8 - 10.8 10*3/uL 02/03/2025 3:04 PM EDT [facility] RBC 4.48 4.20 - 5.80 10*6/uL 02/03/2025 3:04 PM EDT [facility] Hemoglobin 13.4 13.2 - 17.1 g/dL 02/03/2025 3:04 PM EDT [facility] Hematocrit 41.5 38.5 - 50.0 % 02/03/2025 3:04 PM EDT [facility] MCV 92.6 80.0 - 100.0 fL 02/03/2025 3:04 PM EDT [facility] MCH 29.9 27.0 - 33.0 pg 02/03/2025 3:04 PM EDT [facility] MCHC 32.3 32.0 - 36.0 g/dL 02/03/2025 3:04 PM EDT [facility] RDW 13.6 11.0 - 15.0 % 02/03/2025 3:04 PM EDT [facility] Platelets 415(H) 140 - 400 10*3/uL 02/03/2025 3:04 PM EDT [facility] MPV 8.0 7.5 - 12.5 fL 02/03/2025 3:04 PM EDT [facility] Neutrophil % 62.4 % 02/03/2025 3:04 PM EDT [facility] Immature Grans % 1.2(H) 0.0 - 0.9 % 02/03/2025 3:04 PM EDT [facility] Lymphocyte % 26.2 % 02/03/2025 3:04 PM EDT [facility] Monocyte % 7.5 % 02/03/2025 3:04 PM EDT [facility] Eosinophil % 2.2 % 02/03/2025 3:04 PM EDT [facility] Basophil % 0.5 % 02/03/2025 3:04 PM EDT [facility] Neutrophil # 8.20(H) 1.50 - 7.80 10*3/uL 02/03/2025 3:04 PM EDT [facility] Immature Grans # 0.16(H) <=0.03 10*3/uL 02/03/2025 3:04 PM EDT [facility] Lymphocyte # 3.50 0.85 - 3.90 10*3/uL 02/03/2025 3:04 PM EDT [facility] Monocyte # 1.00(H) 0.20 - 0.95 10*3/uL 02/03/2025 3:04 PM EDT [facility] Eosinophil # 0.30 0.02 - 0.50 10*3/uL 02/03/2025 3:04 PM EDT [facility] Basophil # 0.10 0.00 - 0.20 10*3/uL 02/03/2025 3:04 PM EDT [facility] nRBC % 0.0 /100 WBCs 02/03/2025 3:04 PM EDT [facility] nRBC # <0.01 <0.01 10*3/uL 02/03/2025 3:04 PM EDT [facility] Blood Structure of peripheral vein / Unknown Venipuncture / Unknown 02/03/2025 2:42 PM EDT 02/03/2025 2:53 PM EDT Gary Angela MD LAB BLOOD ORDERABLES Final Result Performing Organization Address [facility] Co de Phone Number [facility] [address] [place] [address], [place] * Cyclic Citrullinated Peptide (CCP) Antibody, IgG (02/03/2025 2:42 PM EDT) Pathologist [facility] Cyclic Citrullinated Peptide (CCP) Ab (IgG) <16 UNITS 02/07/2025 7:16 PM EDT [facility] Comment: Reference Range Negative: ?<20 Weak Positive: ? 20-39 Moderate Positive: ?? 40-59 Strong Positive: ? >59 Blood Structure of peripheral vein / Unknown Venipuncture / Unknown 02/03/2025 2:42 PM EDT 02/03/2025 2:54 PM EDT Narrative [facility] - 02/07/2025 7:16 PM EDT [facility] Received Date: Gary Angela MD LAB BLOOD ORDERABLES Final Result Performing Organization Address City/[facility] Co de Phone Number [facility] [address] [facility] [address], [place] [address], [place] [phone] [employer] [facility] [address] [facility] [address], [place] [address], [place] [phone] * Hepatitis C Antibody w/Reflex to HCV RNA, Quantitative PCR (02/03/2025 2:42 PM EDT) Hepatitis C Antibody NON-REACT YENNI NON-REACT YENNI 02/04/2025 1:32 AM EDT [facility] Comment: HCV antibody was non-reactive. There is no laboratory evidence of HCV infection. In most cases, no further action is required. However, if recent HCV exposure is suspected, a test for HCV RNA (test code 38128) is suggested. For additional information please refer to http://Affectiva.Eventfinda/faq/CTT65a2 (This link is being provided for informational/ educational purposes only.) Blood Structure of peripheral vein / Unknown Venipuncture / Unknown 02/03/2025 2:42 PM EDT 02/03/2025 2:54 PM EDT Narrative [facility] - 02/04/2025 1:32 AM EDT [facility] Received Date: us Gary Angela MD LAB BLOOD ORDERABLES Final Result Performing Organization Address City/[facility]/ZIP Co de Phone Number [facility] [address], [place] [address], [place] [phone] [employer] [address], [place] [address], [place] [phone] * Hepatitis B Core Antibody, Total (02/03/2025 2:42 PM EDT) Hepatitis B Core Ab Total NON-REACT YENNI NON-REACT YENNI 02/04/2025 1:30 AM EDT [facility] Comment: For additional information, please refer to http://Affectiva.Eventfinda/faq/NHH208 (This link is being provided for informational/ educational purposes only.) Blood Structure of peripheral vein / Unknown Venipuncture / Unknown 02/03/2025 2:42 PM EDT 02/03/2025 2:54 PM EDT Narrative [facility] - 02/04/2025 1:30 AM EDT [facility] Received Date: us Gary Angela MD LAB BLOOD ORDERABLES Final Result Performing Organization Address City/[facility]/ZIP Co de Phone Number [address], [place] [address], [employer] [facility] [address], [place] [address], * (ABNORMAL) Hepatitis B Surface Antibody (02/03/2025 2:42 PM EDT) Hepatitis B Surface Ab Immunity, Qn <5(L) > OR = 10 mIU/mL 02/04/2025 2:39 AM EDT [facility] Comment: PATIENT DOES NOT HAVE IMMUNITY TO HEPATITIS B VIRUS. For additional information, please refer to http://Affectiva.Eventfinda/faq/ZQE077 (This link is being provided for informational/ educational purposes only). Blood Structure of peripheral vein / Unknown Venipuncture / Unknown 02/03/2025 2:42 PM EDT 02/03/2025 2:54 PM EDT Narrative [facility] - 02/04/2025 2:39 AM EDT [facility] Received Date: Gary Angela MD LAB BLOOD ORDERABLES Final Result [facility] [address] [facility] [address], [place] [address], [employer] [facility] [address], [place] [address], * Hepatitis B Surface Antigen W/Confirmation (02/03/2025 2:42 PM EDT) Pathologist [facility] Hepatitis B Surface Antigen NON-REACT YENNI NON-REACT YENNI 02/04/2025 2:39 AM EDT [facility] Comment: For additional information, please refer to http://Affectiva.Eventfinda/faq/KMS094 (This link is being provided for informational/ educational purposes only.) Blood Structure of peripheral vein / Unknown Venipuncture / Unknown 02/03/2025 2:42 PM EDT 02/03/2025 2:54 PM EDT [facility] 02/04/2025 2:39 AM EDT [facility] Received Date: Gary Angela MD LAB BLOOD ORDERABLES Final Result [facility] [address] [facility] [address], [place] [address], [place] [phone] [employer] [facility] [address] [facility] [address], [place] [address], [place] [phone] * (ABNORMAL) Sedimentation Rate (02/03/2025 2:42 PM EDT) Sed Rate 28(H) <20 mm/Hr mm/Hr 02/03/2025 3:10 PM EDT [facility] Blood Structure of peripheral vein / Unknown Venipuncture / Unknown 02/03/2025 2:42 PM EDT 02/03/2025 2:53 PM EDT Gary Angela MD LAB BLOOD ORDERABLES Final Result Performing Organization Address City/[facility]/ZIP Co de Phone Number [facility] [address] [place] [address], [place] * Rheumatoid Factor (02/03/2025 2:42 PM EDT) Rheumatoid Factor <10 <14 IU/mL 02/04/2025 12:59 AM EDT [employer] [facility] Blood Structure of peripheral vein / Unknown Venipuncture / Unknown 02/03/2025 2:42 PM EDT 02/03/2025 2:54 PM EDT Narrative [facility] - 02/04/2025 12:59 AM EDT [facility] Received Date: us Gary Angela MD LAB BLOOD ORDERABLES Final Result [facility] [address] [facility] [address], [place] [address], [place] [phone] [employer] [address], [place] [address], [place] [phone] * C-Reactive Protein (02/03/2025 2:42 PM EDT) C Reactive Protein 9.5 <=9.9 mg/L 02/03/2025 3:44 PM EDT [facility] Blood Structure of peripheral vein / Unknown Venipuncture / Unknown 02/03/2025 2:42 PM EDT 02/03/2025 2:54 PM EDT Gary Angela MD LAB BLOOD ORDERABLES Final Result Performing Organization Address [facility] Co de Phone Number [facility] [address] [place] [address], [place] * AST (02/03/2025 2:42 PM EDT) Pathologist [facility] AST 25 10 - 40 U/L 02/03/2025 3:44 PM EDT [facility] Blood Structure of peripheral vein / Unknown Venipuncture / Unknown 02/03/2025 2:42 PM EDT 02/03/2025 2:54 PM EDT Gary Angela MD LAB BLOOD ORDERABLES Final Result Performing Organization Address [facility]/ZIP Co de Phone Number [facility] [address] [place] [address], [place] * Creatinine (02/03/2025 2:42 PM EDT) Creatinine 0.71 0.60 - 1.30 mg/dL 02/03/2025 3:44 PM EDT [facility] eGFR >90 >=60 mL/min/1. 73m2 02/03/2025 3:44 PM EDT [facility] Comment:The estimated glomer [...] BLOOD ORDERABLES Final Result Performing Organization Address City/State/[facility] Co de Phone Number [facility] [address] [place] [address], [place] * XR Foot 3+ vw Right [...] obtain the completed interpretation. ? Workstation ID: [id number] Narrative 02/03/2025 2:46 PM EDT COMPARISON: ??There are no prior studies available for comparison at this time. ?? FINDINGS AND Resulting Agency Comment [id number] Procedure Note Reyna Heath MD - 02/03/2025 [...] possible to obtain thecompleted interpretation. Workstation ID: [id number] us Gary Angela MD IMG XR PROCEDURES [...] obtain the completed interpretation. ? Workstation ID: [id number] Narrative 02/03/2025 2:46 PM EDT COMPARISON: ??There are no prior studies available for comparison at this time. ?? FINDINGS AND Resulting Agency Comment [id number] Procedure Note Reyna Heath MD - 02/03/2025 [...] possible to obtain thecompleted interpretation. Workstation ID: [id number] us Gary Angela MD IMG XR PROCEDURES [...] obtain the completed interpretation. ? Workstation ID: [id number] Narrative 02/03/2025 2:46 PM EDT COMPARISON: ??There are no prior studies available for comparison at this time. ?? FINDINGS AND Resulting Agency Comment [id number] Procedure Note Reyna Heath MD - 02/03/2025 [...] possible to obtain thecompleted interpretation. Workstation ID: [id number] us Gary Angela MD IMG XR PROCEDURES [...] obtain the completed interpretation. ? Workstation ID: [id number] Narrative 02/03/2025 2:46 PM EDT COMPARISON: ??There are no prior studies available for comparison at this time. ?? FINDINGS AND Resulting Agency Comment [id number] Procedure Note Reyna Heath MD - 02/03/2025 [...] possible to obtain thecompleted interpretation. Workstation ID: [id number] us Gary Angela MD IMG XR PROCEDURES Final Re sult * MO ARTHROCENTESIS ASPIR&/INJ MAJOR JT/BURSA W/O [place] (01/13/2025 11:30 AM EDT) Narrative Ana Ortiz MD - 01/13/2025 11:30 AM EDT Ana [...] Patient's understanding of procedure matches consent: Yes [place] Protocol: ? Procedure consent matches procedure scheduled: [...] from clinic in stable condition us Ana Ortiz MD IN CLINIC/BEDSIDE ORDERABLES Ion trinh Result - Final * (ABNORMAL) BMP - Basic Metabolic Panel (06/21/2024 6:40 AM EDT) NA 140 135 - 145 mmol/L 06/21/2024 7:17 AM EDT [facility] K 4.0 3.5 - 5.3 mmol/L 06/21/2024 7:17 AM [facility] Cl 104 98 - 107 mmol/L 06/21/2024 7:17 AM [facility] CO2 24 24 - 32 mmol/L 06/21/2024 7:17 AM [facility] BUN 15 7 - 23 mg/dL 06/21/2024 7:17 AM [facility] Creatinine 0.74 0.60 - 1.30 mg/dL 06/21/2024 7:17 AM [facility] Glucose 116(H) 65 - 99 mg/dL 06/21/2024 7:17 AM [facility] Calcium 9.7 8.6 - 10.5 mg/dL 06/21/2024 7:17 AM [facility] Anion Gap 12 5 - 15 06/21/2024 7:17 AM [facility] eGFR >90 >=60 mL/min/1. 73m2 06/21/2024 7:17 AM [facility] Comment:The estimated glomer ular filtration [...] Kauffman MD LAB BLOOD ORDERABLES Final Result [facility] [address] [place] [address], [place] * COLONOSCOPY (05/20/2024) Narrative Procedure Note Justo El MD PhD - 05/20/2024 9:25 AM EDT [facility] Gastroenterology Patient Name: Juan Alcazarhilda Procedure Date: 05/20/2024 9:25 AM Date of : 1955 Admit Type: Outpatient Age: 69 Room: [place] [address] Gender: Male Note Status: Finalized Attending MD: [...] obtain the completed interpretation. ? Workstation ID: [id number] Up-to-date CT equipment and radiation dose reduction [...] evidence for recurrent hernia. Resulting Agency Comment [id number] Procedure Note Iain Jain MD - 01/18/2023 [...] possible to obtain thecompleted interpretation. Workstation ID: [id number] Up-to-date CT equipment and radiation dose reduction [...] or willingness to have curative lung surgery [id number] Up-to-date CT equipment and radiation dose reduction techniques were employed. CTDIvol: 5.6 - 16.0 mGy. DLP: 541 mGy-cm.The following accession numbers are related to this dose report [id number] Narrative 06/20/2018 1:28 PM EDT EXAMINATION: CT [...] cancer screening guidelines, please refer to:https://www.uspreventiveservicestaskforce.org/Page/Document/UpdateSummaryFina l/ruby x-ecbtmf-pmtnjxbed Adults Aged 55-77, with a History of [...] or willingness to have curative lung surgery [id number] Up-to-date CT equipment and radiation dose reduction techniques wereemployed. CTDIvol: 5.6 - 16.0 mGy. 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
== END 2025-02-14 14:14 | disposition home or self-care (01) ==
LOC: HO.HMCFM 13:26
PROVIDERS: PCP Internal Medicine; Visit Provider Internal Medicine
DX: R53.83 Other fatigue (principal); M06.9 Rheumatoid arthritis, unspecified; J44.1 Chronic obstructive pulmonary disease with (acute) exacerbation; N31.9 Neuromuscular dysfunction of bladder, unspecified

== ENCOUNTER → 2025-02-14 13:25 | Outpatient (BNVA) | payer MEDICARE, SELFPAY | PROVIDERS: PCP Internal Medicine; Visit Provider Internal Medicine | DX: M06.9 Rheumatoid arthritis, unspecified (principal); R53.83 Other fatigue; J44.1 Chronic obstructive pulmonary disease with (acute) exacerbation; N31.9 Neuromuscular dysfunction of bladder, unspecified; I10 Essential (primary) hypertension; Z79.52 Long term (current) use of systemic steroids; Z79.631 Long term (current) use of antimetabolite agent | CPT/HCPCS: 99212 ==

== ENCOUNTER 2025-02-15 10:47 | Outpatient (REF) | payer MEDICARE, SELFPAY ==
--- OUTSIDE RECORDS SUMMARY | 2025-02-15 12:12 | XMS_ITS | Clinical Summary ---
Author Organization [facility] Address [address] [place] [address] Care Team Providers Care Dairy Grazer Name Role Phone Joy March Primary Care Provider [phone] Allergies Active Allergy Reactions Criticality Noted Date [...] Ref. # MedLine Sponges, 10 per Box: [id number] 30 each 12/13/19 23 Active urinary bag [...] outpatient he had recently started on trospium PRESIDENT. Given potential for this to have contributed [...] supplements MD Juan Martinez : 1955 CSN: [id number] Hyperglycemia 08/18/2019 Overview (08/18/2019): Due to steroids, [...] the AM for any further recs. Plan: -[place] 5-10mg PO q6 hours PRN pain -NS [...] to the point of obstipation with no greardo bowel movement in approximately 2 weeks PRESIDENT since a prior prep for colonoscopy in [...] GI following; apprec recs - NPO at [place] in case colo on Saturday 02/03 Vasovagal [...] - 02/03/2025 11:59 PM EDT Hospital Encounter [facility] XRay [address] [place] [phone] Gary Angela MD Discharge Disposition: Home or Self Care () 02/03/2025 1:30 PM EDT Follow-Up [facility] [address] [place] [phone] Pulp House Supervisor: Paul Leger MD History of polymyalgia rheumatica (Primary Dx); Right anterior shoulder pain; Seronegative inflammatory arthritis 01/31/2025 Telephone [facility] [address] [place] [phone] Pulp House Supervisor: Rossy Gongora Telephone Intake, Staff PAC RX Refill-- Dr Franklin 01/13/2025 11:30 AM EDT Follow-Up [facility] [address] [place] [phone] Pulp House Supervisor: Paul Leger MD History of polymyalgia rheumatica [...] 08/07/2019,06/09/2018,08/21/2017 Influenza, Trivalent, MDV, Injectable ,07/02/2013,07/20/2012,08/08,07/27/2009,08/30/2008,09/02/2007 Novel Thnpdgnyb-D7N0-27, Preservative-Free, Injectable 09/27/2009 Pneumococcal Conjugate Vacci ne, 13 Valent 03/07/2015 Pneumococcal Polysaccharide Vaccine, 23 Valent 07/31/2020,08/30/2008 Pneumococcal conjugate PCV20,polysaccharide FRD821 conjugate, adjuvant, PF (Prevnar 20) 06/05/2023 RSV, [...] 0.6 oz pur e alcohol) [facility] Utilities Answer Date Recorded In [...] Info) Description 07/07/2025 10:00 AM EDT Follow-Up [facility] [address] [place] [address] Pulp House Supervisor: Paul Leger MD [address] [place] [address] Health Maintenance Due Date Last Done Comments [...] Vaccines Discontinued Medical Devices Implanted Type Area Cannon Pinion Adjuster Device Identifier Shelf Expiration Date Model / Serial / Lot Mau Thoracolumbar 3.0kmd85km Altaf - [id number] Implanted:Qty: 2 on 08/06/2019 by Dianne De MD at [facility] Implant Spine Cervical DEPUY 1883-16- 060 / / Connector Spinal Cross Thoracolumbar Head To Head Titanium 35mm Mountaineer - [id number] Implanted:Qty: 1 on 08/06/2019 by Dianne De MD at [facility] [facility] Implant Spine Cervical DEPUY 1883-41- 035 / / Nut Spinal Outer Connector Cross Head To Head Titanium Mountaineer - [id number] Implanted:Qty: 2 on 08/06/2019 by Dianne De MD at [facility] Implant Spine Cervical DEPUY 1883-41- 200 / / Nut Spinal Outer Connector Cross Head To Head Titanium Mountaineer - [id number] Implanted:Qty: 2 on 08/06/2019 by Dianne De MD at [facility] Implant Spine Cervical DEPUY 1883-41- 100 / / Screw Thoracic Favored Angle Titanium 3.4mcv61eu Mountaineer - [id number] Implanted:Qty: 7 on 08/06/2019 by Dianne De MD at [facility] Screw Spine Cervical DEPUY 1883-18- 312 / / Screw Thoracic Favored Angle Titanium 3.6aly21sx Mountaineer - [id number] Implanted:Qty: 1 on 08/06/2019 by Dianne De MD at [facility] Screw Spine Cervical DEPUY 1883-18- 316 / / Screw Thoracic Inner Mountaineer - [id number] Implanted:Qty: 6 on 08/06/2019 by Dianne De MD at [facility] Screw Spine Cervical DEPUY 1883-42- 200 / / Putty Demineralized Bone Matrix 10cc Dbx - [id number] - [id number] Implanted:Qty: 1 on 08/06/2019 by Dianne De MD at [facility] Tissue Spine Cervical MUSCULOSKELETAL TRANSPLANT FND 04/27/2021 [id number] / [id number] / Ic Graft Chamber Dbm 10cc - [id number] - [id number] Implanted:Qty: 1 on 04/28/2020 by Dianne De MD at [facility] Tissue Spine Lumbar LIFENET 11/14/2022 [id number] / [id number] / [id number] Description:Demineralized yany ne matrix and cancellous chips reconstituted with pts. blood Ic Graft Chamber Dbm 10cc - [id number] - [id number] Implanted:Qty: 1 on 04/28/2020 by Dianne De MD at [facility] Tissue Spine Lumbar LIFENET 11/14/2022 [id number] / [id number] / [id number] Description:Demineralized yany ne matrix and cancellous [...] Seronegative inflammatory arthritis QUANTIFERON-TB GOLD PLUS, 1 [id number] Routine 02/03/2025 2:42 PM EDT History of [...] Right anterior shoulder pain Seronegative inflammatory arthritis MI ARTHROCENTESIS ASPIR&/INJ MAJOR JT/BURSA W/O US Routine [...] Plus, 1 Tube (02/03/2025 2:42 PM EDT) [facility] QuantiFERON-TB Gold Plus NEGATIVE NEGATIVE 02/05/2025 4:16 AM EDT [facility] Comment: Negative test result. M. tuberculosis complex infection unlikely. NIL 0.16 IU/mL 02/05/2025 4:16 AM EDT [facility] Mitogen-NIL >10.00 IU/mL 02/05/2025 4:16 AM EDT [facility] TB1-NIL <0.00 IU/mL 02/05/2025 4:16 AM EDT [facility] TB2-NIL 0.01 IU/mL 02/05/2025 4:16 AM EDT [facility] Comment: The Nil tube value reflects [...] T-lymphocytes. For additional information, please refer to https://education.FiberSensing/faq/DQZ290 (This link is being provided for informational/ educational purposes only.) Blood Structure of peripheral vein / Unknown Venipuncture / Unknown 02/03/2025 2:42 PM EDT 02/03/2025 2:53 PM EDT [facility] - 02/05/2025 4:16 AM EDT [facility] Received Date: us Gary Angela MD LAB BLOOD ORDERABLES Final Result [facility] [address] [facility] [address]rd Floor, [place] [address], [place] [phone] [facility] [address] [facility] 3rd Floor, [place] [address], [place] [phone] * (ABNORMAL) CBC Auto Differential (02/03/2025 2:42 PM EDT) WBC 13.2(H) 3.8 - 10.8 10*3/uL 02/03/2025 3:04 PM EDT [facility] RBC 4.48 4.20 - 5.80 10*6/uL 02/03/2025 3:04 PM EDT [facility] Hemoglobin 13.4 13.2 - 17.1 g/dL 02/03/2025 3:04 PM EDT [facility] Hematocrit 41.5 38.5 - 50.0 % 02/03/2025 3:04 PM EDT [facility] MCV 92.6 80.0 - 100.0 fL 02/03/2025 3:04 PM EDT [facility] MCH 29.9 27.0 - 33.0 pg 02/03/2025 3:04 PM EDT [facility] MCHC 32.3 32.0 - 36.0 g/dL 02/03/2025 3:04 PM EDT [facility] RDW 13.6 11.0 - 15.0 % 02/03/2025 3:04 PM EDT [facility] Platelets 415(H) 140 - 400 10*3/uL 02/03/2025 3:04 PM EDT [facility] MPV 8.0 7.5 - 12.5 fL 02/03/2025 3:04 PM EDT [facility] Neutrophil % 62.4 % 02/03/2025 3:04 PM EDT [facility] Immature Grans % 1.2(H) 0.0 - 0.9 % 02/03/2025 3:04 PM EDT [facility] Lymphocyte % 26.2 % 02/03/2025 3:04 PM EDT [facility] Monocyte % 7.5 % 02/03/2025 3:04 PM EDT [facility] Eosinophil % 2.2 % 02/03/2025 3:04 PM EDT [facility] Basophil % 0.5 % 02/03/2025 3:04 PM EDT [facility] Neutrophil # 8.20(H) 1.50 - 7.80 10*3/uL 02/03/2025 3:04 PM EDT [facility] Immature Grans # 0.16(H) <=0.03 10*3/uL 02/03/2025 3:04 PM EDT [facility] Lymphocyte # 3.50 0.85 - 3.90 10*3/uL 02/03/2025 3:04 PM EDT [facility] Monocyte # 1.00(H) 0.20 - 0.95 10*3/uL 02/03/2025 3:04 PM EDT [facility] Eosinophil # 0.30 0.02 - 0.50 10*3/uL 02/03/2025 3:04 PM EDT [facility] Basophil # 0.10 0.00 - 0.20 10*3/uL 02/03/2025 3:04 PM EDT [facility] nRBC % 0.0 /100 WBCs 02/03/2025 3:04 PM EDT [facility] nRBC # <0.01 <0.01 10*3/uL 02/03/2025 3:04 PM EDT [facility] Blood Structure of peripheral vein / Unknown Venipuncture / Unknown 02/03/2025 2:42 PM EDT 02/03/2025 2:53 PM EDT Gary Angela MD LAB BLOOD ORDERABLES Final Result Performing Organization Address [facility] Co de Phone Number [facility] [address] [place] [address], [place] * Cyclic Citrullinated Peptide (CCP) Antibody, IgG (02/03/2025 2:42 PM EDT) Pathologist [facility] Cyclic Citrullinated Peptide (CCP) Ab (IgG) <16 UNITS 02/07/2025 7:16 PM EDT [employer] Comment: Reference Range Negative: ?<20 Weak Positive: ? 20-39 Moderate Positive: ?? 40-59 Strong Positive: ? >59 Blood Structure of peripheral vein / Unknown Venipuncture / Unknown 02/03/2025 2:42 PM EDT 02/03/2025 2:54 PM EDT [facility] - 02/07/2025 7:16 PM EDT [facility] Received Date: Gayr Angela MD LAB BLOOD ORDERABLES Final Result Performing Organization Address City/[facility] Co de Phone Number [facility] [address] [facility] [address], [place] [address], [place] [phone] [facility] [address] [facility] [address]rd Floor, [place] [address], [place] [phone] * Hepatitis C Antibody w/Reflex to HCV RNA, Quantitative PCR (02/03/2025 2:42 PM EDT) Hepatitis C Antibody NON-REACT YENNI NON-REACT YENNI 02/04/2025 1:32 AM EDT [facility] Comment: HCV antibody was non-reactive. There is no laboratory evidence of HCV infection. In most cases, no further action is required. However, if recent HCV exposure is suspected, a test for HCV RNA (test code 56226) is suggested. For additional information please refer to http://Evernote.FiberSensing/faq/DGJ50e5 (This link is being provided for informational/ educational purposes only.) Blood Structure of peripheral vein / Unknown Venipuncture / Unknown 02/03/2025 2:42 PM EDT 02/03/2025 2:54 PM EDT Narrative [facility] - 02/04/2025 1:32 AM EDT [facility] Received Date: us Gary Angela MD LAB BLOOD ORDERABLES Final Result Performing Organization Address City/[facility]/ZIP Co de Phone Number [facility] [address], [place] [address], [place] [phone] [facility] [address], [place] [address], [place] [phone] * Hepatitis B Core Antibody, Total (02/03/2025 2:42 PM EDT) Hepatitis B Core Ab Total NON-REACT YENNI NON-REACT YENNI 02/04/2025 1:30 AM EDT [facility] Comment: For additional information, please refer to http://Evernote.FiberSensing/faq/CHR217 (This link is being provided for informational/ educational purposes only.) Blood Structure of peripheral vein / Unknown Venipuncture / Unknown 02/03/2025 2:42 PM EDT 02/03/2025 2:54 PM EDT Narrative [facility] - 02/04/2025 1:30 AM EDT [facility] Received Date: us Gary Angela MD LAB BLOOD ORDERABLES Final Result Performing Organization Address City/[facility]/ZIP Co de Phone Number [address], [place] [address], [facility] [address], [place] [address], * (ABNORMAL) Hepatitis B Surface Antibody (02/03/2025 2:42 PM EDT) Hepatitis B Surface Ab Immunity, Qn <5(L) > OR = 10 mIU/mL 02/04/2025 2:39 AM EDT [facility] Comment: PATIENT DOES NOT HAVE IMMUNITY TO HEPATITIS B VIRUS. For additional information, please refer to http://Evernote.FiberSensing/faq/UUX494 (This link is being provided for informational/ educational purposes only). Blood Structure of peripheral vein / Unknown Venipuncture / Unknown 02/03/2025 2:42 PM EDT 02/03/2025 2:54 PM EDT [facility] - 02/04/2025 2:39 AM EDT [facility] Received Date: Gary Angela MD LAB BLOOD ORDERABLES Final Result [facility] [address] [facility] [address], [place] [address], [facility] [address], [place] [address], * Hepatitis B Surface Antigen W/Confirmation (02/03/2025 2:42 PM EDT) Pathologist [facility] Hepatitis B Surface Antigen NON-REACT YENNI NON-REACT YENNI 02/04/2025 2:39 AM EDT [facility] Comment: For additional information, please refer to http://Evernote.FiberSensing/faq/IHR158 (This link is being provided for informational/ educational purposes only.) Blood Structure of peripheral vein / Unknown Venipuncture / Unknown 02/03/2025 2:42 PM EDT 02/03/2025 2:54 PM EDT [facility] - 02/04/2025 2:39 AM EDT [facility] Received Date: Gary Angela MD LAB BLOOD ORDERABLES Final Result [facility] [address] [facility] [address], [place] [address], [place] [phone] [facility] [address] [facility] 3rd Floor, [place] [address], [place] [phone] * (ABNORMAL) Sedimentation Rate (02/03/2025 2:42 PM EDT) Sed Rate 28(H) <20 mm/Hr mm/Hr 02/03/2025 3:10 PM EDT [facility] Blood Structure of peripheral vein / Unknown Venipuncture / Unknown 02/03/2025 2:42 PM EDT 02/03/2025 2:53 PM EDT Gary Angela MD LAB BLOOD ORDERABLES Final Result Performing Organization Address City/[facility]/ZIP Co de Phone Number [facility] [address] [place] [phone], [place] * Rheumatoid Factor (02/03/2025 2:42 PM EDT) Rheumatoid Factor <10 <14 IU/mL 02/04/2025 12:59 AM EDT [facility] Blood Structure of peripheral vein / Unknown Venipuncture / Unknown 02/03/2025 2:42 PM EDT 02/03/2025 2:54 PM EDT [facility] - 02/04/2025 12:59 AM EDT [facility] Received Date: us Gary Angela MD LAB BLOOD ORDERABLES Final Result [facility] [address] [facility] [address], [place] [address], [place] [phone] [facility] [address], [place] [address], [place] [phone] * C-Reactive Protein (02/03/2025 2:42 PM EDT) C Reactive Protein 9.5 <=9.9 mg/L 02/03/2025 3:44 PM EDT [facility] Blood Structure of peripheral vein / Unknown Venipuncture / Unknown 02/03/2025 2:42 PM EDT 02/03/2025 2:54 PM EDT Gary Angela MD LAB BLOOD ORDERABLES Final Result Performing Organization Address [facility] Co de Phone Number [facility] [address] [place] [address], [place] * AST (02/03/2025 2:42 PM EDT) Pathologist [facility] AST 25 10 - 40 U/L 02/03/2025 3:44 PM EDT [facility] Blood Structure of peripheral vein / Unknown Venipuncture / Unknown 02/03/2025 2:42 PM EDT 02/03/2025 2:54 PM EDT Gary Angela MD LAB BLOOD ORDERABLES Final Result Performing Organization Address [facility]/ZIP Co de Phone Number [facility] [address] [place] [address], [place] * Creatinine (02/03/2025 2:42 PM EDT) Creatinine 0.71 0.60 - 1.30 mg/dL 02/03/2025 3:44 PM EDT [facility] eGFR >90 >=60 mL/min/1. 73m2 02/03/2025 3:44 PM EDT [facility] Comment:The estimated glomer [...] BLOOD ORDERABLES Final Result Performing Organization Address City/State/[facility] Co de Phone Number [facility] [address] [place] [address], [place] * XR Foot 3+ vw Right [...] obtain the completed interpretation. ? Workstation ID: [id number] Narrative 02/03/2025 2:46 PM EDT COMPARISON: ??There are no prior studies available for comparison at this time. ?? FINDINGS AND Resulting Agency Comment [id number] Procedure Note Reyna Heath MD - 02/03/2025 [...] possible to obtain thecompleted interpretation. Workstation ID: [id number] us Gary Angela MD IMG XR PROCEDURES [...] obtain the completed interpretation. ? Workstation ID: [id number] Narrative 02/03/2025 2:46 PM EDT COMPARISON: ??There are no prior studies available for comparison at this time. ?? FINDINGS AND Resulting Agency Comment [id number] Procedure Note Reyna Heath MD - 02/03/2025 [...] possible to obtain thecompleted interpretation. Workstation ID: [id number] us Gary Angela MD IMG XR PROCEDURES [...] obtain the completed interpretation. ? Workstation ID: [id number] Narrative 02/03/2025 2:46 PM EDT COMPARISON: ??There are no prior studies available for comparison at this time. ?? FINDINGS AND Resulting Agency Comment [id number] Procedure Note Reyna Heath MD - 02/03/2025 [...] possible to obtain thecompleted interpretation. Workstation ID: [id number] us Gary Angela MD IMG XR PROCEDURES [...] obtain the completed interpretation. ? Workstation ID: [id number] Narrative 02/03/2025 2:46 PM EDT COMPARISON: ??There are no prior studies available for comparison at this time. ?? FINDINGS AND Resulting Agency Comment [id number] Procedure Note Reyna Heath MD - 02/03/2025 [...] possible to obtain thecompleted interpretation. Workstation ID: [id number] us Gary Angela MD IMG XR PROCEDURES Final Re sult * [place] ARTHROCENTESIS ASPIR&/INJ MAJOR JT/BURSA W/O US (01/13/2025 [...] Patient's understanding of procedure matches consent: Yes [place] Protocol: ? Procedure consent matches procedure scheduled: [...] - 145 mmol/L 06/21/2024 7:17 AM EDT [facility] K 4.0 3.5 - 5.3 mmol/L 06/21/2024 7:17 AM [facility] Cl 104 98 - 107 mmol/L 06/21/2024 7:17 AM [facility] CO2 24 24 - 32 mmol/L 06/21/2024 7:17 AM [facility] BUN 15 7 - 23 mg/dL 06/21/2024 7:17 AM [facility] Creatinine 0.74 0.60 - 1.30 mg/dL 06/21/2024 7:17 AM [facility] Glucose 116(H) 65 - 99 mg/dL 06/21/2024 7:17 AM [facility] Calcium 9.7 8.6 - 10.5 mg/dL 06/21/2024 7:17 AM [facility] Anion Gap 12 5 - 15 06/21/2024 7:17 AM [facility] eGFR >90 >=60 mL/min/1. 73m2 06/21/2024 7:17 AM [facility] Comment:The estimated glomer ular [...] Kauffman MD LAB BLOOD ORDERABLES Final Result [facility] [address] [place] [address], [place] * COLONOSCOPY (05/20/2024) Narrative Procedure Note Justo El MD PhD - 05/20/2024 9:25 AM EDT [facility] Gastroenterology Patient Name: Juan Alcazarhilda Procedure Date: 05/20/2024 9:25 AM Date of : 1955 Admit Type: Outpatient Age: 69 Room: [place] [address] Gender: Male Note Status: Finalized Attending MD: [...] obtain the completed interpretation. ? Workstation ID: [id number] Up-to-date CT equipment and radiation dose reduction [...] evidence for recurrent hernia. Resulting Agency Comment [id number] Procedure Note Iain Jain MD - 01/18/2023 [...] possible to obtain thecompleted interpretation. Workstation ID: [id number] Up-to-date CT equipment and radiation dose reduction [...] or willingness to have curative lung surgery [id number] Up-to-date CT equipment and radiation dose reduction techniques were employed. CTDIvol: 5.6 - 16.0 mGy. DLP: 541 mGy-cm.The following accession numbers are related to this dose report [id number] Narrative 06/20/2018 1:28 PM EDT EXAMINATION: CT [...] cancer screening guidelines, please refer to:https://www.uspreventiveservicestaskforce.org/Page/Document/UpdateSummaryFina l/ruby o-stqjjt-wablvhgjt Adults Aged 55-77, with a History of [...] or willingness to have curative lung surgery [id number] Up-to-date CT equipment and radiation dose reduction techniques wereemployed. CTDIvol: 5.6 - 16.0 mGy. 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
--- OUTSIDE RECORDS SUMMARY | 2025-02-15 12:12 | XMS_ITS | Encounter Summary ---
Author Organization [facility] Address [address] [place] [address] Care Team Providers Care Cafe Aide Name Role Phone IgorSaulo Joy Primary Care Provider [phone] Encounter Details Date Type Department Care Team (Late st Contact Info) Description 04/29/2023 [employer] Message [facility] Revenue Cycle Management [address] [place] [phone] [employer], Generic Provider [address] [place] [phone] account dispute Social History Tobacco Use [...] Info) Description 07/07/2025 10:00 AM EDT Follow-Up [facility] [address] [place] [address] Correctional Supervisor: Paul Leger MD [address] [place] [address] documented as of this encounter Visit Diagnoses Not on filedocumented in this encounter Additional Health Concerns Infection Onset Date Last Indicated Resolved Time 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
--- OUTSIDE RECORDS SUMMARY | 2025-02-15 12:12 | XMS_ITS | Encounter Summary ---
Author Organization [facility] Address [address] [place] [address] Care Team Providers Care Director Network Development Name Role Phone IgorSaulo Joy Primary Care Provider [phone] Encounter Details Date Type Department Care Team (Late st Contact Info) Description 02/26/2022 Orders Only [facility] Interventional Radiology [address] [place] [address] Reagan Mendoza NP [address] [place], [place] [id number] Social History Tobacco Use Types Packs/Day Years [...] of spinal canal ??? Colon cancer (CMS/HCC) ([facility]) age 49, s/p patial colectomy, no chemo or radiation ??? COPD (chronic obstructive pulmonary disease) ([facility]) no overnight hospitilizations, no intubations, symbicort [...] SURGERY ONLY; Surgeon: Dianne De MD; Location: [facility] OR; Service: Neurosurgery ??? [place] ARTHRODESIS POSTERIOR/POSTERIORLATERAL [...] Info) Description 07/07/2025 10:00 AM EDT Follow-Up 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
--- OUTSIDE RECORDS SUMMARY | 2025-02-15 12:12 | XMS_ITS | Encounter Summary ---
Author Organization [facility] Address [address] [place] [address] Care Team Providers Care Engraver Tender Name Role Phone IgroSaulo Joy Primary Care Provider [phone] Reason for Visit * Reason Onset Date Comments PAC Appt Request - New 02/28/2023 Encounter Details Date Type Department Care Team (Late st Contact Info) Description 02/28/2023 Telephone [facility] Patient Access [facility] [address] [place] [phone] Telephone Intake, Staff PAC Appt Request - [...] encounter Miscellaneous Notes * Telephone Encounter - Dahra Yolanda Lloyd - 02/28/2023 11:45 AM EDT New pt being referred to Rheum for PMR DT states to send TE to admins if no availability within 7 days, Patient has been scheduled for next available which was 05/12 @ 8:30 am Pt can be reached @ [phone] Thank you PAC documented in this encounter Plan of Treatment Upcoming Encounters Date Type Department Care Team (Late st Contact Info) Description 07/07/2025 10:00 AM EDT Follow-Up [facility]ology [facility] [address] [place] [address] Structural Engineering Technician: Paul Leegr MD [address] [place] [address] documented as of this encounter Visit Diagnoses Not on filedocumented in this encounter Additional Health Concerns Infection Onset Date Last Indicated Resolved Time 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
--- OUTSIDE RECORDS SUMMARY | 2025-02-15 12:12 | XMS_ITS | Clinical Summary ---
Author Organization [address] [facility] Address [address] [place] [address] Phone Care Team Providers Care Cutting Machine Operator Name Role Phone Joy March MD Primary Care Provider [phone] Encounters Date Type Department Care Team Description 01/07/2025 Lab Requisition [facility] - Main Lab [address] [facility] [place] [address] Bre Humphries NP Other retention [...] and susceptibility, aerobic (01/06/2025 10:25 AM EDT) [facility] Culture, Bacterial ID and Sensitivity Klebsiella pneumoniae [...] KYRA >=320 ug/ml: Resistant us Bre Humphries VOLCANOLOGY TEACHER LAB MICROBIOLOGY - GENERA L ORDERABLES Final Result [facility] [address] [place] [address], [place] [phone] from Last 3 Months Additional Health Concerns Infection Onset Date Last Indicated ESBL 01/06/2025 01/06/2025 Insurance MEDICARE [facility] Care Teams Cutting Machine Operator Relationship Specialty Start Date End Date Joy March MD [address] [place] [address] PCP - General Internal Medicine 01/07/25
--- OUTSIDE RECORDS SUMMARY | 2025-02-15 12:12 | XMS_ITS | Encounter Summary ---
Author Organization [facility] Address [address] [place] [address] Care Team Providers Care Clinical Laboratory Medical Director Name Role Phone IgorSaulo Joy Primary Care Provider [phone] Reason for Visit * Reason Onset Date Comments PAC Rx Questions 03/05/2024 Encounter Details Date Type Department Care Team (Late st Contact Info) Description 03/05/2024 Telephone [facility] Patient Access Center [address] [place] [address] Telephone Intake, Staff PAC Rx Questions Social [...] 03/05/2024 11:17 AM EDT Liam calling from [facility] is regard to pts prednisone, They need to clarify which dose & directs should be prescribed to pt as they received two. 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
--- OUTSIDE RECORDS SUMMARY | 2025-02-15 12:12 | XMS_ITS | Encounter Summary ---
Author Organization [facility] Address [address] [place] [address] Care Team Providers Care Magistrate Assistant Name Role Phone Joy March MD Primary Care Provider [phone] Encounter Details Date Type Department Care Team (Late st Contact Info) Description 01/07/2025 Lab Requisition [facility] - Main Lab [address] [place] [address] Bre Humphries NP [address] [facility] [address] [place] [address] Other retention of urine Social History Tobacco [...] pneumoniae ESBL(A) KYRA 01/09/2025 8:50 AM EDT [facility] Comment: THIS ORGANISM IS POSITIVE [...] le KYRA >=320 ug/ml: Resistant Bre Humphries TIP PRINTER LAB MICROBIOLOGY - GENERA L ORDERABLES Final Result [facility] H[facility]PITAL LAB [address] [place] [address], documented in this encounter Visit Diagnoses Diagnosis Other retention of urine documented in this encounter Additional Health Concerns Infection Onset Date Last Indicated Resolved Time ESBL 01/06/2025 01/06/2025 documented as of this encounter Care Teams Magistrate Assistant Relationship Specialty Start Date End Date Joy March MD [address] [place] [address] PCP - General Internal Medicine 01/07/25 documented as of this encounter
--- OUTSIDE RECORDS SUMMARY | 2025-02-15 12:12 | XMS_ITS | Encounter Summary ---
Author Organization [facility] Address [address] [place] [address] Care Team Providers Care Digital Editor Name Role Phone IgorJoy [place] Primary Care Provider [phone] Reason for Visit * Reason Onset Date Comments Scheduling Appointment 11/17/2020 Encounter Details Date Type Department Care Team (Late st Contact Info) Description 11/17/2020 Telephone [facility] [address] [place] [address] Telephone Intake, Staff Scheduling Appointment Social History [...] were not included. MD Mara Morris; P [facility] Neurology Admin Staff Pt was following [...] Info) Description 07/07/2025 10:00 AM EDT Follow-Up [facility] Rhe[facility]ology [facility] [address] [place] [address] Jewel Bearing Polisher: Paul Leger MD [address] [place] [phone] documented as of this encounter Visit Diagnoses [...] documented as of this encounter Care Teams Digital Editor Relationship Specialty Start Date End Date Joy March [address] [place] [address] PCP - General Family Medicine 02/03/25 documented as of this encounter
--- OUTSIDE RECORDS SUMMARY | 2025-02-15 12:12 | XMS_ITS | Referral Summary ---
Author Organization [facility] Address [address] [place] [address] Care Team Providers Care Forming Fixer Name Role Phone IgorJoy Vernon Primary Care Provider [phone] Encounters Date Type Department Care Team Description 02/03/2025 2:05 PM EDT - 02/03/2025 11:59 PM EDT Hospital Encounter [facility] XRay [address] [place] [address] Gary Angela MD Discharge Disposition: Home or Self Care () 02/03/2025 1:30 PM EDT Follow-Up [facility] Rheumatology [facility] [address] [place] [address] Supervisor [employer]: Paul Leger MD History of polymyalgia rheumatica (Primary Dx); Right anterior shoulder pain; Seronegative inflammatory arthritis 01/31/2025 Telephone [facility] Rhe[facility] [address] [place] [address] Supervisor [employer]: Rossy Gongora Telephone Intake, Staff PAC RX Refill-- Dr Franklin 01/13/2025 11:30 AM EDT Follow-Up [facility] [address] [place] [address] Supervisor [employer]: Paul Leger MD History of polymyalgia rheumatica [...] a day Active adult disposable brief (Briefs) [facility] Briefs - large - use as directed once a day 30 each 09/04/20 21 Active gauze bandage 4 X 4 bandageIndicati ons:Neurogenic bladder, flaccid,Suprapu bic catheter (HCC) Patient requires supplies for daily care/maintenance to SPT site. 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 Uses 1 sterile 4x4 daily to clean SPT site. Ref. # MedLine Sponges, 10 per Box: [id number] 30 each 12/13/19 23 Active urinary bag [facility] Pt requires Bedside drainage bag changed every other week. 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 Given potential for this to have contributed [...] supplements MD Juan Martinez : 1955 CSN: [id number] Hyperglycemia 08/18/2019 Overview (08/18/2019): Due to steroids, [...] the AM for any further recs. Plan: -Higdon 5-10mg PO q6 hours PRN pain -NS [...] gerardo bowel movement in approximately 2 weeks MEDIA MARKETING DIRECTOR since a prior prep for colonoscopy in [...] GI following; apprec recs - NPO at [place] in case colo on Saturday 02/03 Vasovagal [...] 08/07/2019,06/09/2018,08/21/2017 Influenza, Trivalent, MDV, Injectable ,07/02/2013,07/20/2012,08/08,07/27/2009,08/30/2008,09/02/2007 Novel [id number]-[id number], Preservative-Free, Injectable 09/27/2009 Pneumococcal Conjugate Vacci ne, 13 Valent 03/07/2015 Pneumococcal Polysaccharide Vaccine, 23 Valent 07/31/2020,08/30/2008 Pneumococcal conjugate PCV20,polysaccharide YZM174 conjugate, adjuvant, PF (Prevnar 20) 06/05/2023 RSV, [...] drink = 0.6 oz pur e alcohol) [facility] Utilities Answer Date Recorded In the past 12 months has e 7 Cups of Tea, gas, oil, or water [employer] threatened to shut off services in your [...] Info) Description 07/07/2025 10:00 AM EDT Follow-Up [facility] Rheumat[facility] Clinic [address] [place] [address] Supervisor [employer]: Paul Leger MD [address] [place] [address] Medical Devices Implanted Type Area Shipping And Receiving Operator Device Identifier Shelf Expiration Date Model / Serial / Lot Mau Thoracolumbar [id number] Altaf - [id number] Implanted:Qty: 2 on 08/06/2019 by Dianne De MD at [facility] Implant Spine Cervical DEPUY 1883-16- 060 / / Connector Spinal Cross Thoracolumbar Head To Head Titanium 35mm Mountaineer - [id number] Implanted:Qty: 1 on 08/06/2019 by Dianne De MD at [facility] Implant Spine Cervical DEPUY 1883-41- 035 / / Nut Spinal Outer Connector Cross Head To Head Titanium Mountaineer - [id number] Implanted:Qty: 2 on 08/06/2019 by Dianne De MD at [facility] Implant Spine Cervical DEPUY 1883-41- 200 / / Nut Spinal Outer Connector Cross Head To Head Titanium Mountaineer - [id number] Implanted:Qty: 2 on 08/06/2019 by Dianne De MD at [facility] Implant Spine Cervical DEPUY 1883-41- 100 / / Screw Thoracic Favored Angle Titanium [id number] Mountaineer - [id number] Implanted:Qty: 7 on 08/06/2019 by Dianne De MD at [facility] Screw Spine Cervical DEPUY 1883-18- 312 / / Screw Thoracic Favored Angle Titanium 3.5gor34tk Mountaineer - [id number] Implanted:Qty: 1 on 08/06/2019 by Dianne De MD at [facility] Screw Spine Cervical DEPUY 1883-18- 316 / / Screw Thoracic Inner Mountaineer - [id number] Implanted:Qty: 6 on 08/06/2019 by Dianne De MD at [facility] Screw Spine Cervical DEPUY 1883-42- 200 / / Putty Demineralized Bone Matrix 10cc Dbx - [id number] - [id number] Implanted:Qty: 1 on 08/06/2019 by Dianne De MD at [facility] Tissue Spine Cervical MUSCULOSKELETAL TRANSPLANT FND 04/27/2021 [id number] / [id number] / Ic Graft Chamber Dbm 10cc - [id number] - [id number] Implanted:Qty: 1 on 04/28/2020 by Dianne De MD at [facility] Tissue Spine Lumbar LIFENET 11/14/2022 [id number] / [id number] / [id number] Description:Demineralized yany ne matrix and cancellous chips reconstituted with pts. blood Ic Graft Chamber [facility] 10cc - [id number] - [id number] Implanted:Qty: 1 on 04/28/2020 by Dianne De MD at [facility] Tissue Spine Lumbar LIFENET 11/14/2022 [id number] / [id number] / [id number] Description:Demineralized yany ne matrix and cancellous chips reconstituted with pts. blood Procedures * Due to [place] state law, this organization might not be [...] Seronegative inflammatory arthritis QUANTIFERON-TB GOLD PLUS, 1 [id number] Routine 02/03/2025 2:42 PM EDT History of [...] Right anterior shoulder pain Seronegative inflammatory arthritis TN ARTHROCENTESIS ASPIR&/INJ MAJOR JT/BURSA W/O US Routine [...] to Health Maintenance Results * Due to [place] state law, this organization might not be sharing negative HIV tests. * QuantiFERON-TB Gold Plus, 1 Tube (02/03/2025 2:42 PM EDT) [facility] QuantiFERON-TB Gold Plus NEGATIVE NEGATIVE 02/05/2025 4:16 AM EDT [employer] [facility] Comment: Negative test result. M. tuberculosis complex infection unlikely. NIL 0.16 IU/mL 02/05/2025 4:16 AM EDT [employer] [facility] Mitogen-NIL >10.00 IU/mL 02/05/2025 4:16 AM EDT [facility] [facility] TB1-NIL <0.00 IU/mL 02/05/2025 4:16 AM EDT [facility] [facility] TB2-NIL 0.01 IU/mL 02/05/2025 4:16 AM EDT [employer] [facility] Comment: The Nil tube value reflects [...] T-lymphocytes. For additional information, please refer to https://education.Wolf Pyros Pictures.Beyond Compliance/faq/NNK697 (This link is being provided for informational/ educational purposes only.) Blood Structure of peripheral vein / Unknown Venipuncture / Unknown 02/03/2025 2:42 PM EDT 02/03/2025 2:53 PM EDT [facility] - 02/05/2025 4:16 AM EDT [facility] Received Date: Gary Angela MD LAB BLOOD ORDERABLES Final Result [facility] [address] [facility] [address], [place] [address], [place] [phone] [employer] [facility] [address] [facility] [address], [place] [address], [place] [phone] * (ABNORMAL) CBC Auto Differential (02/03/2025 2:42 PM EDT) WBC 13.2(H) 3.8 - 10.8 10*3/uL 02/03/2025 3:04 PM EDT [facility] RBC 4.48 4.20 - 5.80 10*6/uL 02/03/2025 3:04 PM EDT [facility] Hemoglobin 13.4 13.2 - 17.1 g/dL 02/03/2025 3:04 PM EDT [facility] Hematocrit 41.5 38.5 - 50.0 % 02/03/2025 3:04 PM EDT [facility] MCV 92.6 80.0 - 100.0 fL 02/03/2025 3:04 PM EDT [facility] MCH 29.9 27.0 - 33.0 pg 02/03/2025 3:04 PM EDT [facility] MCHC 32.3 32.0 - 36.0 g/dL 02/03/2025 3:04 PM EDT [facility] RDW 13.6 11.0 - 15.0 % 02/03/2025 3:04 PM EDT [facility] Platelets 415(H) 140 - 400 10*3/uL 02/03/2025 3:04 PM EDT [facility] MPV 8.0 7.5 - 12.5 fL 02/03/2025 3:04 PM EDT [facility] Neutrophil % 62.4 % 02/03/2025 3:04 PM EDT [facility] Immature Grans % 1.2(H) 0.0 - 0.9 % 02/03/2025 3:04 PM EDT [facility] Lymphocyte % 26.2 % 02/03/2025 3:04 PM EDT [facility] Monocyte % 7.5 % 02/03/2025 3:04 PM EDT [facility] Eosinophil % 2.2 % 02/03/2025 3:04 PM EDT [facility] Basophil % 0.5 % 02/03[facility]2025 [facility] Neutrophil # 8.20(H) 1.50 - 7.80 10*3/uL 02/03/2025 3:04 PM EDT [facility] Immature Grans # 0.16(H) <=0.03 10*3/uL 02/03/2025 3:04 PM EDT [facility] Lymphocyte # 3.50 0.85 - 3.90 10*3/uL 02/03/2025 3:04 PM EDT [facility] Monocyte # 1.00(H) 0.20 - 0.95 10*3/uL 02/03/2025 3:04 PM EDT [facility] Eosinophil # 0.30 0.02 - 0.50 10*3/uL 02/03/2025 3:04 PM EDT [facility] Basophil # 0.10 0.00 - 0.20 10*3/uL 02/03/2025 3:04 PM EDT [facility] nRBC % 0.0 /100 WBCs 02/03/2025 3:04 PM [facility] nRBC # <0.01 <0.01 10*3/uL 02/03/2025 3:04 PM EDT [facility] Blood Structure of peripheral vein / Unknown Venipuncture / Unknown 02/03/2025 2:42 PM EDT 02/03/2025 2:53 PM EDT Gary Angela MD LAB BLOOD ORDERABLES Final Result Performing Organization Address [facility] Co de Phone Number [facility] [address] [place] [address], [place] * Cyclic Citrullinated Peptide (CCP) Antibody, IgG (02/03/2025 2:42 PM EDT) Cyclic Citrullinated Peptide (CCP) Ab (IgG) <16 UNITS 02/07/2025 7:16 PM EDT [facility] Comment: Reference Range Negative: ?<20 Weak Positive: ? 20-39 Moderate Positive: ?? 40-59 Strong Positive: ? >59 Blood Structure of peripheral vein / Unknown Venipuncture / Unknown 02/03/2025 2:42 PM EDT 02/03/2025 2:54 PM EDT Narrative [facility] - 02/07/2025 7:16 PM EDT [facility] Received Date: Gary Angela MD LAB BLOOD ORDERABLES Final Result Performing Organization Address [facility] de Phone Number [facility] [address] [facility] [address] [facility] [place] [address], [employer] [facility] [address], [place] [address], [place] [phone] * Hepatitis C Antibody w/Reflex to HCV RNA, Quantitative PCR (02/03/2025 2:42 PM EDT) Pathologist [facility] Hepatitis C Antibody NON-REACT YENNI NON-REACT YENNI 02/04/2025 1:32 AM EDT [facility] Comment: HCV antibody was non-reactive. There is no laboratory evidence of HCV infection. In most cases, no further action is required. However, if recent HCV exposure is suspected, a test for HCV RNA (test code 21219) is suggested. For additional information please refer to http://ShareMeister.Occipital/faq/OGM37c5 (This link is being provided for informational/ educational purposes only.) Blood Structure of peripheral vein / Unknown Venipuncture / Unknown 02/03/2025 2:42 PM EDT 02/03/2025 2:54 PM EDT Narrative [facility] - 02/04/2025 1:32 AM EDT [facility] Received Date: us Gary Angela MD LAB BLOOD ORDERABLES Final Result Performing Organization Address City/[facility]/ZIP Co de Phone Number MARTHA [address], [place] [address], [place] [phone] [employer] [facility] [employer] [address], [facility] [place] [address], [place] [phone] * Hepatitis B Core Antibody, Total (02/03/2025 2:42 PM EDT) Hepatitis B Core Ab Total NON-REACT YENNI NON-REACT YENNI 02/04/2025 1:30 AM EDT [employer] [facility] Comment: For additional information, please refer to http://ShareMeister.Occipital/faq/SZY502 (This link is being provided for informational/ educational purposes only.) Blood Structure of peripheral vein / Unknown Venipuncture / Unknown 02/03/2025 2:42 PM EDT 02/03/2025 2:54 PM EDT Narrative [facility] - 02/04/2025 1:30 AM EDT [facility] Received Date: us Gary Angela MD LAB BLOOD ORDERABLES Final Result Performing Organization Address City/[facility]/ZIP Co de Phone Number [facility]THA [facility] [address], [place] [address], [place] [phone] [employer] [facility] [employer] [address], [place] [address], * (ABNORMAL) Hepatitis B Surface Antibody (02/03/2025 2:42 PM EDT) Pathologist [facility] Hepatitis B Surface Ab Immunity, Qn <5(L) > OR = 10 mIU/mL 02/04/2025 2:39 AM EDT [facility] Comment: PATIENT DOES NOT HAVE IMMUNITY TO HEPATITIS B VIRUS. For additional information, please refer to http://ShareMeister.Occipital/faq/SFK853 (This link is being provided for informational/ educational purposes only). Blood Structure of peripheral vein / Unknown Venipuncture / Unknown 02/03/2025 2:42 PM EDT 02/03/2025 2:54 PM EDT Narrative [employer] [facility] - 02/04/2025 2:39 AM EDT [facility] Received Date: Gary Angela MD LAB BLOOD ORDERABLES Final Result [facility] [address], [place] [address], [employer] [facility] [address], [place] [address], [place] [phone] * Hepatitis B Surface Antigen W/Confirmation (02/03/2025 2:42 PM EDT) [facility] Hepatitis B Surface Antigen NON-REACT YENNI NON-REACT YENNI 02/04/2025 2:39 AM EDT [facility] Comment: For additional information, please refer to http://ShareMeister.Occipital/faq/OZF247 (This link is being provided for informational/ educational purposes only.) Blood Structure of peripheral vein / Unknown Venipuncture / Unknown 02/03/2025 2:42 PM EDT 02/03/2025 2:54 PM EDT Narrative [employer] [facility] - 02/04/2025 2:39 AM EDT [facility] Received Date: Gary Angela MD LAB BLOOD ORDERABLES Final Result [facility] [address] [facility] [address], [place] [address], [place] [phone] [facility] [address] [facility] [address], [place] [address], [place] [phone] * (ABNORMAL) Sedimentation Rate (02/03/2025 2:42 PM EDT) Sed Rate 28(H) <20 mm/Hr mm/Hr 02/03/2025 3:10 PM EDT [facility] Blood Structure of peripheral vein / Unknown Venipuncture / Unknown 02/03/2025 2:42 PM EDT 02/03/2025 2:53 PM EDT Gary Angela MD LAB BLOOD ORDERABLES Final Result [facility] [address] [place] [address], * Rheumatoid Factor (02/03/2025 2:42 PM EDT) Rheumatoid Factor <10 <14 IU/mL 02/04/2025 12:59 AM EDT [employer] [facility] Blood Structure of peripheral vein / Unknown Venipuncture / Unknown 02/03/2025 2:42 PM EDT 02/03/2025 2:54 PM EDT Narrative [facility] - 02/04/2025 12:59 AM EDT [facility] Received Date: Gary Angela MD LAB BLOOD ORDERABLES Final Result [facility] [address] [facility] [address], [place] [address], [place] [phone] [facility] [address] [facility] [address], [place] [address], * C-Reactive Protein (02/03/2025 2:42 PM EDT) C Reactive Protein 9.5 <=9.9 mg/L 02/03/2025 3:44 PM EDT [facility] Blood Structure of peripheral vein / Unknown Venipuncture / Unknown 02/03/2025 2:42 PM EDT 02/03/2025 2:54 PM EDT Gary Angela MD LAB BLOOD ORDERABLES Final Result Performing Organization Address City/[facility]/ZIP Co de Phone Number [facility] [address] [place] [address], [place] * AST (02/03/2025 2:42 PM EDT) AST 25 10 - 40 U/L 02/03/2025 3:44 PM EDT [facility] Blood Structure of peripheral vein / Unknown Venipuncture / Unknown 02/03/2025 2:42 PM EDT 02/03/2025 2:54 PM EDT Gary Angela MD LAB BLOOD ORDERABLES Final Result Performing Organization Address City/[facility]/ZIP Co de Phone Number [facility] [address] [place] [address], [place] * Creatinine (02/03/2025 2:42 PM EDT) Creatinine 0.71 0.60 - 1.30 mg/dL 02/03/2025 3:44 PM EDT [facility] eGFR >90 >=60 mL/min/1. 73m2 02/03/2025 3:44 PM EDT [facility] Comment:The estimated glomer ular [...] BLOOD ORDERABLES Final Result Performing Organization Address City/State/[facility] Co de Phone Number [facility] [address] [place] [address], [place] * XR Foot 3+ vw Right [...] obtain the completed interpretation. ? Workstation ID: [id number] Narrative 02/03/2025 2:46 PM EDT COMPARISON: ??There are no prior studies available for comparison at this time. ?? FINDINGS AND Resulting Agency Comment [id number] Procedure Note Reyna Heath MD - 02/03/2025 [...] possible to obtain thecompleted interpretation. Workstation ID: [id number] us Gary Angela MD IMG XR PROCEDURES [...] obtain the completed interpretation. ? Workstation ID: [id number] Narrative 02/03/2025 2:46 PM EDT COMPARISON: ??There are no prior studies available for comparison at this time. ?? FINDINGS AND Resulting Agency Comment [id number] Procedure Note Reyna Heath MD - 02/03/2025 [...] possible to obtain thecompleted interpretation. Workstation ID: [id number] us Gary Angela MD IMG XR PROCEDURES [...] obtain the completed interpretation. ? Workstation ID: [id number] Narrative 02/03/2025 2:46 PM EDT COMPARISON: ??There are no prior studies available for comparison at this time. ?? FINDINGS AND Resulting Agency Comment [id number] Procedure Note Reyna Heath MD - 02/03/2025 [...] possible to obtain thecompleted interpretation. Workstation ID: [id number] us Gary Angela MD IMG XR PROCEDURES [...] obtain the completed interpretation. ? Workstation ID: [id number] Narrative 02/03/2025 2:46 PM EDT COMPARISON: ??There are no prior studies available for comparison at this time. ?? FINDINGS AND Resulting Agency Comment [id number] Procedure Note Reyna Heath MD - 02/03/2025 [...] possible to obtain thecompleted interpretation. Workstation ID: [id number] us Gary Angela MD IMG XR PROCEDURES Final Re sult * TN ARTHROCENTESIS ASPIR&/INJ MAJOR JT/BURSA W/O [place] (01/13/2025 [...] Patient's understanding of procedure matches consent: Yes [place] Protocol: ? Procedure consent matches procedure scheduled: [...] - 145 mmol/L 06/21/2024 7:17 AM EDT [facility] K 4.0 3.5 - 5.3 mmol/L 06/21/2024 7:17 AM EDT [facility] Cl 104 98 - 107 mmol/L 06/21/2024 7:17 AM EDT [facility] CO2 24 24 - 32 mmol/L 06/21/2024 7:17 AM EDT [facility] BUN 15 7 - 23 mg/dL 06/21/2024 7:17 AM EDT [facility] Creatinine 0.74 0.60 - 1.30 mg/dL 06/21/2024 7:17 AM EDT [facility] Glucose 116(H) 65 - 99 mg/dL 06/21/2024 7:17 AM EDT [facility] Calcium 9.7 8.6 - 10.5 mg/dL 06/21/2024 7:17 AM T [facility] Anion Gap 12 5 - 15 06/21/2024 7:17 AM EDT [facility] eGFR >90 >=60 mL/min/1. 73m2 06/21/2024 7:17 AM T [facility] Comment:The estimated glomer ular [...] AM EDT 06/21/2024 6:55 AM EDT us Shanu Kauffman MD LAB BLOOD ORDERABLES Final Result [facility] [address] [place] [address], [place] * COLONOSCOPY (05/20/2024) Narrative Procedure Note Justo El MD PhD - 05/20/2024 9:25 AM EDT [facility] Patient Name: Juan Rubin Procedure Date: 05/20/2024 9:25 AM Date of : 1955 Admit Type: Outpatient Age: 69 Room: [place] [address] Gender: Male Note Status: Finalized Attending MD: [...] obtain the completed interpretation. ? Workstation ID: [id number] Up-to-date CT equipment and radiation dose reduction [...] evidence for recurrent hernia. Resulting Agency Comment [id number] Procedure Note Iain Jain MD - 01/18/2023 [...] possible to obtain thecompleted interpretation. Workstation ID: [id number] Up-to-date CT equipment and radiation dose reduction [...] or willingness to have curative lung surgery [id number] Up-to-date CT equipment and radiation dose reduction techniques were employed. CTDIvol: 5.6 - 16.0 mGy. DLP: 541 mGy-cm.The following accession numbers are related to this dose report [id number] Narrative 06/20/2018 1:28 PM EDT EXAMINATION: CT [...] cancer screening guidelines, please refer to:https://[email or web address]/Page/Document/UpdateSummaryFina l/ruby [email or web address]-[email or web address]-[email or web address] Adults Aged 55-77, with a History of [...] or willingness to have curative lung surgery [id number] Up-to-date CT equipment and radiation dose reduction techniques wereemployed. CTDIvol: 5.6 - 16.0 mGy. 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
--- OUTSIDE RECORDS SUMMARY | 2025-02-15 12:12 | XMS_ITS ---
Author Organization [facility] Address [address] [place] [address] Care Team Providers Care Occupational Therapy Supervisor Name Role Phone IgorJoy Vernon Primary Care Provider [phone] Active Problems * This document contains information received from the source organization and may not represent a complete record from that organization. 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 Given potential for this to have [...] supplements MD Juan Martinez : 1955 CSN: [id number] Hyperglycemia 08/18/2019 Overview (08/18/2019): Due to steroids, [...] the AM for any further recs. 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
--- OUTSIDE RECORDS SUMMARY | 2025-02-15 12:12 | XMS_ITS | Encounter Summary ---
Author Organization [facility] Address [address] [place] [address] Care Team Providers Care Sales Vice President Name Role Phone IgorJoy Vernon Primary Care Provider [phone] Reason for Visit * Reason Onset Date Comments PAC RX Refill-- Dr Franklin 01/31/2025 Encounter Details Date Type Department Care Team (Late st Contact Info) Description 01/31/2025 Telephone [facility] [address], [place] [id number] Senior Java Ui Developer: Rossy Gongora Telephone Intake, Staff PAC RX Refill-- Dr Franklin Social History Tobacco Use Types Packs/Day Years Used Date Smoking Tobacco: Former Cigarettes 1.5 55 1 10/06/1963 - 08/06/2019 Passive Smoke Exposure: Past Smokeless Tobacco: Never Comments:quit 08/2019 Alcohol Use Standard Drinks/Week Comments Not Currently 0 (1 standard drink = 0.6 oz pur e alcohol) [facility] Utilities Answer Date Recorded In the past 12 months has th e [employer], gas, oil, or water [employer] threatened to shut off services in your [...] at all Please call him to discuss [phone] [id number] - [place], [place] - [address] [facility] [id number] PAC documented in this encounter Plan of Treatment Upcoming Encounters Date Type Department Care Team (Late st Contact Info) Description 07/07/2025 10:00 AM EDT Follow-Up [facility] [address] [place] [address] Senior Java Ui Developer: RossyPaul Barbour MD [address] [place] [id number] documented as of this encounter Visit Diagnoses Not on filedocumented in this encounter Additional Health Concerns Infection Onset Date Last Indicated Resolved Time 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
[2025-02-15 14:14] LABS: MANUAL DIFF FLAG NO
[2025-02-15 14:21] LABS: Basophils Absolute Auto 0.1 X10*3/uL (0.0-0.2); Basophils Percent Auto 0.6 % (0-2); Eosinophils Absolute Auto 0.4 X10*3/uL (0.0-0.4); Eosinophils Percent Auto 2.7 % (0-4); Hematocrit 40.3 % (42.0-52.0); Hemoglobin 12.8 g/dl (14.0-18.0); Imm Gran Abs Auto 0.21 X10*3/uL (0.00-0.03); Imm Gran Pct Auto 1.5 % (0.0-0.4); Lymphocytes Absolute Auto 2.2 X10*3/uL (1.2-4.9); Lymphocytes Percent Auto 15.2 % (20-40); Mean Corpuscular HGB Conc 31.8 g/dl (31.0-36.0); Mean Corpuscular Hemoglobin 29.8 pg (27.0-33.0); Mean Corpuscular Volume 93.9 fL (80.0-98.0); Mean Platelet Volume 8.6 fL (9.4-12.4); Monocytes Absolute Auto 1.1 X10*3/uL (0.1-1.2); Monocytes Percent Auto 7.8 % (2-11); Neutrophils Absolute Auto 10.3 x10*3/uL (2.0-8.3); Neutrophils Percent Auto 72.2 % (45-73); Platelet Count 318 X10*3/uL (160-400); Red Blood Count 4.29 X10*6/uL (4.60-5.80); Red Cell Distribution Width 14.7 % (11.0-16.0); White Blood Count 14.3 X10*3/uL (4.8-10.8)
[2025-02-15 14:51] LABS: Alanine Aminotransferase 26 U/L (0-40); Albumin Level 3.8 g/dL (3.5-5.0); Alkaline Phosphatase 59 U/L (39-117); Anion Gap 12 (12-20); Aspartate Amino Transferase 32 U/L (5-37); Bilirubin Total 0.3 mg/dL (0.0-1.0); Blood Urea Nitrogen 13 mg/dL (9-16); Carbon Dioxide 28 mmol/L (22-29); Chloride 104 mmol/L (96-108); Estimated Glomerular Filt Rate > 60; Glucose Random 98 mg/dL (60-115); Iron 42 mcg/dL (45-160); Percent Iron Saturation 18 % (15-50); Potassium 3.8 mmol/L (3.3-5.1); Sodium 140 mmol/L (135-145); Total Iron Binding Capacity 232 mcg/dL (228-428); Total Protein 6.2 g/dL (6.5-8.0); Unsaturated Iron Binding 190 ug/dL
[2025-02-15 14:54] LABS: Monotest Negative (Negative)
[2025-02-15 14:55] LABS: TSH reflex Free T4 1.15 uIU/mL (0.32-4.0)
[2025-02-15 15:38] LABS: Folate > 20.0 ng/mL (> or = 4.0); Vitamin B12 374 pg/mL (200-900)
[2025-02-16 05:28] LABS: Lyme Abs Screen <0.90 index
== END 2025-02-15 10:48 | disposition home or self-care (01) ==
LOC: HO.WFDLDS 10:47
PROVIDERS: Visit Provider Internal Medicine
DX: I10 Essential (primary) hypertension (principal); E78.00 Pure hypercholesterolemia, unspecified; J44.1 Chronic obstructive pulmonary disease with (acute) exacerbation; R53.83 Other fatigue
CPT/HCPCS: 36415; 80053; 82607; 82746; 83540; 84443; 85025; 86308; 86617; 86618

== ENCOUNTER 2025-05-10 10:56 | Outpatient (AMB) | payer MEDICARE, SELFPAY ==
--- NOTE | 2025-05-10 10:59 | A.OFFPC_ITS ---
Vital Signs 05/10/25 11:04 Height 5 ft 9 in Weight 186 lb 8 oz BMI 27.5 BP 116/60 Blood Pressure Location Rt brachial Position Sitting Respiration 14 Pulse 60 Pulse Source Pulse Oximeter Pulse Oximetry (%) 96 Oxygen Delivery Method Room Air Intake Visit Reasons: CPE Intake Note: Physical B2B Sales Professional Required: No Allergies No Known Allergies Allergy (Verified 02/14/25 13:45) Tobacco use date assessed: 06/08/25 Fall risk assessment: No Falls in past year Last assessed Fall Risk: 05/10/25 Dental Screening Dental Screen Date: 05/10/25 Did you have a dental visit in the last 12 months?: Yes Did you have a dental problem in the last 6 months where you did not have access to dental care?: No Was dental information given to patient?: Patient has dentist HPI HPI Comments History of Present Illness Details 69-year-old male with a past medical his tory of hypertension, COPD, hyperlipidemia, osteoarthritis colon cancer, amputation of the right middle f leonidas, complicated neck/surgical spinal fusion 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 Stable. Follows with pulmonology Osteoarthritis-patient states he is followed by [facility] for RA and osteoarthritis in his neck. On prednisone. Stable on 10mg daily, has tried to decrease but unable. Tried MTX not taking. Urologic: Seeing Dr Christensen-in [place]. He has a suprapubic catheter- requires changing every 2 weeks. Patient reports he developed bladder incontinence following complications from cervical spine surgery in 2019. He developed an embolus after surgery and was hospitalized for weeks. 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 Has increased fatigue over the past six months. Wakes up 4 or 5 am just as usual but very tired at 4-5pm and was not previously. Had sleep study years ago. Not interested in present Eye exam-1.5 years ago. ROS CONSTITUTIONAL: Denies weight loss, fever and chills. HEENT: Denies changes in vision and hearing. RESPIRATORY:see HPi CV: Denies palpitations and CP GI: Denies abdominal pain, nausea, vomiting and diarrhea. : Denies dysuria and urinary frequency. MSK: Denies new myalgia and joint pain. SKIN: Denies rash and pruritus. NEUROLOGICAL: Denies headache PSYCHIATRIC: Denies recent changes in mood. PHYSICAL EXAM: GENERAL: Alert and oriented x 3. NAD EYES: EOMI. Anicteric. HENT: Moist mucous membranes. No scleral icterus. No cervical lymphadenopathy. LUNGS: Clear to auscultation bilaterally. CARDIOVASCULAR: Regular rate and rhythm. No murmur. No JVD. ABDOMEN: Soft, non-tender +bs EXTREMITIES: No edema. Non-tender. SKIN: No rashes or lesions. Warm. NEUROLOGIC: No focal neurological deficits. CN II-XII grossly intact PSYCHIATRIC: Cooperative. Appropriate mood and affect [facility] Medical History Pure hypercholesterolemia Essential hypertension Suprapubic catheter COPD exacerbation Osteoarthritis of cervical spine Neurogenic urinary bladder disorder Benitez catheter present Colon cancer Hypertension Amputation of right middle finger Surgical History H/O neck surgery History of partial surgical removal of colon Previous back surgery Family History Mother High cholesterol Hypertension Brother Colon cancer Father Cardiovascular disease Social History Household Members: Spouse Both parents involved: No Caregiver staying overnight: No Housing: House Are you a primary director of career services to a significant other at home: No Do you presently have visiting nurse or other home services: No 75 years or older and lives alone: No Alcohol intake: never Patient Tobacco Use Status: Former Tobacco user Tobacco use type: Cigarette Cigarette Packs Per Day: 2 Cigarettes Per Day: 20 Years Smoked: 50 e-Cigarette/Vaping Use: Never Used Second Hand Smoke Exposure: No service: No Current occupational status: retired Cognitive needs: No Hearing needs: Yes (hearing aid) Vision needs: No Questionnaire Thrive Questionnaire Date Thrive assessed: 09/30/24 AUDIT C Alcohol Use Questionnaire (AUDIT-C) 1. How often do you have a drink containing alcohol?: Never 3. How often do you have six or more drinks on one occasion?: Never Total Score: 0 DIANN-7 AMB Questionnaire DIANN-7 Date DIANN - 7 assessed: 09/30/24 Source: Developed by Drs. Lane Robin, Mónica England, Thiago Stringer and colleagues, with an educational sanjay from [employer]. Physical exam (Primary Care) Vital Signs: Last Vital Signs Pulse 60 05/10/25 11:04 Resp 14 05/10/25 11:04 BP 116/60 05/10/25 11:04 Pulse Ox 96 05/10/25 11:04 Oxygen Delivery Method Room Air 05/10/25 11:04 BMI result Body Mass Index 27.5 Tobacco/Smoking Status: Tobacco use Status Tobacco use date assessed 06/08/25 05/10/25 11:07 Patient Tobacco Use Status Former Tobacco user 05/10/25 10:59 Tobacco use type Cigarette 05/10/25 10:59 e-Cigarette/Vaping Use Never Used 05/10/25 10:59 Thrive Assessment: Date of Thrive Assessment Date Thrive assessed 09/30/24 05/10/25 10:59 Coding Level of Care Code Est Pt Prev Care >65y(44436) Diagnoses Essential hypertension I10 Pure hypercholesterolemia E78.00 Rheumatoid arthritis involving multiple sites, unspecified whether rheumatoid factor present M06.9 Rheumatoid arthritis location: multiple sites Rheumatoid factor presence: unspecified presence Assessment & Plan Assessment & Plan (1) Essential hypertension: Code(s): I10 - Essential (primary) hypertension Category: Medical (2) Pure hypercholesterolemia: Code(s): E78.00 - Pure hypercholesterolemia, unspecified Category: Medical (3) Rheumatoid arthritis: Code(s): M06.9 - Rheumatoid arthritis, unspecified Category: Medical Qualifiers: Rheumatoid arthritis location: multiple sites Rheumatoid factor presence: unspecified presence Qualified Code(s): M06.9 - Rheumatoid arthritis, unspecified Plan 70 year old for CPE Interval history reviewed HTN-well controlled on current medication RA-continues prenidone. Aware of nursing home health effects, only things that has improved pain and wants to continue Chronic constipation is stable Orders: Orders Complete Blood Count Auto Diff 05/10/25 E78.00 - Pure hypercholesterolemia, unspecified, I10 - Essential (primary) hypertension, R53.83 - Other fatigue, Z12.5 - Encounter for screening for malignant neoplasm of prostate Prostate Specific Antigen 05/10/25 E78.00 - Pure hypercholesterolemia, unspecified, I10 - Essential (primary) hypertension, R53.83 - Other fatigue, Z12.5 - Encounter for screening for malignant neoplasm of prostate
[2025-05-10 11:04] VITALS: BP 116/60; PULSE 60; RESP 14; O2SAT 96; BMI 27.5
--- OUTSIDE RECORDS SUMMARY | 2025-05-10 11:43 | XMS_ITS | Patient Health Record ---
Author Organization [facility] Address [address] [address] Care Team Providers Care Nurse Companion Name Role Phone Kristen Parkinson Primary Care Provider Unavail able Ruddy Rios Unavailable [phone] Reason For Referral No Information Medications Medication SIG (Take, Route, Frequency, Duration) Notes Start Date End Date Status hydrochlorothiazide-valsarta n 25 mg-160 mg tablet 1 tab(s) orally once a day Active atorvastatin 20 mg tablet 1 tab(s) orall y once a day Active guaifenesin-pseudoephedrine 600 mg-60 mg tablet, extended release 1 tab(s) orally 2 times a day Active heparin 5000 units/mL solution as directed subcutaneously every 12 hours Active oxyCODONE 10 mg tablet 1 tab(s) orally e very 6 hours Active albuterol-ipratropium 2.5 mg-0.5 mg/3 mL solution 3 mL by nebulizer 4 times a day Active pantoprazole 40 mg delayed release tablet 1 tab(s) orally once a day Active cyclobenzaprine 5 mg tablet 1 tab(s) ora lly once a day Active simvastatin 40 mg tablet 1 tab(s) orally once a day (at bedtime) Active hydroCHLOROthiazide 25 mg tablet 1 tab(s) orally once a day Active budesonide-formoterol 160 mcg-4.5 mcg/inh aerosol 2 puff(s) inhaled 2 times a day Active amLODIPine 5 mg tablet 1 tab(s) orally o nce a day Active miconazole topical 2% powder 1 oscar appli ed topically 2 times a day Active nicotine 21 mg/24 hr film, extended release 1 PATCH transdermally once a day Active baclofen 5 mg tablet 0.5 tab(s) orally 3 times a day Active amLODIPine 10 mg tablet 1 tab(s) orally once a day Active docusate sodium 100 mg tablet 1 tab(s) o rally 2 times a day Active Social History Tobacco Use: Social History Observation Description Date Details (start date - stop date) Current Smoker NA - NA Social History Social History Social Info Question Answer Notes Smoking Status / Tobacco Are you a: current smoker Additional Details Category Social Info Options Details Social History Occupation: on SSDI Occup. exposure: none Travel ouside [place]: no Alcohol: no Sexually active: no Drug use: no Exercise: no Home smoke detector use: no Caffeine: no Marital Status: Children: none Pets: none Checked Cholesterol levels yes Seat belt usage Yes Gun in house No Problems Problem Type SNOMED Code ICD Code Onset Dates Problem Status W/U Status Risk Notes Problem Essential hypertension (78086062) Essential (primary) hypertension (I10) Active confirmed Problem Chronic obstructive pulmonary disease (57109223) Chronic obstructive pulmonary disease, unspecified (J44.9) Active confirmed Problem Malignant neoplasm of colon (711285596) Malignant neoplasm of colon, unspecified (C18.9) Active confirmed Problem Obesity (791602053) Obesity, unspecified (E66.9) Active confirmed Problem Mixed hyperlipidemia (007567471) Mixed hyperlipidemia (E78.2) Active confirmed Problem Quadriplegia (91939522) Quadriplegia, unspecified (G82.50) Active confirmed Problem Gastro-esophageal reflux disease without esophagitis (488810767) Gastro-esophageal reflux disease without esophagitis (K21.9) Active confirmed Problem Osteomyelitis of vertebra (727578814) Osteomyelitis of vertebra, sacral and sacrococcygeal region (M46.28) Active confirmed Plan Of Treatment No Information Insurance Providers Payer Name Payer Address Payer Phone Subscriber Number Group Number Insured Name Patient Relationship to Insured Coverage Start Date Coverage End Date Medicare [facility] [address] [place] [phone] [id number] VANESSA ALBRECHT Self - patient is the insured [facility] [employer] Medicare Suppl [address] [place] [address] [phone] [id number] VANESSA ALBRECHT Self - patient is the insured Medical (General) History Medical History History ICD Code cervical stenosis of spinal canal quadriparesis sacral decubitus ulcer colon cancer COPD HTN hypercholesterolemia obesity hearing loss Surgical History Surgery Date(Month/Year) Hospitalization History Reason Date(Month/Year) sacral osteomyelitis 09/2019 C3-C7 Laminectomy at [facility] 08/2019
--- OUTSIDE RECORDS SUMMARY | 2025-05-10 11:43 | XMS_ITS | Clinical Summary ---
Author Organization [facility] Address [address] [place] [address] Phone Care Team Providers Care Launch Manager Name Role Phone Joy March MD Primary Care Provider [phone] Social History Tobacco Use Types Packs/Day Years [...] Vaccines (1 of 2) 2003 COVID-19 Vaccine (1 - 2023-2 5 season) 2024 Depression Screening 10/06/2024 Abdominal Aortic Aneurysm (A AA) Screen 01/07/2025 Cholesterol Screening (Lipid Panel) 01/07/2025 Colorectal Cancer Screening: Colonoscopy 01/07/2025 Falls Risk Assessment 01/07/2025 Hepatitis C Screening 01/07/2025 Medicare Annual Wellness Visit 01/07/2025 Social Influencers of Health Screening 01/07/2025 Influenza Vaccine (#1) 2025 RSV Immunization Adult Patie nts (1 [...] on patient's age to complete this topic Additional Health Concerns Infection Onset Date Last Indicated ESBL 01/06/2025 01/06/2025 Insurance MEDICARE [facility] Care Teams Launch Manager Relationship Specialty Start Date End Date Joy March MD [address] [place] [address] PCP - General Internal Medicine 01/07/25
== END 2025-05-10 11:54 | disposition home or self-care (01) ==
LOC: HO.HMCFM 10:57
PROVIDERS: PCP Internal Medicine; Visit Provider Internal Medicine
DX: I10 Essential (primary) hypertension (principal); E78.00 Pure hypercholesterolemia, unspecified; M06.9 Rheumatoid arthritis, unspecified

== ENCOUNTER → 2025-05-10 10:56 | Outpatient (BNVA) | payer MEDICARE, SELFPAY | PROVIDERS: PCP Internal Medicine; Visit Provider Internal Medicine | DX: Z00.00 Encounter for general adult medical examination without abnormal findings (principal); I10 Essential (primary) hypertension; E78.00 Pure hypercholesterolemia, unspecified; M06.9 Rheumatoid arthritis, unspecified; J44.9 Chronic obstructive pulmonary disease, unspecified; M47.812 Spondylosis without myelopathy or radiculopathy, cervical region; G83.9 Paralytic syndrome, unspecified; Z79.52 Long term (current) use of systemic steroids; Z89.021 Acquired absence of right finger(s); Z98.1 Arthrodesis status | CPT/HCPCS: 99212 ==

== ENCOUNTER 2025-08-12 09:33 | Outpatient (REF) | payer MEDICARE, SELFPAY ==
[2025-08-12 13:16] LABS: MANUAL DIFF FLAG NO
[2025-08-12 13:34] LABS: Hematocrit 42.9 % (42.0-52.0); Hemoglobin 13.9 g/dl (14.0-18.0); Imm Gran Abs Auto 0.11 X10*3/uL (0.00-0.03); Imm Gran Pct Auto 0.9 % (0.0-0.4); Lymphocytes Absolute Auto 2.4 X10*3/uL (1.2-4.9); Mean Corpuscular HGB Conc 32.4 g/dl (31.0-36.0); Mean Corpuscular Hemoglobin 29.8 pg (27.0-33.0); Mean Corpuscular Volume 91.9 fL (80.0-98.0); NRBC Abs Auto 0.000 X10*3/uL (0.0-0.012); NRBC Pct Auto 0.0 /100WBC (0.0-0.2); Platelet Count 369 X10*3/uL (160-400); Red Blood Count 4.67 X10*6/uL (4.60-5.80); White Blood Count 11.6 X10*3/uL (4.8-10.8)
--- OUTSIDE RECORDS SUMMARY | 2025-08-12 13:42 | XMS_ITS | Patient Health Record ---
Author Organization [facility] Address [address] [address] Care Team Providers Care Technology Training Associate Name Role Phone Kristen Parkinson Primary Care Provider Unavail able Ruddy Rios Unavailable [phone] Reason For Referral No Information Medications Medication [...] W/U Status Risk Notes Problem Essential hypertension (43725165) Essential (primary) hypertension (I10) Active confirmed Problem Chronic obstructive pulmonary disease (44451004) Chronic obstructive pulmonary disease, unspecified (J44.9) Active confirmed Problem Malignant neoplasm of colon (344964019) Malignant neoplasm of colon, unspecified (C18.9) Active confirmed Problem Obesity (819036767) Obesity, unspecified (E66.9) Active confirmed Problem Mixed hyperlipidemia (169726941) Mixed hyperlipidemia (E78.2) Active confirmed Problem Quadriplegia (86149544) Quadriplegia, unspecified (G82.50) Active confirmed Problem Gastro-esophageal reflux disease without esophagitis (627850101) Gastro-esophageal reflux disease without esophagitis (K21.9) Active confirmed Problem Osteomyelitis of vertebra (225389989) Osteomyelitis of vertebra, sacral and sacrococcygeal region (M46.28) Active confirmed Plan Of Treatment No Information Insurance Providers Payer Name Payer Address Payer Phone Subscriber Number Group Number Insured Name Patient Relationship to Insured Coverage Start Date Coverage End Date [facility] [address] [place] [phone] [id number] VANESSA ALBRECHT Self - patient is the insured [facility] Medex Medicare Suppl [address] [place] [address] [phone] [id number] VANESSA ALBRECHT Self - patient is the insured Medical (General) History Medical History History ICD Code cervical stenosis of spinal canal quadriparesis sacral decubitus ulcer colon cancer COPD HTN hypercholesterolemia obesity hearing loss Surgical History Surgery Date(Month/Year) Hospitalization History Reason Date(Month/Year) sacral osteomyelitis 09/2019 C3-C7 Laminectomy at [facility] 08/2019
[2025-08-12 14:00] LABS: Anion Gap 13 (12-20); Blood Urea Nitrogen 13 mg/dL (9-16); Calcium 9.6 mg/dL (8.4-10.2); Carbon Dioxide 26 mmol/L (22-29); Chloride 104 mmol/L (96-108); Estimated Glomerular Filt Rate > 60; Potassium 3.6 mmol/L (3.3-5.1); Sodium 139 mmol/L (135-145)
[2025-08-13 16:59] LABS: A. Phagocytphilium DNA,RT-PCR NOT DETECTED (NOT DETECTED); Babesia Microti DNA, RT-PCR NOT DETECTED (NOT DETECTED); Borrelia Miyamotoi,DNA RT-PCR NOT DETECTED (NOT DETECTED); E.Chaffeensis DNA RT-PCR NOT DETECTED (NOT DETECTED); Lyme(Borrelia ssp)DNA RT-PCR NOT DETECTED (NOT DETECTED)
== END 2025-08-12 09:34 | disposition home or self-care (01) ==
LOC: HO.HMGCLDS 09:33
PROVIDERS: PCP Internal Medicine; Visit Provider Physician Assistant
DX: M25.50 Pain in unspecified joint (principal)
CPT/HCPCS: 36415; 80048; 85025; 87468; 87469; 87478; 87484; 87798; 99212

== ENCOUNTER 2025-08-12 09:33 | Outpatient (AMB) | payer MEDICARE, SELFPAY ==
[2025-08-12 10:46] VITALS: BP 128/62; PULSE 83; TEMP 36.8; O2SAT 95; BMI 28.1
--- NOTE | 2025-08-12 10:46 | MHC.OFFWIV ---
Intake Vital Signs 08/12/25 10:46 Height 5 ft 9 in Weight 190 lb BMI 28.1 BP 128/62 Blood Pressure Location Lt brachial Position Sitting Pulse 83 Pulse Source Pulse Oximeter Temp 98.2 F Temp Source Oral Pulse Oximetry (%) 95 Oxygen Delivery Method Room Air Intake Visit Reasons: EP-body ache Intake Note: pt presents with full body aches for a few weeks c/o wrist pain/hand pain- thought it was due to inhaler change from symbicort to breo ellipta- stopped BReo and still experiencing body aches. no headaches, h/o COPD. 2019 c-spine sx hospitalization. Patient Tobacco Use Status: Former Tobacco user Allergies No Known Allergies Allergy (Verified 08/12/25 10:51) Do you need a note to return to daycare/school/sports/work: No HPI HPI Comments History of Present Illness Details This is a 70-year-old male with a past medical history of COPD not currently oxygen dependent, hypertension and neurogenic bladder presenting for evaluation of joint pain that has been ongoing and worsening over the past four weeks. Patient complains of joint pain in his shoulders, hands, knees and hips. Patient denies having any fevers, chills or recent injury or trauma preceding the onset of his symptoms. Patient also denies taking any new medications. The patient takes prednisone daily but has been taking Tylenol as well for management of his discomfort. Patient is unaware of any recent tick bites. [facility] Medical History Pure hypercholesterolemia Essential hypertension Suprapubic catheter COPD exacerbation Osteoarthritis of cervical spine Neurogenic urinary bladder disorder Benitez catheter present Colon cancer Hypertension Amputation of right middle finger Surgical History H/O neck surgery History of partial surgical removal of colon Previous back surgery Family History Mother High cholesterol Hypertension Brother Colon cancer Father Cardiovascular disease Social History Household Members: Spouse Both parents involved: No Caregiver staying overnight: No Housing: House Are you a primary direct care specialist to a significant other at home: No Do you presently have visiting nurse or other home services: No 75 years or older and lives alone: No Alcohol intake: never Patient Tobacco Use Status: Former Tobacco user Tobacco use type: Cigarette Cigarette Packs Per Day: 2 Cigarettes Per Day: 20 Years Smoked: 50 e-Cigarette/Vaping Use: Never Used Second Hand Smoke Exposure: No service: No Current occupational status: retired Cognitive needs: No Hearing needs: Yes (hearing aid) Vision needs: No Review of Systems Const All systems reviewed & are unremarkable except as noted in HPI and below Denies chills, Denies fatigue, Denies fever(s) and Reports other (Joint pain) Eyes Reports no additional complaints ENT Reports no additional complaints and Denies neck pain Card Reports no additional complaints Resp Reports no additional complaints GI Reports no additional complaints Reports no additional complaints Musc Reports arthralgias, Denies joint swelling, Denies limited range of motion, Denies muscle cramps, Denies muscle weakness, Denies neck pain, Denies numbness and Denies tingling Skin/Breast Reports system reviewed and no additional complaints, except as documented Neuro Reports no additional complaints, Denies numbness and Denies tingling Psych Reports no additional complaints Endo Reports no additional complaints and Denies fatigue Srinivasa/Lymph Reports no additional complaints Aller/Immun Reports no additional complaints Physical Exam Vital Signs: Last Vital Signs Temp 98.2 F 08/12/25 10:46 Pulse 83 08/12/25 10:46 BP 128/62 08/12/25 10:46 Pulse Ox 95 08/12/25 10:46 Oxygen Delivery Method Room Air 08/12/25 10:46 BMI result Body Mass Index 28.1 Const General: cooperative, healthy appearing, comfortable, no acute distress, well developed, alert, awake and well groomed; No ill appearing or lethargic Nutritional Appearance: overweight Orientation/consciousness: patient oriented x3 and No lethargic Limitations: no limitations Back/Spine/Pelvis Cervical Spine: No cervical muscular tenderness, No pain with cervical ROM and No Cervical spine tenderness Skin General skin exam: no rashes or lesions noted Neuro General: patient oriented x3 Extrem Other: There is no overt pain to palpation hand, wrist, olecranon, shoulder, knee or hip bilaterally; patient is ambulating independently and in no distress. There is no lower extremity edema, no cyanosis, no cutaneous lesions and extremities are all warm and well perfused. Psych Appearance: grossly normal Mental Status: mental status grossly normal Insight: Good insight present (Psych) Judgement: Good judgement present (Psych) Assessment & Plan Assessment & Plan (1) Acute joint pain: Comment: Given this patient's history coupled with his examination testing for tick-borne diseases is warranted at this time. Patient is declining any medication for his discomfort. Patient will follow up with his primary care provider for a review of results Code(s): M25.50 - Pain in unspecified joint Plan: CBC, basic metabolic panel and tick-borne disease panel will be ordered. Results are pending at this time. Patient is to follow up with his PCP as an outpatient regarding further management. Orders: Orders Tick-borne Disease Molecular Today M25.50 - Pain in unspecified joint Complete Blood Count Auto Diff Today M25.50 - Pain in unspecified joint Basic Metabolic Panel Today M25.50 - Pain in unspecified joint Coding Level of Care Code Est Pt Level 3 (59845) Diagnoses Acute joint pain M25.50
--- OUTSIDE RECORDS SUMMARY | 2025-08-12 10:56 | XMS_ITS | Encounter Summary ---
Author Organization [facility] Address [address] [place] [address] Care Team Providers Care Cap Machine Operator Name Role Phone Joy March MD Primary Care Provider Encounter Details Date Type Department Care Team (Late st Contact Info) Description 01/07/2025 Lab Requisition [facility] - Main Lab [address] [place] [address] Bre Humphries NP [address] [facility] [address] [place] [address] Other retention of urine Social History Tobacco [...] pneumoniae ESBL(A) KYRA 01/09/2025 8:50 AM EDT [facility] Comment: 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 EXTENDED SPECTRUM BETA-LACTAMASE PRODUCING ORGANISMS DEMONSTRATE DECREASED ACTIVITY WITH PENICILLILNS, CEPHALOSPORINS [...] le KYRA >=320 ug/ml: Resistant Bre Humphries CHIEF GUARD LAB MICROBIOLOGY - GENERA L ORDERABLES Final Result [facility] [address] [place] [address], documented in this encounter Visit Diagnoses Diagnosis Other retention of urine documented in this encounter Additional Health Concerns Infection Onset Date Last Indicated Resolved Time ESBL 01/06/2025 01/06/2025 documented as of this encounter Care Teams Cap Machine Operator Relationship Specialty Start Date End Date Joy March MD [address] [place] [address] PCP - General Internal Medicine 01/07/25 documented as of this encounter
--- OUTSIDE RECORDS SUMMARY | 2025-08-12 10:56 | XMS_ITS | Clinical Summary ---
Author Organization [facility] Address [address] [place] [address] Phone Care Team Providers Care Foreclosure Home Inspector Name Role Phone Joy March MD Primary Care Provider [phone] Social History Tobacco Use Types Packs/Day Years Used Date Smoking Tobacco: Never Assessed Sex and Gender Information Value Date Recorded Sex Assigned at Not on file Legal Sex Male 1:45 PM EDT Gender Identity Not on file Sexual Orientation Not on file Plan of Treatment Health Maintenance Due Date Last Done Comments Colorectal Cancer Screening: Colonoscopy 1955 DTaP,Tdap,and Td Vaccines (1 - Tdap) 1972 Pneumococcal Vaccine: 50+ Ye ars (1 of 1 - PCV) 2003 Zoster Vaccines (1 of 2) 2003 Depression Screening 10/06/2024 Abdominal Aortic Aneurysm (A AA) Screen 01/07/2025 Cholesterol Screening (Lipid Panel) 01/07/2025 Falls Risk Assessment 01/07/2025 Hepatitis C Screening 01/07/2025 Medicare Annual Wellness Visit 01/07/2025 Social Influencers of Health Screening 01/07/2025 COVID-19 Vaccine (1 - 2023-2 5 season) 2025 Influenza Vaccine (#1) 2025 RSV Immunization Adult [...] Last Indicated ESBL 01/06/2025 01/06/2025 Insurance MEDICARE [facility] Care Teams Foreclosure Home Inspector Relationship Specialty Start Date End Date Joy March MD [address] [place] [address] PCP - General Internal Medicine 01/07/25
--- OUTSIDE RECORDS SUMMARY | 2025-08-12 10:56 | XMS_ITS | Encounter Summary ---
Author Organization [facility] Address [address] [place] [address] Care Team Providers Care Communications Department Chairperson Name Role Phone IgorSaulo Joy Primary Care Provider [phone] Reason for Visit * Reason Onset Date Comments PAC Rx Questions 03/05/2024 Encounter Details Date Type Department Care Team (Late st Contact Info) Description 03/05/2024 Telephone [facility] [address] [place] [id number] Telephone Intake, Staff PAC Rx Questions Social [...] 03/05/2024 11:17 AM EDT Liam calling from [facility] is regard to pts prednisone, They need to clarify which dose & directs should be prescribed to pt as they received two. 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
--- OUTSIDE RECORDS SUMMARY | 2025-08-12 10:56 | XMS_ITS | Encounter Summary ---
Author Organization [facility] Address [address] [place] [address] Care Team Providers Care Sewer Tapper Name Role Phone IgorJoy Vernon Primary Care Provider [phone] Reason for Visit * Reason Onset Date Comments Scheduling Appointment 11/17/2020 Encounter Details Date Type Department Care Team (Late st Contact Info) Description 11/17/2020 Telephone [facility] [address] [place] [phone] Telephone Intake, Staff Scheduling Appointment Social History [...] were not included. MD Mara Morris; P [facility] Neurology Admin Staff Pt was following with [...] documented as of this encounter Care Teams Sewer Tapper Relationship Specialty Start Date End Date Joy March [address] [place] [address] PCP - General Family Medicine 02/03/25 documented as of this encounter
--- OUTSIDE RECORDS SUMMARY | 2025-08-12 10:56 | XMS_ITS | Data Portability ---
Author Organization [place] - [facility], sv[facility]admin Address [address] [place] [id number] Care Team Providers Care Otolaryngology Nurse Name Role Phone SHALONDALETICIA Guerrero Referring Provider Unavailable YANETH YEAGER Pain Management Assessment Encounter Date Assessment Date Assessment LastModified by Organization Details LastModified Time 04/24/2021 04/24/2021 MRI lumbar spine dated 05/01/2020 reviewed [email or web address] Not available 04/24/2021 17:48:13 08/17/2021 08/17/2021 -Discussed assessment and plan with Dr Yeager. He is in agreement with my treatment plan for the patient. Not available 08/17/2021 15:22:06 01/04/2022 01/04/2022 -Discussed assessment and plan with Dr Yeager. He is in agreement with my treatment plan for the patient. Not available 01/04/2022 14:10:30 Plan of Treatment Reminders Order Date Submit Date Provider Last Modified By Organization Details Last Modified Time Details Appointments None recorded. Lab None recorded. Referral None recorded. Procedures spinal cord stimulato r trial (PROC) 2020 021 [email or web address] Not available 13:07:23 epidural steroid injection , caudal (PROC) 2020 021 [email or web address] Not available 12:49:28 Surgeries None recorded. Imaging None recorded. Medication Orders None recorded. Patient TargetsNo targets recorded. Patient Instructions Encounter Date Encounter Id Patient Instructions Last Modified By Organization Details Last Modified Time 04/24/2021 [id number] A healthy lifestyle: care instructions Not available 04/24/2021 17:48:23 05/02/2021 [id number] A healthy lifestyle: care instructions [email or web address] Not available 05/02/2021 15:39:17 07/03/2021 [id number] A healthy lifestyle: care instructions [email or web address] Not available 07/03/2021 13:45:55 08/17/2021 [id number] A healthy lifestyle: care instructions Not available 08/17/2021 15:22:00 01/04/2022 [id number] A healthy lifestyle: care instructions Not available 01/04/2022 14:12:11 Reason for Referral None Reported. Results Created Date Observation Date Name Description Value Unit Range Abnormal Flag Note LastModifiedBy Organization Detail LastModifiedTime 11/21/1911/21/2021 BASIC METAB OLIC PANEL glucose 109 mg/dL 65-99 high Not Available [facility] [address], [address], 11/21/2021 17:13:27 11/21/19 22 11/21/2021 BASIC METAB OLIC PANEL BUN 13 mg/dL 5-26 Not Available [facility] [address], [address], 11/21/2021 17:13:27 11/21/19 22 11/21/2021 BASIC METAB OLIC PANEL creatinine 0.86 mg/dL 0.5-1. 5 Not Available [facility] [address], [address], 11/21/2021 17:13:27 11/21/19 22 11/21/2021 BASIC METAB OLIC PANEL BUN/creat ratio 15 8-27 Not Available [facility] [address], [address], 11/21/2021 17:13:27 11/21/19 22 11/21/2021 BASIC METAB OLIC PANEL glom filt rate, est 89.1 mL/mi n > 59 Not Available [facility] [address], [address], 11/21/2021 17:13:27 11/21/19 22 11/21/2021 BASIC METAB OLIC PANEL if -amer ican 103.3 mL/mi n > 59 Not Available [facility] [address], [address], 11/21/2021 17:13:27 11/21/19 22 11/21/2021 BASIC METAB OLIC PANEL sodium 140 mEq/L 134-14 4 Not Available [facility] [address], [address], 11/21/2021 17:13:27 11/21/19 22 11/21/2021 BASIC METAB OLIC PANEL potassium 3.6 mEq/L 3.6-5. 6 Not Available [facility] [address], [address], 11/21/2021 17:13:27 11/21/19 22 11/21/2021 BASIC METAB OLIC PANEL chloride, serum 102 mEq/L 96-109 Not Available [facility] [address], [address], 11/21/2021 17:13:27 11/21/19 22 11/21/2021 BASIC METAB OLIC PANEL carbon dioxide 25 mEq/L 20-32 Not Available [facility] [address], [address], 11/21/2021 17:13:27 11/21/19 22 11/21/2021 BASIC METAB OLIC PANEL anion gap 13.0 8-15 Not Available [facility] [address], [address], 11/21/2021 17:13:27 11/21/19 22 11/21/2021 BASIC METAB OLIC PANEL calcium 9.6 mg/dL 8.3-10 .0 Not Available [facility] [address], [address], 11/21/2021 17:13:27 11/21/19 22 11/21/2021 BASIC METAB OLIC PANEL note Order ing physi caden: Stephanie Yeager Other provi ders: Stephanie Yeager , Stephanie Yeager , , Mike arzate, , , Not Available [facility] [address], [address], 11/21/2021 17:13:27 11/21/19 22 11/21/2021 MRSA SCREE N, ANY SOURC E source: Nose Not Available [facility] [address], [address], 11/23/2021 08:25:07 11/21/19 22 11/21/2021 MRSA SCREE N, ANY SOURC E result(s): Negati ve for Methic illin- resist ant Staph aureus Not Available [facility] [address], [address], 11/23/2021 08:25:07 11/21/19 22 11/21/2021 MRSA SCREE N, ANY SOURC E report status: Final Not Available [facility] [address], [address], 11/23/2021 08:25:07 11/21/19 22 11/21/2021 MRSA SCREE N, ANY SOURC E note Order ing physi caden: Stephanie Yeager Other provi ders: Stephanie Yeager , Stephanie Yeager , , Mike arzate, , , Not Available [facility] [address], [address], 11/23/2021 08:25:07 11/21/19 22 11/21/2021 MRSA SCREE N, ANY SOURC E source: Throat Not Available [facility] [address], [address], 11/23/2021 08:25:08 11/21/19 22 11/21/2021 MRSA SCREE N, ANY SOURC E result(s): Negati ve for Methic illin- resist ant Staph aureus Not Available [facility] [address], [address], 11/23/2021 08:25:08 11/21/19 22 11/21/2021 MRSA SCREE N, ANY SOURC E report status: Final Not Available [facility] [address], [place], [address], 11/23/2021 08:25:08 11/21/19 22 11/21/2021 MRSA SCREE N, ANY SOURC E note Order ing physi caden: Stephanie Yeager Other provi ders: Stephanie Yeager , Stephanie Yeager , , Mike arzate, , , Not Available [facility] [address] [facility] [address], [place], [address], 11/23/2021 08:25:08 11/26/19 22 11/26/2021 SARS- COV-2 , LIZZETH sars-cov-2, LIZZETH Not Detect ed not detect ed This nucle ic acid ampli ficat ion test was devel oped and its perfo rmanc e zana cteri stics deter mined by [facility]. Nucle ic acid ampli ficat ion tests inclu de RT-PC R and TMA. This test has not been FDA clear ed or appro billy. This test has been autho rized by FDA under an Emerg ency Use Autho rizat ion (EUA) . This test is only autho rized for the durat ion of time the decla ratio n that circu mstan alberto exist justi fying the autho rizat ion of the emerg ency use of in vitro diagn ostic tests for detec tion of SARS- CoV-2 virus and/o r diagn osis of COVID -19 infec tion under secti on 564(b )(1) of the Act, 21 U.S.C . 360bb b-3(b ) (1), unles s the autho rizat ion is termi nated or revok ed soone r. When diagn ostic testi ng is negat anabela, the possi bilit y of a false negat anabela resul t shoul d be consi dered in the chip xt of a patie nt's recen t expos ures and the prese nce of clini snow signs and sympt oms consi stent with COVID -19. An indiv idual witho ut sympt oms of COVID -19 and who is not charlotte ing SARS- CoV-2 virus would expec t to have a negat anabela (not detec trinh) resul t in this assay . Not Available [facility] [address], [address], 11/26/2021 23:18:09 11/26/19 22 11/26/2021 SARS- COV-2 , LIZZETH note Order ing physi caden: Stephanie Yeager Other provi ders: Stephanie Yeager , Stephanie Yeager , , Mike am Jannie arzate, , , Not Available [facility] [address], [address], 11/26/2021 23:18:09 04/23/20 21 05/01/2020 MRI, lumba r spine , w/o contr ast No observ ation record ed. BARCODE Not Available 2020 16:11:32 12/18/19 22 12/17/2021 elect vineet rdz am [facility] [address] [place] [address] PATIEN T: JUAN SANTORO PRE REF/ : WPAT 0283 HEART RATE 57 RR Interv al 1053 Atrial Rate 57 P-R Interv al 178 P Durati on 139 P Horizo ntal [place] 11 P Front [place] 62 Q Onset 499 QRSD Interv al 109 QT Interv al 440 QTcB 429 QTcF 432 QRS Horizo ntal [place] 21 QRS [place] 11 I-40 Horizo ntal [place] 49 I-40 Front [place] -24 T-40 Horizo ntal [place] 4 T-40 Front [place] 29 T Horizo ntal [place] 21 T Wave [place] 58 S-T Horizo ntal [place] S-T Front [place] -43 ECG Severi ty - OTHERW ISE NORMAL ECG - ECG Impres pepe Sinus rhythm _ (Elect charly harrison Signed by) Trans D T: 0853 Signed D T: 2113 Report #: [id number] Orderi ng physic brooklynn: Jemima Yeager Other provid ers: Jemima Yeager, Jemima Yeager, , Isma Golden ath, , , [email or web address] [facility] (Radiology) [address] [place] [address], [address], 12/19/2021 11:00:23 12/25/19 22 12/24/2021 or imagi ng C-arm [facility] Rad[facility] [address] [place] [address], [address] Name: JUAN SANTORO : 0283 Date of Servic e: 1441 Acct Number : [id number] Order Number : [id number] Locati on: [facility] Report Number : [id number] Servic e: REG SDC/ Reques ting Physic brooklynn: Jemima Yeager MD Catego ry: RADIOL OGY OR CASES Exam: OR IMAGIN G C-ARM Access ion #: [id number] VH Signs/ Sympto ms: SCS Report Status : Sig vernell Study: Fluoro scopy guided spinal cord stimul ator placem ent. Compar toyin: CT pelvis 2018, chest radiog raph 2018 test. Fluoro scopy time: 350.9 second s. Findin gs: Fluoro scopy chuck ce was provid ed for spinal cord stimul ator placem ent. Evalua tion is limite d due to portab le C-arm techni que. 2 images were submit trinh for evalua tion which demons trates surgic al equipm ent in the field of view, midlin e electr odes. Impres pepe: Fluoro scopy guided spinal cord stimul ator placem ent. Please refer to the full proced ure report for detail s. Date/T tom of Dictat ion: 1543 Radiol ogy Reside nt (if applic able): John Velasquez MD Approv ed By Attend ing Radiol ogist: Dawn Guzman MD 1543 Lisa mcfarland brooklynn: Jemima Yeager Other provid ers: Jemima Yeager, Jemima Yeager, , Imsa Golden ath, , , [facility] (Radiology) [address] [place] [address], [address], 12/27/2021 13:39:27 Result Notes None recorded. Problems Name Problem SNOMED Code Status Onset Date Resolution Date Notes Provider Name and Address Organization Details Recorded Time Essential hypertension 00341228 Active 2020 Nalini galindo [facility] 14:54:24 Hyperlipidemia 03570002 Active 2020 Nalini galindo [facility] 14:54:31 Problem Notes None recorded. Procedures Surgical History Date Name Laterality Status Provider Name and Address Organization Details Recorded Time 05/02/20 21 Caudal Epidural Steroid Injection completed Yaneth Yeager MD [address] [place] [address], [phone], [facility] 05/02/2021 15:28:49 05/01/20 20 incision and drainage of fluid collection of skin completed Vanesajorge Hoang [facility] 04/24/2021 15:56:48 04/28/20 20 Lumbar Spine Surgery completed Vanesajorge Hoang [facility] 04/24/2021 15:56:14 08/06/20 09 Spine Surgery completed Vanesajorge Hoang [facility] 04/24/2021 15:56:01 discectomy for intervertebral herniated disc, nucleus pulposus completed Vanesajorge Hoang [facility] 04/24/2021 16:06:18 Colon Cancer Surgery completed Vanesajorge Hoang [facility] 04/24/2021 16:19:08 hernia repair completed Vanesajorge Hoang [facility] 04/24/2021 16:19:21 amputation of finger of right hand completed Vanesa Mitchell Wart [facility] 04/24/2021 16:19:35 Imaging Results None recorded. Procedure Notes None recorded. Medical Equipment None Reported. Allergies Allergen ID Allergen Name Allergen Category Reaction Reaction Severity Criticality Documentation Date Start Date Code Code System Note Provider Name and Address Organization Details Recorded Time 22270203 adhesive tape environme nt,medica tion Not available Not available Not available 04/24/[address] galindo [facility] 15:57:20 513846 silicones environme nt,medica tion Not available Not available Not available 04/24/2021 9778 RxNorm Vanesa Stephen galindo [facility] 15:57:27 Medications Name Sig Start Date Stop Date Status Note LastModified by Organization Details LastModified Time Miralax 17 gram oral powder packet Take 1 packet every day by oral route. active Not Available Not Available No t Available losartan 50 mg tablet TAKE 1 TABLET BY MOUTH EVERY DAY active Not Available Not Available No t Available cyclobenzap rine 10 mg tablet TAKE 1 TABLET BY MOUTH TWICE DAILY NEEDED FOR MUSCLE SPASMS 04/24 completed Not Available Not Available Not Available gabapentin 600 mg tablet TAKE 1 TABLET (600 MG TOTAL) BY MOUTH DAILY. DOSE HAS INCREASED 04/24 completed Not Available Not Available Not Available atorvastati n 20 mg tablet TAKE 1 TABLET BY MOUTH ONCE DAILY active Not Available Not Available No t Available trazodone 50 mg tablet TAKE 1 TABLET BY MOUTH AT NIGHT active Not Available Not Available No t Available cefpodoxime 200 mg tablet TAKE 1 TABLET EVERY 12 HOURS BY MOUTH FOR 7 DAYS 01/04 completed Not Available Not Available Not Available fluconazole 150 mg tablet active Not Available Not Available Not Available cephalexin 250 mg capsule 01/04 completed Not Available Not Available Not Available prednisone 20 mg tablet TAKE 2 TABLETS BY MOUTH DAILY FOR 5 DAYS active Not Available Not Available No t Available amlodipine 5 mg tablet TAKE 1 TABLET BY MOUTH EVERY DAY active Not Available Not Available No t Available ciprofloxac in 500 mg tablet TAKE 1 TABLET BY MOUTH EVERY 12 HOURS DIRECTED FOR 5 DAYS 08/17 completed Not Available Not Available Not Available sulfamethox azole 800 mg-trimetho prim 160 mg tablet TAKE 1 TABLET BY MOUTH TWICE A DAY FOR 14 DAYS 08/17 completed Not Available Not Available Not Available methenamine hippurate 1 gram tablet TAKE 1 TABLET (1 G TOTAL) BY MOUTH 2 TIMES A DAY WITH MEALS. active Not Available Not Available No t Available amoxicillin 875 mg tablet 01/04 completed Not Available Not Available Not Available lorazepam 0.5 mg tablet TAKE 1 2 TABLETS ONE HOUR PRIOR TO PROCEDURE active Not Available Not Available No t Available tamsulosin 0.4 mg capsule TAKE 1 CAPSULE BY MOUTH EVERY DAY 10/31 completed Not Available Not Available Not Available cephalexin 500 mg capsule TAKE ONE CAPSULE BY MOUTH TWICE DAILY 01/04 completed Not Available Not Available Not Available gabapentin 300 mg capsule TAKE 1 CAPSULE BY MOUTH THREE TIMES DAILY active Not Available Not Available No t Available hydrochloro thiazide 25 mg tablet TAKE 1 TABLET BY MOUTH ONCE DAILY active Not Available Not Available No t Available mupirocin 2 % topical ointment APPLY SMALL AMOUNT TOPICALLY TO THE AFFECTED AREA THREE TIMES DAILY active Not Available Not Available No t Available gabapentin 100 mg capsule TAKE 1 CAPSULE BY MOUTH THREE TIMES A DAY 04/24 completed Not Available Not Available Not Available levofloxaci n 500 mg tablet TAKE 1 TABLET BY MOUTH EVERY DAY FOR 10 DAYS active Not Available Not Available No t Available oxycodone-a cetaminophe n 7.5 mg-325 mg tablet TAKE 1 TABLET BY MOUTH EVERY 8 HOURS NEEDED 01/04 completed Not Available Not Available Not Available docusate sodium 250 mg capsule Take 1 capsule every day by oral route. active Not Available Not Available No t Available losartan 100 mg tablet TAKE 1 TABLET BY MOUTH ONCE DAILY active Not Available Not Available No t Available amoxicillin 875 mg-potassiu m clavulanate 125 mg tablet TAKE 1 TABLET (875 MG TOTAL) BY MOUTH 2 TIMES A DAY. 08/17 completed Not Available Not Available Not Available oxycodone 5 mg tablet TAKE 1 TO 2 TABLETS BY MOUTH EVERY 4 HOURS NEEDED FOR BREAKTHRO UGH PAIN FOR UP TO 7 DAYS. MAX DAILY AMOUNT OF 60MG 04/24 completed Not Available Not Available Not Available nitrofurant oin monohydrate /macrocryst als 100 mg capsule TAKE 1 CAPSULE (100 MG TOTAL) BY MOUTH EVERY 12 HOURS. active Not Available Not Available No t Available acetaminoph en active Not Available Not Available Not Available senna active Not Available Not Availa ble Not Available urinary bag active Not Available Not A vailable Not Available Symbicort 160 mcg-4.5 mcg/actuati on HFA aerosol inhaler INHALE 2 PUFFS BY MOUTH TWICE DAILY. RINSE MOUTH WITH WATER AFTER USE. DO NOT SWALLOW active Not Available Not Available No t Available Probiotic active Not Available Not Beatrice ilable Not Available Linzess 72 mcg capsule active Not Available Not Available Not Available Vitals Date Recorded Body height Body mass index (BMI) Body weight Body temperature Oxygen saturation Oxygen saturation in Arterial blood by Pulse oximetry Heart rate Pain severity - 0-10 verbal numeric rating [Score] - Reported Systolic And Diastolic Provider Name and Address Organization Details Last Updated DateTime 2 175.26 cm 31.6 kg/m2 16169.7 7 g 97.8 [degF] 98 % 98 % 60 /min 3 113/65 mm[Hg] Nalini [facility] 2 13:27:14 Date Recorded Body height Body mass index (BMI) Body weight Body temperature Heart rate Oxygen saturation Oxygen saturation in Arterial blood by Pulse oximetry Systolic And Diastolic Provider Name and Address Organization Details Last Updated DateTime 1 175.26 cm 31.6 kg/m2 89267.7 7 g 98.5 [degF] 64 /min 96 % 96 % 113/62 mm[Hg] Vanesa Hoang [facility] 1 16:08:37 Date Recorded Body height Body mass index (BMI) Body weight Body temperature Heart rate Oxygen saturation Oxygen saturation in Arterial blood by Pulse oximetry Systolic And Diastolic Provider Name and Address Organization Details Last Updated DateTime 1 175.26 cm 31.6 kg/m2 56576.7 7 g 98.7 [degF] 62 /min 95 % 95 % 117/69 mm[Hg] [facility] Augustus [facility] 1 15:18:14 Date Recorded Body height Body mass index (BMI) Body weight Body temperature Heart rate Oxygen saturation Oxygen saturation in Arterial blood by Pulse oximetry Pain severity - 0-10 verbal numeric rating [Score] - Reported Systolic And Diastolic Provider Name and Address Organization Details Last Updated DateTime 175.26 cm 31.6 kg/m2 74194.7 7 g 96.9 [degF] 63 /min 95 % 95 % 4 135/75 mm[Hg] Nalini Coffman [facility] 13:30:42 Date Recorded Body height Body mass index (BMI) Body weight Body temperature Heart rate Oxygen saturation Oxygen saturation in Arterial blood by Pulse oximetry Systolic And Diastolic Provider Name and Address Organization Details Last Updated DateTime 175.26 cm 31.6 kg/m2 39241.7 7 g 98 [degF] 68 /min 95 % 95 % 124/73 mm[Hg] Nalini Coffman [facility] 15:03:28 Social History Question Answer Notes LastModified by Organizat ion Details LastModified Time Tobacco Smoking Status Former Smoker Vanesa Hoang [facility] 04/24/2021 16:09:27 Do You Have An Advance Directive? Yes Information not available 04/24/2021 Are You Blind Or Do You Have Difficulty Seeing? No [email or web address] Information not available 07/03/2021 How Much Tobacco Do You Chew? None Information not available 04/24/2021 Are You Deaf Or Do You Have Serious Difficulty Hearing? No [email or web address] Information not available 07/03/2021 What Type Of Diet Are You Following? REGULAR [email or web address] Information not available 05/02/2021 When Did You Quit Smoking? 1-5yearssinc elastcigaret te [email or web address] Information not available 05/02/2021 How Many Days In The Past Year Have You Had A Heavy Drinking Consumption (4+ Female, 5+ Male)? 0 Information not available 04/24/2021 Does The Patient Have Fever OR Cough OR Shortness Of Breath? No Information not available 04/24/2021 If Pulse Oximetry Was Done: Is The Patient's Sp02 Less Than 93% On Room Air? No Information not available 04/24/2021 Does The Patient Have At Least TWO Of These Symptoms? Diarrhea, Chills, Muscle Pain, Repeated Shaking & Chills, Headache, Sore Throat, Or New Loss Of Taste/Smell No Information not available 04/24/2021 What Was The Date Of Your Most Recent Tobacco Screening? 01/04/2022 [email or web address] Information not available 01/04/2022 What Is Your Current Pack Years? 30ormorepack years [email or web address] Information not available 05/02/2021 At What Age Did You Start Smoking Tobacco? 9 [email or web address] Information not available 05/02/2021 Has Tobacco Cessation Counseling Been Provided? No [email or web address] Information not available 07/03/2021 How Many Years Have You Smoked Tobacco? 55 [email or web address] Information not available 05/02/2021 Do You Have Difficulty Walking Or Climbing Stairs? No [email or web address] Information not available 07/03/2021 Are You Currently In School? No [email or web address] Information not available 07/03/2021 Sex: Unknown Functional Status Question Answer Note LastModified by Organizat ion Details LastModified Time Do you use any illicit or recreational drugs? No [email or web address] Information not available 05/02/2021 Do you or have you ever used any other forms of tobacco or nicotine? No [email or web address] Information not available 05/02/2021 What is your level of alcohol consumption? None [email or web address] Information not available 01/04/2022 Do you or have you ever used smokeless tobacco? Never used smokeless tobacco Information not available 04/24/2021 Are you currently employed? No [email or web address] Information not available 07/03/2021 Do you have transportation difficulties? No [email or web address] Information not available 07/03/2021 Are you able to care for yourself independently? Yes [email or web address] Information not available 07/03/2021 Do you or have you ever used e-cigarettes or vape? Never used electronic cigarettes Information not available 04/24/2021 What is your exercise level? None [email or web address] Information not available 05/02/2021 Mental Status Question Answer Note LastModified by Organization D etails LastModified Time Do you have difficulty concentrating, remembering or making decisions? No [email or web address] Information no t available 07/03/2021 Family History Relationship Description Onset Age of this Age Resolved Age Notes LastModified by Organization Details LastModified Time Mother History of hypertension [email or web address] Not available 16:00:14 Medical History Condition Response Kidney Disease/Stones N COPD (Chronic Obstructive Pulmonary Dise ase) Y Blood Clot (Deep Vein Thrombosis) N High Blood Pressure (Hypertension) Y Bleeding Problems N Arthritis Rheumatoid Y Cancer Y Heart Disease/Valve Disease Y Back/Neck Pain Y Spine Disease (Herniated Disc, Scoliosis , Stenosis) Y Past Encounters Encounter ID Performer Location Encounter Start Date Encounter Closed Date Diagnosis/Indication Diagnosis SNOMED-CT Code Diagnosis ICD10 Code Diagnosis IMO Codes Diagnosis Note [id number] Yaneth Yeager MD [facility] [address] [place] [id number] 04/24/2021 15:17:28 04/30/2021 00:12:34 Lumbar radiculopathy 675153255 M54.16 Lumbar post-laminectomy syndrome 060668606 M96.1 - will schedule for a caudal TIGIST at this time and reeval. SCS discussed with PT. Cervical post-laminectomy syndrome 878937424 M96.1 Neuropathic pain 3927736 09 M79.2 [id number] Yaneth Yeager [place] [facility] [address] [place] [id number] 05/02/2021 14:22:42 05/02/2021 15:58:54 Lumbar radiculopathy 964110585 M54.16 [id number] Yaneth Yeager [place] [facility] [address] [place] [id number] 07/03/2021 13:08:23 07/03/2021 14:05:43 Lumbar post-laminectomy syndrome 092576481 M96.1 - will proceed with a trial of SCS. Patient has failed conservati ve therapies. Will set up for trial.- 25 min spent discussing SCS, [place] [facility] Lumbar radiculopathy 128 995757 M54.16 [id number] MD [facility] [address] [place] [id number] 08/17/2021 14:19:31 08/17/2021 15:33:39 Advance care planning [id number] Z71.89 Lumbar post-laminectomy syndrome 410879832 M96.1 -He reports 75 %-80% improvemen t post procedure. He reports he has been walking better and more. His right leg pain, pain in right great toe, sleeping and walking have all improved since the device was placed. He reports he has been sleeping better.-Le ad pulled intact.-Di scussed not to soak in water for 6-8 weeks. - the procedure including the risks, benefits, details of the procedure and the process were discussed in detail with the patient. All questions were answered and the patient expressed full understand ing. He would like to move forward with the procedure at this time. Lumbar radiculopathy 128 [id number] M54.16 [id number] Yaneth Yeager MD [facility] [address] [place] [phone] 01/04/2022 13:02:29 01/04/2022 14:33:35 Advance care planning [id number] Z71.89 Lumbar post-laminectomy syndrome [id number] M96.1 -He reports 80% improvemen t post procedure. -Discussed not to soak in water for 6-8 weeks. Reminded of no bending, lifting and twisting for 6-8 weeks. - All questions were answered and the patient expressed full understand ing.-Will follow up in 6 weeks. Lumbar radiculopathy 128 M54.16 Health Concerns Section Related Observation LastModified by Organization Detai ls LastModified Time None Recorded Concern Status LastModified by Organization Details LastModified Time None Recorded Advance Directives Directive Y: Payers Insurance Date Sequence Insurance Name Policy Number Policy Stapleton Covered Member ID Stapleton Member ID Guarantor Name 10/09/2021 1 *SELF PAY* Juan Rubin [id number] Juan Rubin 10/09/2021 2 [employer] [place] (O) [id number] Juan Rubin [id number] Juan Rubin 05/21/2014 1 [facility] Scottie [id number] Juan Rubin 05/27/[address] [facility] [id number] Juan Rubin [id number] Juan Rubin 10/09/2021 1 [email or web address] [employer] [place] (HMO) [id number] Juan Rubin [id number] Juan Rubin 10/09/2021 [employer] Juan Rubin [id number] Juan Rubin 10/09/2021 1 *SELF PAY* Juan Rubin 05/27/2022 1 MEDICARE B-[place]: [facility] Juan Rubin [id number] Juan Rubin Notes Date Note Type Note Provider Name and Address Organization Details Recorded Time 04/24/2021 text/html ROS as noted in the HPI 66 yo male presents to the office for a new patient visit and c/o low back pain with radiation to hips, legs, and feet R>L. Pain is described as constant and burning. Pain started in 04/28/2019 after he had his first cervical surgery. Patient reports the pain was s/p spinal surgery. Patient had cervical surgery twice to address herniated disc, lumbar surgery three times to address spinal stenosis. Was seen by PT with no relief. Pain is worsened by any movement. Pain is lessoned by nothing. Patient claims he is numb most part of his body. He also c/o tingling on BLE. Daily average pain is: 5-6/10. Yaneth Yeager MD [address] [place] [address], [phone], [facility]. 04/24/2021 17:48:27 07/03/2021 text/html 67 y/o M with PLPS s/p Caudal TIGIST with little relief of his pain. He states that he did not have significant change in his symptoms after the procedure. Currently he states that his pain is the worst in the low back legs. He denies any fluctuance drainage or erythema in the area of the injections. His overall level of pain is a 6/10. Yaneth Yeager MD [address] [place] [address], [phone], [facility]. 07/03/2021 13:46:00 08/17/2021 text/html ROS as noted in the HPI F/U SCS trial through [employer] placed 08/13/21. He is here today for lead pull. He reports 75 %-80% improvement post procedure. He reports he has been walking better and more. His right leg pain, pain in right great toe, sleeping and walking have all improved since the device was placed. He reports he has been sleeping better. Average daily pain level 2/10. Patient denies warmth, redness, and drainage. Patient denies N/V, sedation, photophobia, severe LORA and auditory sensitivity after the procedure. Yaneth Yeager MD [address] [place], [phone], [facility]. 09/06/2021 08:33:14 01/04/2022 text/html ROS as noted in the HPI 66 M. with PLPS who is here for F/U perm placement of SCS through [employer] for low back and leg pain. David is here today for any reprogramming. He continues to report 80 % improvement since surgery. He is having more burning than pain. Dressing removal today. He feels that the lower back setting are not working on the right side as well as the left side. Todays pain level is 3/10. Average daily pain level 2/10. Leticia Bello NP [address] [place], [phone], [facility]. 01/04/2022 14:13:05
--- OUTSIDE RECORDS SUMMARY | 2025-08-12 10:56 | XMS_ITS | Clinical Summary ---
Author Organization [facility] Address [address] [place] [address] Care Team Providers Care Inspector And Mender Name Role Phone Joy March Primary Care Provider Allergies Active Allergy Reactions Criticality Noted Date [...] 4 bandageIndicati ons:Neurogenic bladder, flaccid,Suprapu bic catheter Patient requires supplies for daily care/maintenance to SPT site. 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 Uses 1 sterile 4x4 daily to clean SPT site. Ref. # MedLine Sponges, 10 per Box: [id number] 30 each 12/13/19 23 Active urinary bag misc Pt requires Bedside drainage bag changed every other week. (Conveen Ref # [id number]) DX: Neuromuscular Dysfunction of Bladder (N31.9) 2 each 12/28/19 23 Active adhesive tape (Paper Tape) 1 X 10 -yard tapeIndications :Suprapubic catheter HypoAllergenic Paper Tape, 1 x10 yard. Pt. Requires 2 rolls per month to secure drainage sponge around SPT daily. Diagnosis: Suprapubic Catheter(Z93.59) 2 each 11 01/28/20 Active acetaminophen (TYLENOL) 325 mg tablet [...] Steril) packageIndicati ons:Neurogenic bladder, flaccid,Suprapu bic catheter Pt. Has a SupraPubic Tube that requires daily care/maintenance. Pt. Requires 1 sterile drainage sponge daily to be placed on SPT Site after cleaning. Diagnoses: Neuromuscular Dysfunction of Bladder(N31.9) and SupraPubic Catheter(Z93.59) 30 each 11 02/28/20 Active LORazepam (ATIVAN) 0.5 mg tablet [...] ns:Chronic obstructive pulmonary disease, unspecified COPD type Inhale 1 puff by mouth once a [...] MOUTH DAILY 90 capsule 05/31/20 24 Active losartan (COZAAR) 50 mg tablet TAKE 1 TABLET BY MOUTH EVERY DAY 90 tablet 08/17/20 24 Active hydroCHLOROthia zide (HYDRODIURIL) 25 mg tablet TAKE 1 TABLET(25 MG) BY MOUTH EVERY DAY 90 tablet 08/17/20 24 Active gabapentin (NEURONTIN) 600 mg tabletIndicatio [...] once a week. 40 tablet 02/08/20 25 Active predniSONE (DELTASONE) 5 mg tablet TAKE 2 TABLETS(10 MG) BY MOUTH DAILY 60 tablet 04/26/20 25 Active folic acid (FOLVITE) 1 mg tablet TAKE 1 TABLET BY MOUTH EVERY DAY 30 tablet 2 04/19/20 25 Active trospium (SANCTURA) 20 mg tablet TAKE 1 TABLET(20 MG) BY MOUTH DAILY 90 tablet 3 04/28/20 25 Active Active Problems Problem Noted Date Diagnosed Date Right carpal tunnel syndrome 06/27/2023 Spinal cord compression 04/18/2023 Neurogenic bladder, flaccid 03/12/2022 Assessment & Plan (02/01/2023 1:47 PM EDT): Patient with neurogenic bladder s/p suprapubic catheter placement. 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 Given potential for this to have contributed [...] multilevel degenerative changes of the lumbar spine. This is most significant at L3-L4 where there [...] supplements MD Juan Martinez : 1955 CSN: [id number] Hyperglycemia 08/18/2019 Overview (08/18/2019): Due to steroids, [...] the AM for any further recs. Plan: -[place] 5-10mg PO q6 hours PRN pain -NS [...] gerardo bowel movement in approximately 2 weeks IRRIGATION FLUME LAYER since a prior prep for colonoscopy in [...] GI following; apprec recs - NPO at [place] in case colo on Saturday 02/03 Vasovagal [...] Encounters Date Type Department Care Team Description 06/23/2025 Refill [facility] Internal Medicine [address] [place] [address] Kristen Parkinson MD 05/19/2025 Refill [facility] Internal Medicine [address] [place] [address] Kristen Parkinson MD from Last 3 Months Immunizations Immunization Administration Dates Next Due COVID-19, Moderna, mRNA, LNP -S, Bivalent Booster, PF 07/24/2022 Covid-19 Monovalent Vaccine, Moderna, mRNA, PF 07/16/2021,01/10/2021,12/13/2020 Covid-19, Moderna, mRNA, Vac cine, PF, 50 mcg/0.5 mL (for age 12 y and up) 07/09/2023 INFLUENZA, SPLIT VIRUS, TRIVALENT, PF ,07/11/2016,09/08/2015,08/10 Influenza, High Dose Seasona l, Preservative Free (FLUZONE HIGH-DOSE) 06/21/2020 Influenza, High Dose Seasona l, Quadrivalent PF 06/05/2023,07/24/2022 Influenza, Injectable, Quadr ivalent Preservative Free 07/16/2021 Influenza, Injectable, Quadr ivalent, Preservative Free 08/07/2019,06/09/2018,08/21/2017 Influenza, Trivalent, MDV, Injectable ,07/02/2013,07/20/2012,08/08,07/27/2009,08/30/2008,09/02/2007 Novel [id number], Preservative-Free, Injectable 09/27/2009 Pneumococcal Conjugate Vacci ne, 13 Valent 03/07/2015 Pneumococcal Polysaccharide Vaccine, 23 Valent 07/31/2020,08/30/2008 Pneumococcal conjugate PCV20,polysaccharide GVV005 conjugate, adjuvant, PF (Prevnar 20) 06/05/2023 RSV, [...] drink = 0.6 oz pur e alcohol) [facility] Utilities Answer Date Recorded In [...] 75 02/03/2025 1:24 PM EDT Temperature 36.6 C (97.9 F) 02/03/2025 1:24 PM EDT Respiratory Rate 20 06/21/2024 6:32 AM EDT Oxygen Saturation 96% 06/21/2024 6:32 AM EDT Inhaled Oxygen Concentration - - Weight 83 kg (183 lb) 02/03/2025 1:24 PM EDT Height 175.3 cm (5' 9 ) 02/03/2025 1:24 PM EDT Body Mass Index 27.02 02/03/2025 1:24 PM EDT Plan of Treatment Health Maintenance Due Date Last Done Comments CT Lung Cancer Screening (12 months, previous LungRADS 1 or 2) 06/17/2019 06/17/2018, 05/09/2016 Alcohol/Substance Use Screening 10/06/2024 , 06/11/2023 Depression Screening and Follow-Up 10/06/2024 11/27/2023 Health Care Proxy Review 10/06/2024 11/27/2023, 02/03 Social Drivers of Health Belinda ual Screening 10/06/2024 Medicare AWV 11/27/2024 11/27/2023 Colonoscopy 05/20/2025 05/20/2024, 05/06, 02/03/2023, Additional history exists COVID-19 Vaccine (2024-11 6 season) 2025 07/20/2024, 07/09/2023, 07/24/2022, Additional history exists Influenza Vaccine (#1) 2025 4, 06/05/2023, 07/24/2022, Additional history exists Basic Metabolic Panel 06/21/2025 [...] Additional history exists Statin Therapy Completed 05/12/2024 Hepatitis C Screening Completed 02/03/2025, 019 Hepatitis B Vaccines Discontinued Medical Devices Implanted Type Area Lay Brother Device Identifier Shelf Expiration Date Model / Serial / Lot Mau Thoracolumbar 3.2jxb88ph Altaf - [id number] Implanted:Qty: 2 on 08/06/2019 by Dianne De MD at [facility] Implant Spine Cervical DEPUY 1883-16- 060 / / Connector Spinal Cross Thoracolumbar Head To Head Titanium 35mm Mountaineer - [id number] Implanted:Qty: 1 on 08/06/2019 by Dianne De MD at [facility] Implant Spine Cervical DEPUY 1883-41- 035 / / Nut Spinal Outer Connector Cross Head To Head Titanium Mountaineer - [id number] Implanted:Qty: 2 on 08/06/2019 by Dianne De MD at [facility] Implant Spine Cervical DEPUY 1883-41- 200 / / Nut Spinal Outer Connector Cross Head To Head Titanium Mountaineer - [id number] Implanted:Qty: 2 on 08/06/2019 by Dianne De MD at [facility] Implant Spine Cervical DEPUY 1883-41- 100 / / Screw Thoracic Favored Angle Titanium 3.4ylv04uz Mountaineer - [id number] Implanted:Qty: 7 on 08/06/2019 by Dianne De MD at [facility] Screw Spine Cervical DEPUY 1883-18- 312 / / Screw Thoracic Favored Angle Titanium 3.4knq24jw Mountaineer - [id number] Implanted:Qty: 1 on 08/06/2019 by Dianne De MD at [facility] Screw Spine Cervical DEPUY 1883-18- 316 / / Screw Thoracic Inner Mountaineer - [id number] Implanted:Qty: 6 on 08/06/2019 by Dianne De MD at [facility] Screw Spine Cervical DEPUY 1883-42- 200 / / Putty Demineralized Bone Matrix 10cc Dbx - [id number] - [id number] Implanted:Qty: 1 on 08/06/2019 by Dianne De MD at [facility] Tissue Spine Cervical MUSCULOSKELETAL TRANSPLANT FND 04/27/2021 [id number] / [id number] / Ic Graft Chamber Dbm 10 - [id number] - [id number] Implanted:Qty: 1 on 04/28/2020 by Dianne De MD at [facility] Tissue Spine Lumbar LIFENET 11/14/2022 [id number] / [id number] / [id number] Description:Demineralized yany ne matrix and cancellous chips reconstituted with pts. blood Ic Graft Chamber [facility] - [id number] - [id number] Implanted:Qty: 1 on 04/28/2020 by Dianne De MD at [facility] Tissue Spine Lumbar LIFENET 11/14/2022 [id number] / [id number] / [id number] Description:Demineralized yany ne matrix and cancellous chips reconstituted with pts. blood Procedures * Due to [place] [employer] law, this organization might not be sharing negative HIV tests. Procedure Name Priority Date/Time Associated Diagnosis Comments HEPATITIS C ANTIBODY W/REFLEX TO HCV RNA, QUANTITATIVE PCR Routine 02/03/2025 2:42 PM EDT History of polymyalgia rheumatica Right anterior shoulder pain Seronegative inflammatory arthritis BASIC METABOLIC PANEL STAT 06/21/2024 6:40 AM EDT COLONOSCOPY 05/20/2024 CT ABDOMEN PELVIS W CONTRAST STAT 01/18/2023 10:[address] CHEST WO CONTRAST Routine 06/17/2018 12:12 PM EDT Pulmonary emphysema, unspecified emphysema type from Last 3 Months or Most Recently Relevant to Health Maintenance Results * Due to [place] [employer] law, this organization might not be sharing negative HIV tests. * Hepatitis C Antibody w/Reflex to HCV RNA, Quantitative PCR (02/03/2025 2:42 PM EDT) Hepatitis C Antibody NON-REACT YENNI NON-REACT YENNI 02/04/2025 1:32 AM EDT [employer] [facility] Comment: HCV antibody was non-reactive. There is no laboratory evidence of HCV infection. In most cases, no further action is required. However, if recent HCV exposure is suspected, a test for HCV RNA (test code 01194) is suggested. For additional information please refer to http://education.Fitbay/faq/MZT12i2 (This link is being provided for informational/ educational purposes only.) Blood Structure of peripheral vein / Unknown Venipuncture / Unknown 02/03/2025 2:42 PM EDT 02/03/2025 2:54 PM EDT [facility] 02/04/2025 1:32 AM EDT [facility] Received Date: Gary Angela MD LAB BLOOD ORDERABLES Final Result [facility] [address] [facility] [address] [facility], [place] [address], [employer] [facility] [address], [place] [address], * (ABNORMAL) BMP - Basic Metabolic Panel (06/21/2024 6:40 AM EDT) Pathologist [facility] NA 140 135 - 145 mmol/L 06/21/2024 7:17 AM EDT [facility] K 4.0 3.5 - 5.3 mmol/L 06/21/2024 7:17 AM EDT [facility] Cl 104 98 - 107 mmol/L 06/21/2024 7:17 AM EDT [facility] CO2 24 24 - 32 mmol/L 06/21/2024 7:17 AM EDT [facility] BUN 15 7 - 23 mg/dL 06/21/2024 7:17 AM EDT [facility] Creatinine 0.74 0.60 - 1.30 mg/dL 06/21/2024 7:17 AM EDT [facility] Glucose 116(H) 65 - 99 mg/dL 06/21/2024 7:17 AM EDT [facility] Calcium 9.7 8.6 - 10.5 mg/dL 06/21/2024 7:17 AM EDT [facility] Anion Gap 12 5 - 15 06/21/2024 7:17 AM EDT [facility] eGFR >90 >=60 mL/min/1. 73m2 06/21/2024 7:17 AM EDT [facility] Comment:The estimated glomer [...] Kauffman MD LAB BLOOD ORDERABLES Final Result [facility] [address] [place] [address], * COLONOSCOPY (05/20/2024) Narrative Procedure Note Justo El MD PhD - 05/20/2024 9:25 AM EDT [facility] Patient Name: Juan Rubin Procedure Date: 05/20/2024 9:25 AM Date of : 1955 Admit Type: Outpatient Age: 69 Room: [place] [address] Gender: Male Note Status: Finalized Attending MD: [...] section, it is an incomplete radiology report. Please contact the interpreting radiologist or applicable radiology division as soon as possible to obtain the completed interpretation. Workstation ID: [id number] Up-to-date CT equipment and radiation dose reduction techniques were employed. CTDIvol: 15.5 mGy. DLP: 698 mGy-cm. Narrative 01/18/2023 10:51 PM EDT COMPARISON: 07/06/2013 FINDINGS: Lower Thorax: No focal [...] evidence for recurrent hernia. Resulting Agency Comment [id number] Procedure Note Iain Jain MD - 01/18/2023 [...] possible to obtain thecompleted interpretation. Workstation ID: [id number] Up-to-date CT equipment and radiation dose reduction techniques wereemployed. CTDIvol: 15.5 mGy. DLP: 698 mGy-cm. us Agapito Rowe MD IMG CT PROCEDURES Final Resu lt * CT Chest WO Contrast (06/17/2018 12:12 PM EDT) Anatomical Region Laterality Modality Body Computed Tomogra phy 06/20/2018 1:13 PM EDT Impressions 06/20/2018 1:28 PM EDT 1. Single pulmonary nodule remains left upper lobe 2 mm. This study is designated a Lung-Rads 2 category. Since the patient has not followed up since 05/09/2016, this study is now considered this year's (2018) annual low-dose CT. Recommendations for follow-up: Annual low-dose lung cancer screening now due CT 06/2019 if the patient qualifies for lung cancer screening. Screening guidelines provided below. 2. 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 Respiratory bronchiolitis is a smoking-related interstitial lung disease characterized by upper lobe predominant groundglass peribronchial opacities or poorly defined centrilobular nodules. Generally this pattern is found with heavy smoking [...] or willingness to have curative lung surgery [id number] Up-to-date CT equipment and radiation dose reduction techniques were employed. CTDIvol: 5.6 - 16.0 mGy. DLP: 541 mGy-cm.The following accession numbers are related to this dose report [id number] Narrative 06/20/2018 1:28 PM EDT EXAMINATION: CT of the chest without intravenous contrast. INDICATION: COPD on the current every day smoker, follow-up 3 mm pulmonary nodule identified on prior CT. COMPARISON: 05/09/2016. TECHNIQUE: [...] appearance of the thyroid gland. No upper chest adenopathy. LUNGS, PLEURA, AIRWAYS: Background changes of centrilobular emphysema and respiratory bronchitis with peribronchial groundglass opacities within both lungs. These findings are typical for smoking-related interstitial lung disease. No endotracheal lesions are apparent. No endobronchial lesions are seen. No consolidation, atelectasis, or effusion. No pleural calcification or pleural thickening. Pulmonary nodules seen as follows: 1. 2 mm left upper lobe pulmonary nodule image 157 series 5. The previously identified pulmonary nodules on prior study are no longer seen on today's exam. No new nodules have developed. MEDIASTINUM: Cardiac size is normal. Hiatal hernia seen at the GE junction. Coronary artery calcification present. Ascending thoracic aortic diameter 3.6 cm. No pericardial effusion. No mediastinal mass. NODES: High right paratracheal 9.2 mm lymph node image 26 series 3. 11.3 mm right paratracheal node image 35 series 3. These are most likely reactive. UPPER ABDOMEN: Included portions of the upper abdomen are unremarkable. Low-density liver lesion 8.1 mm on image 89 series 3. Mildly lobular lateral limb left adrenal gland image 101 series 3. No free air or free fluid in the upper abdomen. Mesh repair of the anterior abdominal wall epigastrium region. BONES/SOFT TISSUES: No lytic or blastic changes noted. Osteophytes are present. Degenerative disc disease seen. No loss of vertebral body height. Procedure Note [...] cancer screening guidelines, please refer to:[email or web address].uspreventiveservicestaskforce.org/Page/Document/UpdateSummaryFina l/ruby f-bttdvi-ixfxiredf Adults Aged 55-77, with a History of [...] or willingness to have curative lung surgery [id number] Up-to-date CT equipment and radiation dose reduction techniques wereemployed. CTDIvol: 5.6 - 16.0 mGy. DLP: 541 mGy-cm.The following accessionnumbers are related to this dose report [id number] Kristen Pierce MD 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
--- OUTSIDE RECORDS SUMMARY | 2025-08-12 10:56 | XMS_ITS ---
Author Organization [facility] Address [address] [place] [address] Care Team Providers Care Delinquent Tax Collector Name Role Phone IgorJoy Vernon Primary Care Provider [phone] Active Problems * This document contains information received from the source organization and may not represent a complete record from that organization. 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 Given potential for this to have contributed [...] supplements MD Juan Martinez : 1955 CSN: [id number] Hyperglycemia 08/18/2019 Overview (08/18/2019): Due to steroids, [...] the AM for any further recs. 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
--- OUTSIDE RECORDS SUMMARY | 2025-08-12 10:56 | XMS_ITS | Encounter Summary ---
Author Organization [facility] Address [address] [place] [address] Care Team Providers Care Bail Bondsman Name Role Phone IgorSaulo Joy Primary Care Provider [phone] Reason for Visit * Reason Onset Date Comments PAC Appt Request - New 02/28/2023 Encounter Details Date Type Department Care Team (Late st Contact Info) Description 02/28/2023 Telephone [facility] Patient [facility] [address] [place] [address] Telephone Intake, Staff PAC Appt Request - [...] Miscellaneous Notes * Telephone Encounter - Dhara Lloyd - 02/28/2023 11:45 AM EDT New pt being referred to Rheum for PMR DT states to send TE to admins if no availability within 7 days, Patient has been scheduled for next available which was 05/12 @ 8:30 am Pt can be reached @ [phone] Thank you PAC documented in this encounter Plan of Treatment Not on file documented as of this encounter Visit Diagnoses Not on filedocumented in this encounter Additional Health Concerns Infection Onset Date Last Indicated Resolved Time 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
--- OUTSIDE RECORDS SUMMARY | 2025-08-12 10:56 | XMS_ITS | Encounter Summary ---
Author Organization [facility] Address [address] [place] [address] Care Team Providers Care Revenue Audit Clerk Name Role Phone IgorSaulo Joy Primary Care Provider [phone] Encounter Details Date Type Department Care Team (Late st Contact Info) Description 04/29/2023 [employer] Message [facility] Revenue Cycle Management [address] [place] [address] [employer], Generic Provider [address] [place] [address] account dispute Social History Tobacco Use [...] documented as of this encounter Care Teams Revenue Audit Clerk Relationship Specialty Start Date End Date Joy March [address] [place] [address] PCP - General Family Medicine 02/03/25 documented as of this encounter
--- OUTSIDE RECORDS SUMMARY | 2025-08-12 10:56 | XMS_ITS | Encounter Summary ---
Author Organization [facility] Address [address] [place] [address] Care Team Providers Care Oil Distributor Tender Name Role Phone IgorSaulo Joy Primary Care Provider [phone] Encounter Details Date Type Department Care Team (Late st Contact Info) Description 02/26/[address] [facility] Interventional Radiology [address] [place] [address] Reagan Mendoza NP [address] [place], [place] [id number] Social History Tobacco Use Types Packs/Day Years [...] of spinal canal ??? Colon cancer (CMS/HCC) (HCC) age 49, s/p patial colectomy, no chemo or radiation ??? COPD (chronic obstructive pulmonary disease) (HCC) no overnight hospitilizations, no intubations, symbicort BID, [...] right middle finger ??? HERNIA REPAIR ??? DC ALLOGRAFT FOR SPINE SURGERY ONLY MORSELIZED Bilateral 08/06/2019 Procedure: ALLOGRAFT, MORSELIZED, OR PLACEMENT OF OSTEOPROMOTIVE MATERIAL, FOR SPINE SURGERY ONLY; Surgeon: Dianne De MD; Location: [facility] OR; Service: Neurosurgery ??? DC ARTHRODESIS POSTERIOR/POSTERIORLATERAL CERVICAL BELOW C2 Bilateral 08/06/2019 Procedure: FUSION, POSTERIOR OR POSTEROLATERAL, CERVICAL BELOW C2, SINGLE LEVEL; Surgeon: Dianne De MD; Location: [facility]; Service: Neurosurgery ??? DC ARTHRODESIS POSTERIOR/POSTEROLATERAL EA ADDL Bilateral 08/06/2019 Procedure: FUSION, POSTERIOR OR POSTEROLATERAL,??EACH ADDITIONAL SEGMENT; Surgeon: Dianne De MD; Location: [facility]; Service: Neurosurgery ??? DC ARTHRODESIS POSTERIOR/POSTEROLATERAL LUMBAR Bilateral 04/28/2020 Procedure: L2-L5 bilateral laminectomies with insitu fusion / possible bilateal facet screw instrumenation; Surgeon: Dianne De MD; Location: [facility]; Service: Neurosurgery ??? DC AUTOGRAFT SPINE SURGERY LOCAL FROM SAME INCISION Bilateral 08/06/2019 Procedure: AUTOGRAFT FOR SPINE SURGERY ONLY (INCLUDES HARVESTING THE GRAFT); LOCAL (EG, RIBS, SPINOUS PROCESS, OR LAMINAR FRAGMENTS) OBTAINED FROM SAME INCISION; Surgeon: Dianne De MD; Location: [facility]; Service: Neurosurgery ??? DC AUTOGRAFT SPINE SURGERY MORSELIZED SEP INCISION Bilateral 04/28/2020 Procedure: PLACEMENT OF AUTOGRAFT, SEPARATE INCISION, SPINE SURGERY; Surgeon: Dianne De MD;Location: [facility]; Service: Neurosurgery ??? DC EXCIS INTRASP LESN,XDURAL,CERVICAL N/A 08/10/2019 Procedure: evacuation of hematoma osterior cervical laminectomy sie ; Surgeon: Dianne De MD; Location: [facility]; Service: Neurosurgery DC I&D, POST SPINE, LUMB/SACR/LUMBOSAC N/A 05/01/2020 Procedure: INCISION AND DRAINAGE, DEEP ABSCESS LUMBAR AND/OR SACRAL SPINE; Surgeon: Dianne De MD; Location: [facility]; Service: Neurosurgery ??? DC INJ CERV/THORAC,W/WO CNTRST N/A ??? DC LAMINEC/FACETECT/FORAMIN,EACH ADDNL Bilateral 04/28/2020 Procedure: LAMINECTOMY, FACETECTOMY, AND FORAMINOTOMY, CERVICAL, THORACIC, OR LUMBAR, EACH ADDITIONAL LEVEL; Surgeon: Dianne De MD; Location: [facility]; Service: Neurosurgery ??? DC LAMINEC/FACETECT/FORAMIN,LUMBAR 1 SEG Bilateral 04/28/2020 Procedure: LAMINECTOMY, FACETECTOMY, AND FORAMINOTOMY, LUMBAR, SINGLE LEVEL; Surgeon: Dianne De MD; Location: [facility]; Service: Neurosurgery DC LAMINECTOMY,>2 SGMT,CERVICAL Bilateral 08/06/2019 Procedure: POSTERIOR BILATERAL C3-C6 LAMINECTOMY AND FUSION/ INSTRUMENTATION; Surgeon: Dianne De MD; Location: [facility]; Service: Neurosurgery ??? DC POSTERIOR NON-SEGMENTAL INSTRUMENTATION Bilateral 04/28/2020 Procedure: POSTERIOR NON-SEGMENTAL INSTRUMENTATION; Surgeon: Dianne De MD; Location: [facility]; Service: Neurosurgery ??? DC POSTERIOR SEGMENTAL INSTRUMENTATION 3-6 VRT SEG Bilateral [...] documented as of this encounter Care Teams Oil Distributor Tender Relationship Specialty Start Date End Date Joy March [address] [place] [address] PCP - General Family Medicine 02/03/25 documented as of this encounter
== END 2025-08-12 12:06 | disposition home or self-care (01) ==
PROVIDERS: PCP Internal Medicine; Visit Provider Physician Assistant
DX: M25.50 Pain in unspecified joint (principal)

== ENCOUNTER 2025-08-17 09:59 | Emergency (ER) | payer MEDICARE, SELFPAY ==
[2025-08-17 10:01] VITALS: BP 147/67; PULSE 71; RESP 16; TEMP 37; O2SAT 97; BMI 28.4
--- NOTE | 2025-08-17 10:25 | ED_ITS ---
HPI - General Adult General Chief complaint: General Medical Stated complaint: Back Pain Time Seen by Provider: 08/17/25 10:25 Related Data Home Medications ?Medication ?Instructions ?Recorded ?Confirmed budesonide-formoterol HFA 160 2 puff inhalation BID mcg-4.5 mcg/actuation aerosol inhaler (Breyna) docusate sodium 100 mg capsule 100 mg PO TID 08/12/25 trospium 20 mg tablet 20 mg PO .qhs 08/12/25 Previous Rx's ?Medication ?Instructions ?Recorded albuterol sulfate 90 mcg/actuation 2 puff inhalation Q 4-6H PRN 09/30/24 aerosol inhaler (Ventolin HFA) shortness of breath or wheezing #8.5 grams atorvastatin 20 mg tablet 20 mg PO DAILY #90 tabs 11/06 06/30 hydrochlorothiazide 25 mg tablet 25 mg PO DAILY #90 ta bs 11/24/24 losartan 50 mg tablet 50 mg PO DAILY #90 tabs 11/06 06/30 gabapentin 600 mg tablet 600 mg PO QID 90 days #360 t abs 12/10/24 lactulose 10 gram/15 mL oral 30 ml PO TID #8,181 mL solution amlodipine 5 mg tablet 5 mg PO DAILY #90 tabs 07/19 diazepam 2 mg tablet (Valium) 2 mg PO TID PRN spasms 2 days #6 08/17/25 tabs Allergies Allergy/AdvReac Type Severity Reaction Status Date / Time No Known Allergies Allergy Verified 08/17/25 10:05 [facility] Past Medical History Medical History Pure hypercholesterolemia Essential hypertension Suprapubic catheter COPD exacerbation Osteoarthritis of cervical spine Neurogenic urinary bladder disorder Benitez catheter present Colon cancer Hypertension Amputation of right middle finger Surgical History H/O neck surgery History of partial surgical removal of colon Previous back surgery Family History Family History Mother High cholesterol Hypertension Brother Colon cancer Father Cardiovascular disease Social History Social History Household Members: Spouse Housing: House Are you a primary daycare director to a significant other at home: No Do you presently have visiting nurse or other home services: No Alcohol intake: never Patient Tobacco Use Status: Former Tobacco user Tobacco use type: Cigarette Cigarette Packs Per Day: 2 Cigarettes Per Day: 20 Years Smoked: 50 e-Cigarette/Vaping Use: Never Used Second Hand Smoke Exposure: No service: No Current occupational status: retired Cognitive needs: No Hearing needs: Yes (hearing aid) Vision needs: No Physical Exam ED Vital Signs: Vital Signs - 24 hr 08/17/25 10:01 Temperature 98.6 F Pulse Rate 71 Respiratory Rate 16 Blood Pressure 147/67 H Pulse Oximetry 97 Oxygen Delivery Method Room Air BMI result Body Mass Index 28.4 Discharge Plan Discharge Clinical Impression: Peripheral neuropathic pain Patient Disposition: Home, Self-Care Additional Instructions: We discussed alternative treatment options that your son will take her off in the meantime you can use Valium 2 mg every 6-8 hours as needed for muscle spasms and sleep do not mix with marijuana alcohol or any other sedating medications do not drive while taking this medication, I am also referring you to physiatry Inability to urinate numbness and weakness that is new and worsening progressive come back to the ER Please call the number for physiatry provided to establish follow up referral is provided Prescriptions: New diazepam [Valium] 2 mg tablet 2 mg PO TID PRN (Reason: spasms) 2 Days Qty: 6 0RF No Action losartan 50 mg tablet 50 mg PO DAILY Qty: 90 3RF atorvastatin 20 mg tablet 20 mg PO DAILY Qty: 90 3RF hydrochlorothiazide 25 mg tablet 25 mg PO DAILY Qty: 90 3RF lactulose 10 gram/15 mL solution 30 ml PO TID Qty: 8181 1RF amlodipine 5 mg tablet 5 mg PO DAILY Qty: 90 3RF gabapentin 600 mg tablet 600 mg PO QID 90 Days Qty: 360 3RF docusate sodium 100 mg capsule 100 mg PO TID albuterol sulfate [Ventolin HFA] 90 mcg/actuation HFA aerosol inhaler 2 puff inhalation Q4-6H PRN (Reason: shortness of breath or wheezing) Qty: 8.5 0RF trospium 20 mg tablet 20 mg PO .qhs Rx Instructions: administer on an empty stomach budesonide-formoterol [Breyna] 160-4.5 mcg/actuation HFA aerosol inhaler 2 puff inhalation BID Referrals: [facility] [Provider Group, Physiatry] - 2 weeks Referral Note: Presenting with neuropathy in the setting of chronic back and neck issues, fairly optimized on gabapentin, will benefit from PMR evaluation Clinical Impression: Peripheral neuropathic pain Print Language: Montenegrin
[2025-08-17 11:52] VITALS: BP 147/67; PULSE 71; RESP 16; TEMP 37; O2SAT 97
--- OUTSIDE RECORDS SUMMARY | 2025-08-17 13:43 | XMS_ITS | Patient Health Record ---
Author Organization [facility] Address [address] [address] Care Team Providers Care Senior J2Ee Developer Name Role Phone Kristen Parkinson Primary Care Provider Unavail able Ruddy Rios Unavailable [phone] Reason For Referral No Information Medications Medication [...] W/U Status Risk Notes Problem Essential hypertension (75945137) Essential (primary) hypertension (I10) Active confirmed Problem Chronic obstructive pulmonary disease (82158911) Chronic obstructive pulmonary disease, unspecified (J44.9) Active confirmed Problem Malignant neoplasm of colon (139692308) Malignant neoplasm of colon, unspecified (C18.9) Active confirmed Problem Obesity (159149294) Obesity, unspecified (E66.9) Active confirmed Problem Mixed hyperlipidemia (297034136) Mixed hyperlipidemia (E78.2) Active confirmed Problem Quadriplegia (62236204) Quadriplegia, unspecified (G82.50) Active confirmed Problem Gastro-esophageal reflux disease without esophagitis (818380254) Gastro-esophageal reflux disease without esophagitis (K21.9) Active confirmed Problem Osteomyelitis of vertebra (352429524) Osteomyelitis of vertebra, sacral and sacrococcygeal region (M46.28) Active confirmed Plan Of Treatment No Information Insurance Providers Payer Name Payer Address Payer Phone Subscriber Number Group Number Insured Name Patient Relationship to Insured Coverage Start Date Coverage End Date [facility] [address] [place] [phone] [id number] VANESSA ALBRECHT Self - patient is the insured [facility] Medex Medicare Suppl [address] [place] [address] [phone] [id number] VANESSA ALBRECHT Self - patient is the insured Medical (General) History Medical History History ICD Code cervical stenosis of spinal canal quadriparesis sacral decubitus ulcer colon cancer COPD HTN hypercholesterolemia obesity hearing loss Surgical History Surgery Date(Month/Year) Hospitalization History Reason Date(Month/Year) sacral osteomyelitis 09/2019 C3-C7 Laminectomy at [facility] 08/2019
--- OUTSIDE RECORDS SUMMARY | 2025-08-17 13:43 | XMS_ITS ---
Author Organization [facility] Address [address] [place] [address] Care Team Providers Care Foundry Technician Name Role Phone IgorJoy Vernon Primary Care Provider [phone] Active Problems * This document contains information received from the source organization and may not represent a complete record from that organization. 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 Given potential for this to have contributed [...] supplements MD Juan Martinez : 1955 CSN: [id number] Hyperglycemia 08/18/2019 Overview (08/18/2019): Due to steroids, [...] the AM for any further recs. Plan: -[place] 5-10mg PO q6 hours PRN pain -NS [...] TotalDLP 698 mGy 698 mGy 0 mGy [id number] 8.2 mSv 8.2 mSv 0 mSv CTDIvol [...] gerardo bowel movement in approximately 2 weeks EXCEPTIONAL CHILDREN'S TEACHER since a prior prep for colonoscopy in [...]
--- OUTSIDE RECORDS SUMMARY | 2025-08-17 13:43 | XMS_ITS | Clinical Summary ---
Author Organization [facility] Address [address] [place] [address] Care Team Providers Care Chairman Ceo Name Role Phone Joy March Primary Care Provider [phone] Allergies Active Allergy Reactions Criticality Noted Date [...] Ref. # MedLine Sponges, 10 per Box: [id number] 30 each 12/13/19 23 Active urinary bag [...] outpatient he had recently started on trospium CONTACT REPRESENTATIVE. Given potential for this to have contributed [...] supplements MD Juan Martinez : 1955 CSN: [id number] Hyperglycemia 08/18/2019 Overview (08/18/2019): Due to steroids, [...] the AM for any further recs. Plan: -[place] 5-10mg PO q6 hours PRN pain -NS [...] gerardo bowel movement in approximately 2 weeks CONTACT REPRESENTATIVE since a prior prep for colonoscopy in [...] Type Department Care Team Description 06/23/2025 Refill [facility] Internal Medicine [address] [place] [address] Kristen Parkinson MD 05/19/2025 Refill [facility] Internal Medicine [address] [place] [address] Kristen Parkinson MD from Last 3 Months [...] 08/07/2019,06/09/2018,08/21/2017 Influenza, Trivalent, MDV, Injectable ,07/02/2013,07/20/2012,08/08,07/27/2009,08/30/2008,09/02/2007 Novel [id number], Preservative-Free, Injectable 09/27/2009 Pneumococcal Conjugate Vacci ne, 13 Valent 03/07/2015 Pneumococcal Polysaccharide Vaccine, 23 Valent 07/31/2020,08/30/2008 Pneumococcal conjugate PCV20,polysaccharide [id number] conjugate, adjuvant, PF (Prevnar 20) 06/05/2023 RSV, [...] 0.6 oz pur e alcohol) [facility] Utilities Answer Date Recorded In the past [...] Vaccines Discontinued Medical Devices Implanted Type Area Leather Goods Ii Assembler Device Identifier Shelf Expiration Date Model / Serial / Lot Mau Thoracolumbar [id number] Altaf - [id number] Implanted:Qty: 2 on 08/06/2019 by Dianne De MD at [facility] Implant Spine Cervical DEPUY 1883-16- 060 / / Connector Spinal Cross Thoracolumbar Head To Head Titanium 35mm Mountaineer - [id number] Implanted:Qty: 1 on 08/06/2019 by Dianne De MD at [facility] Implant Spine Cervical DEPUY 1883-41- 035 / / Nut Spinal Outer Connector Cross Head To Head Titanium Mountaineer - [id number] Implanted:Qty: 2 on 08/06/2019 by Dianne De MD at [facility] Implant Spine Cervical DEPUY 1883-41- 200 / / Nut Spinal Outer Connector Cross Head To Head Titanium Mountaineer - [id number] Implanted:Qty: 2 on 08/06/2019 by Dianne De MD at [facility] Implant Spine Cervical DEPUY 1883-41- 100 / / Screw Thoracic Favored Angle Titanium [id number] Mountaineer - [id number] Implanted:Qty: 7 on 08/06/2019 by Dianne De MD at [facility] Screw Spine Cervical DEPUY 1883-18- 312 / / Screw Thoracic Favored Angle Titanium [id number] Mountaineer - [id number] Implanted:Qty: 1 on 08/06/2019 by Dianne De MD at [facility] Screw Spine Cervical DEPUY 1883-18- 316 / / Screw Thoracic Inner Mountaineer - [id number] Implanted:Qty: 6 on 08/06/2019 by Dianne De MD at [facility] Screw Spine Cervical DEPUY 1883-42- 200 / / Putty Demineralized Bone Matrix 10cc Dbx - [id number] - [id number] Implanted:Qty: 1 on 08/06/2019 by Dianne De MD at [facility] Tissue Spine Cervical MUSCULOSKELETAL TRANSPLANT FND 04/27/2021 [id number] / [id number] / Ic Graft Chamber Dbm 10 - [id number] - [id number] Implanted:Qty: 1 on 04/28/2020 by Dianne De MD at [facility] Tissue Spine Lumbar LIFENET 11/14/2022 [id number] / [id number] / [id number] Description:Demineralized yany ne matrix and cancellous chips reconstituted with pts. blood Ic Graft Chamber [facility] - [id number] - [id number] Implanted:Qty: 1 on 04/28/2020 by Dianne De MD at [facility] Tissue Spine Lumbar LIFENET 11/14/2022 [id number] / [id number] / [id number] Description:Demineralized yany ne matrix and cancellous chips reconstituted with pts. blood Procedures * Due to [place] law, this organization might not be sharing [...] to Health Maintenance Results * Due to [place] law, this organization might not be sharing negative HIV tests. * Hepatitis C Antibody w/Reflex to HCV RNA, Quantitative PCR (02/03/2025 2:42 PM EDT) Hepatitis C Antibody NON-REACT YENNI NON-REACT YENNI 02/04/2025 1:32 AM EDT [facility] Comment: HCV antibody was non-reactive. There is no laboratory evidence of HCV infection. In most cases, no further action is required. However, if recent HCV exposure is suspected, a test for HCV RNA (test code 71733) is suggested. For additional information please refer to http://education.[employer]faq/EZH56m6 (This link is being provided for informational/ educational purposes only.) Blood Structure of peripheral vein / Unknown Venipuncture / Unknown 02/03/2025 2:42 PM EDT 02/03/2025 2:54 PM EDT [facility] 02/04/2025 1:32 AM EDT [facility] Received Date: Gary Angela MD LAB BLOOD ORDERABLES Final Result [facility] [address] [facility] [address] [facility], [place] [address], [facility] [address], [place] [address], * (ABNORMAL) BMP - Basic Metabolic Panel (06/21/2024 6:40 AM EDT) Pathologist [facility] NA 140 135 - 145 mmol/L 06/21/2024 7:17 AM EDT [facility] K 4.0 3.5 - 5.3 mmol/L 06/21/2024 7:17 AM EDT [facility] Cl 104 98 - 107 mmol/L 06/21/2024 7:17 AM EDT [facility] CO2 24 24 - 32 mmol/L 06/21/2024 7:17 AM EDT [facility] BUN 15 7 - 23 mg/dL 06/21/2024 7:17 AM EDT [facility] Creatinine 0.74 0.60 - 1.30 mg/dL 06/21/2024 7:17 AM EDT [facility] Glucose 116(H) 65 - 99 mg/dL 06/21/2024 7:17 AM EDT [facility] Calcium 9.7 8.6 - 10.5 mg/dL 06/21/2024 7:17 AM EDT [facility] Anion Gap 12 5 - 15 06/21/2024 7:17 AM EDT [facility] eGFR >90 >=60 mL/min/1. 73m2 06/21/2024 7:17 AM EDT [facility] Comment:The estimated glomer [...] Kauffman MD LAB BLOOD ORDERABLES Final Result [facility] [address] [place] [address], * COLONOSCOPY (05/20/2024) Narrative Procedure Note Justo El MD PhD - 05/20/2024 9:25 AM EDT [facility] Gastroenterology Patient Name: Juan Rubin Procedure Date: 05/20/2024 9:25 AM Date of : 1955 Admit Type: Outpatient Age: 69 Room: [place] [address] Gender: Male Note Status: Finalized Attending MD: [...] to obtain the completed interpretation. Workstation ID: [id number] Up-to-date CT equipment and radiation dose reduction [...] evidence for recurrent hernia. Resulting Agency Comment [id number] Procedure Note Iain Jain MD - 01/18/2023 [...] possible to obtain thecompleted interpretation. Workstation ID: [id number] Up-to-date CT equipment and radiation dose reduction [...] or willingness to have curative lung surgery [id number] Up-to-date CT equipment and radiation dose reduction techniques were employed. CTDIvol: 5.6 - 16.0 mGy. DLP: 541 mGy-cm.The following accession numbers are related to this dose report [id number] Narrative 06/20/2018 1:28 PM EDT EXAMINATION: CT [...] cancer screening guidelines, please refer to:https://www.uspreventiveservicestaskforce.org/Page/Document/UpdateSummaryFina l/ruby q-voyhnp-yudtcchkq Adults Aged 55-77, with a History of [...] or willingness to have curative lung surgery [id number] Up-to-date CT equipment and radiation dose reduction techniques wereemployed. CTDIvol: 5.6 - 16.0 mGy. 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
--- OUTSIDE RECORDS SUMMARY | 2025-08-17 13:43 | XMS_ITS | Encounter Summary ---
Author Organization [facility] Address [address] [place] [address] Care Team Providers Care Build Technician Name Role Phone Joy March MD Primary Care Provider [phone] Encounter Details Date Type Department Care Team (Late st Contact Info) Description 01/07/2025 Lab Requisition [facility] - Main Lab [address] [place] [address] Bre Humphries NP [address] [facility] [address] [place] [address] Other retention of urine Social History Tobacco [...] pneumoniae ESBL(A) KYRA 01/09/2025 8:50 AM EDT [facility] Comment: THIS ORGANISM IS POSITIVE [...] le KYRA >=320 ug/ml: Resistant Bre Humphries WATER POLLUTION SCIENTIST LAB MICROBIOLOGY - GENERA L ORDERABLES Final Result [facility] [address] [place] [address], documented in this encounter Visit Diagnoses Diagnosis Other retention of urine documented in this encounter Additional Health Concerns Infection Onset Date Last Indicated Resolved Time ESBL 01/06/2025 01/06/2025 documented as of this encounter Care Teams Build Technician Relationship Specialty Start Date End Date Joy March MD [address] [place] [address] PCP - General Internal Medicine 01/07/25 documented as of this encounter
--- OUTSIDE RECORDS SUMMARY | 2025-08-17 13:44 | XMS_ITS | Encounter Summary ---
Author Organization [facility] Address [address] [place] [address] Care Team Providers Care Pharmacy Student Name Role Phone IgorJoy Vernon Primary Care Provider [phone] Reason for Visit * Reason Onset Date Comments Scheduling Appointment 11/17/2020 Encounter Details Date Type Department Care Team (Late st Contact Info) Description 11/17/2020 Telephone [facility] [address] [place] [id number] Telephone Intake, Staff Scheduling Appointment Social History [...] were not included. MD Mara Morris; P [facility] Neurology Admin Staff Pt was following with Dr. Clemente for similar issue. Pls refer back to Dr. Clemente. - JM * Telephone Encounter - Mara Riuz - 11/21/2020 11:46 AM EST Send to reviewer * Telephone Encounter - Selma Crane - 11/17/2020 11:09 AM EST New patient has referral in the system for Left hand paresthesia unable to find the diagnoses in the system Pt requesting sooner in person appt pt can be reached at [phone] documented in this encounter Plan of Treatment [...] documented as of this encounter Care Teams Pharmacy Student Relationship Specialty Start Date End Date Joy March [address] [place] [address] PCP - General Family Medicine 02/03/25 documented as of this encounter
--- OUTSIDE RECORDS SUMMARY | 2025-08-17 13:44 | XMS_ITS | Encounter Summary ---
Author Organization [facility] Address [address] [place] [address] Care Team Providers Care Scout Professional Sports Name Role Phone IgorSaulo Joy Primary Care Provider [phone] Encounter Details Date Type Department Care Team (Late st Contact Info) Description 02/26/2022 Orders Only [facility] Interventional Radiology [address] [place] [address] Reagan Mendoza NP [address] [place], [place] [id number] Social History Tobacco Use Types Packs/Day Years [...] right middle finger ??? HERNIA REPAIR ??? WY ALLOGRAFT FOR SPINE SURGERY ONLY MORSELIZED Bilateral 08/06/2019 Procedure: ALLOGRAFT, MORSELIZED, OR PLACEMENT OF OSTEOPROMOTIVE MATERIAL, FOR SPINE SURGERY ONLY; Surgeon: Dianne De MD; Location: [facility]; Service: Neurosurgery ??? WY ARTHRODESIS POSTERIOR/POSTERIORLATERAL CERVICAL BELOW C2 Bilateral 08/06/2019 Procedure: FUSION, POSTERIOR OR POSTEROLATERAL, CERVICAL BELOW C2, SINGLE LEVEL; Surgeon: Dianne De MD; Location: [facility]; Service: Neurosurgery ??? [place] ARTHRODESIS POSTERIOR/POSTEROLATERAL EA ADDL Bilateral 08/06/2019 Procedure: FUSION, POSTERIOR OR POSTEROLATERAL,??EACH ADDITIONAL SEGMENT; Surgeon: Dianne De MD; Location: [facility]; Service: Neurosurgery ??? WY ARTHRODESIS POSTERIOR/POSTEROLATERAL LUMBAR Bilateral 04/28/2020 Procedure: L2-L5 bilateral laminectomies with insitu fusion / possible bilateal facet screw instrumenation; Surgeon: Dianne De MD; Location: [facility]; Service: Neurosurgery ??? [place] AUTOGRAFT SPINE SURGERY LOCAL FROM SAME INCISION Bilateral 08/06/2019 Procedure: AUTOGRAFT FOR SPINE SURGERY ONLY (INCLUDES HARVESTING THE GRAFT); LOCAL (EG, RIBS, SPINOUS PROCESS, OR LAMINAR FRAGMENTS) OBTAINED FROM SAME INCISION; Surgeon: Dianne De MD; Location: [facility]; Service: Neurosurgery ??? WY AUTOGRAFT SPINE SURGERY MORSELIZED SEP INCISION Bilateral 04/28/2020 Procedure: PLACEMENT OF AUTOGRAFT, SEPARATE INCISION, SPINE SURGERY; Surgeon: Dianne De MD;Location: [facility]; Service: Neurosurgery ??? WY EXCIS INTRASP LESN,XDURAL,CERVICAL N/A 08/10/2019 Procedure: evacuation of hematoma osterior cervical laminectomy sie ; Surgeon: Dianne De MD; Location: [facility]; Service: Neurosurgery WY I&D, POST SPINE, LUMB/SACR/LUMBOSAC N/A 05/01/2020 Procedure: INCISION AND DRAINAGE, DEEP ABSCESS LUMBAR AND/OR SACRAL SPINE; Surgeon: Dianne De MD; Location: [facility]; Service: Neurosurgery ??? WY INJ CERV/THORAC,W/WO CNTRST N/A ??? [place] LAMINEC/FACETECT/FORAMIN,EACH ADDNL Bilateral 04/28/2020 Procedure: LAMINECTOMY, FACETECTOMY, AND FORAMINOTOMY, CERVICAL, THORACIC, OR LUMBAR, EACH ADDITIONAL LEVEL; Surgeon: Dianne De MD; Location: [facility]; Service: Neurosurgery ??? WY LAMINEC/FACETECT/FORAMIN,LUMBAR 1 SEG Bilateral 04/28/2020 Procedure: LAMINECTOMY, FACETECTOMY, AND FORAMINOTOMY, LUMBAR, SINGLE LEVEL; Surgeon: Dianne De MD; Location: [facility]; Service: Neurosurgery WY LAMINECTOMY,>2 SGMT,CERVICAL Bilateral 08/06/2019 Procedure: POSTERIOR BILATERAL C3-C6 LAMINECTOMY AND FUSION/ INSTRUMENTATION; Surgeon: Dianne De MD; Location[facility]; Service: Neurosurgery ??? [place] POSTERIOR NON-SEGMENTAL INSTRUMENTATION Bilateral 04/28/2020 Procedure: POSTERIOR NON-SEGMENTAL INSTRUMENTATION; Surgeon: Dianne De MD; Location: [facility]; Service: Neurosurgery ??? W[place] POSTERIOR SEGMENTAL INSTRUMENTATION 3-6 VRT SEG Bilateral [...] documented as of this encounter Care Teams Scout Professional Sports Relationship Specialty Start Date End Date Joy March [address] [facility] [place] [address] PCP - General Family Medicine 02/03/25 documented as of this encounter
--- OUTSIDE RECORDS SUMMARY | 2025-08-17 13:44 | XMS_ITS | Encounter Summary ---
Author Organization [facility] Address [address] [place] [address] Care Team Providers Care Box Office Manager Name Role Phone RoldanBrewer Joy Primary Care Provider Reason for Visit * Reason Onset Date Comments PAC Rx Questions 03/05/2024 Encounter Details Date Type Department Care Team (Late st Contact Info) Description 03/05/2024 Telephone [facility] [address] [place] [address] Telephone Intake, Staff PAC Rx Questions Social [...] 03/05/2024 11:17 AM EDT Liam calling from [facility] is regard to pts prednisone, They need to clarify which dose & directs should be prescribed to pt as they received two. 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
--- OUTSIDE RECORDS SUMMARY | 2025-08-17 13:44 | XMS_ITS | Encounter Summary ---
Author Organization [facility] Address [address] [place] [address] Care Team Providers Care Clinic Coordinator Name Role Phone IgorSaulo Joy Primary Care Provider [phone] Encounter Details Date Type Department Care Team (Late st Contact Info) Description 04/29/2023 docTrackr Message [facility] [employer] [address] [place] [id number] DrEd Online Doctor, Generic Provider [address] [place] [id number] account dispute Social History Tobacco Use [...] documented as of this encounter Care Teams Clinic Coordinator Relationship Specialty Start Date End Date Joy March [address] [place] [address] PCP - General Family Medicine 02/03/25 documented as of this encounter
--- OUTSIDE RECORDS SUMMARY | 2025-08-17 13:44 | XMS_ITS | Encounter Summary ---
Author Organization [facility] Address [address] [place] [address] Care Team Providers Care Information Technology Teacher Name Role Phone IgorSaulo Joy Primary Care Provider [phone] Reason for Visit * Reason Onset Date Comments PAC Appt Request - New 02/28/2023 Encounter Details Date Type Department Care Team (Late st Contact Info) Description 02/28/2023 Telephone [facility] Patient Access Center [address] [place] [address] Telephone Intake, Staff PAC Appt Request - [...] 8:30 am Pt can be reached @ [phone] Thank you PAC documented in this encounter Plan of Treatment Not on file documented as of this encounter Visit Diagnoses Not on filedocumented in this encounter Additional Health Concerns Infection Onset Date Last Indicated Resolved Time 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
--- OUTSIDE RECORDS SUMMARY | 2025-08-17 13:44 | XMS_ITS | Data Portability ---
Author Organization [place] - [facility] [email or web address], sv[facility]admin Address [address] [place] [phone] Care Team Providers Care Director Sales And Trade Marketing Name Role Phone SHALONDALETICIA Guerrero Referring Provider Unavailable YANETH YEAGER Pain Management Assessment Encounter Date Assessment Date Assessment LastModified by Organization Details LastModified Time 04/24/2021 04/24/2021 MRI lumbar spine dated 05/01/2020 reviewed [email or web address] Not available 04/24/2021 17:48:13 08/17/2021 08/17/2021 -Discussed [...] cord stimulato r trial (PROC) 2020 021 [email or web address] Not available 13:07:23 epidural steroid injection , caudal (PROC) 2020 021 [email or web address] Not available 12:49:28 Surgeries None recorded. Imaging None recorded. Medication Orders None recorded. Patient TargetsNo targets recorded. Patient Instructions Encounter Date Encounter Id Patient Instructions Last Modified By Organization Details Last Modified Time 04/24/2021 [id number] A healthy lifestyle: care instructions [email or web address] Not available 04/24/2021 17:48:23 05/02/2021 [id number] A healthy lifestyle: care instructions [email or web address] Not available 05/02/2021 15:39:17 07/03/2021 [id number] A healthy lifestyle: care instructions [email or web address] Not available 07/03/2021 13:45:55 08/17/2021 [id number] A healthy lifestyle: care instructions Not available 08/17/2021 15:22:00 01/04/2022 [id number] A healthy lifestyle: care instructions Not available 01/04/2022 14:12:11 Reason for Referral None Reported. Results Created Date Observation Date Name Description Value Unit Range Abnormal Flag Note LastModifiedBy Organization Detail LastModifiedTime 11/21/1911/21/2021 BASIC METAB OLIC PANEL glucose 109 mg/dL 65-99 high Not Available [facility] [address], [address], 11/21/2021 17:13:27 11/21/19 22 11/21/2021 BASIC METAB OLIC PANEL BUN 13 mg/dL 5-26 Not Available [facility] [address], [address], 11/21/2021 17:13:27 11/21/19 22 11/21/2021 BASIC METAB OLIC PANEL creatinine 0.86 mg/dL 0.5-1. 5 Not Available [facility] [address], [address], 11/21/2021 17:13:27 11/21/19 22 11/21/2021 BASIC METAB OLIC PANEL BUN/creat ratio 15 8-27 Not Available [facility] [address], [address], 11/21/2021 17:13:27 11/21/19 22 11/21/2021 BASIC METAB OLIC PANEL glom filt rate, est 89.1 mL/mi n > 59 Not Available [facility] [address], [address], 11/21/2021 17:13:27 11/21/19 22 11/21/2021 BASIC METAB OLIC PANEL if -amer ican 103.3 mL/mi n > 59 Not Available [facility] [address], [address], 11/21/2021 17:13:27 11/21/19 22 11/21/2021 BASIC METAB OLIC PANEL sodium 140 mEq/L 134-14 4 Not Available [facility] [address], [address], 11/21/2021 17:13:27 11/21/19 22 11/21/2021 BASIC METAB OLIC PANEL potassium 3.6 mEq/L 3.6-5. 6 Not Available [facility] [address], [address], 11/21/2021 17:13:27 11/21/19 22 11/21/2021 BASIC METAB OLIC PANEL chloride, serum 102 mEq/L 96-109 Not Available [facility] [address], [address], 11/21/2021 17:13:27 11/21/19 22 11/21/2021 BASIC METAB OLIC PANEL carbon dioxide 25 mEq/L 20-32 Not Available [facility] [address], [address], 11/21/2021 17:13:27 11/21/19 22 11/21/2021 BASIC METAB OLIC PANEL anion gap 13.0 8-15 Not Available [facility] [address], [address], 11/21/2021 17:13:27 11/21/19 22 11/21/2021 BASIC METAB OLIC PANEL calcium 9.6 mg/dL 8.3-10 .0 Not Available [facility] [address], [address], 11/21/2021 17:13:27 11/21/19 22 11/21/2021 BASIC METAB OLIC PANEL note Order ing physi caden: Stephanie Yeager Other provi ders: Stephanie Yeager , Stephanie Yeager , , Mike arzaet, , , Not Available [facility] [address], [address], 11/21/2021 17:13:27 11/21/19 22 11/21/2021 MRSA SCREE N, ANY SOURC E source: Nose Not Available [facility] [address], [address], 11/23/2021 08:25:07 11/21/19 22 11/21/2021 MRSA SCREE N, ANY SOURC E result(s): Negati ve for Methic illin- resist ant Staph aureus Not Available [facility] [address], [address], 11/23/2021 08:25:07 11/21/19 22 11/21/2021 MRSA SCREE N, ANY SOURC E report status: Final Not Available [facility] [address], [address], 11/23/2021 08:25:07 11/21/19 22 11/21/2021 MRSA SCREE N, ANY SOURC E note Order ing physi caden: Stephanie Yeager Other provi ders: Stephanie Yeager , Stephanie Yeager , , Mike arzate, , , Not Available [facility] [address], [address], 11/23/2021 08:25:07 11/21/19 22 11/21/2021 MRSA SCREE N, ANY SOURC E source: Throat Not Available [facility] [address], [address], 11/23/2021 08:25:08 11/21/19 22 11/21/2021 MRSA SCREE N, ANY SOURC E result(s): Negati ve for Methic illin- resist ant Staph aureus Not Available [facility] [address], [address], 11/23/2021 08:25:08 11/21/19 22 11/21/2021 MRSA SCREE N, ANY SOURC E report status: Final Not Available [facility] [address], [place], [address], 11/23/2021 08:25:08 11/21/19 22 11/21/2021 MRSA SCREE N, ANY SOURC E note Order ing physi caden: Stephanie Yeager Other provi ders: Stephanie Yeager , Stephanie Yeager , , Mike arzate, , , Not Available [facility] 123 [facility] [address], [place], [address], 11/23/2021 08:25:08 11/26/19 22 11/26/2021 SARS- COV-2 [...] this assay . Not Available [facility] [address], [address], 11/26/2021 23:18:09 11/26/19 22 11/26/2021 SARS- COV-2 , LIZZETH note Order ing physi caden: Stephanie Yeager Other provi ders: Stephanie Yeager , Stephanie Yeager , , Mike am Jannie arzate, , , Not Available [facility] [address], [address], 11/26/2021 23:18:09 04/23/20 21 05/01/2020 MRI, lumba r spine , w/o contr ast No observ ation record ed. BARCODE Not Available 2020 16:11:32 12/18/19 22 12/17/2021 elect vineet rdz am [facility] [address] [place] [address] [phone] PATIEN T: JUAN SANTORO PRE REF/ : WPAT 0283 HEART RATE 57 RR Interv al 1053 Atrial Rate 57 P-R Interv al 178 P Durati on 139 P Horizo ntal [place] 11 P Front [place] 62 Q Onset 499 QRSD Interv al 109 QT Interv al 440 QTcB 429 QTcF 432 QRS Horizo ntal [place] 21 QRS [place] 11 I-40 Horizo ntal [place] 49 I-40 Front [place] -24 T-40 Horizo ntal B[place] 4 T-40 Front [place] 29 T Horizo ntal B[place] 21 T Wave [place] 58 S-T Horizo ntal [place] S-T Front [place] -43 ECG Severi ty - OTHERW ISE NORMAL ECG - ECG Impres pepe Sinus rhythm _ (Elect charly harrison Signed by) Trans D T: 0853 Signed D T: 2113 Report #: [id number] Orderi ng physic rbooklynn: Jemima Yeager Other provid ers: Jemima Yeager, Jemima Yeager, , Isma Golden ath, , , [email or web address] [facility] (Radiology) [address] [place] [address], [address], 12/19/2021 11:00:23 12/25/19 22 12/24/2021 or imagi ng [facility] Radiol ogy [address] [place] [address], [address] [phone] Name: JUAN SANTORO : [id number] Date of Servic e: [birth year] Acct Number : [id number] Order Number : [id number] Locati on: W3SO Report Number : [id number] Servic e: REG SDC/ Reques ting Physic brooklynn: Jemima Yeager MD Catego ry: RADIOL OGY OR CASES Exam: OR IMAGIN G C-ARM Access ion #: [id number] VH Signs/ Sympto ms: SCS Report [...] Yeager, , Isma Golden ath, , , [email or web address] [facility] (Radiology) [address] [place] [address], [address], 12/27/2021 13:39:27 Result Notes None recorded. Problems Name Problem SNOMED Code Status Onset Date Resolution Date Notes Provider Name and Address Organization Details Recorded Time Essential hypertension 98610046 Active 2020 Nalini galindo [facility] 14:54:24 Hyperlipidemia 78533012 Active 2020 Nalini galindo [facility] 14:54:31 Problem Notes None recorded. Procedures Surgical History Date Name Laterality Status Provider Name and Address Organization Details Recorded Time 05/02/20 21 Caudal Epidural Steroid Injection completed Yaneth Yeager MD [address] [place] [address], [phone], [facility] 05/02/2021 15:28:49 05/01/20 20 incision and drainage of fluid collection of skin completed Vanesajorge Hoang [facility] 04/24/2021 15:56:48 04/28/20 20 Lumbar Spine Surgery completed Vanesajorge Hoang [facility] 04/24/2021 15:56:14 08/06/20 09 Spine Surgery completed Vanesajorge Hoang [facility] 04/24/2021 15:56:01 discectomy for intervertebral herniated disc, nucleus pulposus completed Vanesajorge Hoang [facility] 04/24/2021 16:06:18 Colon Cancer Surgery completed Vanesajorge Hoang [facility] 04/24/2021 16:19:08 hernia repair completed Vaensajorge Hoang [facility] 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 Procedure Notes None recorded. Medical Equipment None Reported. Allergies Allergen ID Allergen Name Allergen Category Reaction Reaction Severity Criticality Documentation Date Start Date Code Code System Note Provider Name and Address Organization Details Recorded Time 22270203 adhesive tape environme nt,medica tion Not available Not available Not available 04/24/2021 Vanesa Stephen galindo [facility] 15:57:20 657990 silicones environme nt,medica tion Not available Not available Not available 04/24/2021 9778 RxNorm Vanesa Stephen galindo [facility] 15:57:27 Medications Name Sig Start [...] Updated DateTime 2 175.26 cm 31.6 kg/m2 08424.7 7 g 97.8 [degF] 98 % 98 % 60 /min 3 113/65 mm[Hg] Nalini [facility] 2 13:27:14 Date Recorded Body height Body mass index (BMI) Body weight Body temperature Heart rate Oxygen saturation Oxygen saturation in Arterial blood by Pulse oximetry Systolic And Diastolic Provider Name and Address Organization Details Last Updated DateTime 1 175.26 cm 31.6 kg/m2 60306.7 7 g 98.5 [degF] 64 /min 96 % 96 % 113/62 mm[Hg] Vanesa Hoang [facility] 1 16:08:37 Date Recorded Body height Body mass index (BMI) Body weight Body temperature Heart rate Oxygen saturation Oxygen saturation in Arterial blood by Pulse oximetry Systolic And Diastolic Provider Name and Address Organization Details Last Updated DateTime 1 175.26 cm 31.6 kg/m2 02711.7 7 g 98.7 [degF] 62 /min 95 % 95 % 117/69 mm[Hg] [facility] Augustus [facility] 1 15:18:14 Date Recorded Body height Body mass index (BMI) Body weight Body temperature Heart rate Oxygen saturation Oxygen saturation in Arterial blood by Pulse oximetry Pain severity - 0-10 verbal numeric rating [Score] - Reported Systolic And Diastolic Provider Name and Address Organization Details Last Updated DateTime 175.26 cm 31.6 kg/m2 53440.7 7 g 96.9 [degF] 63 /min 95 % 95 % 4 135/75 mm[Hg] Nalini Coffamn [facility] 13:30:42 Date Recorded Body height Body mass index (BMI) Body weight Body temperature Heart rate Oxygen saturation Oxygen saturation in Arterial blood by Pulse oximetry Systolic And Diastolic Provider Name and Address Organization Details Last Updated DateTime 175.26 cm 31.6 kg/m2 47542.7 7 g 98 [degF] 68 /min 95 % 95 % 124/73 mm[Hg] Nalini Coffman [facility] 15:03:28 Social History Question Answer Notes LastModified by Organizat ion Details LastModified Time Tobacco Smoking Status Former Smoker Vanesa Hoang [facility] 04/24/2021 16:09:27 Do You Have An Advance Directive? Yes Information not available 04/24/2021 Are You Blind Or Do You Have Difficulty Seeing? No [email or web address] Information not available 07/03/2021 How Much Tobacco Do You Chew? None Information not available 04/24/2021 Are You Deaf Or Do You Have Serious Difficulty Hearing? No [email or web address] Information not available 07/03/2021 What Type Of Diet Are You Following? REGULAR [email or web address] Information not available 05/02/2021 When Did You Quit Smoking? 1-5yearssinc elastcigaret te [email or web address] Information not available 05/02/2021 How Many Days [...] Of Your Most Recent Tobacco Screening? 01/04/2022 [email or web address] Information not available 01/04/2022 What Is Your Current Pack Years? 30ormorepack years [email or web address] Information not available 05/02/2021 At What Age Did You Start Smoking Tobacco? 9 [email or web address] Information not available 05/02/2021 Has Tobacco Cessation Counseling Been Provided? No [email or web address] Information not available 07/03/2021 How Many Years Have You Smoked Tobacco? 55 [email or web address] Information not available 05/02/2021 Do You Have Difficulty Walking Or Climbing Stairs? No [email or web address] Information not available 07/03/2021 Are You Currently In School? No [email or web address] Information not available 07/03/2021 Sex: Unknown Functional Status Question Answer Note LastModified by Organizat ion Details LastModified Time Do you use any illicit or recreational drugs? No [email or web address] Information not available 05/02/2021 Do you or have you ever used any other forms of tobacco or nicotine? No [email or web address] Information not available 05/02/2021 What is your level of alcohol consumption? None [email or web address] Information not available 01/04/2022 Do you or have you ever used smokeless tobacco? Never used smokeless tobacco Information not available 04/24/2021 Are you currently employed? No [email or web address] Information not available 07/03/2021 Do you have transportation difficulties? No [email or web address] Information not available 07/03/2021 Are you able to care for yourself independently? Yes [email or web address] Information not available 07/03/2021 Do you or have you ever used e-cigarettes or vape? Never used electronic cigarettes Information not available 04/24/2021 What is your exercise level? None [email or web address] Information not available 05/02/2021 Mental Status Question Answer Note LastModified by Organization D etails LastModified Time Do you have difficulty concentrating, remembering or making decisions? No [email or web address] Information no t available 07/03/2021 Family History [...] ICD10 Code Diagnosis IMO Codes Diagnosis Note [id number] Yaneth Yeager MD [facility] [address] [place] [phone] 04/24/2021 15:17:28 04/30/2021 00:12:34 Lumbar radiculopathy 509995597 M54.16 Lumbar post-laminectomy syndrome 561985268 M96.1 - will schedule for a caudal TIGIST at this time and reeval. SCS discussed with PT. Cervical post-laminectomy syndrome 066502426 M96.1 Neuropathic pain 9791377 09 M79.2 [id number] Yaneth Yeager MD [facility] [address] [place] [phone] 05/02/2021 14:22:42 05/02/2021 15:58:54 Lumbar radiculopathy 066492402 M54.16 [id number] Yaneth Yeager MD [facility] [address] [place] [phone] 07/03/2021 13:08:23 07/03/2021 14:05:43 Lumbar post-laminectomy syndrome 089315957 M96.1 - will proceed with a trial of SCS. Patient has failed conservati ve therapies. Will set up for trial.- 25 min spent discussing SCS, Faxon Sci Lumbar radiculopathy 128 961542 M54.16 [id number] MD [facility] [address] [place] [phone] 08/17/2021 14:19:31 08/17/2021 15:33:39 Advance care planning 759263301 Z71.89 Lumbar post-laminectomy syndrome 564852048 M96.1 -He reports 75 %-80% improvemen t [...] procedure at this time. Lumbar radiculopathy 128 742151 M54.16 [id number] Yaneth Yeager MD [facility] [address] [place] [phone] 01/04/2022 13:02:29 01/04/2022 14:33:35 Advance care planning 319914542 Z71.89 Lumbar post-laminectomy syndrome 466813143 M96.1 -He reports 80% improvemen t post [...] Name 10/09/2021 1 *SELF PAY* Juan Rubin [id number] Juan Rubin 10/09/2021 2 [employer] [facility] (O) [id number] Juan Rubin [id number] Juan Rubin 05/21/2014 1 [facility] [employer] [id number] Juan Rubin 05/27/2022 2 [facility] [id number] Juan Rubin [id number] Juan Rubin 10/09/2021 1 [facility] [employer] [facility] (HMO) [id number] Juan Rubin [id number] Juan Rubin 10/09/2021 [employer] Juan Rubin [id number] Juan Rubin 10/09/2021 1 *SELF PAY* Juan Rubin 05/27/2022 1 MEDICARE [place]: [facility] Juan Rubin [id number] Juan Rubin Notes Date Note Type Note [...] average pain is: 5-6/10. Yaneth Yeager MD [address] [place] [address], [phone], [facility]. 04/24/2021 17:48:27 07/03/2021 text/html 67 y/o [...] pain is a 6/10. Yaneth Yeager MD [address] [place] [address], [phone], [facility]. 07/03/2021 13:46:00 08/17/2021 text/html ROS as noted in the HPI F/U SCS trial through [employer] placed 08/13/21. He is here today for [...] after the procedure. Yaneth Yeager MD [address] [place], [address], [facility]. 09/06/2021 08:33:14 01/04/2022 text/html ROS as noted in the HPI 66 M. with PLPS who is here for F/U perm placement of SCS through [employer] for low back and leg pain. David [...] pain level 2/10. Leticia Bello NP [address] [place], [address], [facility]. 01/04/2022 14:13:05
--- OUTSIDE RECORDS SUMMARY | 2025-08-17 13:44 | XMS_ITS | Clinical Summary ---
Author Organization [facility] Address [address] [place] [address] Phone Care Team Providers Care Electronic Pagination System Operator Name Role Phone Joy March MD Primary Care Provider [phone] Social History Tobacco Use Types Packs/Day Years [...] Last Indicated ESBL 01/06/2025 01/06/2025 Insurance MEDICARE [facility] Care Teams Electronic Pagination System Operator Relationship Specialty Start Date End Date Joy March MD [address] [place] [address] PCP - General Internal Medicine 01/07/25
== END 2025-08-17 11:53 | disposition home or self-care (01) ==
PROVIDERS: Emergency Provider Emergency Medicine; PCP Internal Medicine
DX: G62.9 Polyneuropathy, unspecified (principal); M54.9 Dorsalgia, unspecified; I10 Essential (primary) hypertension; J44.9 Chronic obstructive pulmonary disease, unspecified; Z87.891 Personal history of nicotine dependence
CPT/HCPCS: 99282; 99284

== ENCOUNTER 2025-09-12 11:07 | Outpatient (AMB) | payer MEDICARE, SELFPAY ==
[2025-09-12 11:22] VITALS: BMI 28.9
--- NOTE | 2025-09-12 11:22 | A.PHYSOV_ITS ---
Vital Signs 09/12/25 11:22 Height 5 ft 8 in Weight 190 lb BMI 28.9 Intake Visit Reasons: [facility] [place] Ref- lumbar neuropathy Intake Note: Patient is a 70 year old male here for new patient visit regarding lumbar radiculopathy. Patient has multiple concerns regarding joint pain. 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 His current symptoms of widespread pain in his arms, shoulders, back, legs, and fingers began approximately eight weeks ago. This is a change from his baseline of normal aches and pains, and he was active up until the onset of these new symptoms, with no recent injury reported. The pain is now so severe that he has significant difficulty with mobility, requiring his to pull him out of bed and having to rock himself multiple times to stand from a chair. He has a history of polymyalgia rheumatica, for which he takes prednisone 10 mg daily. He notes a history of the symptoms recurring when his prednisone dose was tapered below 10 mg. He also has a history of cervical spine surgery in 2019 with placement of two rods, three plates, and six screws. The patient has a [employer] spinal cord stimulator for chronic lower back, right hip, and leg pain, which he reports is effective for that specific pain but does not help his new, diffuse symptoms. He also has a colostomy bag and has his venetie hips and knees. Recent workup included blood tests for Lyme disease, which were negative. He denies being diabetic. He reports that morphine is ineffective for his pain. Most of his pain involves his left shoulder. He denies any specific trauma. I reviewed the referring provider's no prior consultation. Pain Description - Onset: The patient reports the new, diffuse pain began approximately 8 weeks ago. - Location: Pain is described as being all over the body, including the arms, shoulders, back, legs, thighs, and fingers. - Character: The pain in his legs and thighs is described as feeling like somebody's trying to put a nail in there. - Severity: The pain is severe, and at times he must move slowly because it hurts so badly. - Exacerbating Factors: Pain is worsened by movement, such as sitting down or attempting to get up from a chair. - Impact on Function: The pain significantly limits his daily activities; he was previously active but now can't do crap and requires assistance to get out of bed and chairs. Results - Labs: Recent blood work, including a test for Lyme disease, was negative. [facility] Medical History Pure hypercholesterolemia Essential hypertension Suprapubic catheter COPD exacerbation Osteoarthritis of cervical spine Neurogenic urinary bladder disorder Benitez catheter present Colon cancer Hypertension Amputation of right middle finger Surgical History H/O neck surgery History of partial surgical removal of colon Previous back surgery Family History Mother High cholesterol Hypertension Brother Colon cancer Father Cardiovascular disease Social History Household Members: Spouse Both parents involved: No Caregiver staying overnight: No Housing: House Are you a primary assisted living care manager to a significant other at home: No Do you presently have visiting nurse or other home services: No 75 years or older and lives alone: No Alcohol intake: never Patient Tobacco Use Status: Former Tobacco user Tobacco use type: Cigarette Cigarette Packs Per Day: 2 Cigarettes Per Day: 20 Years Smoked: 50 e-Cigarette/Vaping Use: Never Used Second Hand Smoke Exposure: No service: No Current occupational status: retired Cognitive needs: No Hearing needs: Yes (hearing aid) Vision needs: No Review of Systems Narrative Review of Systems - Constitutional: Denies recent injury. - Endocrine: Denies diabetes. - Musculoskeletal: Reports diffuse pain all over his body, including arms, shoulders, back, legs, and fingers, which began 8 weeks ago. - Musculoskeletal: Reports shoulder pain and limited range of motion, stating he can't reach way up anymore. - Musculoskeletal: Reports weakness in his legs when trying to stand and weakness in his arms, noting he can't even open a bottle of water now. - Musculoskeletal: Denies knee pain. Physical Exam Exam Exam: Physical Exam - General: Patient observed to have significant difficulty rising from a chair. Patient has marked limited range of motion of his left shoulder, no effusion. - Back: Tenderness to palpation on the right side. - Musculoskeletal: Strength appears weak in the arms. - Musculoskeletal: Limited active range of motion of bilateral shoulders; patient is unable to lift arms up high. - Musculoskeletal: Pain elicited with movement of the shoulders, particularly the left. - Musculoskeletal: Tenderness to palpation noted in the left shoulder. - Musculoskeletal: Patient is able to flex and extend his feet and straighten his legs. Vital Signs: BMI result Body Mass Index 28.9 Office Procedures AMB Shoulder Injection AMB Shoulder Injection Procedure Details: Left Subacromial injection Procedure: The patient was educated about risks, complications and benefits including but not limited to increased serum glucose, infection, nerve damage, bleeding, tendon/ligament damage and pain. We agree with a subacromial injection is the next best step in the treatment plan. Verbal consent was obtained. Using aseptic technique, the skin was cleansed with Betadine. Ethyl chloride was used to desensitize the skin. Using a posterior approach, 40 mg of Kenalog and 3 mL 2% lidocaine were injected using a 25-gauge inch and a half needle into the subacromial space. The patient tolerated the procedure well without immediate complication. Postinjection instructions were given. Shoulder Injection - : Left All charges added?: Procedure code (CPT) selection complete Office Meds Kenalog 40 mg/mL suspension for injection Performing Provider: RICCARDO Bradley Performing Location: [facility] Administered by: RICCARDO Bradley on 09/12/25 13:02 Dose Route Admin Location Dispensed Lot Number Expiration Date [facility] Crime Scene Specialist 40 mg intra-articular 1 mL [id number] [employer] Total Dispensed Waste 1 mL 0 % lidocaine (PF) 20 mg/mL (2 %) injection solution Performing Provider: RICCARDO Bradley Performing Location: [facility] Administered by: RICCARDO Bradley on 09/12/25 13:02 Dose Route Admin Location Dispensed Lot Number Expiration Date [facility] Crime Scene Specialist 60 mg intra-articular 50 mL [id number] Total Dispensed Waste 50 mL 0 % Assessment & Plan Assessment & Plan (1) Primary osteoarthritis, left shoulder: Code(s): M19.012 - Primary osteoarthritis, left shoulder Category: Medical (2) Arthralgia: Code(s): M25.50 - Pain in unspecified joint Category: Medical Qualifiers: Joint pain location: shoulder Laterality: bilateral Qualified Code(s): M25.511 - Pain in right shoulder; M25.512 - Pain in left shoulder Plan Pain Management - Affect: The patient expresses frustration, stating he was an active person and now can't do nothing. - Analgesia: He currently takes prednisone 10 mg daily for polymyalgia rheumatica. - Analgesia: He has a spinal cord stimulator that helps his chronic lower back and right hip pain, but not his new diffuse pain. - Analgesia: Reports that morphine is not effective for his pain, but Demerol is. - Activities of Daily Living: His ability to perform daily activities is severely impacted; he needs assistance to get out of bed and a chair, and he has weakness in his arms, preventing him from opening a water bottle. - Aberrant Drug Related Behaviors: None reported or observed. Plan Patient was informed and verbally consented to the use of an ambient scribe for clinic note documentation during this visit. 1. Polymyalgia Rheumatica The patient presents with severe, diffuse pain consistent with a flare of his known polymyalgia rheumatica, despite being on a 10 mg maintenance dose of prednisone. To manage the systemic inflammation, he will start a prednisone taper, beginning at 60 mg and then gradually reducing the dose. For breakthrough pain, a prescription for Nachusa (hydrocodone/acetaminophen) will be provided, as he notes morphine is ineffective. A follow-up appointment is scheduled in two weeks to assess his response to the increased steroid dose. 2. Left Shoulder Pain The patient complains of significant left shoulder pain with limited range of motion, which was confirmed on physical exam. To address the localized inflammation, a corticosteroid injection was administered to the left shoulder during the visit. Consent was obtained after discussing the risks, including infection, nerve damage, and bleeding. Discussion Notes I discussed with the patient that his new, diffuse, and severe pain is likely a significant flare of his underlying polymyalgia rheumatica. I recommended a two- part plan to manage his symptoms. First, we will start a prednisone taper, increasing his dose to 60 mg before tapering down, to control the systemic inflammation. Second, to address the acute pain and limited motion in his left shoulder, I administered a cortisone injection today. I reviewed the risks of the shoulder injection, which include infection, bleeding, and nerve damage, and he provided consent. We also discussed pain medication options, and I will prescribe Nachusa for him to use as a secondary option if the prednisone does not suffice, noting his history of morphine ineffectiveness. I advised him to make a follow-up appointment in two weeks to assess the effectiveness of these treatments. Patient Instructions - You have received a steroid injection in your left shoulder today to help with the pain. - Stop taking your daily 10 mg prednisone tablet. - You will start a new prescription for prednisone that begins at a higher dose (60 mg) and then slowly decreases. - A prescription for a pain medication called Nachusa will be sent to your pharmacy. - You should only take the Nachusa if the prednisone is not controlling your pain enough. - Please schedule a follow-up appointment in about two weeks to see how you are doing. Orders: Orders AMB Shoulder Injection Today M19.012 - Primary osteoarthritis, left shoulder Medications: New hydrocodone-acetaminophen 5-325 mg Partial Fill upon patient request. 1 tab PO Q6H PRN 28 tabs 0RF pain M19.012 - Primary osteoarthritis, left shoulder, M25.511 - Pain in right shoulder, M25.512 - Pain in left shoulder prednisone 3 tabs po for 3 days, 2 tabs po for 3 days, 1 tab po for 3 days 20 mg PO DAILY 28 tabs 0RF 9 days Coding Level of Care Code Tele New Pt Level 4 (24887) Diagnoses Primary osteoarthritis, left shoulder M19.012 Pain of both shoulder joints M25.511; M25.512 Joint pain location: shoulder Laterality: bilateral CPT Codes AMB Shoulder Injection - Hip/Bursa Injection - : Left ([id number])
== END 2025-09-12 11:58 | disposition home or self-care (01) ==
LOC: HO.HPHYS 11:08
PROVIDERS: PCP Internal Medicine; Visit Provider Physician Assistant
DX: M19.012 Primary osteoarthritis, left shoulder (principal); M25.511 Pain in right shoulder; M25.512 Pain in left shoulder
CPT/HCPCS: 20610; 99204

== ENCOUNTER → 2025-09-12 11:07 | Outpatient (BNVA) | payer MEDICARE, SELFPAY | PROVIDERS: PCP Internal Medicine; Visit Provider Physician Assistant | DX: M19.012 Primary osteoarthritis, left shoulder (principal); M25.511 Pain in right shoulder; M25.512 Pain in left shoulder; M35.3 Polymyalgia rheumatica; Z79.52 Long term (current) use of systemic steroids; Z98.1 Arthrodesis status | CPT/HCPCS: 20610; 99202; J2003; J3301 ==

== ENCOUNTER 2025-09-26 12:55 | Outpatient (AMB) | payer MEDICARE, SELFPAY ==
[2025-09-26 13:17] VITALS: BMI 28.9
--- NOTE | 2025-09-26 13:17 | A.PHYSOV_ITS ---
Vital Signs 09/26/25 13:17 Height 5 ft 8 in Weight 190 lb BMI 28.9 Intake Visit Reasons: 2W followup Intake Note: Patient is a 70 year old male here for a 2 week follow up. Anthropological Linguist Required: No Allergies No Known Allergies Allergy (Verified 09/26/25 13:19) HPI Comments Details: History of Present Illness The patient is a 70 year old male presenting for a follow-up on shoulder pain management. He reports feeling 100% better following a recent injection in his right shoulder, noting that the pain in that shoulder and his wrist is now gone. He has regained hand function, including the ability to open a water bottle, and can get out of bed without assistance. However, for the last day and a half, he has developed new pain in his left shoulder, which he describes as an intermittent stabbing sensation in the middle of his right shoulder blade. This pain occurs primarily in the mornings or while sitting, and the shoulder feels heavy. He also reports that his neck pops with three clicks on either side when he turns it in the morning. He has a history of prior neck surgery with two metal plates. He is currently tapering off prednisone and is taking 10 mg. Pain Description - Right Shoulder: Patient reports the pain is gone following a recent injection. - Left Shoulder: New onset of pain for the past 1.5 days, located in the middle of the shoulder blade. - Quality: Described as an intermittent stabbing pain and a feeling of heaviness. - Timing: Occurs in the mornings or when sitting in a chair. - Wrist: Reports wrist pain is pretty much gone. - Neck: Reports popping or clicking in the neck when turning it in the mornings. Results [facility] Medical History Pure hypercholesterolemia Essential hypertension Suprapubic catheter COPD exacerbation Osteoarthritis of cervical spine Neurogenic urinary bladder disorder Benitez catheter present Colon cancer Hypertension Amputation of right middle finger Surgical History H/O neck surgery History of partial surgical removal of colon Previous back surgery Family History Mother High cholesterol Hypertension Brother Colon cancer Father Cardiovascular disease Social History Household Members: Spouse Both parents involved: No Caregiver staying overnight: No Housing: House Are you a primary career based intervention coordinator to a significant other at home: No Do you presently have visiting nurse or other home services: No 75 years or older and lives alone: No Alcohol intake: never Patient Tobacco Use Status: Former Tobacco user Tobacco use type: Cigarette Cigarette Packs Per Day: 2 Cigarettes Per Day: 20 Years Smoked: 50 e-Cigarette/Vaping Use: Never Used Second Hand Smoke Exposure: No service: No Current occupational status: retired Cognitive needs: No Hearing needs: Yes (hearing aid) Vision needs: No Review of Systems Narrative Review of Systems - Musculoskeletal: Reports new-onset intermittent stabbing pain in the left shoulder blade lasting 1.5 days. - Reports resolution of right shoulder pain and wrist pain. - Reports popping sounds in his neck when turning it in the morning. Physical Exam Exam Exam: Physical Exam Cervical Spine: He is mildly tender to the right upper trapezius. Full range of motion of the cervical spine. Special Tests: Axial Compression test: Negative Spurlings test: Negative Lhermitte's sign is Negative Upper Extremities: Full range of motion bilateral upper extremities. Equal screen writer strength bilaterally. Neuro: Sensation: Intact to upper extremities bilateral to light touch Strength C5 (Elbow Flexion): 5/5 on the left and 5/5 on the right. C6 (Elbow Ext): 5/5 on the left and 5/5 on the right. C7 (Elbow Ext): 5/5 on the left and 5/5 on the right. C8 (Finger Flex): 5/5 on the left and 5/5 on the right. T1 (Finger Abd/Add): 5/5 on the left and 5/5 on the right. DTR: C5 (Biceps): Left 2 Right 2 C6 (Brachioradialis): Left 1 Right 1 C7 (Triceps): Left 2 Right 2 Padron sign: Negative No pathologic clonus. No involuntary movement. Vital Signs: BMI result Body Mass Index 28.9 Assessment & Plan Assessment & Plan (1) Rheumatoid arthritis: Code(s): M06.9 - Rheumatoid arthritis, unspecified Category: Medical Qualifiers: Rheumatoid arthritis location: multiple sites Rheumatoid factor presence: unspecified presence Qualified Code(s): M06.9 - Rheumatoid arthritis, unspecified (2) Primary osteoarthritis, left shoulder: Code(s): M19.012 - Primary osteoarthritis, left shoulder Category: Medical (3) Arthralgia: Code(s): M25.50 - Pain in unspecified joint Category: Medical Qualifiers: Joint pain location: shoulder Laterality: bilateral Qualified Code(s): M25.511 - Pain in right shoulder; M25.512 - Pain in left shoulder Plan Pain Management - Analgesia: Reports feeling 100% better after a recent right shoulder injection. - He is also taking prednisone 10 mg. - Activities of Daily Living: He can now use his hands, open a bottle of water, and get out of bed without assistance. - Affect: Expresses significant satisfaction with the outcome of the injection and hopes the pain does not return. Plan Patient was informed and verbally consented to the use of an ambient scribe for clinic note documentation during this visit. 1. Right Shoulder Pain Patient is experiencing an increase in mild discomfort of his right shoulder. I recommend he monitor his symptoms. Continue his home exercise plan. 2. Left Shoulder Pain He responded very well to left shoulder injection. He will continue his home exercise plan and medications as prescribed. The patient reports morning neck crepitus, which is likely secondary to degenerative changes in the cervical joints, potentially related to his age and prior surgery with instrumentation. No acute intervention is planned at this time. Discussion Notes I spoke with the patient about his excellent response to the recent right shoulder injection and the significant functional improvement he has experienced. We discussed the new onset of left shoulder pain, and I advised that we give it some time as it may resolve spontaneously. I offered a steroid injection for the left shoulder for today's visit if the pain was severe enough, but he preferred to wait. I informed him to call or return for re-evaluation if the pain persists or worsens. We also briefly touched on his neck popping, which I explained is likely due to age-related changes in the joints, and no further action is needed at this time unless it becomes significantly painful. I advised him he is in good shape for now and to follow up as needed. Patient Instructions - Continue to monitor the new pain in your left shoulder. - It may get better on its own with some time. - If the pain in your left shoulder continues or gets worse, please call our office to come back in. - We can consider an injection for that shoulder if needed. - The relief from your right shoulder injection should last about three months, but we hope it lasts even longer. - You are good for now, but please let us know if you need anything. Coding Level of Care Code Est Pt Level 3 (04093) Diagnoses Rheumatoid arthritis involving multiple sites, unspecified whether rheumatoid factor present M06.9 Rheumatoid arthritis location: multiple sites Rheumatoid factor presence: unspecified presence Primary osteoarthritis, left shoulder M19.012 Pain of both shoulder joints M25.511; M25.512 Joint pain location: shoulder Laterality: bilateral
--- OUTSIDE RECORDS SUMMARY | 2025-09-26 16:07 | XMS_ITS | Clinical Summary ---
Author Organization [facility] [address] [facility] Address [address] [place] [address] Phone Care Team Providers Care Airbrush Painter Name Role Phone Joy March MD Primary Care Provider [phone] Social History Tobacco Use Types Packs/Day Years [...] Health Screening 01/07/2025 COVID-19 Vaccine (1 - 2024-2 6 season) 2025 Influenza Vaccine (#1) 2025 RSV [...] Last Indicated ESBL 01/06/2025 01/06/2025 Insurance MEDICARE [facility] Care Teams Airbrush Painter Relationship Specialty Start Date End Date Joy March MD [address] [place] [address] PCP - General Internal Medicine 01/07/25
--- OUTSIDE RECORDS SUMMARY | 2025-09-26 16:07 | XMS_ITS | Patient Health Record ---
Author Organization [facility] Address [address] [address] Care Team Providers Care Business Employment Specialist Name Role Phone Kristen Parkinson Primary Care Provider Unavail able Ruddy Rios Unavailable [phone] Reason For Referral No Information Medications Medication [...] W/U Status Risk Notes Problem Essential hypertension (30477696) Essential (primary) hypertension (I10) Active confirmed Problem Chronic obstructive pulmonary disease (08553663) Chronic obstructive pulmonary disease, unspecified (J44.9) Active confirmed Problem Malignant neoplasm of colon (682855790) Malignant neoplasm of colon, unspecified (C18.9) Active confirmed Problem Obesity (143516903) Obesity, unspecified (E66.9) Active confirmed Problem Mixed hyperlipidemia (601175021) Mixed hyperlipidemia (E78.2) Active confirmed Problem Quadriplegia (22916703) Quadriplegia, unspecified (G82.50) Active confirmed Problem Gastro-esophageal reflux disease without esophagitis (689935285) Gastro-esophageal reflux disease without esophagitis (K21.9) Active confirmed Problem Osteomyelitis of vertebra (108997496) Osteomyelitis of vertebra, sacral and sacrococcygeal region (M46.28) Active confirmed Plan Of Treatment No Information Insurance Providers Payer Name Payer Address Payer Phone Subscriber Number Group Number Insured Name Patient Relationship to Insured Coverage Start Date Coverage End Date Medicare [facility] [address] [place] [phone] [id number] VANESSA ALBRECHT Self - patient is the insured [facility] [employer] Medicare Suppl [address] [place] [address] [id number] VANESSA ALBRECHT Self - patient is the insured Medical (General) History Medical History History ICD Code cervical stenosis of spinal canal quadriparesis sacral decubitus ulcer colon cancer COPD HTN hypercholesterolemia obesity hearing loss Surgical History Surgery Date(Month/Year) Hospitalization History Reason Date(Month/Year) sacral osteomyelitis 09/2019 C3-C7 Laminectomy at [facility] 08/2019
--- OUTSIDE RECORDS SUMMARY | 2025-09-26 16:07 | XMS_ITS | Clinical Summary ---
Author Organization [facility] Address [address] [place] [address] Care Team Providers Care Clay Grinder Name Role Phone IgorJoy Vernon Primary Care Provider [phone] Allergies Active Allergy Reactions Criticality Noted Date [...] Ref. 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 Given potential for this to have contributed [...] supplements MD Juan Martinez : 1955 CSN: [id number] Hyperglycemia 08/18/2019 Overview (08/18/2019): Due to steroids, [...] the AM for any further recs. 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 since a prior prep for colonoscopy in [...] GI following; apprec recs - NPO at [place] in case colo on Saturday 02/03 Vasovagal [...] 08/07/2019,06/09/2018,08/21/2017 Influenza, Trivalent, MDV, Injectable ,07/02/2013,07/20/2012,08/08,07/27/2009,08/30/2008,09/02/2007 Novel Qivddohop-B6P8-22, Preservative-Free, Injectable 09/27/2009 Pneumococcal Conjugate Vacci ne, 13 Valent 03/07/2015 Pneumococcal Polysaccharide Vaccine, 23 Valent 07/31/2020,08/30/2008 Pneumococcal conjugate PCV20,polysaccharide [id number] conjugate, adjuvant, PF (Prevnar 20) 06/05/2023 RSV, [...] drink = 0.6 oz pur e alcohol) [facility] Utilities Answer Date Recorded In the past 12 months has th e electric, gas, oil, or water company threatened to shut off services in your home? No 05/27/2024 Hunger Vital Sign Answer Date Recorded Within the past 12 months, y ou worried that your food would run out before you got the money to buy more. Never true 05/27/20 Within the past 12 months, t he [...] 06/17/2019 06/17/2018, 05/09/2016 Alcohol/Substance Use Screening 10/06/2024 4, 06/11/2023 Depression Screening and Follow-Up 10/06/2024 11/27/2023 Health Care Proxy Review 10/06/2024 11/27/2023, 02/03 Social Drivers of Health Belinda ual Screening 10/06/2024 Medicare AWV 11/27/2024 11/27/2023 Influenza Vaccine (#1) 2025 4, 06/05/2023, 07/24/2022, Additional history exists Colonoscopy 05/20/2025 05/20/2024, 05/06, 02/03/2023, Additional history exists COVID-19 Vaccine ( - 2024-2 6 season) 2025 07/20/2024, 07/09/2023, 07/24/2022, Additional history exists Basic Metabolic Panel [...] Vaccines Discontinued Medical Devices Implanted Type Area Pulper Tender Device Identifier Shelf Expiration Date Model / Serial / Lot Mau Thoracolumbar 3.0obt59ln Altaf - [id number] Implanted:Qty: 2 on 08/06/2019 by Dianne De MD at [facility] Implant Spine Cervical DEPUY 1883-16- 060 / / Connector Spinal Cross Thoracolumbar Head To Head Titanium 35mm Mountaineer - [id number] Implanted:Qty: 1 on 08/06/2019 by Dianne De MD at [facility] Implant Spine Cervical DEPUY 1883-41- 035 / / Nut Spinal Outer Connector Cross Head To Head Titanium Mountaineer - [id number] Implanted:Qty: 2 on 08/06/2019 by Dianne De MD at [facility] Implant Spine Cervical DEPUY 1883-41- 200 / / Nut Spinal Outer Connector Cross Head To Head Titanium Mountaineer - [id number] Implanted:Qty: 2 on 08/06/2019 by Dianne De MD at [facility] Implant Spine Cervical DEPUY 1883-41- 100 / / Screw Thoracic Favored Angle Titanium 3.1qxg40aj Mountaineer - [id number] Implanted:Qty: 7 on 08/06/2019 by Dianne De MD at [facility] Screw Spine Cervical DEPUY 1883-18- 312 / / Screw Thoracic Favored Angle Titanium 3.8mdw28hs Mountaineer - [id number] Implanted:Qty: 1 on 08/06/2019 by Dianne De MD at [facility] Screw Spine Cervical DEPUY 1883-18- 316 / / Screw Thoracic Inner Mountaineer - [id number] Implanted:Qty: 6 on 08/06/2019 by Dianne De MD at [facility] Screw Spine Cervical DEPUY 1883-42- 200 / / Putty Demineralized Bone Matrix 10cc Dbx - [id number] - [id number] Implanted:Qty: 1 on 08/06/2019 by Dianne De MD at [facility] Tissue Spine Cervical MUSCULOSKELETAL TRANSPLANT FND 04/27/2021 [id number] / [id number] / Ic Graft Chamber Dbm 10cc - [id number] - [id number] Implanted:Qty: 1 on 04/28/2020 by Dianne De MD at [facility] Tissue Spine Lumbar LIFENET 11/14/2022 [id number] / [id number] / [id number] Description:Demineralized yany ne matrix and cancellous chips reconstituted with pts. blood Ic Graft Chamber Db 10cc - [id number] - [id number] Implanted:Qty: 1 on 04/28/2020 by Dianne De MD at [facility] Tissue Spine Lumbar LIFENET 11/14/2022 [id number] / [id number] / [id number] Description:Demineralized yany ne matrix and cancellous chips reconstituted with pts. blood Procedures * Due to [place] [employer] [employer] law, this organization might not be sharing [...] to Health Maintenance Results * Due to [place] [employer] [employer] law, this organization might not be sharing negative HIV tests. * Hepatitis C Antibody w/Reflex to HCV RNA, Quantitative PCR (02/03/2025 2:42 PM EDT) Hepatitis C Antibody NON-REACT YENNI NON-REACT YENNI 02/04/2025 1:32 AM EDT [employer] [facility] Comment: HCV antibody was non-reactive. There is no laboratory evidence of HCV infection. In most cases, no further action is required. However, if recent HCV exposure is suspected, a test for HCV RNA (test code 26199) is suggested. For additional information please refer to http://education.[employer]/faq/AJH59w1 (This link is being provided for informational/ educational purposes only.) Blood Structure of peripheral vein / Unknown Venipuncture / Unknown 02/03/2025 2:42 PM EDT 02/03/2025 2:54 PM EDT Narrative [facility] - 02/04/2025 1:32 AM EDT [facility] Received Date: us Gary Angela MD LAB BLOOD ORDERABLES Final Result [facility] [address], [place] [address], [facility] [address] [facility] [address], [place] [address], * (ABNORMAL) BMP - Basic Metabolic Panel (06/21/2024 6:40 AM EDT) NA 140 135 - 145 mmol/L 06/21/2024 7:17 AM EDT [facility] K 4.0 3.5 - 5.3 mmol/L 06/21/2024 7:17 AM EDT [facility] Cl 104 98 - 107 mmol/L 06/21/2024 7:17 AM EDT [facility] CO2 24 24 - 32 mmol/L 06/21/2024 7:17 AM EDT [facility] BUN 15 7 - 23 mg/dL 06/21/2024 7:17 AM EDT [facility] Creatinine 0.74 0.60 - 1.30 mg/dL 06/21/2024 7:17 AM EDT [facility] Glucose 116(H) 65 - 99 mg/dL 06/21/2024 7:17 AM EDT [facility] Calcium 9.7 8.6 - 10.5 mg/dL 06/21/2024 7:17 AM EDT [facility] Anion Gap 12 5 - 15 06/21/2024 7:17 AM EDT [facility] eGFR >90 >=60 mL/min/1. 73m2 06/21/2024 7:17 AM EDT [facility] Comment:The estimated glomer [...] Kauffman MD LAB BLOOD ORDERABLES Final Result [facility] [address] [place] [address], [place] * COLONOSCOPY (05/20/2024) Narrative Procedure Note Justo El MD PhD - 05/20/2024 9:25 AM EDT [facility] Gastroenterology Patient Name: Juan Shaffer Scottie Procedure Date: 05/20/2024 9:25 AM Date of : 1955 Admit Type: Outpatient Age: 69 Room: [place] [address] Gender: Male Note Status: Finalized Attending MD: [...] to obtain the completed interpretation. Workstation ID: [id number] Up-to-date CT equipment and radiation dose reduction [...] evidence for recurrent hernia. Resulting Agency Comment [id number] Procedure Note Iain Jain MD - 01/18/2023 [...] possible to obtain thecompleted interpretation. Workstation ID: [id number] Up-to-date CT equipment and radiation dose reduction [...] or willingness to have curative lung surgery [id number] Up-to-date CT equipment and radiation dose reduction techniques were employed. CTDIvol: 5.6 - 16.0 mGy. DLP: 541 mGy-cm.The following accession numbers are related to this dose report [id number] Narrative 06/20/2018 1:28 PM EDT EXAMINATION: CT [...] For lung cancer screening guidelines, please refer to:https://www.uspreventiveservicestaskforce.org/Page/Document/UpdateSumOsmar collinso-pwlbij-jllmwlqqg Adults Aged 55-77, with a History of [...] or willingness to have curative lung surgery [id number] Up-to-date CT equipment and radiation dose reduction techniques wereemployed. CTDIvol: 5.6 - 16.0 mGy. 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
--- OUTSIDE RECORDS SUMMARY | 2025-09-26 16:07 | XMS_ITS ---
Author Organization [facility] Address [address] [place] [address] Care Team Providers Care Remote Pilot Operator Name Role Phone IgorSaulo Joy Primary Care Provider [phone] Active Problems * This document contains information received from the source organization and may not represent a complete record from that organization. 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 Given potential for this to have contributed [...] supplements MD Juan Martinez : 1955 CSN: [id number] Hyperglycemia 08/18/2019 Overview (08/18/2019): Due to steroids, [...] the AM for any further recs. 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
--- OUTSIDE RECORDS SUMMARY | 2025-09-26 16:07 | XMS_ITS | Encounter Summary ---
Author Organization [employer] [facility] Address [address] [place] [address] Care Team Providers Care Fire Equipment Repairer Inspector Name Role Phone Joy March MD Primary Care Provider [phone] Encounter Details Date Type Department Care Team (Late st Contact Info) Description 01/07/2025 Lab Requisition [facility] - Main Lab [address] [facility] [place] [address] Bre Humphries NP [address] [facility] [address] [place] [address] Other retention of urine Social History Tobacco [...] pneumoniae ESBL(A) KYRA 01/09/2025 8:50 AM EDT [facility] ([facility] Comment: THIS ORGANISM IS [...] le KYRA >=320 ug/ml: Resistant Bre Humphries LABOR MEDIATOR LAB MICROBIOLOGY - GENERA L ORDERABLES Final Result [facility] ([facility] [address] [place] [address], documented in this encounter Visit Diagnoses Diagnosis Other retention of urine documented in this encounter Additional Health Concerns Infection Onset Date Last Indicated Resolved Time ESBL 01/06/2025 01/06/2025 documented as of this encounter Care Teams Fire Equipment Repairer Inspector Relationship Specialty Start Date End Date Joy March MD [address] [place] [address] PCP - General Internal Medicine 01/07/25 documented as of this encounter
--- OUTSIDE RECORDS SUMMARY | 2025-09-26 16:08 | XMS_ITS | Encounter Summary ---
Author Organization [facility] Address [address] [place] [address] Care Team Providers Care Field Education Director Name Role Phone RoldanBrewer, Joy Primary Care Provider [phone] Reason for Visit * Reason Onset Date Comments PAC Appt Request - New 02/28/2023 Encounter Details Date Type Department Care Team (Late st Contact Info) Description 02/28/2023 Telephone [facility] Patient Access [facility] [address] [place] [address] Telephone Intake, Staff PAC Appt Request - [...] 8:30 am Pt can be reached @ [phone] Thank you PAC documented in this encounter Plan of Treatment Not on file documented as of this encounter Visit Diagnoses Not on filedocumented in this encounter Additional Health Concerns Infection Onset Date Last Indicated Resolved Time 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
--- OUTSIDE RECORDS SUMMARY | 2025-09-26 16:08 | XMS_ITS | Encounter Summary ---
Author Organization [facility] Address [address] [place] [address] Care Team Providers Care Block Chopper Hand Name Role Phone IgorJoy Vernon Primary Care Provider Reason for Visit * Reason Onset Date Comments Scheduling Appointment 11/17/2020 Encounter Details Date Type Department Care Team (Late st Contact Info) Description 11/17/2020 Telephone [facility] [address] [place] [address] Telephone Intake, Staff Scheduling Appointment Social History [...] included. MD Mara Morris; P [facility] Neurology Admin Staff Pt was following [...] documented as of this encounter Care Teams Block Chopper Hand Relationship Specialty Start Date End Date Joy March [address] [place] [address] PCP - General Family Medicine 02/03/25 documented as of this encounter
--- OUTSIDE RECORDS SUMMARY | 2025-09-26 16:08 | XMS_ITS | Encounter Summary ---
Author Organization [facility] Address [address] [place] [address] Care Team Providers Care Solar Energy Technician Name Role Phone IgorSaulo Joy Primary Care Provider [phone] Encounter Details Date Type Department Care Team (Late st Contact Info) Description 04/29/2023 Zinkia Message [facility] Revenue Cycle Management [address] [place] [address] Joinity, Generic Provider [address] [place] [address] account dispute Social History Tobacco Use [...] documented as of this encounter Care Teams Solar Energy Technician Relationship Specialty Start Date End Date Joy March [address] [place] [address] PCP - General Family Medicine 02/03/25 documented as of this encounter
--- OUTSIDE RECORDS SUMMARY | 2025-09-26 16:08 | XMS_ITS | Encounter Summary ---
Author Organization [facility] Address [address] [place] [address] Care Team Providers Care Welding Machine Operator Thermit Name Role Phone RoldanBrewer, Joy Primary Care Provider [phone] Encounter Details Date Type Department Care Team (Late st Contact Info) Description 02/26/2022 Orders Only [facility] Interventional Radiology [address] [place] [address] Reagan Mendoza NP [address] [place], [place] [phone] Social History Tobacco Use Types Packs/Day Years [...] right middle finger ??? HERNIA REPAIR ??? MI ALLOGRAFT FOR SPINE SURGERY ONLY MORSELIZED Bilateral 08/06/2019 Procedure: ALLOGRAFT, MORSELIZED, OR PLACEMENT OF OSTEOPROMOTIVE MATERIAL, FOR SPINE SURGERY ONLY; Surgeon: Dianne De MD; Location: [facility] OR; Service: Neurosurgery ??? MI ARTHRODESIS POSTERIOR/POSTERIORLATERAL CERVICAL BELOW C2 Bilateral 08/06/2019 Procedure: FUSION, POSTERIOR OR POSTEROLATERAL, CERVICAL BELOW C2, SINGLE LEVEL; Surgeon: Dianne De MD; Location: [facility]; Service: Neurosurgery ??? MI ARTHRODESIS POSTERIOR/POSTEROLATERAL EA ADDL Bilateral 08/06/2019 Procedure: FUSION, POSTERIOR OR POSTEROLATERAL,??EACH ADDITIONAL SEGMENT; Surgeon: Dianne De MD; Location: [facility]; Service: Neurosurgery ??? MI ARTHRODESIS POSTERIOR/POSTEROLATERAL LUMBAR Bilateral 04/28/2020 Procedure: L2-L5 bilateral laminectomies with insitu fusion / possible bilateal facet screw instrumenation; Surgeon: Dianne De MD; Location: [facility]; Service: Neurosurgery ??? MI AUTOGRAFT SPINE SURGERY LOCAL FROM SAME INCISION Bilateral 08/06/2019 Procedure: AUTOGRAFT FOR SPINE SURGERY ONLY (INCLUDES HARVESTING THE GRAFT); LOCAL (EG, RIBS, SPINOUS PROCESS, OR LAMINAR FRAGMENTS) OBTAINED FROM SAME INCISION; Surgeon: Dianne De MD; Location: [facility]; Service: Neurosurgery ??? MI AUTOGRAFT SPINE SURGERY MORSELIZED SEP INCISION Bilateral 04/28/2020 Procedure: PLACEMENT OF AUTOGRAFT, SEPARATE INCISION, SPINE SURGERY; Surgeon: Dianne De MD;Location: [facility]; Service: Neurosurgery ??? MI EXCIS INTRASP LESN,XDURAL,CERVICAL N/A 08/10/2019 Procedure: evacuation of hematoma osterior cervical laminectomy sie ; Surgeon: Dianne De MD; Location: [facility]; Service: Neurosurgery MI I&D, POST SPINE, LUMB/SACR/LUMBOSAC N/A 05/01/2020 Procedure: INCISION AND DRAINAGE, DEEP ABSCESS LUMBAR AND/OR SACRAL SPINE; Surgeon: Dianne De MD; Location: [facility]; Service: Neurosurgery ??? MI INJ CERV/THORAC,W/WO CNTRST N/A ??? MI LAMINEC/FACETECT/FORAMIN,EACH ADDNL Bilateral 04/28/2020 Procedure: LAMINECTOMY, FACETECTOMY, AND FORAMINOTOMY, CERVICAL, THORACIC, OR LUMBAR, EACH ADDITIONAL LEVEL; Surgeon: Dianne De MD; Location: [facility]; Service: Neurosurgery ??? MI LAMINEC/FACETECT/FORAMIN,LUMBAR 1 SEG Bilateral 04/28/2020 Procedure: LAMINECTOMY, FACETECTOMY, AND FORAMINOTOMY, LUMBAR, SINGLE LEVEL; Surgeon: Dianne De MD; Location: [facility]; Service: Neurosurgery MI LAMINECTOMY,>2 SGMT,CERVICAL Bilateral 08/06/2019 Procedure: POSTERIOR BILATERAL C3-C6 LAMINECTOMY AND FUSION/ INSTRUMENTATION; Surgeon: Dianne De MD; Location: [facility]; Service: Neurosurgery ??? MI POSTERIOR NON-SEGMENTAL INSTRUMENTATION Bilateral 04/28/2020 Procedure: POSTERIOR NON-SEGMENTAL INSTRUMENTATION; Surgeon: Dianne De MD; Location: [facility]; Service: Neurosurgery ??? MI POSTERIOR SEGMENTAL INSTRUMENTATION 3-6 VRT SEG Bilateral [...] day., Disp: 90 tablet, Rfl: 1 ??? catheter 16 Fr misc, [...] documented as of this encounter Care Teams Welding Machine Operator Thermit Relationship Specialty Start Date End Date Joy March [address] [place] [address] PCP - General Family Medicine 02/03/25 documented as of this encounter
--- OUTSIDE RECORDS SUMMARY | 2025-09-26 16:08 | XMS_ITS | Encounter Summary ---
Author Organization [facility] Address [address] [place] [address] Care Team Providers Care Modeling Teacher Name Role Phone Joaquim Joy Primary Care Provider [phone] Reason for Visit * Reason Onset Date Comments PAC Rx Questions 03/05/2024 Encounter Details Date Type Department Care Team (Late st Contact Info) Description 03/05/2024 Telephone [facility] Patient Access Center [address] [place] [address] Telephone Intake, Staff PAC Rx Questions Social [...] 03/05/2024 11:17 AM EDT Liam calling from [facility] is regard to pts prednisone, They need to clarify which dose & directs should be prescribed to pt as they received two. 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
== END 2025-09-26 13:50 | disposition home or self-care (01) ==
LOC: HO.HPHYS 12:55
PROVIDERS: PCP Internal Medicine; Visit Provider Physician Assistant
DX: M06.9 Rheumatoid arthritis, unspecified (principal); M19.012 Primary osteoarthritis, left shoulder; M25.511 Pain in right shoulder; M25.512 Pain in left shoulder
CPT/HCPCS: 99213

== ENCOUNTER → 2025-09-26 12:55 | Outpatient (BNVA) | payer MEDICARE, SELFPAY | PROVIDERS: PCP Internal Medicine; Visit Provider Physician Assistant | DX: M06.09 Rheumatoid arthritis without rheumatoid factor, multiple sites (principal); M19.012 Primary osteoarthritis, left shoulder; M25.511 Pain in right shoulder; M25.512 Pain in left shoulder | CPT/HCPCS: 99212 ==